=== PATIENT | female | born 1950 | race Caucasian/White ===

== ENCOUNTER → 2016-12-30 | Outpatient (CLI) | payer MEDICARE ==
[~2016-12-30] MED LIST: ALBU83IN INH; AMIT25TA PO; ASPI81TA45 PO; AUGM875T27 PO; AZIT500T2 PO; Albuterol/Ipratropium NEB; CEFD1CAP8 PO; CYMB60CA3 PO; EXCETAB81 PO; HYDR-3713 PO; IMIT50TA PO; K-TA1TAB PO; LISI10TA4 PO; METO10TA2 PO; NICO14DI20 TD; OMEP40CA2 PO; PRED10TA PO; PRED20TA PO
--- NOTE | 2016-12-30 13:45 | REP ---
RIGHT LOWER EXTREMITY DOPPLER VENOUS ULTRASOUND: 12/30/2016. Comparison: None. Clinical history: Pain and swelling in right inguinal region. Evaluate for DVT. Technique: The deep venous system of the right lower extremity is evaluated with escobar scale imaging, compression ultrasound, color imaging and duplex Doppler interrogation. Examination from the groin through the popliteal fossa into the proximal calf. Findings: There is full compressibility from the common femoral vein in the inguinal region through the popliteal vein. Color imaging confirms patency throughout the course of the deep venous system. There is respiratory variation and augmented flow at all levels. 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 Impression: 1. No Doppler venous ultrasound evidence of DVT in the right lower extremity. Signed by Tip Rocha MD 12/30/2016 01:36 P
== END ==
LOC: M RAD 13:10
PROVIDERS: ATTEND Family Medicine
DX: I80.01 Phlebitis and thrombophlebitis of superficial vessels of right lower extremity (principal)

== ENCOUNTER 2017-03-10 18:43 | Emergency (ER) | payer MEDICARE ==
[~2017-03-10] VITALS: Ht 167.6 cm; Wt 70.3 kg
[2017-03-10] MEDS ORDERED: MECL12.575 PO (19:05)
[2017-03-10] MEDS ORDERED: CYCL5TA PO (19:05)
[2017-03-10] MEDS ORDERED: PANTOPRAZOLE 40MG INJ (PROTONIX) (C9113) IV ONE (19:30)
[2017-03-10] MEDS ORDERED: NS 1,000 ML IV ONE (19:30)
[2017-03-10 20:08] LABS: BASO % 0.3 % (0.0-1.0); EOS # 0.1 K/mm3 (0.0-0.50); EOS % 2.6 % (0.0-3.0); LARGE UNSTAINED CELL # 0.1 K/mm3 (0.0-0.4); LARGE UNSTAINED CELL % 2.1 % (0.0-4.0); LYMPH % 16.5 % (24.0-44.0); MEAN CORPUSCULAR HEMOGLOBIN 32.8 pg (27.0-33.0); MEAN CORPUSCULAR HGB CONC 33.6 g/dl (32.0-36.5); MEAN CORPUSCULAR VOLUME 97.5 fl (80.0-96.0); MONO # 0.4 K/mm3 (0.0-0.8); MONO % 8.3 % (0.0-5.0); NEUTROPHILS # 3.7 K/mm3 (1.8-7.7); NEUTROPHILS % 70.2 % (36.0-66.0); PLATELET COUNT, AUTOMATED 173 k/mm3 (150-450); RED CELL DISTRIBUTION WIDTH 13.6 % (11.5-14.5); WHITE BLOOD COUNT 5.2 K/mm3 (4.0-10.0)
[2017-03-10 20:16] LABS: INR 0.9
[2017-03-10 20:27] LABS: ALBUMIN/GLOBULIN RATIO 1.18 (1.00-1.93); ALKALINE PHOSPHATASE 78 U/L (45-117); ALT/SGPT 30 U/L (12-78); ANION GAP 7 MEQ/L (8-16); AST/SGOT 11 U/L (15-37); BILIRUBIN,DIRECT < 0.1 MG/DL (0.0-0.2); BILIRUBIN,TOTAL 0.2 MG/DL (0.2-1.0); BLOOD UREA NITROGEN 19 MG/DL (7-18); CARBON DIOXIDE LEVEL 27 MEQ/L (21-32); CHLORIDE LEVEL 105 MEQ/L (98-107); CREATININE FOR GFR 0.76 MG/DL (0.55-1.02); GLOMERULAR FILTRATION RATE > 60.0 (>45); GLUCOSE, FASTING 110 MG/DL (80-110); POTASSIUM SERUM 3.7 MEQ/L (3.5-5.1); SODIUM LEVEL 139 MEQ/L (136-145); TOTAL PROTEIN 7.4 GM/DL (6.4-8.2)
[2017-03-10] MEDS ORDERED: ISOVUE-370 76% 100ML VIAL (Q9967) As Ordered ONE (21:06)
--- NOTE | 2017-03-10 21:50 | REPUSA ---
CT of the abdomen and pelvis with contrast Clinical statement: Pain. Technique: Multiple axial CT images were obtained from the base of the lungs through the floor of the pelvis utilizing 5 mm axial slices after administration of nonionic intravenous contrast. Coronal an d sagittal reconstructions were also obtained. Comparison: 11/09/2015. Findings: Chest: The visualized lung bases are clear. Abdomen: The liver, spleen, pancreas, kidneys, gallbladder, and left adrenal gland are unremarkable. There is a mixed attenuation nodule in the right adrenal gland, measuring 2.2 x 2.3 cm. The aorta de monstrates mild atherosclerotic changes, but is within normal limits. There is no evidence of abdomin al lymphadenopathy or ascites. Pelvis: The bowel is unremarkable, with no obstructive or inflammatory changes. There is minimal sigm oid diverticulosis without evidence of diverticulitis. The urinary bladder is within normal limits. T he other pelvic structures appear grossly intact. There is no evidence of pelvic lymphadenopathy or a scites. Bones: There are no suspicious osseous abnormalities seen. Impression: 1. No obstructive or inflammatory bowel changes. Mild diverticulosis. 2. Right adrenal nodule, grossly stable. 3. The hydronephrosis or nephrolithiasisseen on the prior study appears to have resolved.
[2017-03-10 22:38] VITALS: BP 178/89
--- NOTE | 2017-03-11 16:31 | ED PDOC ---
Post-Departure Follow-Up dr ball faxed formal report of ct abd/p for fu Alban Roque MD Mar 11, 2017 16:31
== END 2017-03-10 22:39 | disposition home or self-care (01) ==
LOC: M ED 19:52
DX: K92.1 Melena (principal); K92.2 Gastrointestinal hemorrhage, unspecified; I10 Essential (primary) hypertension; J44.9 Chronic obstructive pulmonary disease, unspecified; K21.9 Gastro-esophageal reflux disease without esophagitis; M54.9 Dorsalgia, unspecified; K25.9 Gastric ulcer, unspecified as acute or chronic, without hemorrhage or perforation; Z87.440 Personal history of urinary (tract) infections; Z87.442 Personal history of urinary calculi; Z79.899 Other long term (current) drug therapy; Z79.82 Long term (current) use of aspirin; Z87.891 Personal history of nicotine dependence
CPT/HCPCS: 74177; 80048; 80076; 83605; 85025; 85610; 85730; 86850; 86900; 86901; 96374; 99284; C9113; Q9967

== ENCOUNTER → 2017-03-23 | Outpatient (CLI) | payer MEDICARE ==
[~2017-03-23] MED LIST changes: +CYCL5TA PO; +MECL12.575 PO
--- NOTE | 2017-03-23 17:25 | REP ---
HISTORY: Renal calculi. COMPARISON: 11/13/2015 A few calcifications are suspected superimposed over the right nephric silhouette. Otherwise, obscured by intestinal content. Most of the right nephric silhouette is obscured by intestinal content. The organ silhouettes, insofar as delineated are otherwise unremarkable. There is no free air. Gas and stool are seen throughout the colon and within the rectosigmoid region. There is no change in the osseous structures. IMPRESSION: Possible calcification left kidney with findings and limitations as described above. Signed by Ion Baker DO 03/24/2017 10:07 A
== END ==
LOC: M SMT 11:20
PROVIDERS: ATTEND Urology
DX: N20.0 Calculus of kidney (principal)

== ENCOUNTER 2017-04-03 10:05 | Emergency (ER) | payer MEDICARE ==
[~2017-04-03] VITALS: Ht 165.1 cm; Wt 76.5 kg
[~2017-04-03 10:05] MED LIST changes: -AUGM875T27 PO; +AUGM875T28 PO; -CYCL5TA PO; +CYCL5TAB PO
--- NOTE | 2017-04-03 12:37 | REP ---
Clinical: Pain and swelling . Technique: Sanchez scale and color Doppler evaluation using linear high frequency transducer. Findings: Ultrasound examination of the right lower extremity deep venous structures from the common femoral vein to the popliteal vein demonstrates normal compressibility flow and wave patterns in response to respiration and augmentation. There is no evidence for deep venous thrombosis. 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 Impression: No evidence for deep venous thrombosis. Signed by Ranjeet Luis MD 04/03/2017 12:28 P
[2017-04-03] MEDS ORDERED: ACET30TAB PO (12:46)
[2017-04-03 13:03] VITALS: BP 162/82
[2017-05-22] MEDS ORDERED: ALBU17IN INH (09:17)
[2017-05-22] MEDS ORDERED: ASPI1TAB PO (09:17)
[2017-05-22] MEDS ORDERED: LISI10TA2 PO (09:17)
== END 2017-04-03 13:04 | disposition home or self-care (01) ==
LOC: M ED 11:11
DX: R60.9 Edema, unspecified (principal); M79.671 Pain in right foot; F41.9 Anxiety disorder, unspecified; F33.9 Major depressive disorder, recurrent, unspecified; G43.909 Migraine, unspecified, not intractable, without status migrainosus; Z79.899 Other long term (current) drug therapy; Z79.82 Long term (current) use of aspirin; Z87.891 Personal history of nicotine dependence

== ENCOUNTER → 2017-05-13 | Outpatient (CLI) | payer MEDICARE ==
[~2017-05-13] MED LIST changes: +ACET30TAB PO; +ADV100INH INH; +ALBU17IN INH; +ASPI1TAB PO; +ASPI81TAEC PO; +CYCL10TA PO; +IBUP1TAB6 PO; +IPRASOL4 INH; +LISI10TA2 PO; +MECL-68 PO; +NITR100C39 PO; +PEG1POW PO; +PHEN-500 PO; +PHEN200T22 PO; +POTA10CA PO; +PRED10TA2 PO; +SENN1TAB2 PO; +SUCR1TAB56 PO
--- NOTE | 2017-05-13 14:03 | REP ---
RIGHT FINGERS, FOUR VIEWS: HISTORY: Crush injury. A small ossified density is present ventral to the distal interphalangeal joint of the 3rd digit. This represents ligamentous or tendon calcification or possibly an avulsion fracture fragment. The joint spaces are normal in appearance. There is no dislocation. A defect is present in the overlying soft tissue. IMPRESSION: There is a small ossified density ventral to the distal interphalangeal joint of the 3rd digit. This represents ligamentous or tendon calcification or possibly an avulsion fracture fragment. Signed by Jimenez Berry MD 05/13/2017 02:09 P
== END ==
LOC: M ADAMS 10:29
PROVIDERS: ATTEND Physician Assistant
DX: S67.192A Crushing injury of right middle finger, initial encounter (principal); X58.XXXA Exposure to other specified factors, initial encounter; Y93.9 Activity, unspecified; Y92.9 Unspecified place or not applicable; Y99.8 Other external cause status

== ENCOUNTER 2017-06-04 07:05 | Outpatient (CLI) | payer MEDICARE ==
[~2017-06-04] VITALS: Ht 167.6 cm; Wt 77.1 kg
[~2017-06-04 07:05] MED LIST changes: -ADV100INH INH; -ASPI81TAEC PO; -CYCL10TA PO; -IBUP1TAB6 PO; -IPRASOL4 INH; -MECL-68 PO; -NITR100C39 PO; -PEG1POW PO; -PHEN-500 PO; -PHEN200T22 PO; -POTA10CA PO; -PRED10TA2 PO; -SENN1TAB2 PO; -SUCR1TAB56 PO
[2017-06-04] MEDS ORDERED: LR 1,000 ML IV SCH (07:15)
[2017-06-04] MEDS ORDERED: PROPOFOL 500 MG/50 ML VIAL As Ordered ONE (08:30)
[2017-06-04] MEDS ORDERED: LIDOCAINE 2% INJ 100 MG/5 ML SDV (FOR ANES.) As Ordered ONE (08:30)
[2017-06-04] MEDS ORDERED: GLYCOPYRROLATE INJ 0.2 MG/ML 2 ML VIAL As Ordered ONE (09:00)
--- NOTE | 2017-06-04 09:32 | ROOR ---
Patient Name: Ericka Kerr Procedure Date: 06/04/2017 8:24 AM Date of : 1950 Age: 66 Room: [facility] Gender: Female Note Status: Finalized Procedure: Upper GI endoscopy Indications: Hematochezia, Personal history of peptic ulcer disease Providers: Ezio Olivas MD Referring MD: Vickey Smith MD Requesting Provider: Medicines: Monitored Anesthesia Care Complications: No immediate complications. Procedure: Pre-Anesthesia Assessment: - Prior to the procedure, a History and Physical was performed, and patient medications and allergies were reviewed. The patient is competent. The risks and benefits of the procedure and the sedation options and risks were discussed with the patient. All questions were answered and informed consent was obtained. Patient identification and proposed procedure were verified by the physician, the nurse and the anesthesiologist in the procedure room. Mental Status Examination: alert and oriented. Airway Examination: normal oropharyngeal airway and neck mobility. CV Examination: regular rate and rhythm. Prophylactic Antibiotics: The patient does not require prophylactic antibiotics. Prior Anticoagulants: The patient has taken no previous anticoagulant or antiplatelet agents. ASA Grade Assessment: II - A patient with mild systemic disease. After reviewing the risks and benefits, the patient was deemed in satisfactory condition to undergo the procedure. The anesthesia plan was to use monitored anesthesia care (MAC). Immediately prior to administration of medications, the patient was re-assessed for adequacy to receive sedatives. The heart rate, respiratory rate, oxygen saturations, blood pressure, adequacy of pulmonary ventilation, and response to care were monitored throughout the procedure. The physical status of the patient was re-assessed after the procedure. The Endoscope was introduced through the mouth, and advanced to the second part of duodenum. The upper GI endoscopy was accomplished without difficulty. The patient tolerated the procedure well. Findings: The examined esophagus was normal. The Z-line was regular and was found 38 cm from the incisors. A few localized, small bleeding erosions were found on the posterior wall of the stomach. There were no stigmata of recent bleeding. A benign-appearing, intrinsic mild stenosis was found at the pylorus. This was traversed. Biopsies were taken with a cold forceps for histology. Estimated blood loss was minimal. One non-bleeding superficial gastric ulcer with adherent clot was found at the pylorus. Biopsies were taken with a cold forceps for histology. This ulcer was found in the pyloric channel. There was some adherent granular brown material which may have represented old blood or necrotic material The examined duodenum was normal. Impression: - Normal esophagus. - Z-line regular, 38 cm from the incisors. - Bleeding erosive gastropathy. - Gastric stenosis was found at the pylorus. Biopsied. - Non-bleeding gastric ulcer with adherent clot. Biopsied. - Normal examined duodenum. Recommendation: - Repeat upper endoscopy in 2 months to check healing. Ezio Olivas MD 06/04/2017 9:31:58 AM Number of Addenda: 0 Note Initiated On: 06/04/2017 8:24 AM Estimated Blood Loss: Estimated blood loss was minimal.
[2017-06-04 09:45] VITALS: BP 155/81
--- NOTE | 2017-06-04 09:58 | ROOR ---
Patient Name: Ericka Kerr Procedure Date: 06/04/2017 8:25 AM Date of : 1950 Age: 66 Room: [facility] Gender: Female Note Status: Finalized Procedure: Colonoscopy Indications: Rectal bleeding, Follow-up for history of adenomatous polyps in the colon Providers: Ezio Olivas MD Referring MD: Vickey Smith MD Requesting Provider: Medicines: Monitored Anesthesia Care Complications: No immediate complications. Procedure: Pre-Anesthesia Assessment: - Prior to the procedure, a History and Physical was performed, and patient medications and allergies were reviewed. The patient is competent. The risks and benefits of the procedure and the sedation options and risks were discussed with the patient. All questions were answered and informed consent was obtained. Patient identification and proposed procedure were verified by the physician, the nurse and the anesthesiologist in the procedure room. Mental Status Examination: alert and oriented. Airway Examination: normal oropharyngeal airway and neck mobility. CV Examination: regular rate and rhythm. Prophylactic Antibiotics: The patient does not require prophylactic antibiotics. Prior Anticoagulants: The patient has taken no previous anticoagulant or antiplatelet agents. ASA Grade Assessment: II - A patient with mild systemic disease. After reviewing the risks and benefits, the patient was deemed in satisfactory condition to undergo the procedure. The anesthesia plan was to use monitored anesthesia care (MAC). Immediately prior to administration of medications, the patient was re-assessed for adequacy to receive sedatives. The heart rate, respiratory rate, oxygen saturations, blood pressure, adequacy of pulmonary ventilation, and response to care were monitored throughout the procedure. The physical status of the patient was re-assessed after the procedure. The Colonoscope was introduced through the anus and advanced to the cecum, identified by the ileocecal valve. The colonoscopy was performed without difficulty. The patient tolerated the procedure well. The quality of the bowel preparation was good but there was some retained matter which obscured the cecum. Findings: The perianal exam findings include non-thrombosed external hemorrhoids and thrombosed external hemorrhoids. Multiple medium-mouthed diverticula were found in the sigmoid colon. Impression: - Non-thrombosed external hemorrhoids and thrombosed external hemorrhoids found on perianal exam. - Diverticulosis in the sigmoid colon. - No specimens collected. Recommendation: - Discharge patient to home. - Resume previous diet. - Continue present medications. Ezio Olivas MD 06/04/2017 9:58:37 AM Number of Addenda: 0 Note Initiated On: 06/04/2017 8:25 AM Estimated Blood Loss: Estimated blood loss: none.
== END 2017-06-04 09:55 | disposition home or self-care (01) ==
LOC: M OPP 07:05
PROVIDERS: ATTEND Surgery
DX: K62.5 Hemorrhage of anus and rectum (principal); Z86.010 Personal history of colon polyps; K64.5 Perianal venous thrombosis; K57.30 Diverticulosis of large intestine without perforation or abscess without bleeding; Z87.11 Personal history of peptic ulcer disease; K92.1 Melena; K25.4 Chronic or unspecified gastric ulcer with hemorrhage; K31.1 Adult hypertrophic pyloric stenosis; K92.2 Gastrointestinal hemorrhage, unspecified; K31.89 Other diseases of stomach and duodenum; R10.13 Epigastric pain; J44.9 Chronic obstructive pulmonary disease, unspecified; F41.9 Anxiety disorder, unspecified; F32.9 Major depressive disorder, single episode, unspecified; M54.2 Cervicalgia; G43.909 Migraine, unspecified, not intractable, without status migrainosus; Z79.82 Long term (current) use of aspirin; Z79.899 Other long term (current) drug therapy
CPT/HCPCS: 43239; 88305; G0105

== ENCOUNTER 2017-06-15 12:25 | Emergency (ER) | payer MEDICARE ==
[~2017-06-15] VITALS: Ht 165.1 cm; Wt 77.3 kg
[2017-06-15 12:25] VITALS: BP 148/84
[~2017-06-15 12:25] MED LIST changes: -ADV100INH INH; -ASPI81TAEC PO; -CYCL10TA PO; -IBUP1TAB6 PO; -IPRASOL4 INH; -MECL-68 PO; -NITR100C39 PO; -PEG1POW PO; -PHEN-500 PO; -PHEN200T22 PO; -POTA10CA PO; -PRED10TA2 PO; -SENN1TAB2 PO; -SUCR1TAB56 PO
[2017-06-15] MEDS ORDERED: SUCR1TAB56 PO (12:37)
[2017-06-16] MEDS ORDERED: IBUP1TAB6 PO (13:07)
[2017-06-16] MEDS ORDERED: PHEN200T22 PO (13:07)
[2017-06-16] MEDS ORDERED: NITR100C39 PO (13:07)
[2017-06-16] MEDS ORDERED: MECL-68 PO (20:06)
[2017-06-16] MEDS ORDERED: IPRASOL4 INH (20:06)
[2017-06-16] MEDS ORDERED: PHEN-500 PO (20:06)
[2017-06-16] MEDS ORDERED: POTA10CA PO (20:06)
[2017-06-16] MEDS ORDERED: ASPI81TAEC PO (20:06)
[2017-06-16] MEDS ORDERED: CYCL10TA PO (20:06)
== END 2017-06-15 13:13 | disposition left against medical advice (07) ==
LOC: M ED 12:25
DX: R10.9 Unspecified abdominal pain (principal); Z53.29 Procedure and treatment not carried out because of patient's decision for other reasons

== ENCOUNTER → 2017-06-15 | Outpatient (REF) | payer MEDICARE ==
[~2017-06-15] MED LIST changes: +ADV100INH INH; +ASPI81TAEC PO; +CYCL10TA PO; +IBUP1TAB6 PO; +IPRASOL4 INH; +MECL-68 PO; +NITR100C39 PO; +PEG1POW PO; +PHEN-500 PO; +PHEN200T22 PO; +POTA10CA PO; +PRED10TA2 PO; +SENN1TAB2 PO; +SUCR1TAB56 PO
== END ==
LOC: M LAB REF 20:15
PROVIDERS: ATTEND Physician Assistant
DX: N39.0 Urinary tract infection, site not specified (principal)

== ENCOUNTER 2017-06-16 12:50 | Inpatient (IN) | payer MEDICARE ==
[~2017-06-16] VITALS: Ht 165.1 cm; Wt 77.6 kg
[~2017-06-16 12:50] MED LIST changes: +SUCR1TAB56 PO
[2017-06-16] MEDS ORDERED: IBUP1TAB6 PO (13:07)
[2017-06-16] MEDS ORDERED: NITR100C39 PO (13:07)
[2017-06-16] MEDS ORDERED: PHEN200T22 PO (13:07)
[2017-06-16] MEDS ORDERED: ONDANSETRON 4MG/2ML VIAL (J2405) IV ONE (13:30)
[2017-06-16] MEDS ORDERED: MORPHINE 2 MG/ML 1ML SYRINGE IV ONE (13:30)
[2017-06-16 13:34] LABS: BASO % 0.1 % (0.0-1.0); EOS # 0.1 K/mm3 (0.0-0.50); EOS % 0.8 % (0.0-3.0); LARGE UNSTAINED CELL # 0.1 K/mm3 (0.0-0.4); LARGE UNSTAINED CELL % 1.3 % (0.0-4.0); LYMPH # 0.4 K/mm3 (1.5-4.5); LYMPH % 2.1 % (24.0-44.0); MEAN CORPUSCULAR HEMOGLOBIN 32.2 pg (27.0-33.0); MEAN CORPUSCULAR HGB CONC 32.6 g/dl (32.0-36.5); MEAN CORPUSCULAR VOLUME 98.6 fl (80.0-96.0); MONO # 0.7 K/mm3 (0.0-0.8); MONO % 6.7 % (0.0-5.0); NEUTROPHILS # 9.3 K/mm3 (1.8-7.7); NEUTROPHILS % 89.1 % (36.0-66.0); PLATELET COUNT, AUTOMATED 132 k/mm3 (150-450); RED CELL DISTRIBUTION WIDTH 13.9 % (11.5-14.5); WHITE BLOOD COUNT 10.5 K/mm3 (4.0-10.0)
[2017-06-16 13:54] LABS: ALBUMIN 3.5 GM/DL (3.2-5.2); ALBUMIN/GLOBULIN RATIO 1.06 (1.00-1.93); ALKALINE PHOSPHATASE 72 U/L (45-117); ALT/SGPT 24 U/L (12-78); ANION GAP 10 MEQ/L (8-16); AST/SGOT 14 U/L (15-37); BILIRUBIN,DIRECT 0.1 MG/DL (0.0-0.2); BLOOD UREA NITROGEN 22 MG/DL (7-18); CALCIUM LEVEL 8.7 MG/DL (8.8-10.2); CARBON DIOXIDE LEVEL 23 MEQ/L (21-32); CHLORIDE LEVEL 104 MEQ/L (98-107); CREATININE FOR GFR 0.93 MG/DL (0.55-1.02); GLOMERULAR FILTRATION RATE > 60.0 (>45); GLUCOSE, FASTING 150 MG/DL (80-110); POTASSIUM SERUM 3.5 MEQ/L (3.5-5.1); SODIUM LEVEL 137 MEQ/L (136-145); TOTAL PROTEIN 6.8 GM/DL (6.4-8.2)
[2017-06-16 14:02] LABS: BILIRUBIN,TOTAL 0.4 MG/DL (0.2-1.0)
--- NOTE | 2017-06-16 14:39 | REP ---
Clinical: Abdominal pain. Distension. Technique: Upright view of the chest with supine and upright views of the abdomen and pelvis. Findings: Upright view of the chest suggests chronic changes with basilar atelectasis. No free air below the diaphragm to suspect pneumoperitoneum. Supine and upright views of the abdomen and pelvis demonstrate nonspecific bowel gas pattern without obstruction or perforation. Hepatomegaly cannot be excluded. No abnormal calcifications. Skeletal structures are intact. Impression: Nonspecific bowel gas pattern. Possible hepatomegaly. Trace basilar atelectasis cannot be excluded. Signed by Ranjeet Luis MD 06/16/2017 02:31 P
--- NOTE | 2017-06-16 15:33 | REP ---
Clinical: Renal colic. Comparison: 03/10/2017. Findings: Evaluation of the urinary tract system demonstrates asymmetric right perinephric and periureteral stranding without hydronephrosis and without obstructing ureteral calculus. Findings may reflect pyelonephritis and should be correlated clinically. The left kidney demonstrates 2 mm nonobstructing renal calculi and renovascular calcifications without perinephric stranding or hydronephrosis. The bilateral ureters and bladder appear normal. Lung bases demonstrate chronic changes. Visualized heart and pericardium demonstrate small pericardial effusion. Liver is borderline hepatomegaly. Spleen, pancreas, gallbladder, and bilateral adrenal glands are normal. Right adrenal adenoma remains stable. The enteric system is without obstruction or acute inflammatory process although mild to moderate fecal stasis and constipation cannot be excluded. Pelvis demonstrates normal bladder and age-appropriate uterus/adnexa. No ascites. No free air. No adenopathy. Atherosclerotic changes to the vasculature noted without aneurysm. Musculoskeletal structures demonstrate age-related changes. Impression: 1. Mild asymmetric and relatively acute right-sided perinephric stranding without hydroureternephrosis or obstructing calculus. Findings may reflect pyelonephritis or recently passed stone. Left kidney with 2 mm nonobstructing calculus. 2. Mild fecal stasis and possible constipation. 3. Stable right adrenal adenoma. 4. No further acute abdominopelvic pathology appreciated. Signed by Ranjeet Luis MD 06/16/2017 03:25 P
[2017-06-16 16:29] LABS: MICROSCOPIC INDICATED? MAN YES (NO)
[2017-06-16 16:40] LABS: BACTERIA, URINE NONE SEEN; HYALINE CAST, URINE NONE SEEN /lpf (0-1); RBC, URINE 0-1 /hpf (0-3); SQUAMOUS EPITHELIAL CELL URINE SMALL AMOUNT /hpf (SMALL AMT); WBC, URINE 0-1 /hpf (0-3)
[2017-06-16 16:41] LABS: MICROSCOPIC EXAM PERFORMED
[2017-06-16] MEDS ORDERED: NORCO, ANEXSIA 5/325MG TABLET (HYDROcodone/ACETAMINOPHEN) PO ONE (16:45)
[2017-06-16] MEDS ORDERED: NS 1,000 ML IV SCH ×2 (17:29→20:45)
[2017-06-16] MEDS ORDERED: ONDANSETRON 4MG/2ML VIAL (J2405) IV PRN (17:30)
[2017-06-16] MEDS: ACETAMINOPHEN TAB 650MG DOSE (2X325MG) PO PRN (17:41)
--- NOTE | 2017-06-16 19:19 | IPN ---
DATE: 06/16/2017 CODE STATUS: Full code. CHIEF COMPLAINT: Abdominal/flank pain. HISTORY OF PRESENT ILLNESS: A 66-year-old female presented to the emergency department with abdominal discomfort with radiation to the left flank, back pain. She denies any fevers but says that she has had some chills, some nausea with no vomiting, and she has noticed some lower extremity pain for the last few days. She was started on Macrobid and Pyridium for a urinary tract infection a few days ago by her primary care provider. That has since gotten worse, and she has described having some dysuria. OTHER SIGNIFICANT HISTORY: Includes recent bone marrow biopsy at [facility] for a possible underlying malignancy. She is vague about her history regarding this but states that she was told that she may have an underlying gastric cancer. OTHER SIGNIFICANT PAST MEDICAL HISTORY: 1. Chronic obstructive pulmonary disease (COPD). 2. Migraines. 3. Gastroesophageal reflux disease (GERD). 4. Hypertension. 5. History of ovarian cyst. 6. History of nephrolithiasis. 7. Left eye blindness. 8. Right eye floaters. 9. Difficulty hearing. 10. Tobacco use. FAMILY HISTORY: Noncontributory. SOCIAL HISTORY: Tobacco use. Denies alcohol. ALLERGIES: No known drug allergies. HOME MEDICATIONS: - Shannon 5/325 one tablet every 6 hours as needed - albuterol inhaler as directed - albuterol nebulizer as directed - Elavil 12.5 mg at bedtime - aspirin 81 mg daily - Flexeril 10 mg twice a day - Cymbalta 60 mg daily - Excedrin Extra Strength two tablets every 6 hours as needed for migraines - ibuprofen 600 mg every 6 hours as needed for pain - meclizine 12.5 mg three times a day as needed - Reglan 10 mg four times a day as needed for migraines - omeprazole 40 mg twice a day - Pyridium 200 mg three times a day - potassium chloride 20 mEq daily - Carafate 1 gram four times a day - Imitrex 25 mg by mouth as needed for migraines - lisinopril/hydrochlorothiazide 10/12.5 mg daily - Macrobid 100 mg twice a day REVIEW OF SYSTEMS: CONSTITUTIONAL: Vague chills. No fevers. No rigors. Decreased appetite. HEENT: No headache, lightheadedness, dizziness, blurry vision, double vision, or tinnitus. No difficulty with speech or swallow. PULMONARY: Positive history of COPD, but she denies productive sputum, cough, wheeze. CARDIOVASCULAR: No chest pain, paroxysmal nocturnal dyspnea (PND), orthopnea; however, she has had some vague lower extremity edema and pain in the calves. GASTROINTESTINAL: No nausea, vomiting, diarrhea. Bowel movements are regular. GENITOURINARY: She has had some dysuria, left flank pain but denies any hematuria. MUSCULOSKELETAL: No bone, muscle, or joint pain, swelling, or erythema. NEUROLOGIC: No paresthesias, paralysis. She does have a history of migraines. ENDOCRINE: Negative for diabetes, negative for thyroid disorder. LYMPHATICS: No lumps, bumps, swelling in the neck, axilla, or groin. No night sweats. No weight loss. HEMATOLOGY: No bleeding or bruising disorder. No prior history of venous thromboembolism. ONCOLOGY: Questionable history of gastric cancer with recent bone marrow biopsy. We may want to get records from [facility], since she is vague about this history. A 10 point review of systems complete. Pertinent positives are listed. PHYSICAL EXAMINATION: Temperature is 99.4, repeat is 101.3, pulse 128 and regular, blood pressure (BP) 158/71, SpO2 is 90. GENERAL: The patient appears to be in no acute distress. She is alert, pleasant. HEENT: Unremarkable. LUNGS: Clear to auscultation. HEART: Regular rate, although she does appear to have tachycardia. ABDOMEN: Vague abdominal discomfort with costovertebral angle (CVA) tenderness noted on the left. EXTREMITIES: She has no edema but positive calf tenderness bilaterally. NEUROLOGIC: Cranial nerves II-XII grossly intact. LABORATORY DATA AND DIAGNOSTICS: A 12-lead EKG: Sinus tachycardia with ventricular rate of 135. White count 10.5, hemoglobin 12.3, hematocrit 37.6, platelets 132,000. Sodium 137, potassium 3.5, chloride 104, bicarbonate 23, anion gap 10, BUN is 22, creatinine 0.93, glucose 150. Lactic acid 1.2. Total bilirubin 0.4, direct bilirubin 0.1, AST 14, ALT 24, alkaline phosphatase 72. Troponin less than 0.02. Albumin 3.5. Lipase 55. Urinalysis obscured and orange, likely due to Pyridium. Urine culture pending. CT of the abdomen and pelvis: Mild asymmetry noted and relative to acute right-sided perinephric stranding without hydroureteronephrosis or obstructing calculus. Mild fecal stasis, possible constipation. Stable right adrenal adenoma. IMPRESSION: Ms. Kerr is a 66-year-old female who presents with urinary symptoms, left flank pain and what appears to be pyelonephritis. She does have signs or symptoms likely of underlying sepsis. Will need to admit her with intravenous (IV) antibiotics, fluids, supportive therapy, and watch her closely due to the pyelonephritis. 1. Acute pyelonephritis. 2. Sepsis. Based on symptomatology, elevated temperature, heart rate, and elevated white count. 3. Sinus tachycardia, likely due to febrile illness. 4. Chronic obstructive pulmonary disease (COPD). 5. Migraines. 6. Gastroesophageal reflux disease (GERD). 7. Hypertension. 8. History of nephrolithiasis. 9. Tobacco use. PLAN: The patient will be admitted to progressive care unit (PCU) on telemetry due to her sinus tachycardia and what appears to be sepsis. Will continue with IV fluids, Rocephin. She does have good renal function. Currently will give her a dose of Motrin to help out with her temperature that is 101.3. Will check blood cultures, urine culture, continue her home medications except for the lisinopril. Deep vein thrombosis (DVT) prophylaxis with Lovenox. DISPOSITION: Anticipate she will be here greater than 2 midnights.
[2017-06-16] MEDS: IBUPROFEN 600 MG TAB PO PRN (19:43)
[2017-06-16] MEDS ORDERED: IPRASOL4 INH (20:06)
[2017-06-16] MEDS ORDERED: PHEN-500 PO (20:06)
[2017-06-16] MEDS ORDERED: POTA10CA PO (20:06)
[2017-06-16] MEDS ORDERED: CYCL10TA PO (20:06)
[2017-06-16] MEDS ORDERED: MECL-68 PO (20:06)
[2017-06-16] MEDS ORDERED: ASPI81TAEC PO (20:06)
[2017-06-16] MEDS ORDERED: METOCLOPRAMIDE 10 MG TAB PO PRN (20:45)
[2017-06-16] MEDS ORDERED: CYCLOBENZAPRINE 10 MG TAB PO PRN (20:45)
--- NOTE | 2017-06-16 20:50 | REPUSA ---
Clinical history: Pain, swelling. Findings: The common femoral, superficial femoral, popliteal, and other deep venous structures compre ss normally and demonstrate normal color Doppler flow. Normal venous waveforms with augmentation are seen. Incidental note is made of the duplicated right superficial femoral vein. Impression: No evidence of deep vein thrombosis in either femoral popliteal venous system.
[2017-06-16 21:00] VITALS: BP 161/69
[2017-06-16] MEDS: MORPHINE 2 MG/ML 1ML SYRINGE IV PRN (21:00)
[2017-06-16] MEDS ORDERED: DULoxetine 30 MG CAP (CYMBALTA) PO SCH (21:00)
[2017-06-16] MEDS: cefTRIAXone SOD 1 GM in D5W MINI-BAG PLUS 50 ML IV SCH (21:18)
[2017-06-16] MEDS: DOCUSATE SODIUM 100 MG CAP PO SCH (21:29)
[2017-06-16] MEDS: ASPIRIN 81 MG ENTERIC TAB PO SCH (21:30)
[2017-06-16] MEDS: OMEPRAZOLE 20 MG CAP PO SCH (21:30)
[2017-06-17] VITALS: BP 114/56
[2017-06-17] MEDS: SUCRALFATE 1 GM TAB PO SCH ×5 (00:39→21:25)
[2017-06-17] MEDS: AMITRIPTYLINE 25 MG TAB PO SCH ×2 (00:40→21:25)
[2017-06-17] MEDS: EXCEDRIN MIGRAINE TABLET PO PRN (00:40)
[2017-06-17] MEDS: SUMAtriptan SUCCINATE 25 MG TAB PO PRN ×3 (02:06→19:34)
[2017-06-17 04:00] VITALS: BP 147/64
[2017-06-17] MEDS: PERCOCET 5MG/325MG TAB PO PRN ×4 (04:00→19:35)
[2017-06-17 07:29] LABS: EOS # 0.1 K/mm3 (0.0-0.50); EOS % 0.7 % (0.0-3.0); LARGE UNSTAINED CELL # 0.1 K/mm3 (0.0-0.4); LARGE UNSTAINED CELL % 1.5 % (0.0-4.0); LYMPH # 0.2 K/mm3 (1.5-4.5); LYMPH % 1.8 % (24.0-44.0); MEAN CORPUSCULAR HGB CONC 33.9 g/dl (32.0-36.5); MEAN CORPUSCULAR VOLUME 97.1 fl (80.0-96.0); MONO # 0.3 K/mm3 (0.0-0.8); MONO % 3.6 % (0.0-5.0); NEUTROPHILS % 92.5 % (36.0-66.0); PLATELET COUNT, AUTOMATED 110 k/mm3 (150-450); RED CELL DISTRIBUTION WIDTH 13.8 % (11.5-14.5); WHITE BLOOD COUNT 8.6 K/mm3 (4.0-10.0)
[2017-06-17] MEDS ORDERED: diphenhydrAMINE INJ 50MG/ML VIAL (J1200) IV ONE (07:30)
[2017-06-17] MEDS ORDERED: METOCLOPRAMIDE INJ 10MG/2ML VIAL (J2765) IV ONE (07:30)
[2017-06-17] MEDS ORDERED: KETOROLAC 30 MG/ML VIAL (J1885) IV ONE (07:30)
[2017-06-17 07:36] VITALS: BP 145/67
[2017-06-17] MEDS: ENOXAPARIN 30 MG/0.3 ML SYR (J1650) SC SCH (07:44)
[2017-06-17] MEDS: DOCUSATE SODIUM 100 MG CAP PO SCH ×2 (07:44→21:25)
[2017-06-17] MEDS: OMEPRAZOLE 20 MG CAP PO SCH ×2 (07:44→21:25)
[2017-06-17] MEDS: POTASSIUM CHLORIDE 10 MEQ SR TABLET PO SCH (07:44)
[2017-06-17] MEDS: ALBUTEROL SULFATE 2.5 MG/0.5 ML INH NEB SOLN NEB PRN ×2 (08:42→14:32)
--- NOTE | 2017-06-17 11:15 | REP ---
Clinical: Chest pain. Dyspnea. Technique: PA and lateral. Comparison: 06/16/2017. Findings: Acute bibasilar atelectasis and small right pleural effusion represent a change from prior examination. Mediastinum and cardiac silhouette are normal. No pneumothorax. Skeletal structures intact. Impression: Acute bibasilar atelectasis and small pleural effusion. Signed by Ranjete Luis MD 06/17/2017 11:06 A
[2017-06-17 12:23] VITALS: BP 125/62
[2017-06-17 13:58] VITALS: BP 118/57
--- NOTE | 2017-06-17 14:14 | IPNPDOC ---
Text Note Date of Service The patient was seen on 06/17/17. NOTE Subjective: Patient is a 66 year old female with a PMHx of COPD (not on O2), HTN, Hx of Nephrolithiasis, Migraine headaches, and GERD who presented to the ER with complaints of abdominal pain radidating to her left and right flanks / back. She deneis any fevers, noted some chills. She was treated for a possible UTI a few days ago with Macrobid and Pyridium by her PCP. She noted that her dysuria failed to improve. She also noted that at [facility] she had a bone marrow biopsy, but wasn 't sure why it was done. I have advised her that we can request the medical records from there. Patient was seen and examined at the bedside. She notes that her abdominal pain is beginning to improve from the point of ER arrival. She does note some shortness of breath and lower leg swelling. Objective: Vitals (See below) General: Lying in bed, no acute distress, comfortable, AAOx3 HEENT: NC, AT CVS: Tachycardic, regular rhythm, +S1S2 Lungs: Fair air entry b/l, + crackles at bilateral lung bases Abdomen: Soft, ND, NT, +Right CVA tenderness Extremities: +1 pitting edema bilaterally, - Calf tenderness Assessment and plan: Abdominal pain / Flank pain - likely 2/2 right sided acute pyelonephritis - Recent history of UTI that failed to improve - Presented with abdominal pain radiating to flank, associated with nausea and chills - Leukocytosis initially has resolved, no lactic acidosis, no renal dysfunction - UA equivocal, will repeat - CT abdomen / pelvis: right sided perinephric stranding, no hydro, no obstruction, pyelo vs. passed stone, mild fecal stasis - Blood and urine cultures remain pending - c/w Ceftriaxone Desaturation - requiring supplemental oxygen - possibly 2/2 fluid overload - CXR 06/17: acute bibasilar atelectasis and small pleural effusions - CT abdomen / pelvis: indicate small pericardial effusion - ECHO ordered - Fluids not continued; received 1 L of NS in the ER - Will start incentive spirometry Adrenal adenoma - CT abdomen / pelvis 06/16: remains stable compared to prior COPD - no evidence of exacerbation at this time - has not required oxygen as an outpatient - c/w inhaled therapy HTN - BP medications currently on hold; - will continue to hold Migraine headaches - Reported to have significant headache this morning - s/p Reglan / Toradol / Benadryl IV; provided resolution - c/w Tylenol PRN and Sumatriptan PRN Constipation - c/w Docusate Depression - c/w Duloxetine and Amitriptyline Hx of Nephrolithiasis Nicotine dependence GERD - c/w omeprazole and sucralfate DVT prophylaxis - c/w Lovenox VS,Fishbone, I+O VS, Fishbone, I+O Laboratory Tests 06/17/17 07:07 Red Blood Count 3.47 L, Mean Corpuscular Volume 97.1 H, Mean Corpuscular Hemoglobin 33.0, Mean Corpuscular Hemoglobin Concent 33.9, Red Cell Distribution Width 13.8, Neutrophils (%) (Auto) 92.5 H, Lymphocytes (%) (Auto) 1.8 L, Monocytes (%) (Auto) 3.6, Eosinophils (%) (Auto) 0.7, Basophils (%) (Auto ) 0.0, Neutrophils # (Auto) 8.0 H, Lymphocytes # (Auto) 0.2 L, Monocytes # (Auto ) 0.3, Eosinophils # (Auto) 0.1, Basophils # (Auto) 0.0 Vital Signs Date Time Temp Pulse Resp B/P (MAP) Pulse Ox O2 Delivery O2 Flow Rate FiO2 06/17/17 12:23 97.7 93 20 125/62 (83) 95 Nasal Cannula 3.0 I&O- Last 24 Hours up to 6 AM 06/17/17 06:00 Intake Total 240 ml Output Total 1500 ml Balance -1260 ml CHEO HOUSTON MD Jun 17, 2017 14:14
[2017-06-17] MEDS ORDERED: SLF 3 ML SYR IV PRN ×2 (19:45→21:15)
[2017-06-17 20:00] VITALS: BP 140/71
[2017-06-17] MEDS: cefTRIAXone SOD 1 GM in D5W MINI-BAG PLUS 50 ML IV SCH (21:25)
[2017-06-17] MEDS: ASPIRIN 81 MG ENTERIC TAB PO SCH (21:25)
[2017-06-17] MEDS: SLF 3 ML SYR IV SCH (21:26)
[2017-06-17] MEDS ORDERED: SLF 3 ML SYR IV SCH (22:00)
[2017-06-18] VITALS: BP 123/56
[2017-06-18] MEDS: SUMAtriptan SUCCINATE 25 MG TAB PO PRN (02:15)
[2017-06-18] MEDS: PERCOCET 5MG/325MG TAB PO PRN ×3 (02:16→16:23)
[2017-06-18] MEDS: ALBUTEROL SULFATE 2.5 MG/0.5 ML INH NEB SOLN NEB PRN ×3 (02:28→16:55)
[2017-06-18 04:00] VITALS: BP 139/67
[2017-06-18] MEDS: SLF 3 ML SYR IV SCH ×3 (04:15→20:25)
[2017-06-18 06:05] LABS: EOS % 0.1 % (0.0-3.0); LARGE UNSTAINED CELL # 0.2 K/mm3 (0.0-0.4); LARGE UNSTAINED CELL % 3.2 % (0.0-4.0); LYMPH # 0.2 K/mm3 (1.5-4.5); LYMPH % 3.2 % (24.0-44.0); MEAN CORPUSCULAR HEMOGLOBIN 32.7 pg (27.0-33.0); MEAN CORPUSCULAR HGB CONC 33.6 g/dl (32.0-36.5); MEAN CORPUSCULAR VOLUME 97.2 fl (80.0-96.0); MONO # 0.6 K/mm3 (0.0-0.8); MONO % 8.8 % (0.0-5.0); NEUTROPHILS # 6.1 K/mm3 (1.8-7.7); NEUTROPHILS % 84.6 % (36.0-66.0); PLATELET COUNT, AUTOMATED 123 k/mm3 (150-450); RED CELL DISTRIBUTION WIDTH 13.6 % (11.5-14.5); WHITE BLOOD COUNT 7.2 K/mm3 (4.0-10.0)
[2017-06-18] MEDS: IBUPROFEN 600 MG TAB PO PRN ×2 (06:57→18:52)
--- NOTE | 2017-06-18 07:11 | ECGEPIP ---
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
[2017-06-18] MEDS: SUCRALFATE 1 GM TAB PO SCH ×4 (07:33→20:24)
[2017-06-18] MEDS: POTASSIUM CHLORIDE 10 MEQ SR TABLET PO SCH (07:33)
[2017-06-18] MEDS: DOCUSATE SODIUM 100 MG CAP PO SCH ×2 (07:33→20:24)
[2017-06-18] MEDS: ENOXAPARIN 30 MG/0.3 ML SYR (J1650) SC SCH (07:33)
[2017-06-18] MEDS: OMEPRAZOLE 20 MG CAP PO SCH ×2 (07:34→20:24)
[2017-06-18] MEDS: DULoxetine 30 MG CAP (CYMBALTA) PO SCH (07:34)
[2017-06-18 07:56] LABS: ALBUMIN 2.7 GM/DL (3.2-5.2); ALKALINE PHOSPHATASE 66 U/L (45-117); ALT/SGPT 20 U/L (12-78); ANION GAP 8 MEQ/L (8-16); AST/SGOT 11 U/L (15-37); BILIRUBIN,TOTAL 0.2 MG/DL (0.2-1.0); BLOOD UREA NITROGEN 15 MG/DL (7-18); CALCIUM LEVEL 7.9 MG/DL (8.8-10.2); CARBON DIOXIDE LEVEL 26 MEQ/L (21-32); CHLORIDE LEVEL 103 MEQ/L (98-107); CREATININE FOR GFR 0.71 MG/DL (0.55-1.02); GLOMERULAR FILTRATION RATE > 60.0 (>45); GLUCOSE, FASTING 127 MG/DL (80-110); MAGNESIUM LEVEL 2.1 MG/DL (1.8-2.4); POTASSIUM SERUM 3.5 MEQ/L (3.5-5.1); SODIUM LEVEL 137 MEQ/L (136-145); TOTAL PROTEIN 5.7 GM/DL (6.4-8.2)
[2017-06-18 08:29] VITALS: BP 170/74
[2017-06-18] MEDS ORDERED: MIRALAX *UNIT DOSE* 17GM PACKET PO PRN (10:45)
[2017-06-18 12:02] VITALS: BP 130/70
[2017-06-18] MEDS: LISINOPRIL 10 MG TAB PO SCH (12:07)
[2017-06-18] MEDS: MECLIZINE 25 MG TABLET PO PRN ×2 (12:07→17:35)
--- NOTE | 2017-06-18 12:14 | IPNPDOC ---
Text Note Date of Service The patient was seen on 06/18/17. NOTE Subjective: Patient is a 66 year old female with a PMHx of COPD (not on O2), HTN, Hx of Nephrolithiasis, Migraine headaches, and GERD who presented to the ER with complaints of abdominal pain radidating to her left and right flanks / back. She deneis any fevers, noted some chills. She was treated for a possible UTI a few days ago with Macrobid and Pyridium by her PCP. She noted that her dysuria failed to improve. She also noted that at [facility] she had a bone marrow biopsy, but wasn 't sure why it was done. I have advised her that we can request the medical records from there. Patient was seen and examined at the bedside. She reports that her abdominal pain is doing better. Still feels constipated. She has also noted that her breathing is doing better. Objective: Vitals (See below) General: Lying in bed, no acute distress, comfortable, AAOx3 HEENT: NC, AT CVS: RRR, +S1S2 Lungs: Fair air entry b/l, + mild crackles at bases Abdomen: Soft, ND, NT, +Right CVA tenderness Extremities: - Edema bilaterally, - Calf tenderness Assessment and plan: Abdominal pain / Flank pain - likely 2/2 right sided acute pyelonephritis - Recent history of UTI that failed to improve - Presented with abdominal pain radiating to flank, associated with nausea and chills - Leukocytosis initially has resolved, no lactic acidosis, no renal dysfunction - Repeat UA without evidence of infection - Urine culture 06/16: Negative for infection - Blood culures 06/16: No growth after 24 hours - CT abdomen / pelvis: right sided perinephric stranding, no hydro, no obstruction, pyelo vs. passed stone, mild fecal stasis - c/w Ceftriaxone (Day #2) Desaturation - requiring supplemental oxygen - possibly 2/2 fluid overload, possible atelectasis - CXR 06/17: acute bibasilar atelectasis and small pleural effusions - CT abdomen / pelvis: indicate small pericardial effusion - ECHO completed; report pending - Fluids not continued; received 1 L of NS in the ER - c/w incentive spirometry Adrenal adenoma - CT abdomen / pelvis 06/16: remains stable compared to prior COPD - no evidence of exacerbation at this time - has not required oxygen as an outpatient - c/w inhaled therapy HTN - BP elevated today - BP medications currently on hold - Will restart Lisinopril today Migraine headaches - Reported to have significant headache this morning - s/p Reglan / Toradol / Benadryl IV; provided resolution - c/w Tylenol PRN and Sumatriptan PRN Constipation - c/w Docusate Depression - c/w Duloxetine and Amitriptyline Hx of Nephrolithiasis Nicotine dependence GERD - c/w omeprazole and sucralfate DVT prophylaxis - c/w Lovenox VS,Fishbone, I+O VS, Fishbone, I+O Laboratory Tests 06/18/17 05:34 Calcium Level 7.9 L, Aspartate Amino Transf (AST/SGOT) 11 L, Alanine Aminotransferase (ALT/SGPT) 20, Alkaline Phosphatase 66, Total Bilirubin 0.2, Total Protein 5.7 L, Albumin 2.7 #L 06/18/17 05:35 Red Blood Count 3.29 L, Mean Corpuscular Volume 97.2 H, Mean Corpuscular Hemoglobin 32.7, Mean Corpuscular Hemoglobin Concent 33.6, Red Cell Distribution Width 13.6, Neutrophils (%) (Auto) 84.6 H, Lymphocytes (%) (Auto) 3.2 L, Monocytes (%) (Auto) 8.8 H, Eosinophils (%) (Auto) 0.1, Basophils (%) ( Auto) 0.0, Neutrophils # (Auto) 6.1, Lymphocytes # (Auto) 0.2 L, Monocytes # ( Auto) 0.6, Eosinophils # (Auto) 0.0, Basophils # (Auto) 0.0 Vital Signs Date Time Temp Pulse Resp B/P (MAP) Pulse Ox O2 Delivery O2 Flow Rate FiO2 06/18/17 08:29 96.3 88 20 170/74 (106) 95 Nasal Cannula 3.0 I&O- Last 24 Hours up to 6 AM 06/18/17 05:59 Intake Total 840 ml Output Total 1250 ml Balance -410 ml CHEO HOUSTON MD Jun 18, 2017 12:14
[2017-06-18 19:30] VITALS: BP 133/63
[2017-06-18] MEDS: cefTRIAXone SOD 1 GM in D5W MINI-BAG PLUS 50 ML IV SCH (20:24)
[2017-06-18] MEDS: AMITRIPTYLINE 25 MG TAB PO SCH (20:25)
[2017-06-18] MEDS: ASPIRIN 81 MG ENTERIC TAB PO SCH (20:25)
[2017-06-18 22:00] VITALS: BP 137/65
[2017-06-19] MEDS: MORPHINE 2 MG/ML 1ML SYRINGE IV PRN (00:22)
[2017-06-19 00:31] VITALS: BP 136/66
[2017-06-19] MEDS ORDERED: CALCIUM CARBONATE 500 MG CHEW U/D PO PRN (01:30)
[2017-06-19] MEDS: EXCEDRIN MIGRAINE TABLET PO PRN (03:21)
[2017-06-19] MEDS: ALBUTEROL SULFATE 2.5 MG/0.5 ML INH NEB SOLN NEB PRN (03:46)
[2017-06-19] MEDS: SLF 3 ML SYR IV SCH ×3 (05:21→20:39)
[2017-06-19] MEDS: IBUPROFEN 600 MG TAB PO PRN (05:39)
[2017-06-19 06:00] VITALS: BP 139/65
[2017-06-19 06:47] LABS: BASO % 0.1 % (0.0-1.0); EOS % 0.3 % (0.0-3.0); LARGE UNSTAINED CELL # 0.3 K/mm3 (0.0-0.4); LARGE UNSTAINED CELL % 4.4 % (0.0-4.0); LYMPH # 0.3 K/mm3 (1.5-4.5); LYMPH % 5.2 % (24.0-44.0); MEAN CORPUSCULAR HEMOGLOBIN 32.7 pg (27.0-33.0); MEAN CORPUSCULAR HGB CONC 33.3 g/dl (32.0-36.5); MEAN CORPUSCULAR VOLUME 98.2 fl (80.0-96.0); MONO # 0.6 K/mm3 (0.0-0.8); MONO % 9.6 % (0.0-5.0); NEUTROPHILS # 4.8 K/mm3 (1.8-7.7); NEUTROPHILS % 80.4 % (36.0-66.0); PLATELET COUNT, AUTOMATED 132 k/mm3 (150-450); RED CELL DISTRIBUTION WIDTH 13.8 % (11.5-14.5)
[2017-06-19 07:18] LABS: ALBUMIN 2.5 GM/DL (3.2-5.2); ALBUMIN/GLOBULIN RATIO 0.66 (1.00-1.93); ALKALINE PHOSPHATASE 65 U/L (45-117); ALT/SGPT 27 U/L (12-78); ANION GAP 11 MEQ/L (8-16); AST/SGOT 13 U/L (15-37); BILIRUBIN,TOTAL 0.2 MG/DL (0.2-1.0); BLOOD UREA NITROGEN 17 MG/DL (7-18); CALCIUM LEVEL 8.5 MG/DL (8.8-10.2); CARBON DIOXIDE LEVEL 25 MEQ/L (21-32); CHLORIDE LEVEL 103 MEQ/L (98-107); CREATININE FOR GFR 0.61 MG/DL (0.55-1.02); GLOMERULAR FILTRATION RATE > 60.0 (>45); GLUCOSE, FASTING 103 MG/DL (80-110); MAGNESIUM LEVEL 2.1 MG/DL (1.8-2.4); POTASSIUM SERUM 3.6 MEQ/L (3.5-5.1); SODIUM LEVEL 139 MEQ/L (136-145); TOTAL PROTEIN 6.3 GM/DL (6.4-8.2)
[2017-06-19] MEDS: ENOXAPARIN 30 MG/0.3 ML SYR (J1650) SC SCH (08:34)
[2017-06-19] MEDS: LISINOPRIL 10 MG TAB PO SCH (08:34)
[2017-06-19] MEDS: DULoxetine 30 MG CAP (CYMBALTA) PO SCH (08:34)
[2017-06-19] MEDS: PERCOCET 5MG/325MG TAB PO PRN ×2 (08:35→13:50)
[2017-06-19] MEDS: DOCUSATE SODIUM 100 MG CAP PO SCH (08:35)
[2017-06-19] MEDS: SUCRALFATE 1 GM TAB PO SCH ×4 (08:35→20:35)
[2017-06-19] MEDS: OMEPRAZOLE 20 MG CAP PO SCH ×2 (08:35→20:35)
[2017-06-19] MEDS: POTASSIUM CHLORIDE 10 MEQ SR TABLET PO SCH (08:36)
[2017-06-19] MEDS ORDERED: FUROSEMIDE 40 MG/4 ML VIAL (J1940) IV ONE (08:45)
--- NOTE | 2017-06-19 12:24 | IPNPDOC ---
Text Note Date of Service The patient was seen on 06/19/17. NOTE Subjective: Patient is a 66 year old female with a PMHx of COPD (not on O2), HTN, Hx of Nephrolithiasis, Migraine headaches, and GERD who presented to the ER with complaints of abdominal pain radidating to her left and right flanks / back. She deneis any fevers, noted some chills. She was treated for a possible UTI a few days ago with Macrobid and Pyridium by her PCP. She noted that her dysuria failed to improve. She also noted that at [facility] she had a bone marrow biopsy, but wasn 't sure why it was done. I have advised her that we can request the medical records from there. Patient was seen and examined at the bedside. She has indicated that she gets the abdominal pain once in a while that radiates to her flank. Has had bowel movements, but nothing substantial. I have advised her that we will change her bowel regimen and give her a dose of Lasix. Objective: Vitals (See below) General: Lying in bed, no acute distress, comfortable, AAOx3 HEENT: NC, AT CVS: RRR, +S1S2 Lungs: Fair air entry b/l, + mild crackles at bases again noted Abdomen: Soft, ND, NT, +Right CVA tenderness Extremities: +1 edema bilaterally, - Calf tenderness Assessment and plan: Abdominal pain / Flank pain - possibly 2/2 right sided acute pyelonephritis, possibly passed kidney stone - Recent history of UTI that failed to improve - Presented with abdominal pain radiating to flank, associated with nausea and chills - Leukocytosis initially has resolved, no lactic acidosis, no renal dysfunction - Repeat UA without evidence of infection - Urine culture 06/16: Negative for infection - Blood cultures 06/16: No growth after 48 hours - CT abdomen / pelvis: right sided perinephric stranding, no hydro, no obstruction, pyelo vs. passed stone, mild fecal stasis - c/w Ceftriaxone (Day #3) Desaturation - requiring supplemental oxygen - possibly 2/2 fluid overload, possible atelectasis - CXR 06/17: acute bibasilar atelectasis and small pleural effusions - CT abdomen / pelvis: indicate small pericardial effusion - ECHO completed; report pending - s/p Fluids not continued; received 1 L of NS in the ER - c/w incentive spirometry - Will give single dose of Furosemide 40 IV x 1 Adrenal adenoma - CT abdomen / pelvis 06/16: remains stable compared to prior COPD - no evidence of exacerbation at this time - has not required oxygen as an outpatient - c/w inhaled therapy HTN - BP better controlled - Hold HCTZ - c/w Lisinopril today Migraine headaches - Reported to have significant headache this morning - s/p Reglan / Toradol / Benadryl IV; provided resolution - c/w Tylenol PRN and Sumatriptan PRN Constipation - c/w Docusate Depression - c/w Duloxetine and Amitriptyline Hx of Nephrolithiasis Nicotine dependence GERD - c/w omeprazole and sucralfate DVT prophylaxis - c/w Lovenox VS,Fishbone, I+O VS, Fishbone, I+O Laboratory Tests 06/19/17 05:33 Red Blood Count 3.29 L, Mean Corpuscular Volume 98.2 H, Mean Corpuscular Hemoglobin 32.7, Mean Corpuscular Hemoglobin Concent 33.3, Red Cell Distribution Width 13.8, Neutrophils (%) (Auto) 80.4 H, Lymphocytes (%) (Auto) 5.2 L, Monocytes (%) (Auto) 9.6 H, Eosinophils (%) (Auto) 0.3, Basophils (%) ( Auto) 0.1, Neutrophils # (Auto) 4.8, Lymphocytes # (Auto) 0.3 L, Monocytes # ( Auto) 0.6, Eosinophils # (Auto) 0.0, Basophils # (Auto) 0.0, Calcium Level 8.5 L , Aspartate Amino Transf (AST/SGOT) 13 L, Alanine Aminotransferase (ALT/SGPT) 27 , Total Creatine Kinase 22 L, Alkaline Phosphatase 65, Total Bilirubin 0.2, Total Protein 6.3 L, Albumin 2.5 L Vital Signs Date Time Temp Pulse Resp B/P (MAP) Pulse Ox O2 Delivery O2 Flow Rate FiO2 06/19/17 10:00 Nasal Cannula 2.0 06/19/17 09:05 18 06/19/17 08:34 139/65 06/19/17 06:00 97.8 100 90 I&O- Last 24 Hours up to 6 AM 06/19/17 06:00 Intake Total 2660 ml Output Total 1725 ml Balance 935 ml HOUSTON,VIJESH MD Jun 19, 2017 12:24
--- NOTE | 2017-06-19 12:55 | ECGEPIP ---
Stationary ECG Study [facility] Test Date: 2017-06-19 Pat Name: ISHAAN JASON Department: Room: [place] [address] Gender: F Cloth Measurer: : 1950 Requested By: ROSIO CORRALES Order Number: [id number] Reading MD: Jay Jade Measurements Intervals [place] Rate: 91 P: 48 ID: [id number] QRS: -10 QRSD: 103 T: 57 QT: 367 QTc: 452 Interpretive Statements SINUS RHYTHM Rate decreased from tracing done 06-16-17 Electronically Signed On 06-19-2017 12:54:59 EDT by Jay Jade
[2017-06-19 14:00] VITALS: BP 134/61
[2017-06-19] MEDS ORDERED: IPRATROPIUM 0.5MG/ALBUTEROL 2.5MG INH SOL UD 3ML (DUONEB)(J7620) NEB PRN (14:30)
[2017-06-19] MEDS ORDERED: methylPREDNISolone INJ 125 MG/2 ML VIAL (J2930) IV ONE (14:30)
[2017-06-19] MEDS: SUMAtriptan SUCCINATE 25 MG TAB PO PRN (15:33)
--- NOTE | 2017-06-19 18:31 | ECHO ---
DATE OF PROCEDURE: 06/19/2017 REFERRING PHYSICIAN: Pio Link MD INDICATION: Dyspnea. HEIGHT: 165 cm WEIGHT: 80 kg DIMENSIONS: IVS: 1.2 LV: 4.6 LVPW: 1.1 LA: 3.5 Aorta: 3.4 FINDINGS: The study is of rather limited technical quality. There are poor subcostal and parasternal views and acceptable apical views. Left ventricle is of normal size and hyperdynamic contractility, I estimate left ventricular ejection fraction (LVEF) around 65-70%. There appear to be septal wall motion abnormality in the apical segment, but the visualization was limited and I cannot consider that completely reliable. Right ventricle appears normal. Both atria appear at least mildly enlarged. Aortic valve is sclerotic, but has normal mobility. Mitral and tricuspid valves appear normal. Pulmonic valve was not well seen. Small noncompressive pericardial effusion is noted. Inferior vena cava is mildly dilated and has no appreciable collapse with respiration indicative of likely high central venous pressure. Aortic root is normal. Aortic arch and abdominal aorta were not seen. Doppler interrogation of aortic valve reveals no insufficiency and no stenosis. There is also no significant mitral valve disease. Tricuspid valve exhibits competent valve with insignificant tricuspid regurgitation (TR). Unfortunately, consequently it is difficult to estimate pulmonary artery pressure. Mitral inflow pattern and tissue Doppler imaging of mitral annulus reveal grade 1 diastolic dysfunction. Tissue Doppler velocities of mitral annulus are very low (E-prime septal and E-prime lateral are both 4.0 cm/s). CONCLUSIONS: 1. The study is of fair technical quality. 2. Normal left ventricle (LV) size with overall normal LV systolic function. Suspicion for apical wall motion abnormality. Grade 1 diastolic dysfunction. 3. No significant valvular disease. 4. High central venous pressure. 5. Unable to estimate pulmonary artery pressure. 6. Small non-compressive pericardial effusion. COMMENT: Subacute bacterial endocarditis (SBE) prophylaxis is not recommended. [facility]
[2017-06-19] MEDS: IPRATROPIUM 0.5MG/ALBUTEROL 2.5MG INH SOL UD 3ML (DUONEB)(J7620) NEB SCH (19:33)
[2017-06-19] MEDS: cefTRIAXone SOD 1 GM in D5W MINI-BAG PLUS 50 ML IV SCH (20:34)
[2017-06-19] MEDS: SENOKOT S TAB PO SCH (20:35)
[2017-06-19] MEDS: AMITRIPTYLINE 25 MG TAB PO SCH (20:35)
[2017-06-19] MEDS: ASPIRIN 81 MG ENTERIC TAB PO SCH (20:35)
[2017-06-19 22:00] VITALS: BP 142/71
[2017-06-19] MEDS: methylPREDNISolone INJ 125 MG/2 ML VIAL (J2930) IV SCH (22:02)
[2017-06-20] MEDS: IPRATROPIUM 0.5MG/ALBUTEROL 2.5MG INH SOL UD 3ML (DUONEB)(J7620) NEB SCH ×4 (01:14→20:00)
[2017-06-20] MEDS: PERCOCET 5MG/325MG TAB PO PRN ×3 (01:31→16:52)
[2017-06-20 06:00] VITALS: BP 167/73
[2017-06-20] MEDS: SUMAtriptan SUCCINATE 25 MG TAB PO PRN (06:11)
[2017-06-20] MEDS: SLF 3 ML SYR IV SCH ×3 (06:11→20:46)
[2017-06-20] MEDS: methylPREDNISolone INJ 125 MG/2 ML VIAL (J2930) IV SCH ×2 (06:11→18:16)
[2017-06-20 06:31] LABS: BASO % 0.1 % (0.0-1.0); EOS % 0.2 % (0.0-3.0); LARGE UNSTAINED CELL # 0.1 K/mm3 (0.0-0.4); LARGE UNSTAINED CELL % 2.4 % (0.0-4.0); LYMPH # 0.3 K/mm3 (1.5-4.5); LYMPH % 6.6 % (24.0-44.0); MEAN CORPUSCULAR HEMOGLOBIN 32.8 pg (27.0-33.0); MEAN CORPUSCULAR HGB CONC 33.4 g/dl (32.0-36.5); MEAN CORPUSCULAR VOLUME 98.3 fl (80.0-96.0); MONO # 0.2 K/mm3 (0.0-0.8); MONO % 5.3 % (0.0-5.0); NEUTROPHILS # 3.4 K/mm3 (1.8-7.7); NEUTROPHILS % 85.3 % (36.0-66.0); PLATELET COUNT, AUTOMATED 165 k/mm3 (150-450); RED CELL DISTRIBUTION WIDTH 13.7 % (11.5-14.5)
[2017-06-20] MEDS: SUCRALFATE 1 GM TAB PO SCH ×4 (06:32→20:43)
[2017-06-20 06:34] LABS: ALBUMIN 2.6 GM/DL (3.2-5.2); ALKALINE PHOSPHATASE 71 U/L (45-117); ALT/SGPT 27 U/L (12-78); ANION GAP 8 MEQ/L (8-16); AST/SGOT 11 U/L (15-37); BILIRUBIN,TOTAL 0.2 MG/DL (0.2-1.0); BLOOD UREA NITROGEN 20 MG/DL (7-18); CALCIUM LEVEL 8.5 MG/DL (8.8-10.2); CARBON DIOXIDE LEVEL 30 MEQ/L (21-32); CHLORIDE LEVEL 103 MEQ/L (98-107); GLOMERULAR FILTRATION RATE > 60.0 (>45); GLUCOSE, FASTING 148 MG/DL (80-110); MAGNESIUM LEVEL 2.3 MG/DL (1.8-2.4); POTASSIUM SERUM 3.5 MEQ/L (3.5-5.1); SODIUM LEVEL 141 MEQ/L (136-145); TOTAL PROTEIN 6.9 GM/DL (6.4-8.2)
[2017-06-20] MEDS: DULoxetine 30 MG CAP (CYMBALTA) PO SCH (07:59)
[2017-06-20] MEDS: OMEPRAZOLE 20 MG CAP PO SCH ×2 (07:59→20:43)
[2017-06-20] MEDS: ENOXAPARIN 30 MG/0.3 ML SYR (J1650) SC SCH (07:59)
[2017-06-20] MEDS: LISINOPRIL 10 MG TAB PO SCH (08:00)
[2017-06-20] MEDS: SENOKOT S TAB PO SCH ×2 (08:00→20:45)
[2017-06-20] MEDS: POTASSIUM CHLORIDE 10 MEQ SR TABLET PO SCH (08:00)
[2017-06-20] MEDS: ADVAIR HFA 230/21MCG INHALER INH SCH ×2 (11:12→20:43)
[2017-06-20] MEDS: IBUPROFEN 600 MG TAB PO PRN (11:52)
--- NOTE | 2017-06-20 12:41 | IPNPDOC ---
Text Note Date of Service The patient was seen on 06/20/17. NOTE Subjective: Patient is a 66 year old female with a PMHx of COPD (not on O2), HTN, Hx of Nephrolithiasis, Migraine headaches, and GERD who presented to the ER with complaints of abdominal pain radidating to her left and right flanks / back. She deneis any fevers, noted some chills. She was treated for a possible UTI a few days ago with Macrobid and Pyridium by her PCP. She noted that her dysuria failed to improve. She also noted that at [facility] she had a bone marrow biopsy, but wasn 't sure why it was done. I have advised her that we can request the medical records from there. Patient was seen and examined at the bedside. She has indicated that she gets the abdominal pain once in a while that radiates to her flank. Has had bowel movements, but nothing substantial. I have advised her that we will change her bowel regimen and give her a dose of Lasix. Objective: Vitals (See below) General: Lying in bed, no acute distress, comfortable, AAOx3 HEENT: NC, AT CVS: RRR, +S1S2 Lungs: Fair air entry b/l, + mild crackles at bases again noted Abdomen: Soft, ND, NT, +Right CVA tenderness Extremities: +1 edema bilaterally, - Calf tenderness Assessment and plan: s/p Abdominal pain / Flank pain - possibly 2/2 right sided acute pyelonephritis , possibly passed kidney stone - Recent history of UTI that failed to improve - Presented with abdominal pain radiating to flank, associated with nausea and chills - Leukocytosis resolved, no lactic acidosis, no renal dysfunction - Repeat UA without evidence of infection and Urine culture 06/16: Negative for infection - Blood cultures 06/16: No growth after [address] hours - [address] abdomen / pelvis: right sided perinephric stranding, no hydro, no obstruction, pyelo vs. passed stone, mild fecal stasis - c/w Ceftriaxone (Day #4) Desaturation - requiring supplemental oxygen - possibly 2/2 COPD exacerbation and atelectasis 2/2 abdominal pain - CXR 06/17: acute bibasilar atelectasis and small pleural effusions - CT abdomen / pelvis: indicate small pericardial effusion - ECHO 06/19: Normal EF; Stage 1 DD, High CVP - s/p Fluids not continued; received 1 L of NS in the ER - c/w incentive spirometry - c/w Solumedrol, Advair and Duoneb - will taper steroids today Adrenal adenoma - CT abdomen / pelvis 06/16: remains stable compared to prior COPD - has not required oxygen as an outpatient; - c/w inhaled therapy HTN - BP better controlled - c/w Lisinopril today - will restart HCTZ today Migraine headaches - Reported to have significant headache this morning - s/p Reglan / Toradol / Benadryl IV; provided resolution - c/w Tylenol PRN and Sumatriptan PRN Constipation - c/w Docusate Depression - Had episodes of uncontrollable crying this morning - Denied any depressed mood, noted that this happens when she doesn't get the medications at regular scheduled doses - c/w Duloxetine and Amitriptyline Hx of Nephrolithiasis Nicotine dependence GERD - c/w omeprazole and sucralfate DVT prophylaxis - c/w Lovenox VS,Fishbone, I+O VS, Fishbone, I+O Laboratory Tests 06/20/17 05:22 Red Blood Count 3.42 L, Mean Corpuscular Volume 98.3 H, Mean Corpuscular Hemoglobin 32.8, Mean Corpuscular Hemoglobin Concent 33.4, Red Cell Distribution Width 13.7, Neutrophils (%) (Auto) 85.3 H, Lymphocytes (%) (Auto) 6.6 L, Monocytes (%) (Auto) 5.3 H, Eosinophils (%) (Auto) 0.2, Basophils (%) ( Auto) 0.1, Neutrophils # (Auto) 3.4, Lymphocytes # (Auto) 0.3 L, Monocytes # ( Auto) 0.2, Eosinophils # (Auto) 0.0, Basophils # (Auto) 0.0, Calcium Level 8.5 L , Aspartate Amino Transf (AST/SGOT) 11 L, Alanine Aminotransferase (ALT/SGPT) 27 , Alkaline Phosphatase 71, Total Bilirubin 0.2, Total Protein 6.9, Albumin 2.6 L Vital Signs Date Time Temp Pulse Resp B/P (MAP) Pulse Ox O2 Delivery O2 Flow Rate FiO2 06/20/17 10:56 20 06/20/17 10:26 Nasal Cannula 2.0 06/20/17 08:00 167/73 06/20/17 06:00 96.9 85 98 I&O- Last 24 Hours up to 6 AM 06/20/17 06:00 Intake Total 1920 ml Output Total 2450 ml Balance -530 ml CHEO HOUSTON MD Jun 20, 2017 12:41
[2017-06-20 14:00] VITALS: BP 160/82
[2017-06-20] MEDS: hydroCHLOROthiazide 12.5 MG CAPSULE PO SCH (14:42)
[2017-06-20] MEDS: EXCEDRIN MIGRAINE TABLET PO PRN (14:42)
[2017-06-20] MEDS: cefTRIAXone SOD 1 GM in D5W MINI-BAG PLUS 50 ML IV SCH (20:42)
[2017-06-20] MEDS: ASPIRIN 81 MG ENTERIC TAB PO SCH (20:44)
[2017-06-20] MEDS: AMITRIPTYLINE 25 MG TAB PO SCH (20:44)
[2017-06-20 22:44] VITALS: BP 174/78
[2017-06-21] MEDS: EXCEDRIN MIGRAINE TABLET PO PRN (00:51)
[2017-06-21 01:01] VITALS: BP 150/64
[2017-06-21] MEDS: SUMAtriptan SUCCINATE 25 MG TAB PO PRN ×2 (01:41→14:10)
[2017-06-21] MEDS: IPRATROPIUM 0.5MG/ALBUTEROL 2.5MG INH SOL UD 3ML (DUONEB)(J7620) NEB SCH ×3 (02:27→14:00)
[2017-06-21] MEDS: SLF 3 ML SYR IV SCH ×2 (05:36→15:02)
[2017-06-21 06:00] VITALS: BP 141/68
[2017-06-21] MEDS ORDERED: DULoxetine 30 MG CAP (CYMBALTA) PO SCH (06:00)
[2017-06-21 06:24] LABS: BASO % 0.6 % (0.0-1.0); EOS % 0.1 % (0.0-3.0); LARGE UNSTAINED CELL # 0.2 K/mm3 (0.0-0.4); LARGE UNSTAINED CELL % 3.1 % (0.0-4.0); LYMPH # 0.5 K/mm3 (1.5-4.5); LYMPH % 7.1 % (24.0-44.0); MEAN CORPUSCULAR HEMOGLOBIN 32.3 pg (27.0-33.0); MEAN CORPUSCULAR HGB CONC 33.8 g/dl (32.0-36.5); MEAN CORPUSCULAR VOLUME 95.6 fl (80.0-96.0); MONO # 0.6 K/mm3 (0.0-0.8); MONO % 8.3 % (0.0-5.0); NEUTROPHILS # 6.1 K/mm3 (1.8-7.7); NEUTROPHILS % 80.9 % (36.0-66.0); PLATELET COUNT, AUTOMATED 208 k/mm3 (150-450); RED CELL DISTRIBUTION WIDTH 13.9 % (11.5-14.5); WHITE BLOOD COUNT 7.5 K/mm3 (4.0-10.0)
[2017-06-21 06:33] LABS: ALBUMIN 2.7 GM/DL (3.2-5.2); ALBUMIN/GLOBULIN RATIO 0.68 (1.00-1.93); ALKALINE PHOSPHATASE 70 U/L (45-117); ALT/SGPT 32 U/L (12-78); ANION GAP 10 MEQ/L (8-16); AST/SGOT 12 U/L (15-37); BILIRUBIN,TOTAL 0.2 MG/DL (0.2-1.0); BLOOD UREA NITROGEN 19 MG/DL (7-18); CALCIUM LEVEL 8.3 MG/DL (8.8-10.2); CARBON DIOXIDE LEVEL 30 MEQ/L (21-32); CHLORIDE LEVEL 102 MEQ/L (98-107); CREATININE FOR GFR 0.64 MG/DL (0.55-1.02); GLOMERULAR FILTRATION RATE > 60.0 (>45); GLUCOSE, FASTING 130 MG/DL (80-110); MAGNESIUM LEVEL 2.1 MG/DL (1.8-2.4); POTASSIUM SERUM 2.9 MEQ/L (3.5-5.1); SODIUM LEVEL 142 MEQ/L (136-145); TOTAL PROTEIN 6.7 GM/DL (6.4-8.2)
[2017-06-21] MEDS: SUCRALFATE 1 GM TAB PO SCH ×2 (06:53→12:11)
[2017-06-21] MEDS: methylPREDNISolone INJ 125 MG/2 ML VIAL (J2930) IV SCH (06:53)
[2017-06-21] MEDS: hydroCHLOROthiazide 12.5 MG CAPSULE PO SCH (08:18)
[2017-06-21] MEDS: SENOKOT S TAB PO SCH (08:18)
[2017-06-21] MEDS: OMEPRAZOLE 20 MG CAP PO SCH (08:19)
[2017-06-21] MEDS: ENOXAPARIN 30 MG/0.3 ML SYR (J1650) SC SCH (08:19)
[2017-06-21 08:20] VITALS: BP 141/68
[2017-06-21] MEDS: LISINOPRIL 10 MG TAB PO SCH (08:20)
[2017-06-21] MEDS ORDERED: POTASSIUM CHLORIDE 10 MEQ SR TABLET PO SCH (09:00)
[2017-06-21] MEDS: ACETAMINOPHEN TAB 650MG DOSE (2X325MG) PO PRN (09:53)
[2017-06-21] MEDS: ADVAIR HFA 230/21MCG INHALER INH SCH (12:03)
[2017-06-21] MEDS: PERCOCET 5MG/325MG TAB PO PRN (12:11)
[2017-06-21 13:39] LABS: ANION GAP 10 MEQ/L (8-16); BLOOD UREA NITROGEN 21 MG/DL (7-18); CALCIUM LEVEL 8.9 MG/DL (8.8-10.2); CARBON DIOXIDE LEVEL 30 MEQ/L (21-32); CHLORIDE LEVEL 102 MEQ/L (98-107); CREATININE FOR GFR 0.64 MG/DL (0.55-1.02); GLOMERULAR FILTRATION RATE > 60.0 (>45); GLUCOSE, FASTING 124 MG/DL (80-110); POTASSIUM SERUM 3.6 MEQ/L (3.5-5.1); SODIUM LEVEL 142 MEQ/L (136-145)
[2017-06-21] MEDS ORDERED: SENN1TAB2 PO (13:54)
[2017-06-21] MEDS ORDERED: PEG1POW PO (13:54)
[2017-06-21] MEDS ORDERED: ADV100INH INH (13:54)
[2017-06-21] MEDS ORDERED: PRED10TA2 PO (13:54)
[2017-06-21 14:00] VITALS: BP 144/70
--- NOTE | 2017-06-21 15:44 | DSES ---
DATE OF ADMISSION: 06/16/2017 DATE OF DISCHARGE: 06/21/2017 ATTENDING PHYSICIAN: Pio Link MD PRIMARY CARE PHYSICIAN: Vickey Smith MD REFERRING PHYSICIAN: None. CONSULTING PHYSICIAN: None. CONDITION ON DISCHARGE: Stable. FINAL DIAGNOSES: 1. Abdominal pain/flank pain, possibly secondary to right-sided pyelonephritis versus recently passed kidney stone. 2. Desaturation, possibly secondary to chronic obstructive pulmonary disease (COPD) exacerbation and atelectasis secondary to abdominal pain. PROCEDURES: None. HISTORY OF PRESENT ILLNESS: The patient is a 66-year-old female with a past medical history of COPD, not on oxygen, hypertension, history of nephrolithiasis, migraine headaches, and gastroesophageal reflux disease (GERD), who presented to the emergency room (ER) with complaints of abdominal pain radiating to her left and right flank/back. She denies any fevers. Noted that she had some chills at home. She was treated for a possible urinary tract infection a few days ago with Macrobid and Pyridium by her primary care provider. She noted that her dysuria failed to improve. She also noted that at [facility] she had a bone marrow biopsy, but was not quite sure why this was done. I advised her that we can request medical records from [facility]. HOSPITAL COURSE: 1. Status post abdominal pain/flank pain, possibly secondary to right-sided acute pyelonephritis, possibly secondary to passed kidney stone. Recent history of urinary tract infection that failed to improve. Presented with abdominal pain, radiating to flank associated with nausea and vomiting. Leukocytosis has resolved. No lactic acidosis was noted. No renal dysfunction. Repeat urinalysis without evidence of infection and urine cultures on 06/16/2017, were negative for infection. Blood cultures on 06/16/2017, revealed no growth. CT abdomen and pelvis revealed right-sided perinephric stranding, no hydronephrosis , no obstruction. Pyelonephritis versus passed stone was the possible differentials. There was mild fecal stasis. The patient was put on ceftriaxone throughout the hospital course and has received a 5 day course. 2. Desaturation, requiring supplemental oxygen, possibly secondary to COPD exacerbation and atelectasis secondary to abdominal pain. Chest x-ray on 06/17/2017, revealed acute bibasilar atelectasis and small pleural effusion. CT abdomen and pelvis indicated small pericardial effusion. Echo on 06/19/2017, revealed normal ejection fraction, stage I diastolic dysfunction, high central venous pressure (CVP). She is status post fluids which have not been continued. Received one liter of normal saline in the emergency room. Continued with incentive spirometry. The patient was put on Solu-Medrol in the hospital course as well as put on Advair and DuoNebs. Steroids were tapered approaching the end of her hospitalization and she was put on oral prednisone upon discharge. 3. Adrenal adenoma. CT abdomen and pelvis on 06/16/2017, remained stable compared to prior. 4. COPD. Has not required oxygen as an outpatient. Will continue with inhaled therapy. See above assessment. 5. Hypertension. Blood pressure remains well controlled. Continue with lisinopril and hydrochlorothiazide. 6. Migraine headaches. Reported to have headache that has been resolved in the emergency room with Reglan, Toradol, and Benadryl IV. The patient was continued with Tylenol as needed, sumatriptan as needed. 7. Constipation. The patient was put on docusate and Senna as well as MiraLAX, which has resulted in several bowel movements. 8. Depression. The patient has episodes of uncontrollable crying, which she notes it is usual for her. She denies any depressed mood, notes that this happens when she does not get her medication on regular scheduled doses. The patient has been continued with duloxetine and amitriptyline. 9. History of nephrolithiasis. 10. Nicotine dependence. 11. GERD. Continue with omeprazole and sucralfate. 12. Deep venous thrombosis (DVT) prophylaxis. Continue with Lovenox. DISCHARGE MEDICATIONS: The patient will be discharged home with the following medication list: - Tylenol one tablet by mouth every 4 hours as needed for pain - albuterol two puffs inhaled every 4 hours as needed for shortness of breath - albuterol/ipratropium nebulizer every 8 hours as needed shortness of breath - amitriptyline 2.5 mg by mouth nightly - aspirin 81 mg by mouth nightly - cyclobenzaprine 10 mg by mouth twice a day as needed for muscle spasm - duloxetine 60 mg by mouth daily - Excedrin two tablets by mouth every 6 hours as needed for migraines - ibuprofen 600 mg by mouth every 6 hours as needed for pain - lisinopril/hydrochlorothiazide 10/12.5 mg one tablet by mouth daily - meclizine 25 mg by mouth four times a day as needed for vertigo - metoclopramide 10 mg by mouth four times a day as needed for dizziness - omeprazole 40 mg by mouth twice a day - phenazopyridine 100 mg by mouth three times a day - potassium chloride 10 mEq by mouth daily - sucralfate 1 gram by mouth before food and nightly - sumatriptan 25 mg by mouth every 3 hours as needed for migraines New medications prescribed include: - MiraLAX by mouth daily as needed for constipation - prednisone to be taken as directed and on a tapering basis - Advair Diskus 100/50 mcg one puff inhaled twice a day - Senna Plus two tablets by mouth twice a day DISCHARGE INSTRUCTIONS: Patient has been advised to followup with her primary care provider within the next 7 days. She has been advised to remain compliant with her treatment plan and medications and to return to the emergency room if she experiences any problems. TIME SPENT ON DISCHARGE: Greater than 35 minutes. CARID
== END 2017-06-21 15:25 | disposition home or self-care (01) | DRG 872 ==
LOC: EDSEX 12:50 → M ED 12:50 → EDBD 12:50 → M ED INP 17:29 → M PCU 06-17 13:50 → M MSPAV 06-18 15:20
PROVIDERS: ADMIT Hospitalist; ATTEND Internal Medicine
DX: A41.9 Sepsis, unspecified organism (principal); J90 Pleural effusion, not elsewhere classified; J98.11 Atelectasis; N10 Acute pyelonephritis; J44.9 Chronic obstructive pulmonary disease, unspecified; I10 Essential (primary) hypertension; K21.9 Gastro-esophageal reflux disease without esophagitis; G43.909 Migraine, unspecified, not intractable, without status migrainosus; K59.00 Constipation, unspecified; F32.9 Major depressive disorder, single episode, unspecified; F17.200 Nicotine dependence, unspecified, uncomplicated; Z79.82 Long term (current) use of aspirin; Z79.899 Other long term (current) drug therapy; H54.42 Blindness, left eye, normal vision right eye

== ENCOUNTER 2017-07-05 08:42 | Emergency (ER) | payer MEDICARE ==
[~2017-07-05] VITALS: Ht 165.1 cm; Wt 77.2 kg
[~2017-07-05 08:42] MED LIST changes: +ADV100INH INH; +ASPI81TAEC PO; +CYCL10TA PO; +IBUP1TAB6 PO; +IPRASOL4 INH; +MECL-68 PO; +NITR100C39 PO; +PEG1POW PO; +PHEN-500 PO; +PHEN200T22 PO; +POTA10CA PO; +PRED10TA2 PO; +SENN1TAB2 PO
[2017-07-05] MEDS ORDERED: ONDANSETRON 4MG/2ML VIAL (J2405) IV ONE (09:00)
[2017-07-05] MEDS ORDERED: NS 1,000 ML IV SCH (09:00)
[2017-07-05] MEDS ORDERED: MORPHINE 4 MG/ML 1ML SYRINGE IV PRN (09:00)
[2017-07-05 09:21] LABS: MEAN CORPUSCULAR HEMOGLOBIN 32.9 pg (27.0-33.0); MEAN CORPUSCULAR HGB CONC 33.3 g/dl (32.0-36.5); MEAN CORPUSCULAR VOLUME 98.7 fl (80.0-96.0); PLATELET COUNT, AUTOMATED 192 10^3/uL (150-450); RED CELL DISTRIBUTION WIDTH 15.8 % (11.5-14.5); WHITE BLOOD COUNT 14.1 10^3/uL (4.0-10.0)
[2017-07-05 09:22] LABS: ADD MANUAL DIFFER YES; DIFF SLIDE NUMBER 114
[2017-07-05 09:52] LABS: ALBUMIN 2.9 GM/DL (3.2-5.2); ALBUMIN/GLOBULIN RATIO 0.97 (1.00-1.93); ALKALINE PHOSPHATASE 72 U/L (45-117); ALT/SGPT 21 U/L (12-78); AMYLASE 22 U/L (25-115); ANION GAP 9 MEQ/L (8-16); AST/SGOT 10 U/L (15-37); BILIRUBIN,DIRECT < 0.1 MG/DL (0.0-0.2); BILIRUBIN,TOTAL 0.3 MG/DL (0.2-1.0); BLOOD UREA NITROGEN 26 MG/DL (7-18); CALCIUM LEVEL 8.6 MG/DL (8.8-10.2); CARBON DIOXIDE LEVEL 25 MEQ/L (21-32); CHLORIDE LEVEL 99 MEQ/L (98-107); CREATININE FOR GFR 1.17 MG/DL (0.55-1.02); GLOMERULAR FILTRATION RATE 49.3 (>45); GLUCOSE, FASTING 165 MG/DL (80-110); SODIUM LEVEL 133 MEQ/L (136-145); TOTAL PROTEIN 5.9 GM/DL (6.4-8.2)
[2017-07-05] MEDS ORDERED: ISOVUE-370 76% 100ML VIAL (Q9967) As Ordered ONE (10:04)
[2017-07-05] MEDS ORDERED: SODIUM CHLORIDE 0.9% 1000 ML IV ONE (10:45)
--- NOTE | 2017-07-05 10:52 | REP ---
CT of the abdomen pelvis with IV contrast, without bowel contrast: Comparison is 06/16/2017. The patient is reportedly status post gastric biopsy. The visualized lower lung quigley are unremarkable. There is no hiatal hernia. There is fluid in the gastric lumen. There are occasional opacities in the gastric lumen, likely ingested material. There is no perigastric fluid collection, abscess, or mesenteric edema. There appear to be a tiny bubbles of air / gas within the gastric wall of the gastric fundus anteriorly, however, this could be artifact from air entrapped between mucosal folds. There is no pneumoperitoneum. There is no ascites. The hepatic parenchyma, gallbladder, pancreas and spleen are unremarkable. There is a right adrenal nodule measuring 72 mm in diameter, unchanged from 08/04/2011. The CT density of this nodule on a prior study without IV contrast dated 03/18/2012 is approximately 3 HU. These findings are compatible with benign adenoma. The left adrenal is unremarkable. There is a right renal 2 cm cortical mass with Hounsfield density of the 76 units compatible with a solid mass, not identified on the prior study with IV contrast dated 03/10/2017 , raising the possibility of a new right renal mass. There are two nonobstructive calcifications in the left kidney measuring approximately 3-4 mm in diameter. There is no hydronephrosis or hydroureter on the right on the left. The ureters are unremarkable. 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 This is unchanged. The abdominal aorta is unremarkable except for calcified atheroma. There is no bowel distension. Mesentery is unremarkable. Pelvis: There is wall thickening of the cecum and proximal ascending colon compatible with colitis in the appropriate clinical setting. The bowel is otherwise unremarkable. There is no ascites or adenopathy. The bladder, uterus and adnexa are unremarkable. Impression: The findings are compatible with colitis in the cecum and proximal ascending colon in the appropriate clinical setting. There is no perigastric fluid collection, edema, mass , adenopathy or ascites. There is no pneumoperitoneum. There is a stable right adrenal adenoma. There are nonobstructive calculi in the left kidney. There is a 2 cm right renal mass posteriorly, not definitely present on 03/10/2017. No bowel distension or obstruction. No adenopathy or mass otherwise. Signed by Fish Oritz MD 07/05/2017 10:44 A
[2017-07-05] MEDS ORDERED: SUCRALFATE SUSP 1GM/10ML UD PO ONE (11:15)
[2017-07-05 11:45] VITALS: BP 108/55
--- NOTE | 2017-07-05 14:02 | ED PDOC ---
Post-Departure Follow-Up radiology report faxed to Beth Navarrete MD Jul 05, 2017 14:02
--- NOTE | 2017-07-05 15:11 | ECGEPIP ---
Stationary ECG Study [facility] - ED Test Date: 2017-07-05 Pat Name: ISHAAN JASON Department: Room: - Gender: F Marketing Finance Specialist: monika : 1950 Requested By: Beth Read Order Number: [id number] Reading MD: Beth Read Measurements Intervals [place] Rate: 120 P: OK: 0 QRS: -13 QRSD: 97 T: 102 QT: 301 QTc: 427 Interpretive Statements SINUS TACHYCARDIA DELAYED R PROGRESSION NONSPECIFIC ST & T-WAVE ABNORMALITY INCREASED RATE/ST CHANGE 06/19/17 Electronically Signed On 07-05-2017 15:11:04 EDT by Beth Read
== END 2017-07-05 12:01 | disposition left against medical advice (07) ==
LOC: M ED 08:42
DX: I95.9 Hypotension, unspecified (principal); R10.11 Right upper quadrant pain; J44.9 Chronic obstructive pulmonary disease, unspecified; I10 Essential (primary) hypertension; K21.9 Gastro-esophageal reflux disease without esophagitis; G43.909 Migraine, unspecified, not intractable, without status migrainosus; Z79.899 Other long term (current) drug therapy; Z79.82 Long term (current) use of aspirin; Z87.891 Personal history of nicotine dependence
CPT/HCPCS: 36415; 74177; 80048; 80076; 82150; 83605; 83690; 85025; 86850; 86900; 86901; 93005; 93041; 96361; 96374; 99285; J2405; Q9967

== ENCOUNTER 2018-01-18 18:33 | Emergency (ER) | payer MEDICARE ==
[2018-01-18] MEDS: ACETAMINOPHEN 325 MG TAB PO (19:00)
[2018-01-18 19:41] LABS: LACTIC ACID SEPSIS PROTOCOL 0.6 MMOL/L (0.4-2.0)
[2018-01-18 19:45] LABS: ALBUMIN 3.3 GM/DL (3.2-5.2); ALBUMIN/GLOBULIN RATIO 0.97 (1.00-1.93); ALKALINE PHOSPHATASE 86 U/L (45-117); ALT/SGPT 14 U/L (12-78); ANION GAP 5 MEQ/L (8-16); AST/SGOT 14 U/L (7-37); BILIRUBIN,DIRECT < 0.1 MG/DL (0.0-0.2); BILIRUBIN,TOTAL 0.1 MG/DL (0.2-1.0); BLOOD UREA NITROGEN 14 MG/DL (7-18); CALCIUM LEVEL 7.9 MG/DL (8.8-10.2); CARBON DIOXIDE LEVEL 26 MEQ/L (21-32); CHLORIDE LEVEL 109 MEQ/L (98-107); CREATININE FOR GFR 0.71 MG/DL (0.55-1.30); GLOMERULAR FILTRATION RATE > 60.0 (>45); GLUCOSE, FASTING 99 MG/DL (70-100); POTASSIUM SERUM 3.7 MEQ/L (3.5-5.1); SODIUM LEVEL 140 MEQ/L (136-145); TOTAL PROTEIN 6.7 GM/DL (6.4-8.2)
[2018-01-18 19:47] LABS: CPK CREATINE PHOSPHOKINASE 72 U/L (26-192)
[2018-01-18 20:35] LABS: BASO % 0.2 % (0.0-1.0); EOS % 0.5 % (0.0-3.0); HEMATOCRIT 39.9 % (36.0-47.0); HEMOGLOBIN 12.9 g/dl (12.0-15.5); IMMATURE GRANULOCYTE % 0.4 % (0-3.0); LYMPH # 0.3 10^3/uL (1.5-4.5); LYMPH % 5.8 % (24.0-44.0); MEAN CORPUSCULAR HGB CONC 32.3 g/dl (32.0-36.5); MEAN CORPUSCULAR VOLUME 92.8 fl (80.0-96.0); MONO # 0.6 10^3/uL (0.0-0.8); MONO % 9.8 % (0.0-5.0); NEUTROPHILS # 4.7 10^3/uL (1.8-7.7); NEUTROPHILS % 83.3 % (36.0-66.0); PLATELET COUNT, AUTOMATED 104 10^3/uL (150-450); WHITE BLOOD COUNT 5.7 10^3/uL (4.0-10.0)
[2018-01-18] MEDS: IPRATROPIUM 0.5MG/ALBUTEROL 2.5MG INH SOL UD 3ML (DUONEB)(J7620) NEB (20:41)
[2018-01-18] MEDS: NS 500 ML IV ×2 (21:18→21:57)
[2018-01-18] MEDS: dexameTHASONE 20 MG/5 ML VIAL (J1100) IV (21:19)
[2018-01-18] MEDS ORDERED: KETOROLAC 30 MG/ML VIAL (J1885) As Ordered (21:37)
[2018-01-18] MEDS: KETOROLAC 30 MG/ML VIAL (J1885) IV (21:45)
[2018-01-18 21:58] LABS: INFLUENZA A AMPLIFICATION NEGATIVE (NEGATIVE); INFLUENZA B AMPLIFICATION POSITIVE (NEGATIVE)
[2018-01-18] MEDS: OSELTAMIVIR PHOSPHATE 75 MG CAP (TAMIFLU) PO (22:17)
[2018-01-18 22:59] LABS: APPEARANCE, URINE CLEAR (CLEAR); BACTERIA, URINE AUTO NEGATIVE (NEGATIVE); BILIRUBIN, URINE AUTO NEGATIVE (NEGATIVE); BLOOD, URINE BLOOD NEGATIVE (NEGATIVE); COLOR, URINE YELLOW (YELLOW); GLUCOSE, URINE (UA) AUTO NEGATIVE (NEGATIVE); KETONE, URINE AUTO NEGATIVE (NEGATIVE); LEUKOCYTE ESTERASE, URINE AUTO NEGATIVE (NEGATIVE); MUCUS, URINE SMALL (NEGATIVE); NITRITE, URINE AUTO NEGATIVE (NEGATIVE); PROTEIN, URINE AUTO NEGATIVE (NEGATIVE); RBC, URINE AUTO 0 /HPF (0-3); SPECIFIC GRAVITY URINE AUTO 1.024 (1.002-1.035); SQUAMOUS EPITHELIAL CELL UR AU 0 /HPF (0-6); UROBILINOGEN, URINE AUTO 0.2 mg/dL (0.0-2.0); WBC, URINE AUTO 0 /HPF (0-3)
== END 2018-01-18 23:36 | disposition home or self-care (01) ==
LOC: M ED 18:33
DX: J10.1 Influenza due to other identified influenza virus with other respiratory manifestations (principal); J40 Bronchitis, not specified as acute or chronic; R00.0 Tachycardia, unspecified; I10 Essential (primary) hypertension; J44.9 Chronic obstructive pulmonary disease, unspecified; K21.9 Gastro-esophageal reflux disease without esophagitis; G43.909 Migraine, unspecified, not intractable, without status migrainosus; F32.9 Major depressive disorder, single episode, unspecified; E27.8 Other specified disorders of adrenal gland; F17.200 Nicotine dependence, unspecified, uncomplicated; Z20.828 Contact with and (suspected) exposure to other viral communicable diseases; Z79.899 Other long term (current) drug therapy; Z79.82 Long term (current) use of aspirin
CPT/HCPCS: J1100

== ENCOUNTER 2018-04-29 23:42 | Emergency (ER) | payer MEDICARE ==
[2018-04-30] MEDS: MORPHINE 10 MG/ML 1ML VIAL (J2270) IV ×2 (00:18)
[2018-04-30] MEDS: dexameTHASONE 20 MG/5 ML VIAL (J1100) IV ×2 (00:18)
[2018-04-30] MEDS: NS 500 ML IV ×4 (00:19→03:27)
[2018-04-30 00:25] LABS: BASO % 0.3 % (0.0-1.0); EOS # 0.1 10^3/uL (0.0-0.50); EOS % 0.7 % (0.0-3.0); HEMOGLOBIN 13.5 g/dl (12.0-15.5); IMMATURE GRANULOCYTE % 1.4 % (0-3.0); LYMPH # 1.7 10^3/uL (1.5-4.5); MEAN CORPUSCULAR HEMOGLOBIN 30.1 pg (27.0-33.0); MEAN CORPUSCULAR HGB CONC 32.9 g/dl (32.0-36.5); MEAN CORPUSCULAR VOLUME 91.5 fl (80.0-96.0); MONO # 1.2 10^3/uL (0.0-0.8); MONO % 10.4 % (0.0-5.0); NEUTROPHILS # 8.4 10^3/uL (1.8-7.7); NEUTROPHILS % 72.2 % (36.0-66.0); PLATELET COUNT, AUTOMATED 273 10^3/uL (150-450); RED BLOOD COUNT 4.48 10^6/uL (4.00-5.40); RED CELL DISTRIBUTION WIDTH 14.9 % (11.5-14.5); WHITE BLOOD COUNT 11.6 10^3/uL (4.0-10.0)
[2018-04-30 00:27] LABS: ALBUMIN 3.6 GM/DL (3.2-5.2); ALKALINE PHOSPHATASE 87 U/L (45-117); ALT/SGPT 19 U/L (12-78); ANION GAP 9 MEQ/L (8-16); AST/SGOT 8 U/L (7-37); BILIRUBIN,DIRECT < 0.1 MG/DL (0.0-0.2); BILIRUBIN,TOTAL 0.2 MG/DL (0.2-1.0); BLOOD UREA NITROGEN 20 MG/DL (7-18); CALCIUM LEVEL 8.8 MG/DL (8.8-10.2); CARBON DIOXIDE LEVEL 25 MEQ/L (21-32); CHLORIDE LEVEL 106 MEQ/L (98-107); CHOLESTEROL LEVEL 248 MG/DL (<200); CHOLESTEROL RISK RATIO 4.509 (<5); CREATININE FOR GFR 0.89 MG/DL (0.55-1.30); GLOMERULAR FILTRATION RATE > 60.0 (>45); GLUCOSE, FASTING 123 MG/DL (70-100); HDL CHOLESTEROL 55 MG/DL (>40); LDL CHOLESTEROL 126.2 MG/DL (<100); LIPASE 142 U/L (73-393); NON-HDL-C 193 MG/DL; POTASSIUM SERUM 3.9 MEQ/L (3.5-5.1); SODIUM LEVEL 140 MEQ/L (136-145); TOTAL PROTEIN 6.6 GM/DL (6.4-8.2); TRIGLYCERIDES LEVEL 334 MG/DL (<150)
[2018-04-30] MEDS: ALBUTEROL SULFATE 2.5 MG/0.5 ML INH NEB SOLN NEB ×2 (00:37)
[2018-04-30 00:43] LABS: INR 0.88; PROTHROMBIN TIME 12.1 SECONDS (12.1-14.4)
[2018-04-30] MEDS ORDERED: ISOVUE-370 76% 100ML VIAL (Q9967) As Ordered ×2 (00:49)
[2018-04-30 01:01] LABS: CK-MB VALUE MASS 1.7 NG/ML (<3.6); CPK CREATINE PHOSPHOKINASE 46 U/L (26-192); MB/CK RELATIVE INDEX 3.69 (< OR =4); MYOGLOBIN 37 NG/ML (13-71); PARTIAL THROMBOPLASTIN TIME 23.6 SECONDS (25.4-37.6); TROPONIN I 0.02 NG/ML (< 0.10)
[2018-04-30] MEDS: ACETAMINOPHEN 325 MG TAB PO ×2 (03:28)
[2018-04-30] MEDS: SUCRALFATE 1 GM TAB PO ×2 (03:28)
[2018-04-30] MEDS: PANTOPRAZOLE 40MG INJ (PROTONIX) (C9113) IV ×2 (03:28)
== END 2018-04-30 05:04 | disposition home or self-care (01) ==
LOC: M ED 04-30 05:04
DX: K52.9 Noninfective gastroenteritis and colitis, unspecified (principal); J20.9 Acute bronchitis, unspecified; I31.3 Pericardial effusion (noninflammatory); R00.0 Tachycardia, unspecified; R94.31 Abnormal electrocardiogram [ECG] [EKG]; K40.90 Unilateral inguinal hernia, without obstruction or gangrene, not specified as recurrent; R91.1 Solitary pulmonary nodule; I10 Essential (primary) hypertension; K21.9 Gastro-esophageal reflux disease without esophagitis; J44.9 Chronic obstructive pulmonary disease, unspecified; Z72.0 Tobacco use; Z79.82 Long term (current) use of aspirin; Z79.899 Other long term (current) drug therapy
CPT/HCPCS: C9113

== ENCOUNTER → 2018-06-09 | Outpatient (CLI) | payer MEDICARE ==
[~2018-06-09] MED LIST changes: -ACET30TAB PO; -ADV100INH INH; -ALBU17IN INH; -ALBU83IN INH; -AMIT25TA PO; -ASPI1TAB PO; -ASPI81TA45 PO; -ASPI81TAEC PO; -AUGM875T28 PO; -AZIT500T2 PO; -Albuterol/Ipratropium NEB; -CEFD1CAP8 PO; -CYCL10TA PO; -CYCL5TAB PO; -CYMB60CA3 PO; +E-Z-GAS II EFFERVESCENT PACKET (SODIUM BICARB./CITRIC ACID/SIMETHICONE) As Ordered; +E-Z-HD 98% w/w 340GM SUSP BTL As Ordered; +E-Z-PAQUE 96% w/w SUSP 176GM BTL As Ordered; -EXCETAB81 PO; -HYDR-3713 PO; -IBUP1TAB6 PO; -IMIT50TA PO; -IPRASOL4 INH; -K-TA1TAB PO; -LISI10TA2 PO; -LISI10TA4 PO; -MECL-68 PO; -MECL12.575 PO; -METO10TA2 PO; -NICO14DI20 TD; -NITR100C39 PO; -OMEP40CA2 PO; -PEG1POW PO; -PHEN-500 PO; -PHEN200T22 PO; -POTA10CA PO; -PRED10TA PO; -PRED10TA2 PO; -PRED20TA PO; -SENN1TAB2 PO; -SUCR1TAB56 PO
== END ==
LOC: M RAD 08:51
DX: R93.5 Abnormal findings on diagnostic imaging of other abdominal regions, including retroperitoneum (principal); K25.9 Gastric ulcer, unspecified as acute or chronic, without hemorrhage or perforation
CPT/HCPCS: 74245

== ENCOUNTER 2018-06-25 07:17 | Day surgery (SDC) | payer MEDICARE ==
[2018-06-25] MEDS: NS 1,000 ML IV (06:00)
[~2018-06-25 07:17] MED LIST changes: -E-Z-GAS II EFFERVESCENT PACKET (SODIUM BICARB./CITRIC ACID/SIMETHICONE) As Ordered; -E-Z-HD 98% w/w 340GM SUSP BTL As Ordered; -E-Z-PAQUE 96% w/w SUSP 176GM BTL As Ordered; +LIDOCAINE 2% INJ 100 MG/5 ML SDV (FOR ANES.) As Ordered; +PROPOFOL 200 MG/20 ML VIAL As Ordered
[2018-06-25] MEDS ORDERED: PROPOFOL 200 MG/20 ML VIAL As Ordered (08:54)
== END 2018-06-25 09:35 | disposition home or self-care (01) ==
LOC: M OPP 07:17
DX: R93.5 Abnormal findings on diagnostic imaging of other abdominal regions, including retroperitoneum (principal); R10.13 Epigastric pain; K25.9 Gastric ulcer, unspecified as acute or chronic, without hemorrhage or perforation; K31.89 Other diseases of stomach and duodenum; K29.70 Gastritis, unspecified, without bleeding; I10 Essential (primary) hypertension; K59.00 Constipation, unspecified; K21.9 Gastro-esophageal reflux disease without esophagitis; R12 Heartburn; D64.9 Anemia, unspecified; R06.02 Shortness of breath; M19.90 Unspecified osteoarthritis, unspecified site; F41.9 Anxiety disorder, unspecified; G43.909 Migraine, unspecified, not intractable, without status migrainosus; J44.9 Chronic obstructive pulmonary disease, unspecified; R06.83 Snoring; Z87.442 Personal history of urinary calculi; F17.210 Nicotine dependence, cigarettes, uncomplicated; Z79.82 Long term (current) use of aspirin; Z79.899 Other long term (current) drug therapy; Z80.41 Family history of malignant neoplasm of ovary
CPT/HCPCS: 43245

== ENCOUNTER 2018-08-24 07:30 | Day surgery (SDC) | payer MEDICARE ==
[2018-08-24] MEDS: NS 1,000 ML IV (07:54)
[2018-08-24] MEDS ORDERED: fentaNYL 100 MCG/2 ML INJECTION (J3010) As Ordered (08:17)
[2018-08-24] MEDS ORDERED: LIDOCAINE 2% INJ 100 MG/5 ML SDV (FOR ANES.) As Ordered (08:19)
[2018-08-24] MEDS ORDERED: PROPOFOL 200 MG/20 ML VIAL As Ordered (08:19)
== END 2018-08-24 09:27 | disposition home or self-care (01) ==
LOC: M OPP 07:30
DX: K31.1 Adult hypertrophic pyloric stenosis (principal); K31.89 Other diseases of stomach and duodenum
CPT/HCPCS: 43235

== ENCOUNTER → 2018-09-07 | Outpatient (CLI) | payer MEDICARE | LOC: M CARPUL 09:49 | DX: Z01.818 Encounter for other preprocedural examination (principal); K31.1 Adult hypertrophic pyloric stenosis | CPT/HCPCS: 94060 ==

== ENCOUNTER 2018-09-16 10:09 | Inpatient (IN) | payer MEDICARE ==
[2018-09-16] MEDS ORDERED: PROPOFOL 200 MG/20 ML VIAL As Ordered (10:30)
[2018-09-16] MEDS ORDERED: fentaNYL 250 MCG/5 ML INJECTION (J3010) As Ordered (10:30)
[2018-09-16] MEDS ORDERED: ROCURONIUM BROMIDE 50 MG/5 ML VIAL As Ordered ×3 (10:30→16:01)
[2018-09-16] MEDS ORDERED: dexameTHASONE 4 MG/ML 1ML VIAL (J1100) As Ordered (10:30)
[2018-09-16] MEDS ORDERED: ONDANSETRON 4MG/2ML VIAL (J2405) As Ordered (10:30)
[2018-09-16] MEDS ORDERED: LIDOCAINE 2% INJ 100 MG/5 ML SDV (FOR ANES.) As Ordered (10:30)
[2018-09-16] MEDS ORDERED: MIDAZOLAM INJ 2 MG/2 ML VIAL (J2250) As Ordered ×2 (10:31→11:58)
[2018-09-16 10:39] LABS: HEMATOCRIT 42.4 % (36.0-47.0); HEMOGLOBIN 13.6 g/dl (12.0-15.5); MEAN CORPUSCULAR HEMOGLOBIN 28.3 pg (27.0-33.0); MEAN CORPUSCULAR HGB CONC 32.1 g/dl (32.0-36.5); MEAN CORPUSCULAR VOLUME 88.1 fl (80.0-96.0); PLATELET COUNT, AUTOMATED 186 10^3/uL (150-450); RED BLOOD COUNT 4.81 10^6/uL (4.00-5.40); RED CELL DISTRIBUTION WIDTH 16.1 % (11.5-14.5); WHITE BLOOD COUNT 5.6 10^3/uL (4.0-10.0)
[2018-09-16] MEDS: LR 1,000 ML IV ×3 (11:09→17:30)
[2018-09-16 11:31] LABS: ALBUMIN 3.7 GM/DL (3.2-5.2); ANION GAP 5 MEQ/L (8-16); BLOOD UREA NITROGEN 13 MG/DL (7-18); CALCIUM LEVEL 8.5 MG/DL (8.8-10.2); CARBON DIOXIDE LEVEL 31 MEQ/L (21-32); CHLORIDE LEVEL 104 MEQ/L (98-107); CREATININE FOR GFR 0.77 MG/DL (0.55-1.30); GLOMERULAR FILTRATION RATE > 60.0 (>45); GLUCOSE, FASTING 95 MG/DL (70-100); PHOSPHORUS LEVEL 3.4 MG/DL (2.5-4.9); POTASSIUM SERUM 3.6 MEQ/L (3.5-5.1); SODIUM LEVEL 140 MEQ/L (136-145)
[2018-09-16] MEDS ORDERED: ALBUTEROL SULFATE 2.5 MG/0.5 ML INH NEB SOLN As Ordered (11:38)
[2018-09-16] MEDS ORDERED: KETOROLAC 30 MG/ML VIAL (J1885) As Ordered (11:38)
[2018-09-16] MEDS: KETOROLAC 30 MG/ML VIAL (J1885) IV ×2 (11:45→21:29)
[2018-09-16] MEDS: ALBUTEROL SULFATE 2.5 MG/0.5 ML INH NEB SOLN INH ×2 (11:45→17:44)
[2018-09-16] MEDS ORDERED: fentaNYL 100 MCG/2 ML INJECTION (J3010) As Ordered (11:58)
[2018-09-16] MEDS: fentaNYL 100 MCG/2 ML INJECTION (J3010) IV ×2 (12:05→12:10)
[2018-09-16] MEDS: MIDAZOLAM INJ 2 MG/2 ML VIAL (J2250) IV ×3 (12:05→12:51)
[2018-09-16] MEDS ORDERED: PHENYLephrine HCL 500 MCG/5 ML (100MCG/ML) SYRINGE (J2370) As Ordered (13:40)
[2018-09-16] MEDS ORDERED: BUPIVACAINE HCL 0.25% 30 ML VIAL As Ordered (13:52)
[2018-09-16] MEDS ORDERED: METOCLOPRAMIDE INJ 10MG/2ML VIAL (J2765) IV ×2 (14:00→17:30)
[2018-09-16] MEDS ORDERED: EPIDURAL/PCA KEYS XX (14:00)
[2018-09-16] MEDS ORDERED: WALLBOXKEY XX (14:00)
[2018-09-16] MEDS ORDERED: NALOXONE INJ 0.4 MG/1 ML VIAL (J2310) IV (14:00)
[2018-09-16] MEDS ORDERED: ONDANSETRON 4MG/2ML VIAL (J2405) IV ×2 (14:00→17:30)
[2018-09-16] MEDS ORDERED: ePHEDrine SULFATE 25 MG/5 ML(5MG/ML) SYRINGE As Ordered (16:33)
[2018-09-16] MEDS ORDERED: GLYCOPYRROLATE INJ 0.2 MG/ML 2 ML VIAL As Ordered (16:35)
[2018-09-16] MEDS ORDERED: NEOSTIGMINE 10 MG/10 ML VIAL (J2710) As Ordered (16:35)
[2018-09-16] MEDS: FENTANYL/BUPIVACAINE/NACL BAG 250 ML EPIDURAL (17:14)
[2018-09-16] MEDS ORDERED: fentaNYL 100 MCG/2 ML INJECTION (J3010) IV (17:30)
[2018-09-16] MEDS: IPRATROPIUM 0.5MG/ALBUTEROL 2.5MG INH SOL UD 3ML (DUONEB)(J7620) INH (19:59)
[2018-09-16] MEDS: ADVAIR HFA 45/21MCG INHALER INH (19:59)
[2018-09-16] MEDS: ceFAZolin SOD 2 GM in D5W MINI-BAG PLUS 50 ML IV (21:28)
[2018-09-16] MEDS: ENOXAPARIN 40 MG/0.4 ML SYRINGE (J1650) SC (23:48)
[2018-09-17] MEDS: KETOROLAC 30 MG/ML VIAL (J1885) IV ×4 (04:00→23:42)
[2018-09-17 07:16] LABS: BASO % 0.1 % (0.0-1.0); HEMATOCRIT 36.3 % (36.0-47.0); IMMATURE GRANULOCYTE % 0.4 % (0-3.0); LYMPH # 0.3 10^3/uL (1.5-4.5); LYMPH % 4.2 % (24.0-44.0); MEAN CORPUSCULAR HEMOGLOBIN 28.2 pg (27.0-33.0); MEAN CORPUSCULAR VOLUME 88.1 fl (80.0-96.0); MONO # 0.8 10^3/uL (0.0-0.8); NEUTROPHILS # 6.7 10^3/uL (1.8-7.7); NEUTROPHILS % 85.3 % (36.0-66.0); PLATELET COUNT, AUTOMATED 151 10^3/uL (150-450); RED BLOOD COUNT 4.12 10^6/uL (4.00-5.40); RED CELL DISTRIBUTION WIDTH 16.4 % (11.5-14.5); WHITE BLOOD COUNT 7.8 10^3/uL (4.0-10.0)
[2018-09-17 07:25] LABS: HEMOGLOBIN 11.6 g/dl (12.0-15.5)
[2018-09-17 07:45] LABS: ANION GAP 6 MEQ/L (8-16); BLOOD UREA NITROGEN 18 MG/DL (7-18); CALCIUM LEVEL 7.9 MG/DL (8.8-10.2); CARBON DIOXIDE LEVEL 30 MEQ/L (21-32); CHLORIDE LEVEL 104 MEQ/L (98-107); CREATININE FOR GFR 0.79 MG/DL (0.55-1.30); GLOMERULAR FILTRATION RATE > 60.0 (>45); GLUCOSE, FASTING 120 MG/DL (70-100); POTASSIUM SERUM 3.8 MEQ/L (3.5-5.1); SODIUM LEVEL 140 MEQ/L (136-145)
[2018-09-17] MEDS: IPRATROPIUM 0.5MG/ALBUTEROL 2.5MG INH SOL UD 3ML (DUONEB)(J7620) INH ×3 (08:00→23:58)
[2018-09-17] MEDS: ADVAIR HFA 45/21MCG INHALER INH ×2 (08:04→18:05)
[2018-09-17] MEDS: PANTOPRAZOLE 40MG INJ (PROTONIX) (C9113) IV (08:58)
[2018-09-17] MEDS: LR 1,000 ML IV (13:00)
[2018-09-17] MEDS: FENTANYL/BUPIVACAINE/NACL BAG 250 ML EPIDURAL (17:05)
[2018-09-17] MEDS: ALBUTEROL SULFATE 2.5 MG/0.5 ML INH NEB SOLN NEB (21:18)
[2018-09-17] MEDS: ENOXAPARIN 40 MG/0.4 ML SYRINGE (J1650) SC (23:41)
[2018-09-18] MEDS: LR 1,000 ML IV ×3 (00:13→23:57)
[2018-09-18] MEDS: MORPHINE 4 MG/ML 1ML VIAL/SYRINGE (J2270) IV (02:35)
[2018-09-18 05:51] LABS: BASO % 0.2 % (0.0-1.0); HEMATOCRIT 33.5 % (36.0-47.0); HEMOGLOBIN 10.6 g/dl (12.0-15.5); IMMATURE GRANULOCYTE % 0.5 % (0-3.0); LYMPH # 0.4 10^3/uL (1.5-4.5); LYMPH % 5.9 % (24.0-44.0); MEAN CORPUSCULAR HEMOGLOBIN 27.5 pg (27.0-33.0); MEAN CORPUSCULAR HGB CONC 31.6 g/dl (32.0-36.5); MONO # 0.6 10^3/uL (0.0-0.8); MONO % 10.6 % (0.0-5.0); NEUTROPHILS # 4.9 10^3/uL (1.8-7.7); NEUTROPHILS % 82.8 % (36.0-66.0); PLATELET COUNT, AUTOMATED 106 10^3/uL (150-450); RED BLOOD COUNT 3.85 10^6/uL (4.00-5.40); RED CELL DISTRIBUTION WIDTH 16.4 % (11.5-14.5); WHITE BLOOD COUNT 5.9 10^3/uL (4.0-10.0)
[2018-09-18] MEDS: KETOROLAC 30 MG/ML VIAL (J1885) IV ×4 (06:09→23:57)
[2018-09-18 06:14] LABS: ALBUMIN 2.6 GM/DL (3.2-5.2); ALBUMIN/GLOBULIN RATIO 0.79 (1.00-1.93); ALKALINE PHOSPHATASE 65 U/L (45-117); ALT/SGPT 566 U/L (12-78); ANION GAP 6 MEQ/L (8-16); AST/SGOT 361 U/L (7-37); BILIRUBIN,TOTAL 0.3 MG/DL (0.2-1.0); BLOOD UREA NITROGEN 13 MG/DL (7-18); CALCIUM LEVEL 7.6 MG/DL (8.8-10.2); CARBON DIOXIDE LEVEL 30 MEQ/L (21-32); CHLORIDE LEVEL 106 MEQ/L (98-107); CREATININE FOR GFR 0.59 MG/DL (0.55-1.30); GLOMERULAR FILTRATION RATE > 60.0 (>45); GLUCOSE, FASTING 97 MG/DL (70-100); POTASSIUM SERUM 3.7 MEQ/L (3.5-5.1); SODIUM LEVEL 142 MEQ/L (136-145); TOTAL PROTEIN 5.9 GM/DL (6.4-8.2)
[2018-09-18] MEDS: IPRATROPIUM 0.5MG/ALBUTEROL 2.5MG INH SOL UD 3ML (DUONEB)(J7620) INH ×2 (07:34→23:37)
[2018-09-18] MEDS: ADVAIR HFA 45/21MCG INHALER INH ×2 (07:35→20:23)
[2018-09-18] MEDS: PANTOPRAZOLE 40MG INJ (PROTONIX) (C9113) IV (09:39)
[2018-09-18] MEDS: diphenhydrAMINE INJ 50MG/ML VIAL (J1200) IV (10:24)
[2018-09-18] MEDS: ALBUTEROL SULFATE 2.5 MG/0.5 ML INH NEB SOLN NEB (13:12)
[2018-09-18] MEDS: FENTANYL/BUPIVACAINE/NACL BAG 250 ML EPIDURAL (17:13)
[2018-09-18] MEDS: ENOXAPARIN 40 MG/0.4 ML SYRINGE (J1650) SC ×2 (23:00→23:57)
[2018-09-19 05:34] LABS: HEMATOCRIT 34.8 % (36.0-47.0); HEMOGLOBIN 10.8 g/dl (12.0-15.5); MEAN CORPUSCULAR HEMOGLOBIN 27.3 pg (27.0-33.0); MEAN CORPUSCULAR VOLUME 88.1 fl (80.0-96.0); PLATELET COUNT, AUTOMATED 109 10^3/uL (150-450); RED BLOOD COUNT 3.95 10^6/uL (4.00-5.40); RED CELL DISTRIBUTION WIDTH 16.1 % (11.5-14.5); WHITE BLOOD COUNT 5.7 10^3/uL (4.0-10.0)
[2018-09-19 05:49] LABS: ANION GAP 8 MEQ/L (8-16); BLOOD UREA NITROGEN 10 MG/DL (7-18); CALCIUM LEVEL 7.9 MG/DL (8.8-10.2); CARBON DIOXIDE LEVEL 28 MEQ/L (21-32); CHLORIDE LEVEL 104 MEQ/L (98-107); CREATININE FOR GFR 0.51 MG/DL (0.55-1.30); GLOMERULAR FILTRATION RATE > 60.0 (>45); GLUCOSE, FASTING 73 MG/DL (70-100); POTASSIUM SERUM 3.4 MEQ/L (3.5-5.1); SODIUM LEVEL 140 MEQ/L (136-145)
[2018-09-19] MEDS: IPRATROPIUM 0.5MG/ALBUTEROL 2.5MG INH SOL UD 3ML (DUONEB)(J7620) INH ×3 (07:43→23:57)
[2018-09-19] MEDS: ADVAIR HFA 45/21MCG INHALER INH ×2 (07:43→20:12)
[2018-09-19] MEDS: PANTOPRAZOLE 40MG INJ (PROTONIX) (C9113) IV (08:34)
[2018-09-19] MEDS: ACYCLOVIR 200 MG CAPSULE PO ×2 (10:38→20:07)
[2018-09-19] MEDS: KETOROLAC 30 MG/ML VIAL (J1885) IV ×2 (11:05→17:03)
[2018-09-19] MEDS ORDERED: PILL CRUSHER/CUTTER 1 EACH XX (11:45)
[2018-09-19] MEDS: SIMETHICONE 80 MG CHEW TAB PO ×3 (12:45→20:07)
[2018-09-19] MEDS: FENTANYL/BUPIVACAINE/NACL BAG 250 ML EPIDURAL (16:52)
[2018-09-19] MEDS: ENOXAPARIN 40 MG/0.4 ML SYRINGE (J1650) SC (22:02)
[2018-09-20] MEDS: IPRATROPIUM 0.5MG/ALBUTEROL 2.5MG INH SOL UD 3ML (DUONEB)(J7620) INH ×2 (08:00→15:59)
[2018-09-20] MEDS: ADVAIR HFA 45/21MCG INHALER INH ×2 (08:31→21:43)
[2018-09-20] MEDS: KETOROLAC 30 MG/ML VIAL (J1885) IV (09:04)
[2018-09-20] MEDS: DULoxetine 30 MG CAP (CYMBALTA) PO (09:04)
[2018-09-20] MEDS: ACYCLOVIR 200 MG CAPSULE PO ×2 (09:04→20:49)
[2018-09-20] MEDS: busPIRone 5 MG TAB PO ×3 (10:18→20:49)
[2018-09-20] MEDS: SUMAtriptan SUCCINATE 25 MG TAB PO (16:23)
[2018-09-20] MEDS: FENTANYL/BUPIVACAINE/NACL BAG 250 ML EPIDURAL (20:37)
[2018-09-20] MEDS: ASPIRIN 81 MG ENTERIC TAB PO (20:49)
[2018-09-20] MEDS: AMITRIPTYLINE 50 MG TAB PO (20:49)
[2018-09-20] MEDS: ENOXAPARIN 40 MG/0.4 ML SYRINGE (J1650) SC (23:50)
[2018-09-21] MEDS: IPRATROPIUM 0.5MG/ALBUTEROL 2.5MG INH SOL UD 3ML (DUONEB)(J7620) INH ×4 (00:40→23:06)
[2018-09-21 07:20] LABS: BASO % 0.2 % (0.0-1.0); EOS # 0.1 10^3/uL (0.0-0.50); EOS % 1.9 % (0.0-3.0); HEMATOCRIT 32.6 % (36.0-47.0); HEMOGLOBIN 10.6 g/dl (12.0-15.5); IMMATURE GRANULOCYTE % 0.6 % (0-3.0); LYMPH # 0.5 10^3/uL (1.5-4.5); LYMPH % 9.1 % (24.0-44.0); MEAN CORPUSCULAR HEMOGLOBIN 27.9 pg (27.0-33.0); MEAN CORPUSCULAR HGB CONC 32.5 g/dl (32.0-36.5); MEAN CORPUSCULAR VOLUME 85.8 fl (80.0-96.0); MONO # 0.7 10^3/uL (0.0-0.8); MONO % 13.4 % (0.0-5.0); NEUTROPHILS # 3.9 10^3/uL (1.8-7.7); NEUTROPHILS % 74.8 % (36.0-66.0); PLATELET COUNT, AUTOMATED 138 10^3/uL (150-450); RED CELL DISTRIBUTION WIDTH 15.6 % (11.5-14.5); WHITE BLOOD COUNT 5.2 10^3/uL (4.0-10.0)
[2018-09-21] MEDS: ADVAIR HFA 45/21MCG INHALER INH ×2 (07:40→21:45)
[2018-09-21 07:44] LABS: ALBUMIN 2.4 GM/DL (3.2-5.2); ALBUMIN/GLOBULIN RATIO 0.69 (1.00-1.93); ALKALINE PHOSPHATASE 60 U/L (45-117); ALT/SGPT 158 U/L (12-78); ANION GAP 7 MEQ/L (8-16); AST/SGOT 18 U/L (7-37); BILIRUBIN,TOTAL 0.2 MG/DL (0.2-1.0); BLOOD UREA NITROGEN 12 MG/DL (7-18); CALCIUM LEVEL 7.8 MG/DL (8.8-10.2); CARBON DIOXIDE LEVEL 29 MEQ/L (21-32); CHLORIDE LEVEL 105 MEQ/L (98-107); CREATININE FOR GFR 0.45 MG/DL (0.55-1.30); GLOMERULAR FILTRATION RATE > 60.0 (>45); GLUCOSE, FASTING 101 MG/DL (70-100); POTASSIUM SERUM 3.2 MEQ/L (3.5-5.1); SODIUM LEVEL 141 MEQ/L (136-145); TOTAL PROTEIN 5.9 GM/DL (6.4-8.2)
[2018-09-21] MEDS: ACYCLOVIR 200 MG CAPSULE PO ×2 (08:15→21:11)
[2018-09-21] MEDS: busPIRone 5 MG TAB PO ×3 (08:15→21:10)
[2018-09-21] MEDS: SUMAtriptan SUCCINATE 25 MG TAB PO (08:15)
[2018-09-21] MEDS: DULoxetine 30 MG CAP (CYMBALTA) PO (08:15)
[2018-09-21] MEDS: POTASSIUM CHLORIDE 10 MEQ SR TABLET PO ×3 (12:00→21:11)
[2018-09-21] MEDS: FENTANYL/BUPIVACAINE/NACL BAG 250 ML EPIDURAL (14:50)
[2018-09-21] MEDS: ASPIRIN 81 MG ENTERIC TAB PO (21:11)
[2018-09-21] MEDS: AMITRIPTYLINE 50 MG TAB PO (21:12)
[2018-09-21] MEDS: ENOXAPARIN 40 MG/0.4 ML SYRINGE (J1650) SC (22:12)
[2018-09-22] MEDS: FENTANYL/BUPIVACAINE/NACL BAG 250 ML EPIDURAL (00:29)
[2018-09-22] MEDS: SUMAtriptan SUCCINATE 25 MG TAB PO ×2 (03:10→09:24)
[2018-09-22] MEDS: IPRATROPIUM 0.5MG/ALBUTEROL 2.5MG INH SOL UD 3ML (DUONEB)(J7620) INH ×2 (08:00→15:29)
[2018-09-22] MEDS: busPIRone 5 MG TAB PO ×2 (08:09→16:21)
[2018-09-22] MEDS: ACYCLOVIR 200 MG CAPSULE PO (08:09)
[2018-09-22] MEDS: PANTOPRAZOLE 40MG TAB (PROTONIX) PO (08:09)
[2018-09-22] MEDS: DULoxetine 30 MG CAP (CYMBALTA) PO (08:10)
[2018-09-22] MEDS: ADVAIR HFA 45/21MCG INHALER INH (08:36)
[2018-09-22] MEDS ORDERED: ACETAMINOPHEN TAB 650MG DOSE (2X325MG) PO (08:45)
[2018-09-22] MEDS: NORCO, ANEXSIA 5/325MG TABLET (HYDROcodone/ACETAMINOPHEN) PO (12:21)
== END 2018-09-22 18:00 | disposition home or self-care (01) | DRG 327 ==
LOC: M OR 10:09 → M MSPAV 09-20 14:00 → M ICU 18:41
PROC: 0D160Z9 Bypass Stomach to Duodenum, Open Approach (ICD-10-PCS; principal; 2018-09-16 11:45)
PROC: 008Q0ZZ Division of Vagus Nerve, Open Approach (ICD-10-PCS; 2018-09-16 11:45)
PROC: 0DB70ZZ Excision of Stomach, Pylorus, Open Approach (ICD-10-PCS; 2018-09-16 11:45)
DX: K27.7 Chronic peptic ulcer, site unspecified, without hemorrhage or perforation (principal); K31.1 Adult hypertrophic pyloric stenosis; Z79.899 Other long term (current) drug therapy; G43.909 Migraine, unspecified, not intractable, without status migrainosus; J44.9 Chronic obstructive pulmonary disease, unspecified; I10 Essential (primary) hypertension; Z87.891 Personal history of nicotine dependence; F41.9 Anxiety disorder, unspecified; F32.9 Major depressive disorder, single episode, unspecified; M54.2 Cervicalgia

== ENCOUNTER → 2019-01-07 | Outpatient (REF) | payer MEDICARE ==
[~2019-01-07] MED LIST changes: +ACET-716 PO; +ADV100INH INH; +ALBU17IN INH; +ALBU83IN INH; +AMIT25TA PO; +ASPI81TA26 PO; +ASPI81TA45 PO; +ASPI81TAEC PO; +AUGM875T28 PO; +AZIT500T2 PO; +Albuterol/Ipratropium NEB; +BUSP15TA47 PO; +CARA1TAB6 PO; +CEFD1CAP8 PO; +CYCL10TA PO; +CYCL5TAB PO; +CYMB60CA3 PO; +EXCETAB81 PO; +HYDR-3713 PO; +IBUP1TAB6 PO; +IMIT50TA PO; +IPRA0.00 INH; +K-TA1TAB PO; +KLOR10TA76 PO; -LIDOCAINE 2% INJ 100 MG/5 ML SDV (FOR ANES.) As Ordered; +LISI10TA2 PO; +LISI10TA4 PO; +MECL-68 PO; +MECL12.575 PO; +METO10TA2 PO; +NICO14DI20 TD; +NITR100C39 PO; +OMEP40CA2 PO; +OSEL75CA PO; +PANT20TA2 PO; +PEG1POW PO; +PHEN-500 PO; +PHEN200T22 PO; +PRED-351 PO; +PRED10TA2 PO; +PRED20TA PO; -PROPOFOL 200 MG/20 ML VIAL As Ordered; +PROT1TAB2 PO; +SENN1TAB40 PO; +SUCR1TAB56 PO; +VENTAER INH; +VITATAB11 PO
== END ==
LOC: M LAB REF 10:17
PROVIDERS: ATTEND Physician Assistant Medical
DX: J02.9 Acute pharyngitis, unspecified (principal)

== ENCOUNTER → 2019-11-04 | Outpatient (CLI) | payer MEDICARE ==
[~2019-11-04] MED LIST changes: -AZIT500T2 PO; +AZIT500T5 PO; +LISI10TA15 PO; -LISI10TA2 PO; -MECL-68 PO; -MECL12.575 PO; +MECL12.589 PO; +MECL1TAB31 PO; -OMEP40CA2 PO; +OMEP40CA97 PO; +SENN-53 PO; -SENN1TAB40 PO
--- NOTE | 2019-11-04 10:38 | REPVR ---
PROCEDURE INFORMATION: Exam: CT Abdomen And Pelvis Without Contrast Exam date and time: 11/04/2019 10:05 AM Age: 68 years old Clinical indication: Abdominal pain; Additional info: Kidney pain TECHNIQUE: Imaging protocol: Computed tomography of the abdomen and pelvis without contrast. Radiation optimization: All CT scans at this facility use at least one of these dose optimization techniques: automated exposure control; mA and/or kV adjustment per patient size (includes targeted exams where dose is matched to clinical indication); or iterative reconstruction. COMPARISON: CT ABD PELVIS W/O CONTRAST 06/16/2017 2:58 PM FINDINGS: Limitations: Evaluation is somewhat limited by lack of IV contrast. Lungs: The visualized lung bases are essentially clear. Heart: A very small pericardial effusion is again present. Liver: Grossly unremarkable. Gallbladder and bile ducts: No gallstones are evident, but ultrasound would be more sensitive. No gross biliary ductal dilatation. Pancreas: Grossly unremarkable. Spleen: Grossly unremarkable. Adrenals: There is a fairly stable 2.4 cm right adrenal adenoma. Kidneys and ureters: Both kidneys contain tiny nonobstructing stones. There is no hydronephrosis or ureteral calculus on either side, and the kidneys appear otherwise grossly unremarkable. Stomach and bowel: The unopacified small bowel is not significantly distended to suggest obstruction. There is again mild sigmoid colonic diverticulosis without evidence for diverticulitis. The large bowel is otherwise grossly unremarkable in appearance. Appendix: The appendix is not identified, but there are no inflammatory changes in its expected region. Intraperitoneal space: No free air or significant free fluid. Vasculature: The abdominal aorta is nonaneurysmal. Atherosclerotic vascular calcifications are again present. Lymph nodes: No gross pathologic lymphadenopathy. Bladder: Grossly unremarkable. Reproductive: No gross adnexal abnormality is apparent, but ultrasound would be more appropriate in this regard. Bones/joints: Degenerative changes again involve the spine and hips. Soft tissues: Small fat containing bilateral inguinal hernias are again present. IMPRESSION: 1. Tiny non-obstructing bilateral nephrolithiasis without hydronephrosis or ureteral calculus. 2. Mild sigmoid colonic diverticulosis without evidence for diverticulitis. 3. Very small pericardial effusion, as on 06/16/17. 4. Fairly stable 2.4 cm right adrenal adenoma. 5. Persistent small fat containing bilateral inguinal hernias. COMMENT: Depending on suspected etiology of symptoms, consider a targeted ultrasound or contrast enhanced exam. Electronically signed by: Aleksander Marx On 11/04/2019 10:38:04 AM
== END ==
LOC: M RAD 09:59
PROVIDERS: ATTEND Nurse Practitioner Family
DX: N23 Unspecified renal colic (principal); D35.01 Benign neoplasm of right adrenal gland; N20.0 Calculus of kidney; K57.30 Diverticulosis of large intestine without perforation or abscess without bleeding; I70.0 Atherosclerosis of aorta

== ENCOUNTER → 2019-11-04 | Outpatient (REF) | payer MEDICARE | LOC: M SMT 12:21 | PROVIDERS: ATTEND Nurse Practitioner Family | DX: N23 Unspecified renal colic (principal) ==

== ENCOUNTER → 2019-12-12 | Outpatient (CLI) | payer MEDICARE ==
--- NOTE | 2019-12-12 18:51 | REP ---
PA and lateral chest: Comparisons are 01/18/2018 and 04/30/2018. There is a new 18 mm lung nodule in the right upper lobe, not present on the comparison plain film studies. On the chest CT dated 04/30/2018 there was a 5 mm lung nodule in this approximate location. Lung quigley otherwise clear but hyperinflated. Cardiac size is upper normal. The anali, mediastinum, and skeletal structures are unremarkable. Impression: There is an 18 mm lung nodule in the right upper lobe as described. Electronically Signed by Fish Ortiz MD 12/12/2019 06:43 P
== END ==
LOC: M ADAMS 17:56
PROVIDERS: ATTEND Physician Assistant
DX: J44.1 Chronic obstructive pulmonary disease with (acute) exacerbation (principal); R91.1 Solitary pulmonary nodule

== ENCOUNTER → 2019-12-19 | Outpatient (REF) | payer MEDICARE ==
[2019-12-19 13:43] LABS: BLOOD UREA NITROGEN 29 MG/DL (7-18); GLOMERULAR FILTRATION RATE > 60.0 (>45)
== END ==
LOC: M LAB REF 13:01
PROVIDERS: ATTEND Internal Medicine Pulmonary Disease
DX: R91.8 Other nonspecific abnormal finding of lung field (principal)

== ENCOUNTER → 2019-12-29 | Outpatient (CLI) | payer MEDICARE ==
--- NOTE | 2019-12-29 11:18 | REP ---
CT CHEST WITH IV CONTRAST: TECHNIQUE: Axial contrast enhanced images from the thoracic inlet to the upper abdomen using 100 mL Isovue 370 intravenous contrast material with multiplanar reformations. COMPARISON: 04/30/2018. There is a suspicious spiculated mass in the right upper lobe somewhat peripherally. This measures 1.9 cm in maximum diameter. There are diffuse linear spiculated densities surrounding the mass. There is adjacent mild pleural thickening. No other pulmonary nodule is seen bilaterally. Scattered interstitial fibrotic scarring is seen diffusely bilaterally. There is mild chronic fibroatelectasis in the right middle lobe unchanged since the prior exam. Two pathologic low density enlarged lymph nodes are seen in the precarinal region, larger of the two is toward the midline and measures 2.9 x 2.3 cm. The other is to the right of midline and measures 2.6 x 1.4 cm. No other axillary or hilar adenopathy is seen. Heart is not enlarged. There is moderate atherosclerotic calcification of the thoracic aorta without aneurysm. There is a very small amount of pericardial fluid/thickening. There is a tiny right pleural effusion inferiorly. In the visualized portions of the upper abdomen there is a right adrenal nodule measuring 2.5 cm in diameter which is unchanged dating back to a CT of the abdomen dated 08/04/2011, consistent with a benign nodule. There is chronic stable mild left adrenal gland thickening. No definite bone lesion is seen of the visualized osseous structures. IMPRESSION: Spiculated mass right upper lobe maximum diameter 1.9 cm. Margins are irregular with linear radiating spiculations surrounding the mass. There is mild adjacent pleural thickening. Suspicious mediastinal adenopathy with two enlarged low density lymph nodes in the precarinal region. Small amount of pericardial fluid/thickening. Tiny right effusion. Right adrenal nodule unchanged since 2010 most consistent with a benign adenoma. Electronically Signed by Fish Sanchez MD 12/29/2019 04:51 P
== END ==
LOC: M RAD 08:18
PROVIDERS: ATTEND Internal Medicine Pulmonary Disease
DX: R91.8 Other nonspecific abnormal finding of lung field (principal); J84.10 Pulmonary fibrosis, unspecified; I70.0 Atherosclerosis of aorta; I31.3 Pericardial effusion (noninflammatory); R59.0 Localized enlarged lymph nodes; E27.8 Other specified disorders of adrenal gland
CPT/HCPCS: 71260; Q9967

== ENCOUNTER → 2020-01-10 | Outpatient (REF) | payer MEDICARE ==
[2020-01-10 13:17] LABS: PLATELET COUNT, AUTOMATED 231 10^3/uL (150-450)
[2020-01-10 13:31] LABS: INR 0.92; PARTIAL THROMBOPLASTIN TIME 27.8 SECONDS (25.0-38.4); PROTHROMBIN TIME 12.1 SECONDS (11.8-14.0)
== END ==
LOC: M LAB REF 12:40
PROVIDERS: ATTEND Internal Medicine Pulmonary Disease
DX: R91.8 Other nonspecific abnormal finding of lung field (principal)

== ENCOUNTER → 2020-01-20 | Outpatient (CLI) | payer MEDICARE ==
[~2020-01-20] MED LIST changes: +CYCL-707 PO; -CYCL10TA PO; +EXCETAB22 PO; +GABA-1171 PO; +LIDOCAINE 1% MDV 20ML VIAL As Ordered ONE; +NYST50SS SS; +SENN1TAB41 PO; +SUMA25TA3 PO
--- NOTE | 2020-01-20 11:24 | REP ---
SINGLE VIEW CHEST: Single view of the chest is performed following CT guided biopsy of a right lung nodule. There is a tiny pneumothorax adjacent to the right upper lobe nodule. Followup chest radiograph will be performed in 2 hours. Electronically Signed by Fish Sanchez MD 01/20/2020 04:48 P
[2020-01-20 11:30] VITALS: BP 145/67
--- NOTE | 2020-01-20 14:12 | REP ---
SINGLE VIEW CHEST: Single view of the chest is performed status post right lung biopsy. There is again a very tiny pneumothorax adjacent to the right upper lobe lung nodule. This is unchanged since the earlier chest radiograph. The patient is asymptomatic. She will be discharged with instructions to return if she develops significant symptoms. Electronically Signed by Fish Sanchez MD 01/20/2020 04:51 P
--- NOTE | 2020-01-20 16:53 | REP ---
CT-GUIDED RIGHT UPPER LOBE LUNG BIOPSY The procedure was performed under the direct supervision of Dr. Sanchez. The patient has a history of a 1.9 cm spiculated mass in the right upper lobe seen on a previous CT scan dated 12/29/2019. The risks and benefits of the procedure were explained to the patient and informed consent was obtained. The right upper lobe lung mass was localized using CT guidance. The skin was prepped and draped in a sterile fashion. 1% lidocaine was used as a local anesthetic. Using CT guidance a 19/20 gauge coaxial needle biopsy system was inserted and advanced into the mass. Five core biopsy samples were obtained and sent to lab. Images obtained after the needle was removed demonstrate a very small pneumothorax on the right. The patient was placed on 2 liters of O2 via nasal cannula. The patient stated she had no pain. Her O2 sats were 96%. Chest x-ray performed immediately after the procedure demonstrates a tiny pneumothorax adjacent to the right upper lobe nodule. Chest x-ray performed 2 hours later shows no change in the size of the pneumothorax. The patient's vital signs were stable and she stated she had no pain. The patient tolerated the procedure well. After the appropriate amount of monitored convalescence the patient was discharged from the department. Electronically Signed by TABATHA Gerene 01/20/2020 03:19 P Electronically Signed by Fish Sanchez MD 01/20/2020 04:45 P
== END ==
LOC: M IRPRO 07:52
PROVIDERS: ATTEND Internal Medicine Pulmonary Disease
DX: C34.11 Malignant neoplasm of upper lobe, right bronchus or lung (principal); J95.811 Postprocedural pneumothorax

== ENCOUNTER → 2020-02-14 | Outpatient (CLI) | payer MEDICARE ==
[~2020-02-14] MED LIST changes: +DOXY100T27 PO; +HYDR-3715 PO; -LIDOCAINE 1% MDV 20ML VIAL As Ordered ONE; +RA B1TAB7 PO
--- NOTE | 2020-02-14 16:21 | REP ---
PET/CT: HISTORY: Staging right upper lobe lung carcinoma. COMPARISONS: Comparison is made with chest CT study from December 29, 2019. TECHNIQUE: 48 minutes following the intravenous injection of a 8.65 mCi dose of F-18 FDG, three-dimensional PET scintigraphy is acquired from the skull base to the proximal thighs. Triplanar noncontrast CT scanning is acquired through the same anatomic range for attenuation correction, and image registration with scan parameters optimized to minimize radiation exposure to the patient. PET scintigraphy and CT datasets were fused and displayed on a workstation with multiplanar and projection display capability. PET/CT FINDINGS: There is normal variant skeletal muscle soft tissue uptake in the head and neck soft tissues. No suspicious head and neck uptake is seen. The known malignancy in the right upper lobe is hypermetabolic, maximum standard uptake value is 10.56. The pretracheal/precarinal lymphadenopathy is hypermetabolic as well, maximum standard uptake value within this is 5.65. There is a small quantity of right pleural fluid at the right posteromedial lung base but no hypermetabolic uptake is seen here. A previously noted right adrenal adenoma is seen without hypermetabolic uptake. Maximum SUV value 1.53. No abnormal hypermetabolic uptake is seen in the abdomen or pelvis. IMPRESSION: Hypermetabolic uptake is seen in the spiculated nodule in the right upper lobe as well as in the precarinal/pretracheal lymphadenopathy. No other abnormal hypermetabolic uptake is seen. Electronically Signed by Marco Macdonald MD 02/14/2020 05:00 P
== END ==
LOC: M PLARAD 07:32
PROVIDERS: ATTEND Internal Medicine Pulmonary Disease
DX: C34.11 Malignant neoplasm of upper lobe, right bronchus or lung (principal)
CPT/HCPCS: 78815; A9552

== ENCOUNTER → 2020-02-15 | Outpatient (CLI) | payer MEDICARE ==
[~2020-02-15] MED LIST changes: +LIDOCAINE 1% MDV 20ML VIAL As Ordered ONE; +MIDAZOLAM INJ 2MG/2ML VIAL (J2250 PER 1MG) As Ordered ONE; +PERCOCET 5MG/325MG TAB As Ordered ONE; +PERCOCET 5MG/325MG TAB PO ONE; +PROMETHAZINE INJ 25 MG/ML VIAL (J2550) As Ordered ONE; +ceFAZolin 1GM VIAL (J0690 PER 500MG) As Ordered ONE; +diphenhydrAMINE 50MG/ML VIAL (J1200) As Ordered ONE; +fentaNYL 100 MCG/2 ML INJECTION (J3010) As Ordered ONE
--- NOTE | 2020-02-15 15:01 | POST-OPPD ---
Postoperative Procedure Note Date Of Procedure: February 15, 2020 Time Of Procedure: 15:01 PREOPERATIVE DIAGNOSIS: lung ca POSTOPERATIVE DIAGNOSIS: same FINDINGS: patent right IJ PROCEDURE: right sided port placed. ready to use SURGEON: mayuri ANESTHESIA: mod sed ESTIMATED BLOOD LOSS: < 5 ml COMPLICATIONS: none POSTOPERATIVE CONDITION: stable DONATO GRANT MD February 15, 2020 15:01
--- NOTE | 2020-02-15 15:01 | IRHP ---
[facility] IR Pre-Procedure H & P General Date of Service: February 15, 2020 Procedure: Same Day Surgery Interval History and Physical I have seen the patient and reviewed last H & P performed within 30 days. There is no significant interval change. History of Present Illness Chief Complaint The patient is a 69-year-old female admitted with a reason for visit of Lung Ca- Chemo. PRE-PROCEDURE DIAGNOSIS:lung ca HEART: normal rate. LUNGS: normal breathing at rest. ASA Classification ASA Classification: III-Severe systemic dis. Mallampati Score: II NPO: Yes Problems with prior sedation: No Obstructive Sleep Apnea: No Plan moderate sedation Allergies Coded Allergies: No Known Allergies (Unverified , 09/16/18) Home Medications Scheduled Amitriptyline HCl (Amitriptyline HCl), 50 MG PO QHS, (Reported) Aspirin (Aspirin EC), 81 MG PO DAILY, (Reported) Aspirin/Acetaminophen/Caffeine (Excedrin Migraine Geltab), 2 TAB PO DAILY, (Reported) Buspirone HCl (Buspirone HCl), 15 MG PO TID, (Reported) Cyclobenzaprine HCl (Cyclobenzaprine HCl), 10 MG PO BID, (Reported) Doxycycline Monohydrate (Doxycycline Monohydrate), 100 MG PO BID, (Reported) Duloxetine Hcl (Cymbalta), 60 MG PO DAILY, (Reported) Gabapentin (Gabapentin), 100 MG PO TID, (Reported) Lisinopril/Hydrochlorothiazide (Lisinopril-Hctz 10-12.5 mg Tab), 1 TAB PO DAILY, (Reported) Meclizine HCl (Meclizine HCl), 25 MG PO QID, (Reported) Metoclopramide HCl (Metoclopramide HCl), 10 MG PO DAILY, (Reported) Pantoprazole Sodium (Pantoprazole Sodium), 20 MG PO BID, (Reported) Potassium Chloride (Klor-Con M10), 10 MEQ PO DAILY, (Reported) Salmeterol/Fluticasone (Advair 100-50 Diskus), 1 PUFF INH BID, (Reported) Sennosides/Docusate Sodium (Senna-S Tablet), 2 TAB PO BID, (Reported) Sucralfate (Sucralfate), 1 GM PO QID, (Reported) Scheduled PRN Albuterol Sulfate (Ventolin Hfa), 2 PUFFS INH Q4H PRN for SOB/WHEEZING, (Reported) Ipratropium/Albuterol Sulfate (Iprat-Albut 0.5-3(2.5) mg/3 ml), 1 EZE INH Q8H PRN for SHORTNESS OF BREATH, (Reported) Nystatin (Nystatin Oral Susp), 5 ML SS BID PRN for THRUSH, (Reported) Sumatriptan Succinate (Sumatriptan Succinate), 25 MG PO PRN PRN for MIGRAINE, (Reported) Discontinued Medications Hydrocodone/Acetaminophen (Hydrocodone-Acetamin 5-325 mg), 1 TAB PO Q4H PRN for PAIN, (Reported) Discontinued Reason: PCP discontinued med Vitamin B Complex (B Complex), 1 TAB PO DAILY, (Reported) Discontinued Reason: Pt states not taking VS, I&O, 24H, Fishbone Vital Signs/I&O Vital Signs Date Time Temp Pulse Resp B/P (MAP) Pulse Ox O2 Delivery O2 Flow Rate FiO2 02/15/20 14:22 93 18 98 Nasal Cannula 2 02/15/20 13:35 97.4 DONATO GRANT MD February 15, 2020 15:00
[2020-02-15 16:25] VITALS: BP 158/74
--- NOTE | 2020-02-16 09:19 | REP ---
IR Ultrasound and fluoroscopy-guided port placement. IR Ultrasound of the neck. IR Moderate sedation. Clinical information: Lung cancer. Physician: Dr. Townsend. Procedure: The patient was advised of the benefits, risks, and alternatives of the procedure and informed consent was obtained. A time-out was performed with verification of the patient's name, MRN, site of procedure and type of procedure to be performed. The patient was positioned in the supine position on the angiographic table. The site was prepped and draped in the usual sterile fashion. Moderate sedation was performed by the physician including the presence of an independent trained observer who assisted and monitored the patient's level of consciousness and physiologic status. Following the administration of Fentanyl and Versed, the physician spent 45 minutes of continuous face to face time with the patient. Ultrasound of the neck reveals a patent and compressible right internal jugular vein. A district scout executive radiograph reveals aerated right lung. The neck and anterior chest wall were anesthetized with lidocaine. The right internal jugular vein was accessed using a microintroducer needle under ultrasound guidance, via a lateral approach. An 018 wire was advanced into the superior vena cava, the needle was removed and a microsheath was placed. An Amplatz wire was then passed into the inferior vena cava. An incision at the internal jugular vein access site and anterior chest wall were made using a scalpel. An incision was made at the anterior chest wall. A small pocket was created using a combination of blunt and sharp dissection. A tunneling device was then used to pass the catheter from the pocket to the neck puncture site. An 8-[place] smart power port was then positioned in the pocket. The catheter was then measured and cut. The introducer sheath was exchanged for a peel-away sheath. The catheter was passed through the peel-away sheath into the internal jugular vein and the peel-away sheath was removed. The port tip was positioned at the cavo atrial junction. The port was then accessed with a Diaz needle. The port flushes and aspirates well. The puncture site in the neck was closed. The chest wall incision was then closed with 2-0 Vicryl and 4-0 Monocryl. Glue and Steri-Strips were applied. A sterile dressing was then applied. The patient tolerated the procedure well and was returned to the PRU in stable condition. Estimated blood loss: <5 ml. Complications: None. Conclusion: 1. Successful placement of an 8-[place] [employer] smart power port via the right internal jugular vein. The port is ready for immediate use. 2. Patient to follow up in IR clinic in 2 weeks. Thank you for this referral. Electronically Signed by Kina Townsend MD 02/16/2020 09:18 A
== END ==
LOC: M IRPRO 12:33
PROVIDERS: ATTEND Internal Medicine Hematology
DX: C34.90 Malignant neoplasm of unspecified part of unspecified bronchus or lung (principal); Z79.82 Long term (current) use of aspirin; Z79.899 Other long term (current) drug therapy
CPT/HCPCS: 36561; 99152; 99153; C1769; C1788; C1894; J0690; J1200; J1642; J1644; J2250; J3010

== ENCOUNTER → 2020-02-16 | Outpatient (CLI) | payer MEDICARE ==
[~2020-02-16] MED LIST changes: -LIDOCAINE 1% MDV 20ML VIAL As Ordered ONE; -MIDAZOLAM INJ 2MG/2ML VIAL (J2250 PER 1MG) As Ordered ONE; -PERCOCET 5MG/325MG TAB As Ordered ONE; -PERCOCET 5MG/325MG TAB PO ONE; -PROMETHAZINE INJ 25 MG/ML VIAL (J2550) As Ordered ONE; -ceFAZolin 1GM VIAL (J0690 PER 500MG) As Ordered ONE; -diphenhydrAMINE 50MG/ML VIAL (J1200) As Ordered ONE; -fentaNYL 100 MCG/2 ML INJECTION (J3010) As Ordered ONE
--- NOTE | 2020-02-21 12:12 | RADONC ---
RADIATION ONCOLOGY TELEPHONE CONSULTATION NOTE DATE: 02/16/2020 This is a telemedicine visit. The patient was informed of the risks including security breech, technological failure, inability to perform a comprehensive physical exam which could delay or prevent an accurate diagnosis, and potential complications from treatment decisions rendered over a telemedicine platform. The patient understands and consented to the use of telehealth services phone only. 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 STAGE: III A, T1b, N2, M0, ECOG PERFORMANCE STATUS: Not evaluated. CONSULTATION NOTE: Ms. Kerr is a very pleasant 69-year-old white female with the diagnosis of what appears to be at least a stage III A, T1b, N2, M0, high-grade nonsmall cell lung carcinoma with necrosis who is being referred to us for discussion of possible external beam radiation therapy. HISTORY OF PRESENT ILLNESS: The patient was in her usual state of health with a long history of COPD and emphysema. She has borderline pulmonary issues and indeed a pulmonary function test done 09/07/2018 showed an FEV1 of 1.05 with a diffusion capacity of 50%. A spirometry was undertaken on 12/19/2019 with a FEV1 of 1.13. She is scheduled for new pulmonary function test on February 21, 2020. More recently, the patient has had increasing cough with sputum production. She was initially treated with antibiotics by her primary care physician, Dr. Vickey Smith. She was subsequently seen by her cafe manager Dr. Castellanos and a CT scan was done on 12/29/2019 which revealed a spiculated mass in the right upper lobe which measured 1.9 cm. In addition, there was suspicious mediastinal lymphadenopathy with two enlarged lymph nodes in the precarinal region, one measuring 2.9 cm x 2.3 cm and a second measuring 2.6 cm x 1.4 cm. On 01/20/2020, the patient underwent right upper lobe lung biopsy and pathology revealed a high-grade nonsmall cell lung carcinoma. The differential included, but was not limited to a large cell carcinoma and basaloid squamous cell carcinoma. A PET scan was undertaken on 02/14/2020 which showed hypermetabolic uptake with an SUV value of 10.56 in the right upper lobe lesion. There was also hypermetabolic uptake in the pretracheal and precarinal area as well with a maximum SUV value of 5.65. There was a small quantity of right pleural fluid at the right posterior medial lung base, but this was not hypermetabolic. The previously noted right adrenal adenoma was not hypermetabolic and had an SUV value of 1.53. There was no evidence of metastatic disease. The patient was seen by her medical oncologist, Dr. Deandre June, and has spoken with him about chemotherapy. She is having a MediPort placed. The patient is very much against radiation and made that clear at the initiation of the consultation. PAST MEDICAL HISTORY: Positive for emphysema, she uses home oxygen. She had some type of cervical spine injury with fractured vertebral bodies. She has a history of hypertension and kidney stones. She has bilateral hearing aids with hearing loss. She has a history of migraines as well as bronchitis and pneumonia. She reports that she had a partial gastrectomy and has had uterine surgery for endometriosis. She has had ovarian cysts removed and lithotripsy. ALLERGIES: The patient has NO KNOWN DRUG ALLERGIES. SOCIAL HISTORY: The patient smoked one pack of cigarettes per year for 40 years. She drinks alcohol socially. FAMILY HISTORY: The patient's family history is positive for a mother with some type cancer. REVIEW OF SYSTEMS: The patient's review of systems is positive for her shortness of breath. She reports she gets winded walking through a store. She has shortness of breath with any type of exertion. Review of systems is otherwise positive for occasional headaches as well as anxiety and anorexia. She has a 40-pound weight loss over the past few months. Her trouble breathing causes her physical limitations. She has hearing loss and urinary retention. She reports weakness in her arms. She denies nausea, vomiting, fevers, chills, night sweats, diplopia, visual disturbances, rectal bleeding or neurological problems. PHYSICAL EXAMINATION: Physical examination was deferred as per COVID-19 precautions. This was a telephone consultation. ASSESSMENT: I had a lengthy discussion with this patient and have personally reviewed the patient's PET scan and CT images. Unfortunately, in order to incorporate not only the lung primary, but the mediastinal lymph nodes, a significant portion of the right lung will be lost if the patient were undergo radiation. Considering her shortness of breath at this point and limitations to quality of life, I do not think she can safely tolerate this treatment. Her previous pulmonary function test done a year and a half ago already showed an FEV1 value of 1.05 with 50% diffusion capacity. Clearly, this patient cannot tolerate the loss of half of her right lung. We will for the sake of thoroughness however obtain and review the patient's pulmonary function tests from February 20 when it is undertaken. The patient reports that even if I had offered her radiation she would refuse. She is fully aware of the risks of radiation and does not wish to have any further shortness of breath. She reports that she is terrified of suffocating and has claustrophobia. I agree with this patient wholeheartedly. We are not recommending radiation in this patient at this time. She is willing to undergo systemic therapy and can be reevaluated after that. Since we will not be treating this patient, I have not set up any followup in our office at this time. She will continue her close followup and management with her medical oncologist, Dr. Slade June, as well as with her cafe manager Dr. Jay Castellanos, and her primary care physician Dr. Vickey Smith. cc: MD Jay Dyer DO, [facility] Vickey Smith MD
== END ==
LOC: M ONCR 09:10
PROVIDERS: ATTEND Radiology Radiation Oncology
DX: C34.11 Malignant neoplasm of upper lobe, right bronchus or lung (principal); J44.9 Chronic obstructive pulmonary disease, unspecified; J43.9 Emphysema, unspecified; I10 Essential (primary) hypertension; F17.210 Nicotine dependence, cigarettes, uncomplicated

== ENCOUNTER → 2020-03-06 | Outpatient (CLI) | payer MEDICARE ==
[~2020-03-06] MED LIST changes: +DEXA4TA PO; +LIDO2.5C15 TOP; +LIDOCAINE 1% MDV 20ML VIAL As Ordered ONE; +PANT-23 PO; +PROC10TA4 PO
[2020-03-06 12:44] VITALS: BP 116/56
--- NOTE | 2020-03-06 15:31 | REP ---
CHEST, SINGLE VIEW: Single expiratory view of the chest is performed status post right lung biopsy. There is no pneumothorax. Right upper lobe mass is again noted. Right central venous catheter is noted. IMPRESSION: No pneumothorax status post right lung biopsy. Electronically Signed by Fish Sanchez MD 03/07/2020 12:32 P
--- NOTE | 2020-03-06 17:15 | REP ---
CT-GUIDED RIGHT UPPER LOBE LUNG BIOPSY The procedure was performed under the direct supervision of Dr. Sanchez. The patient has a history of a spiculated nodule in the right upper lobe which is hypermetabolic on a PET scan performed on 02/14/2020. This lesion was biopsied previously on 01/20/2020. The patient is referred for rebiopsy for molecular testing. The risks and benefits of the procedure were explained to the patient and informed consent was obtained. The right upper lobe lung mass was localized using CT guidance. The skin was prepped and draped in a sterile fashion. 1% lidocaine was used as a local anesthetic. Using CT guidance a 19/20 gauge coaxial needle biopsy system was inserted and advanced into the mass. Six core biopsy samples were obtained and sent to lab. The patient tolerated the procedure well and there were no immediate complications. After the appropriate amount of monitored convalescence the patient was discharged from the department. Electronically Signed by TABATHA Greene 03/06/2020 02:02 P Electronically Signed by Fish Sanchez MD 03/06/2020 05:05 P
== END ==
LOC: M IRPRO 09:04
PROVIDERS: ATTEND Internal Medicine Hematology
DX: C34.11 Malignant neoplasm of upper lobe, right bronchus or lung (principal)
CPT/HCPCS: 32405; 77012; 88305; J1642

== ENCOUNTER → 2020-03-21 | Outpatient (CLI) | payer MEDICARE ==
[~2020-03-21] MED LIST changes: +ALDA25TA2 PO; -AMIT25TA PO; +AMIT25TA17 PO; +CARV3.12 PO; +DIALTAB2 PO; +FERR325T3 PO; +FLUC200T2 PO; +FURO40TA2 PO; +INCR1INH INH; +LASI20TA3 PO; -LIDOCAINE 1% MDV 20ML VIAL As Ordered ONE; +LISI-898 PO; +LISI10TA22 PO; -LISI10TA4 PO; -MECL12.589 PO; +MECL12.590 PO; +MUCI600T31 PO; -PANT20TA2 PO; +PANT20TA6 PO; +POTA1TAB14 PO; +POTA1TAB23 PO; +PROHANCE 279.3MG/ML 15ML VIAL As Ordered ONE; +SUPETAB56 PO
--- NOTE | 2020-03-21 11:57 | REPVR ---
PROCEDURE INFORMATION: Exam: MR Head Without and With Contrast Exam date and time: 03/21/2020 10:57 AM Age: 69 years old Clinical indication: Condition or disease; Cancer; Metastatic or secondary malignancy of brain; Primary cancer: Lung; Additional info: Lung CA ? mets TECHNIQUE: Imaging protocol: MR of the head without and with intravenous contrast. Contrast material: PROHANCE; Contrast volume: 13 ml; Contrast route: INTRAVENOUS (IV); COMPARISON: No relevant prior studies available. FINDINGS: Brain: No acute infarct identified on the diffusion-weighted imaging. No evidence of brain parenchymal edema or intracranial mass effect. The brain demonstrates mild generalized volume loss. Patchy foci of increased signal intensity in the deep and subcortical white matter most likely representing mild chronic small vessel ischemic change. No enhancing brain parenchymal lesions identified on the postcontrast imaging. There is a 6 x 4 mm focus of dural based enhancement overlying the left precentral gyrus, probably a meningioma, image 20 series 701, image 17 series 901. Ventricles: Normal. No ventriculomegaly. Bones/joints: Unremarkable. Sinuses: Normal as visualized. No acute sinusitis. Mastoid air cells: Trace, essentially focal left mastoid fluid. Orbits: Unremarkable. Soft tissues: Unremarkable. Internal carotid arteries: Unusual flow void for the left ICA, potentially related to vascular tortuosity or a congenital variant. An aneurysm is thought to be less likely. This is seen for example on axial image 9 of series 501, sagittal image 10 series 201. IMPRESSION: 1. No evidence of brain parenchymal metastatic disease. 2. Probable left frontal meningioma. To exclude the possibility of a dural metastasis, suggest a follow-up study. 3. Left ICA tortuosity versus congenital variant vasculature versus aneurysm. Suggest MRA or CTA head for further evaluation. Electronically signed by: Keisha Townsend On 03/21/2020 11:56:47 AM
== END ==
LOC: M RAD 09:29
PROVIDERS: ATTEND Internal Medicine Hematology & Oncology
DX: C34.90 Malignant neoplasm of unspecified part of unspecified bronchus or lung (principal)
CPT/HCPCS: 70553; A9576

== ENCOUNTER → 2020-05-22 | Outpatient (CLI) | payer MEDICARE ==
[~2020-05-22] MED LIST changes: +AMIT25TA PO; -AMIT25TA17 PO; +GASTROGRAFIN SOLUTION 30ML (Q9963) As Ordered ONE; +GASTROGRAFIN SOLUTION 30ML (Q9963) ONE; +ISOVUE-370 76% 100ML VIAL As Ordered ONE; +ISOVUE-370 76% 100ML VIAL ONE; +LISI-542 PO; -LISI-898 PO; -LISI10TA22 PO; +LISI10TA4 PO; +MECL12.589 PO; -MECL12.590 PO; -PROHANCE 279.3MG/ML 15ML VIAL As Ordered ONE
--- NOTE | 2020-06-28 08:35 | REP ---
CT OF THE CHEST WITH IV CONTRAST Delay in reporting results from hospital computer system malfunction from malware/ ransomware. COMPARISON: 12/29/2019. FINDINGS: Patient has a known right upper lobe spiculated lung nodule. This nodule is again identified on the study today and has decreased in size measuring 11 x 12 mm. On the comparison study, this measured 19 mm. There is a tiny air density within this nodule today. I note the patient underwent CT-guided needle biopsy of this on nodule on 01/10/2020 and on 03/06/2020. There are no other lung masses or nodules. There are no acute infiltrates. There are no pleural effusions. There are two mediastinal lymph nodes that have decreased in size. The precarinal node near the midline today measures 1.5 x 0.9 cm. This previously measured 2.9 x 2.3 cm. The precarinal nodule to the right of midline today measures 0.6 x 1.0 cm. This previously measured 2.6 x 1.4 cm. There are no new mediastinal nodes or new hilar nodes. There is no axillary lymph node enlargement. The thoracic aorta is unremarkable except for calcified atheroma. Cardiac size is normal. There are coronary artery vascular atheromatous calcifications. Cardiac size is normal. There is pericardial thickening versus pericardial effusion anteriorly measuring 7 mm in depth. This is unchanged. In the upper abdomen, there is a stable right adrenal nodule measuring 2.4 cm in diameter, unchanged from multiple prior studies dating back to 2010. This is compatible with a benign adenoma. The visualized hepatic parenchyma, gallbladder, pancreas, and spleen are unremarkable. IMPRESSION: The known right upper lobe lung nodule has decreased in size and now contains a small air density. The two enlarged mediastinal nodes have decreased in size. There are no new lung nodules. There is no mediastinal or hilar lymph node enlargement. No new axillary lymph node enlargement. There is a stable right adrenal nodule compatible with benign adenoma. [facility]
--- NOTE | 2020-06-28 08:36 | REP ---
CT ABDOMEN AND PELVIS WITH IV AND BOWEL CONTRAST Delay in reporting results from hospital computer system malfunction from malware/ ransomware. COMPARISON: 11/04/2019 without IV or bowel contrast and 04/30/2018 with IV contrast. FINDINGS: The visualized lower lung quigley are as described in the CT study of the chest this same date. The hepatic parenchyma is homogeneous. The gallbladder, pancreas, and spleen are normal in size and unremarkable. There is a 2.4 cm right adrenal nodule, unchanged from multiple prior studies dated 2010 compatible with benign adenoma. The left adrenal is unremarkable. The kidneys are unremarkable. The tiny right and left renal calculi identified on 11/04/2019 without IV contrast are obscured by the IV contrast on the current study. There is no hydronephrosis. The abdominal aorta is unremarkable except for calcified atheroma. There is no periaortic adenopathy or mass. There are circumferential surgical clips in the gastric fundus, unchanged from 11/04/2019. There is no bowel distention or obstruction. The mesentery is unremarkable. PELVIS: The uterus, adnexa, and bladder are unremarkable. There is no adenopathy or ascites. The pelvic bowel loops are unremarkable. There are no lytic, blastic, or destructive skeletal changes. IMPRESSION: There is no adenopathy, mass, or ascites. There is a stable right adrenal nodule compatible with benign adenoma. There are surgical clips in the gastric fundus. There are bilateral small fat-containing inguinal hernias, unchanged. [facility]
== END ==
LOC: M RAD 11:29
PROVIDERS: ATTEND Internal Medicine Medical Oncology
DX: C34.90 Malignant neoplasm of unspecified part of unspecified bronchus or lung (principal); E27.9 Disorder of adrenal gland, unspecified
CPT/HCPCS: 71260; 74177; Q9963; Q9967

== ENCOUNTER → 2020-06-08 | Outpatient (CLI) | payer MEDICARE ==
[~2020-06-08] MED LIST changes: -GASTROGRAFIN SOLUTION 30ML (Q9963) As Ordered ONE; -GASTROGRAFIN SOLUTION 30ML (Q9963) ONE; -ISOVUE-370 76% 100ML VIAL As Ordered ONE; -ISOVUE-370 76% 100ML VIAL ONE
== END ==
LOC: M LABSMTC 10:09
PROVIDERS: ATTEND Physician Assistant
DX: Z11.59 Encounter for screening for other viral diseases (principal)

== ENCOUNTER → 2020-07-05 | Outpatient (CLI) | payer MEDICARE ==
[~2020-07-05] MED LIST changes: -DIALTAB2 PO; -MUCI600T31 PO
== END ==
LOC: M LABSMTC 09:29
PROVIDERS: ATTEND Physician Assistant
DX: Z20.828 Contact with and (suspected) exposure to other viral communicable diseases (principal)

== ENCOUNTER 2020-07-20 03:22 | Inpatient (IN) | payer MEDICARE ==
[~2020-07-20] VITALS: Ht 165.1 cm; Wt 65.9 kg
[2020-07-20] VITALS (11 sets, daily range): BP systolic 129–136; BP diastolic 73–82; O2SAT 94–98
[~2020-07-20 03:22] MED LIST changes: -ALDA25TA2 PO; -CARV3.12 PO; -FURO40TA2 PO; -INCR1INH INH; -LASI20TA3 PO; -LISI-542 PO; -POTA1TAB23 PO; -SUPETAB56 PO
[2020-07-20 03:49] LABS: BASO # 0.1 10^3/uL (0.0-0.2); BASO % 0.4 % (0.0-1.0); EOS # 0.2 10^3/uL (0.0-0.5); EOS % 1.3 % (0.0-3.0); HEMATOCRIT 49.2 % (36.0-47.0); HEMOGLOBIN 14.9 g/dl (12.0-15.5); LYMPH # 1.8 10^3/uL (1.5-5.0); LYMPH % 11.4 % (24.0-44.0); MEAN CORPUSCULAR HEMOGLOBIN 29.3 pg (27.0-33.0); MEAN CORPUSCULAR HGB CONC 30.3 g/dl (32.0-36.5); MEAN CORPUSCULAR VOLUME 96.9 fl (80.0-96.0); MONO # 1.3 10^3/uL (0.0-0.8); MONO % 8.3 % (0.0-5.0); NEUTROPHILS # 12.4 10^3/uL (1.5-8.5); NEUTROPHILS % 78.2 % (36.0-66.0); PLATELET COUNT, AUTOMATED 211 10^3/uL (150-450); RED BLOOD COUNT 5.08 10^6/uL (4.00-5.40); WHITE BLOOD COUNT 15.9 10^3/uL (4.0-10.0)
[2020-07-20] MEDS: IPRATROPIUM 0.5MG/ALBUTEROL 2.5MG INH SOL UD 3ML (DUONEB) NEB PRN (03:58)
[2020-07-20 04:47] LABS: ALBUMIN 3.2 GM/DL (3.2-5.2); ALT/SGPT 223 U/L (12-78); BILIRUBIN,DIRECT 0.1 MG/DL (0.0-0.2); BILIRUBIN,TOTAL 0.3 MG/DL (0.2-1.0); BLOOD UREA NITROGEN 19 MG/DL (7-18); CALCIUM LEVEL 8.4 MG/DL (8.8-10.2); CARBON DIOXIDE LEVEL 26 MEQ/L (21-32); CHLORIDE LEVEL 110 MEQ/L (98-107); CK-MB VALUE MASS 2.3 NG/ML (<3.6); CPK CREATINE PHOSPHOKINASE 68 U/L (26-192); CREATININE FOR GFR 0.81 MG/DL (0.55-1.30); GLOMERULAR FILTRATION RATE > 60.0 (>45); GLUCOSE, FASTING 144 MG/DL (70-100); MB/CK RELATIVE INDEX 3.38 (< OR =4); SODIUM LEVEL 143 MEQ/L (136-145); TOTAL PROTEIN 6.5 GM/DL (6.4-8.2); TROPONIN I 0.06 NG/ML (< 0.10)
--- NOTE | 2020-07-20 05:51 | REPVR ---
PROCEDURE INFORMATION: Exam: XR Chest, 1 View Exam date and time: 07/20/2020 5:17 AM Age: 69 years old Clinical indication: Other: Dynspnea/cough; Additional info: Dyspnea/cough TECHNIQUE: Imaging protocol: XR of the chest Views: 1 view. COMPARISON: CT Chest with contrast 05/22/2020 1:20 PM FINDINGS: Lungs: Bilateral perihilar and bibasilar opacities. Emphysema. Pleural space: Small bilateral pleural effusions. Heart/Mediastinum: Unremarkable. No cardiomegaly. Bones/joints: Osteopenia. Soft tissues: Right chest MediPort. IMPRESSION: Bilateral perihilar and bibasilar opacities. Small bilateral pleural effusions. Electronically signed by: Jagdeep Liriano On 07/20/2020 05:51:32 AM
[2020-07-20] MEDS ORDERED: ISOVUE-370 76% 100ML VIAL As Ordered ONE (06:08)
[2020-07-20 06:30] LABS: NT-PRO BNP 9240 PG/ML (<125)
[2020-07-20] MEDS ORDERED: ACETAMINOPHEN TAB 650MG DOSE (2X325MG) PO ONE (06:30)
[2020-07-20] MEDS ORDERED: ACETAMINOPHEN TAB 650MG DOSE (2X325MG) As Ordered ONE (06:31)
[2020-07-20] MEDS ORDERED: FUROSEMIDE 40MG/4ML VIAL (J1940) IV ONE ×2 (06:45→12:00)
--- NOTE | 2020-07-20 06:49 | REPVR ---
PROCEDURE INFORMATION: Exam: CT Angiography Chest With Contrast Exam date and time: 07/20/2020 6:00 AM Age: 69 years old Clinical indication: Shortness of breath; Patient HX: Lung cancer; Additional info: SOB, lung CA TECHNIQUE: Imaging protocol: Computed tomographic angiography of the chest with intravenous contrast. 3D rendering (Not supervised by radiologist): MIP and/or 3D reconstructed images were created by the technologist. Radiation optimization: All CT scans at this facility use at least one of these dose optimization techniques: automated exposure control; mA and/or kV adjustment per patient size (includes targeted exams where dose is matched to clinical indication); or iterative reconstruction. Contrast material: ISO; Contrast volume: 75 ml; Contrast route: INTRAVENOUS (IV); COMPARISON: CT ANGIO CHEST 04/30/2018 12:51 AM FINDINGS: Tubes, catheters and devices: Right chest MediPort. Pulmonary arteries: Normal. No pulmonary emboli. Aorta: Atherosclerotic disease of the thoracic aorta. Other arteries: Focal ostial stenosis of the celiac trunk with poststenotic dilatation. Lungs: Spiculated 1.2 cm right upper lobe nodule with a pleural tail likely representing neoplasm. Focal subpleural opacity in the medial right upper lobe. Complete atelectasis or scarring of the right middle lobe . Mild interstitial pulmonary edema. Centrilobular and paraseptal emphysema. Pleural space: Trace bilateral pleural effusions with adjacent compressive atelectasis. Heart: Atherosclerotic of coronary arteries. Mild cardiomegaly. Lymph nodes: Unremarkable. No enlarged lymph nodes. Liver: Hepatomegaly. Adrenals: Indeterminate stable 2.2 cm left adrenal nodule. Kidneys and ureters: Mild right renal cortical atrophy with compensatory enlargement the left kidney. Stomach and bowel: Status partial gastrectomy. Bones/joints: Osteopenia. No acute fracture. Soft tissues: Along the gastrohepatic ligament. IMPRESSION: No acute pulmonary embolic disease. Spiculated 1.2 cm right upper lobe nodule with a pleural tail likely representing neoplasm. Fleischner Society follow up recommendations for incidental nodules are not indicated. Follow up per the patient's medical condition. Focal subpleural opacity in the medial right upper lobe. Complete atelectasis or scarring of the right middle lobe . Mild interstitial pulmonary edema. Electronically signed by: Jagdeep Liriano On 07/20/2020 06:49:38 AM
[2020-07-20] MEDS ORDERED: SUPETAB56 PO (07:55)
[2020-07-20] MEDS ORDERED: INCR1INH INH (07:55)
[2020-07-20] MEDS ORDERED: POTA1TAB23 PO (07:55)
[2020-07-20] MEDS ORDERED: LASI20TA3 PO (07:55)
--- NOTE | 2020-07-20 08:05 | ECGEPIP ---
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
[2020-07-20] MEDS ORDERED: ALBUTEROL 90 MCG/ACT 8GM HFA INHALER INH PRN (09:30)
[2020-07-20] MEDS ORDERED: PERCOCET 5MG/325MG TAB PO ONE (09:30)
[2020-07-20] MEDS ORDERED: PROCHLORPERAZINE 5 MG TAB (S0183) PO PRN (09:30)
[2020-07-20] MEDS ORDERED: EMLA CREAM 5GM TUBE (LIDOCAINE/PRILOCAINE) TOP SCH (09:30)
[2020-07-20] MEDS ORDERED: IPRATROPIUM 0.5MG/ALBUTEROL 2.5MG INH SOL UD 3ML (DUONEB) INH PRN (09:30)
[2020-07-20] MEDS ORDERED: METOCLOPRAMIDE 10 MG TAB PO PRN (09:30)
[2020-07-20] MEDS ORDERED: NYSTATIN 500,000 U/5 ML SUSP UDC SS PRN (09:30)
[2020-07-20] MEDS: ADVAIR HFA 45/21MCG INHALER INH SCH ×2 (11:28→19:44)
[2020-07-20] MEDS: IPRATROPIUM 0.5MG/ALBUTEROL 2.5MG INH SOL UD 3ML (DUONEB) INH SCH ×4 (11:28→23:46)
[2020-07-20] MEDS ORDERED: FUROSEMIDE 40MG/4ML VIAL (J1940) IV SCH (12:00)
[2020-07-20] MEDS: SUCRALFATE 1 GM TAB PO SCH ×3 (12:47→20:42)
[2020-07-20] MEDS: MECLIZINE 25 MG TABLET PO PRN (12:47)
[2020-07-20] MEDS: busPIRone 5 MG TAB PO SCH ×3 (12:48→20:44)
[2020-07-20] MEDS: DULoxetine 30 MG CAP (CYMBALTA) PO SCH (12:48)
[2020-07-20] MEDS: GABAPENTIN 100 MG CAP PO SCH ×3 (12:48→20:43)
[2020-07-20] MEDS: POTASSIUM CHLORIDE 10 MEQ SR TABLET PO SCH (12:48)
[2020-07-20] MEDS: CYCLOBENZAPRINE 10MG TABLET PO SCH ×3 (12:48→20:43)
[2020-07-20] MEDS: PANTOPRAZOLE 40MG TAB (PROTONIX) PO SCH ×2 (12:49→20:42)
[2020-07-20] MEDS: NORCO, ANEXSIA 5/325MG TABLET (HYDROcodone/ACETAMINOPHEN) PO PRN (12:49)
[2020-07-20] MEDS: SENOKOT S TAB PO SCH (12:50)
[2020-07-20] MEDS: ASPIRIN 81 MG ENTERIC TAB PO SCH (12:50)
--- NOTE | 2020-07-20 14:02 | HPEPDOC ---
[facility] Medical History & Physical Date of Admission Jul 20, 2020 Date of Service: Jul 20, 2020 Attending Physician: BERTRAM LINDER MD History and Physical CHIEF COMPLAINT: Worsening SOB HISTORY OF PRESENT ILLNESS: 69-year-old W recently diagnosed (04/2020) locally advanced non-small cell lung cancer currently on palliative atezolizumab and bevacizumab and follows with Dr. 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 She denies any recent fever, chills, s ick contacts, travel, hemoptysis, pleurisy, chest pain, palpitations. She has a chronic history of nausea since her cancer diagnosis and chemo/immunotherapy. She also has a chronic history of back and neck pain, as well as episodic diarrhea associated with cancer treatment, general aches and slowly progressive generalized weakness and malaise. In the ED, she was hypertensive, tachypneic, tachycardic and afebrile. Initial ABG showed a pH of 7.237 with a CO2 of 58 and she was briefly placed on BiPAP with improvement to 7.346 with CO2 of 38.1 and was placed on 5L NC thereafter. She was also given a duoneb and lasix 40 IV once with resolution of respiratory distress.On workup CXR showed bilateral perihilar and bibasilar opacities with small bilateral pleural effusions while CTA showed no evidence of PE, a 1.2cm spiculated RUL nodule and a focal subpleural opacity in the medial RUL as well a s mild interstitial edema. ProBNP was 9240, EKG non ischemic with sinus tachycardia, troponin negative, and she had a leukocytosis to 15.9, with Hgb 14.9, platelets 211, na 143, K 4, Cr 0.81, respiratory panel was negative for covid-19, and she had a newly noted transaminitis with ASt 269, ALT 223 without hyperbilirubinemia and alk phos of 215. She is now being admitted for CHF exacerbation. 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 Olivas in 09/2018 PAST SURGICAL HISTORY: Chiqui-en-Y gastrectomy FAMILY HISTORY: Noncontributory Social History: Tobacco: >45 years consumption. Active smoker Alcohol: Denies Illicit drugs: Denies ROS: 10 point ROS was completed and all pertinent findings are as mentioned in the HPI above, and all other elements were otherwise negative. Physical Examination General: Ill appearing, pale, lady who appears older than her stated age, in bed with eyes shut and lights dimmed with towel on forehead reporting ongoing migraine. Eye: PERRLA, Conjunctiva & lids normal, EOMI, anicteric ENT: Atraumatic, Nares Patent, MMM without jesus manuel thrush or evidence of mucositis Neck: supple Chest: Diminished bases, scattered rhonchi, no jesus manuel crackles at this time, normal air movement closer to the apices, no wheezing Heart: Tachycardic, Regular Rhythm, Normal S1, Normal S2, no mrg Abdomen: Normal bowel sounds, soft, NTND Extremities: WWP, no LE edema, 2+ DP pulses Skin: Pale, otherwise without rashes or lesions Neuro: Normal Speech, normal tone, 5/5 strength throughout, CN 3-12 intact Psych: AOx3 Assessment: 69-year-old W recently diagnosed (04/2020) locally advanced non-small cell lung cancer currently on palliative atezolizumab and bevacizumab and follows with Dr. Clark, COPD, chronic hypoxemic respiratory failure on home oxygen, current long standing smoker who presented from home with worsening shortness of breath and now admitted with hypercarbic hypoxemic respiratory failure that appears to have both the elements of COPD exacerbation and CHF exacerbation. HFpEF exacerbation with interstitial edema on CT, elevated proBNP and worsening [place]: -s/p lasix 40IV once in the ED -start lasix 40 IV QD, hold PO lasix 20 QD PRN -2L/24h fluid restriction -strict I/Os -daily weights -hold home ACEi to give hemodynamic room for diuresis, will restart if severely hypertensive Hypercarbic hypoxemic respiratory failure likely with contribution from COPD exacerbation -will give prednisone 40 for 5 days -continue home mdis -supplemental O2, need to establish what her home requirements are to understand endpoint in terms of inpatient efforts -incentive spirometry -goal saturation >88% -respiratory panel was negative -no jesus manuel PNA on imagine -check procalcitonin NSCLC: -to follow up outpatient with Dr. Clark -hold chemo related home meds -resume her antiemetics -continue home O2 PUD: -continue PPI and sucralfate Chronic back and neck pain: -continue her home flexeril, duloxetine, norco, amitriptyline, gabapentin Migraines: -continue excedrin migraine PRN and reglan PRN DVT ppx: TEDs and SCDs Dispo: PCU Code status: DNI/DNR, ok for trial BiPAP Vital Signs Vital Signs Date Time Temp Pulse Resp B/P (MAP) Pulse Ox O2 Delivery O2 Flow Rate FiO2 07/20/20 12:49 18 Nasal Cannula 5.0 07/20/20 11:05 96.7 96 132/82 (99) 99 07/20/20 03:59 70 Laboratory Data Labs 24H Laboratory Tests 2 07/20/20 03:40: POC Troponin I (Misc) 0.05 07/20/20 03:43: Immature Granulocyte % (Auto) 0.4, Neutrophils (%) (Auto) 78.2H, Lymphocytes (%) (Auto) 11.4L, Monocytes (%) (Auto) 8.3H, Eosinophils (%) (Auto) 1.3, Basophils (%) (Auto) 0.4, Neutrophils # (Auto) 12.4H, Lymphocytes # (Auto) 1.8, Monocytes # (Auto) 1.3H, Eosinophils # (Auto) 0.2, Basophils # (Auto) 0.1, Nucleated Red Blood Cells % (auto) 0.0, Anion Gap 7L, Glomerular Filtration Rate > 60.0, Lactic Acid Level 1.3, Calcium Level 8.4L, Total Bilirubin 0.3, Direct Bilirubin 0.1, Aspartate Amino Transf (AST/SGOT) 269H, Alanine Aminotransferase (ALT/SGPT) 223H, Alkaline Phosphatase 215H, Total Creatine Kinase 68, Creatine Kinase MB 2.3, Creatine Kinase MB Relative Index 3.38, Troponin I 0.06, DW-Hnz-D-Type Natriuretic Peptide 9240H, Total Protein 6.5, Albumin 3.2, Albumin/Globulin Ratio 1.0L 07/20/20 03:52: POC pH (Misc Panel) 7.237*L, POC Base Excess (Misc Panel) -2.0, POC Saturated Percent O2 (Misc) 95, POC pO2 (Misc Panel) 92.0, POC pCO2 (Misc Panel) 58.7H, POC HCO3 (Misc Panel) 25.0, POC Total CO2 (Misc Panel) 27.0 07/20/20 06:18: POC pH (Misc Panel) 7.346L, POC Base Excess (Misc Panel) -5.0L, POC Saturated P ercent O2 (Misc) 89L, POC pO2 (Misc Panel) 60.0L, POC pCO2 (Misc Panel) 38.1, POC HCO3 (Misc Panel) 20.9L, POC Total CO2 (Misc Panel) 22.0L CBC/BMP Laboratory Tests 07/20/20 03:43 Microbiology Microbiology 07/20/20 Respiratory Virus Panel (PCR) (MAIKEL) - Final, Complete 07/20/20 Blood Culture, Received Pending 07/20/20 Blood Culture, Received Pending Home Medications Scheduled Amitriptyline HCl (Amitriptyline HCl) 25 Mg Tab, 50 MG PO QHS Aspirin (Aspirin EC) 81 Mg Tabec, 81 MG PO DAILY Buspirone HCl (Buspirone HCl) 15 Mg Tab, 15 MG PO TID Cyclobenzaprine HCl (Cyclobenzaprine HCl) 10 Mg Tab, 10 MG PO TID Dexamethasone (Dexamethasone) 4 Mg Tablet, 4 MG PO ASDIRECTED take 2 tabs by mouth daily the day before chemo, the day of chemo, and the day after chemo Duloxetine Hcl (Cymbalta) 60 Mg Cap, 60 MG PO DAILY Fluconazole (Fluconazole) 200 Mg Tablet, 1 TAB PO DAILY for yeast infection Folic Acid/Vit B Complex and C (Super B Complex Tablet) 400 Mcg Tablet, 2 TAB PO DAILY Gabapentin (Gabapentin) 100 Mg Capsule, 100 MG PO TID Lidocaine/Prilocaine (Lidocaine-Prilocaine Cream) 2.5%/2.5% Cream..g., 1 DOSE TOP ASDIRECTED Apply dime size to port area. Do not rub in, cover with saran wrap to protect clothing. Lisinopril/Hydrochlorothiazide (Lisinopril-Hctz 10-12.5 mg Tab) 1 Tab Tab, 1 TAB PO DAILY Pantoprazole Sodium (Pantoprazole Sodium) 40 Mg Tablet.dr, 40 MG PO BID Potassium Chloride (Potassium Chloride) 10 Meq Tablet.er, 10 MEQ PO DAILY Salmeterol/Fluticasone (Advair 100-50 Diskus) 1 Each Blst.w.dev, 1 PUFF INH BID Sennosides/Docusate Sodium (Senna-S Tablet) 1 Each Tablet, 2 TAB PO DAILY Sucralfate (Sucralfate) 1 Gm Tablet, 1 GM PO ACHS Umeclidinium [place] (Incruse Ellipta) 62.5 Mcg Blst.w.dev, 62.5 MCG INH DAILY Scheduled PRN Albuterol Sulfate (Ventolin Hfa) 108 Mcg/Act Aer, 2 PUFFS INH Q4H PRN for SOB/WHEEZING Aspirin/Acetaminophen/Caffeine (Excedrin Migraine Geltab) 1 Each Tablet, 2 TAB PO BID PRN for MIGRAINE Furosemide (Lasix) 20 Mg Tablet, 20 MG PO DAILY PRN for LEG SWELLING Hydrocodone/Acetaminophen (Hydrocodone-Acetamin 5-325 mg) 1 Each Tablet, 1 TAB PO QID PRN for PAIN Ipratropium/Albuterol Sulfate (Iprat-Albut 0.5-3(2.5) mg/3 ml) 1 Eze Eze, 1 EZE INH QID PRN for SHORTNESS OF BREATH Meclizine HCl (Meclizine HCl) 25 Mg Tab, 25 MG PO QID PRN for DIZZINESS Metoclopramide HCl (Metoclopramide HCl) 10 Mg Tablet, 10 MG PO QID PRN for MIGRAINE Nystatin (Nystatin Oral Susp) 100,000 Unit/1 Ml Oral.susp, 5 ML SS QID PRN for THRUSH Prochlorperazine Maleate (Prochlorperazine Maleate) 10 Mg Tablet, 10 MG PO TIDP PRN for NAUSEA OR VOMITING Sumatriptan Succinate (Sumatriptan Succinate) 25 Mg Tablet, 25 MG PO BID PRN for MIGRAINE Allergies Coded Allergies: No Known Allergies (Unverified , 09/16/18) A-FIB/CHADSVASC A-FIB History Current/History of A-Fib/PAF?: No Current PO Anticoag Therapy: No Age/Risk Factor Scoring CHADSVASC: CHADSVASC Response (Comments) Value Age Risk Factor Age 65-74 years old 1 Gender Risk Factor Female 1 Hx of CHF Yes 1 Hx of HTN Yes 1 Hx of Stroke/TIA/or VTE No 0 Hx of Diabetes No 0 Hx of Vascular Disease No 0 Total 4 Treatment Treatment ordered: NONE Reason Anticoagulant not given: Not indicated/[id number] BERTRAM LINDER MD Jul 20, 2020 14:02
[2020-07-20] MEDS: SUMAtriptan SUCCINATE 25 MG TAB PO PRN (14:20)
[2020-07-20] MEDS: predniSONE 20 MG TAB PO SCH (14:22)
[2020-07-20] MEDS: TIOTROPIUM INHALER/CAPSULE (SPIRIVA) INH SCH (15:09)
[2020-07-20] MEDS ORDERED: AMITRIPTYLINE 25 MG TAB PO SCH (21:00)
[2020-07-20] MEDS: AMITRIPTYLINE 50 MG TAB PO SCH (21:15)
[2020-07-21] VITALS (20 sets, daily range): BP systolic 120–150; BP diastolic 58–85; O2SAT 92–97
[2020-07-21] MEDS: FUROSEMIDE 40MG/4ML VIAL (J1940) IV SCH ×2 (01:41→23:01)
[2020-07-21] MEDS: NORCO, ANEXSIA 5/325MG TABLET (HYDROcodone/ACETAMINOPHEN) PO PRN ×4 (01:50→23:01)
[2020-07-21] MEDS: IPRATROPIUM 0.5MG/ALBUTEROL 2.5MG INH SOL UD 3ML (DUONEB) INH SCH ×6 (03:01→23:35)
[2020-07-21 06:22] LABS: HEMATOCRIT 40.6 % (36.0-47.0); MEAN CORPUSCULAR HEMOGLOBIN 29.5 pg (27.0-33.0); MEAN CORPUSCULAR HGB CONC 31.3 g/dl (32.0-36.5); MEAN CORPUSCULAR VOLUME 94.2 fl (80.0-96.0); PLATELET COUNT, AUTOMATED 146 10^3/uL (150-450); RED BLOOD COUNT 4.31 10^6/uL (4.00-5.40); WHITE BLOOD COUNT 5.4 10^3/uL (4.0-10.0)
[2020-07-21 06:35] LABS: BLOOD UREA NITROGEN 17 MG/DL (7-18); CALCIUM LEVEL 8.5 MG/DL (8.8-10.2); CARBON DIOXIDE LEVEL 31 MEQ/L (21-32); CHLORIDE LEVEL 102 MEQ/L (98-107); CREATININE FOR GFR 0.69 MG/DL (0.55-1.30); GLOMERULAR FILTRATION RATE > 60.0 (>45); GLUCOSE, FASTING 91 MG/DL (70-100); POTASSIUM SERUM 3.5 MEQ/L (3.5-5.1); SODIUM LEVEL 139 MEQ/L (136-145)
[2020-07-21 06:38] LABS: HEMOGLOBIN 12.7 g/dl (12.0-15.5)
[2020-07-21] MEDS: TIOTROPIUM INHALER/CAPSULE (SPIRIVA) INH SCH (07:13)
[2020-07-21] MEDS: ADVAIR HFA 45/21MCG INHALER INH SCH ×2 (07:13→19:40)
[2020-07-21] MEDS: CYCLOBENZAPRINE 10MG TABLET PO SCH ×3 (07:48→20:21)
[2020-07-21] MEDS: PANTOPRAZOLE 40MG TAB (PROTONIX) PO SCH ×2 (07:48→20:21)
[2020-07-21] MEDS: POTASSIUM CHLORIDE 10 MEQ SR TABLET PO SCH (07:49)
[2020-07-21] MEDS: SUCRALFATE 1 GM TAB PO SCH ×4 (07:49→20:21)
[2020-07-21] MEDS: SENOKOT S TAB PO SCH (07:49)
[2020-07-21] MEDS: DULoxetine 30 MG CAP (CYMBALTA) PO SCH (07:49)
[2020-07-21] MEDS: ASPIRIN 81 MG ENTERIC TAB PO SCH (07:49)
[2020-07-21] MEDS: GABAPENTIN 100 MG CAP PO SCH ×3 (07:49→20:21)
[2020-07-21] MEDS: predniSONE 20 MG TAB PO SCH (07:50)
[2020-07-21] MEDS: busPIRone 5 MG TAB PO SCH ×3 (09:44→20:21)
[2020-07-21] MEDS ORDERED: SLF 3 ML SYR IV PRN (11:00)
[2020-07-21] MEDS: SLF 3 ML SYR IV SCH ×2 (12:16→20:22)
--- NOTE | 2020-07-21 13:06 | IPNPDOC ---
Text Note Date of Service The patient was seen on 07/21/20. NOTE Subjective: -Feels better. Now on 3L NC -Has productive cough with thick greyish sputum Physical Examination General: NAD, pale, elderly woman Eye: PERRLA, Conjunctiva & lids normal, EOMI, anicteric ENT: Atraumatic, Nares Patent, MMM Neck: supple Chest: Diminished bases, scattered rhonchi, no jesus manuel crackles Heart: Tachycardic, Regular Rhythm, Normal S1, Normal S2, no mrg Abdomen: Normal bowel sounds, soft, NTND Extremities: WWP, no LE edema, 2+ DP pulses Skin: Pale, otherwise without rashes or lesions Neuro: Normal Speech, normal tone, 5/5 strength throughout, CN 3-12 intact Psych: AOx3 Assessment: 69-year-old W recently diagnosed (04/2020) locally advanced non-small cell lung cancer currently on palliative atezolizumab and bevacizumab and follows with Dr. Clark, COPD, chronic hypoxemic respiratory failure on home oxygen, current long standing smoker who presented from home with worsening shortness of breath and now admitted with hypercarbic hypoxemic respiratory failure that appears to be 2/2 CHF exacerbation vs. possible PNA. HFpEF exacerbation with interstitial edema on CT, elevated proBNP and worsening [place]: -lasix 40 IV QD -2L/24h fluid restriction -strict I/Os -daily weights -hold home ACEi to give hemodynamic room for diuresis, will restart if severely hypertensive Hypercarbic hypoxemic respiratory failure likely i/s/o COPD and NSCLC now with noted thick meyer sputum c/f CAP -continue home mdis -supplemental O2, need to establish what her home requirements are to understand endpoint in terms of inpatient efforts -incentive spirometry -goal saturation >88% -respiratory panel was negative -f/u procalcitonin -start empiric PO levaquin 750mg QD -hold prednisone -send sputum for microbiology studies NSCLC: -to follow up outpatient with Dr. Clark -hold chemo related home meds -resume her antiemetics -continue home O2 PUD: -continue PPI and sucralfate Chronic back and neck pain: -continue her home flexeril, duloxetine, norco, amitriptyline, gabapentin Migraines: -continue excedrin migraine PRN and reglan PRN DVT ppx: TEDs and SCDs Dispo: PCU Code status: DNI/DNR, ok for trial BiPAP VS,Fishbone, I+O VS, Fishbone, I+O Laboratory Tests 07/21/20 05:28 Vital Signs Date Time Temp Pulse Resp B/P (MAP) Pulse Ox O2 Delivery O2 Flow Rate FiO2 07/21/20 04:00 97.9 94 17 120/58 (78) 96 Nasal Cannula 4.0 07/20/20 03:59 70 I&O- Last 24 Hours up to 6 AM 07/21/20 06:00 Intake Total 1420 ml Output Total 1150 ml Balance 270 ml BERTRAM LINDER MD Jul 21, 2020 07:47
[2020-07-21] MEDS: LevoFLOXacin 750 MG TABLET PO SCH (14:27)
[2020-07-21] MEDS: AMITRIPTYLINE 50 MG TAB PO SCH (20:21)
[2020-07-21] MEDS: SUMAtriptan SUCCINATE 25 MG TAB PO PRN (22:30)
[2020-07-22] VITALS (20 sets, daily range): BP systolic 117–149; BP diastolic 53–82; O2SAT 88–100
[2020-07-22] MEDS: IPRATROPIUM 0.5MG/ALBUTEROL 2.5MG INH SOL UD 3ML (DUONEB) INH SCH ×6 (03:15→23:41)
[2020-07-22] MEDS: SLF 3 ML SYR IV SCH ×3 (04:38→22:24)
[2020-07-22 05:02] LABS: HEMATOCRIT 39.6 % (36.0-47.0); HEMOGLOBIN 12.5 g/dl (12.0-15.5); MEAN CORPUSCULAR HEMOGLOBIN 30.1 pg (27.0-33.0); MEAN CORPUSCULAR HGB CONC 31.6 g/dl (32.0-36.5); MEAN CORPUSCULAR VOLUME 95.4 fl (80.0-96.0); PLATELET COUNT, AUTOMATED 117 10^3/uL (150-450); RED BLOOD COUNT 4.15 10^6/uL (4.00-5.40)
[2020-07-22 05:21] LABS: BLOOD UREA NITROGEN 21 MG/DL (7-18); CALCIUM LEVEL 8.1 MG/DL (8.8-10.2); CARBON DIOXIDE LEVEL 32 MEQ/L (21-32); CHLORIDE LEVEL 103 MEQ/L (98-107); CREATININE FOR GFR 0.78 MG/DL (0.55-1.30); GLOMERULAR FILTRATION RATE > 60.0 (>45); GLUCOSE, FASTING 82 MG/DL (70-100); POTASSIUM SERUM 3.4 MEQ/L (3.5-5.1); SODIUM LEVEL 142 MEQ/L (136-145)
[2020-07-22] MEDS: TIOTROPIUM INHALER/CAPSULE (SPIRIVA) INH SCH (07:10)
[2020-07-22] MEDS: ADVAIR HFA 45/21MCG INHALER INH SCH ×2 (07:11→19:59)
[2020-07-22] MEDS: busPIRone 5 MG TAB PO SCH ×3 (09:00→20:22)
[2020-07-22] MEDS: SENOKOT S TAB PO SCH (09:00)
[2020-07-22] MEDS: NORCO, ANEXSIA 5/325MG TABLET (HYDROcodone/ACETAMINOPHEN) PO PRN ×2 (09:01→17:56)
[2020-07-22] MEDS: CYCLOBENZAPRINE 10MG TABLET PO SCH ×3 (09:01→20:22)
[2020-07-22] MEDS: ASPIRIN 81 MG ENTERIC TAB PO SCH (09:01)
[2020-07-22] MEDS: DULoxetine 30 MG CAP (CYMBALTA) PO SCH (09:02)
[2020-07-22] MEDS: GABAPENTIN 100 MG CAP PO SCH ×3 (09:02→20:22)
[2020-07-22] MEDS: PANTOPRAZOLE 40MG TAB (PROTONIX) PO SCH ×2 (09:02→20:22)
[2020-07-22] MEDS: SUCRALFATE 1 GM TAB PO SCH ×4 (09:03→20:22)
[2020-07-22] MEDS: POTASSIUM CHLORIDE 10 MEQ SR TABLET PO SCH (09:03)
[2020-07-22] MEDS ORDERED: POTASSIUM CHLORIDE 10 MEQ SR TABLET PO ONE (10:00)
[2020-07-22] MEDS: FUROSEMIDE 40MG/4ML VIAL (J1940) IV SCH (10:22)
--- NOTE | 2020-07-22 10:37 | IPNPDOC ---
Text Note Date of Service The patient was seen on 07/22/20. NOTE Subjective: -Now on 2L NC -Has productive cough with thick greyish sputum --> sent sputum --> many WBCs and GNRs although procalcitonin was negative. So empirically placed her on PO levaquin Physical Examination General: NAD, pale, elderly woman Eye: PERRLA, Conjunctiva & lids normal, EOMI, anicteric ENT: Atraumatic, Nares Patent, MMM Neck: supple Chest: Diminished bases, scattered rhonchi, no jesus manuel crackles Heart: Tachycardic, Regular Rhythm, Normal S1, Normal S2, no mrg Abdomen: Normal bowel sounds, soft, NTND Extremities: WWP, no LE edema, 2+ DP pulses Skin: Pale, otherwise without rashes or lesions Neuro: Normal Speech, normal tone, 5/5 strength throughout, CN 3-12 intact Psych: AOx3 Labs: Reviewed WBC 5 Hgb 12.5 platelets 117 Na 142 K 3.4 (repleted) Cr 0.78 Procal 0.07 Assessment: 69-year-old W recently diagnosed (04/2020) locally advanced non-small cell lung cancer currently on palliative atezolizumab and bevacizumab and follows with Dr. Clark, COPD, chronic hypoxemic respiratory failure on home oxygen, current long standing smoker who presented from home with worsening shortness of breath and now admitted with hypercarbic hypoxemic respiratory failure that appears to be 2/2 CHF exacerbation vs. possible PNA. HFpEF exacerbation with interstitial edema on CT, elevated proBNP and worsening [place]: -lasix 40 IV QAM -2L/24h fluid restriction -strict I/Os -daily weights -continue holding home ACEi to give hemodynamic room for diuresis, will restart if severely hypertensive -TTE Hypercarbic hypoxemic respiratory failure likely i/s/o COPD and NSCLC now with noted thick meyer sputum c/f CAP -continue home mdis -supplemental O2, need to establish what her home requirements are to understand endpoint in terms of inpatient efforts -incentive spirometry -goal saturation >88% -respiratory panel was negative -negative procalcitonin -continue empiric PO levaquin 750mg QD, day 2 -No steroids at this time -sputum thus far with many WBCs and GNRs, f/u speciation and sensitivities NSCLC: -to follow up outpatient with Dr. Clark -hold chemo related home meds -resume her antiemetics -continue home O2 PUD: -continue PPI and sucralfate Chronic back and neck pain: -continue her home flexeril, duloxetine, norco, amitriptyline, gabapentin Migraines: -continue excedrin migraine PRN and reglan PRN DVT ppx: TEDs and SCDs Code status: DNI/DNR, ok for trial BiPAP Dispo: Likely home tomorrow. Now back on room air with ongoing diuresis. She is pending a TTE for the new CHF diagnosis and will need cardiology referral at discharge for such. I am treating her for a potential CAP due to thick sputum with many WBCs and GNRs despite negative procal no jesus manuel consolidation on imaging. To complete a 5d levauqin empiric course. VS,Fishbone, I+O VS, Fishbone, I+O Laboratory Tests 07/22/20 04:49 Vital Signs Date Time Temp Pulse Resp B/P (MAP) Pulse Ox O2 Delivery O2 Flow Rate FiO2 07/22/20 06:00 96 Nasal Cannula 2.0 07/22/20 04:00 98.4 83 16 123/53 (76) 07/20/20 03:59 70 I&O- Last 24 Hours up to 6 AM 07/22/20 05:59 Intake Total 438 ml Output Total 2175 ml Balance -1737 ml BERTRAM LINDER MD Jul 22, 2020 08:12
[2020-07-22] MEDS: LevoFLOXacin 750 MG TABLET PO SCH (13:07)
[2020-07-22] MEDS: SUMAtriptan SUCCINATE 25 MG TAB PO PRN (13:07)
[2020-07-22] MEDS: AMITRIPTYLINE 50 MG TAB PO SCH (20:22)
[2020-07-23] VITALS (13 sets, daily range): BP systolic 119–137; BP diastolic 59–79; O2SAT 93–100
[2020-07-23] MEDS: IPRATROPIUM 0.5MG/ALBUTEROL 2.5MG INH SOL UD 3ML (DUONEB) INH SCH ×5 (03:22→20:00)
[2020-07-23 05:16] LABS: HEMATOCRIT 43.4 % (36.0-47.0); HEMOGLOBIN 13.3 g/dl (12.0-15.5); MEAN CORPUSCULAR HEMOGLOBIN 29.7 pg (27.0-33.0); MEAN CORPUSCULAR HGB CONC 30.6 g/dl (32.0-36.5); MEAN CORPUSCULAR VOLUME 96.9 fl (80.0-96.0); PLATELET COUNT, AUTOMATED 113 10^3/uL (150-450); RED BLOOD COUNT 4.48 10^6/uL (4.00-5.40)
[2020-07-23 05:36] LABS: BLOOD UREA NITROGEN 22 MG/DL (7-18); CALCIUM LEVEL 8.2 MG/DL (8.8-10.2); CARBON DIOXIDE LEVEL 29 MEQ/L (21-32); CHLORIDE LEVEL 108 MEQ/L (98-107); CREATININE FOR GFR 0.73 MG/DL (0.55-1.30); GLOMERULAR FILTRATION RATE > 60.0 (>45); GLUCOSE, FASTING 81 MG/DL (70-100); POTASSIUM SERUM 3.7 MEQ/L (3.5-5.1); SODIUM LEVEL 145 MEQ/L (136-145)
[2020-07-23] MEDS: SLF 3 ML SYR IV SCH ×3 (06:03→22:20)
[2020-07-23] MEDS: ADVAIR HFA 45/21MCG INHALER INH SCH ×2 (07:02→20:24)
[2020-07-23] MEDS: TIOTROPIUM INHALER/CAPSULE (SPIRIVA) INH SCH (07:02)
[2020-07-23] MEDS: SENOKOT S TAB PO SCH (08:14)
[2020-07-23] MEDS: ASPIRIN 81 MG ENTERIC TAB PO SCH (08:14)
[2020-07-23] MEDS: lisinopriL 5 MG TAB PO SCH (08:15)
[2020-07-23] MEDS: busPIRone 5 MG TAB PO SCH ×3 (08:15→20:18)
[2020-07-23] MEDS: CYCLOBENZAPRINE 10MG TABLET PO SCH ×3 (08:15→20:18)
[2020-07-23] MEDS: FUROSEMIDE 40MG/4ML VIAL (J1940) IV SCH (08:15)
[2020-07-23] MEDS: GABAPENTIN 100 MG CAP PO SCH ×3 (08:16→20:18)
[2020-07-23] MEDS: POTASSIUM CHLORIDE 10 MEQ SR TABLET PO SCH (08:16)
[2020-07-23] MEDS: PANTOPRAZOLE 40MG TAB (PROTONIX) PO SCH ×2 (08:16→20:19)
[2020-07-23] MEDS: SUCRALFATE 1 GM TAB PO SCH ×4 (08:16→20:18)
[2020-07-23] MEDS: DULoxetine 30 MG CAP (CYMBALTA) PO SCH (08:16)
[2020-07-23] MEDS: NORCO, ANEXSIA 5/325MG TABLET (HYDROcodone/ACETAMINOPHEN) PO PRN (08:21)
[2020-07-23] MEDS: SPIRONOLACTONE 12.5MG PER 1/2 TABLET PO SCH (08:21)
[2020-07-23] MEDS ORDERED: FUROSEMIDE 40MG/4ML VIAL (J1940) IV SCH (09:00)
[2020-07-23 12:20] LABS: FREE T4 0.81 NG/DL (0.76-1.46)
[2020-07-23] MEDS: SUMAtriptan SUCCINATE 25 MG TAB PO PRN (12:25)
[2020-07-23] MEDS: LevoFLOXacin 750 MG TABLET PO SCH (12:33)
--- NOTE | 2020-07-23 13:18 | IPN ---
DATE: 07/23/2020 SUBJECTIVE: Ericka is seen in the progressive care unit (PCU) admitted with congestive heart failure. The case was discussed with Dr. Sandoval this morning, who indicates that her echocardiogram showed significantly depressed systolic ejection fraction of 20%. The patient was currently being treated for a congestive heart failure with a preserved ejection fraction and regimen will now be adjusted to account for the newly discovered systolic problem. Etiology of this is currently unknown. She has received chemotherapy for nonsmall cell lung cancer, for which she is followed with Dr. Hammer at [facility]. She has hypercarbic hypoxic respiratory failure from chronic obstructive pulmonary disease (COPD) and is on supplemental oxygen at this time. She does not have a history of documented coronary disease I am aware of. Overall, she feels well. She still gets dyspneic with minimal exertion in the exam room. No palpitations, chest pain, or syncope. OBJECTIVE: VITAL SIGNS: Blood pressure 133/79, afebrile. Intake and output (I and O) was negative 1200 yesterday. GENERAL APPEARANCE: Chemo-induced alopecia noted. Alert and conversant. NECK: No jugular venous distention (JVD). LUNGS: Decreased breath sounds. HEART: Regular rhythm. No murmur. ABDOMEN: Soft and nontender with no masses. EXTREMITIES: Trace peripheral edema. LABORATORY DATA: Sodium 137, potassium 3.7, BUN 22, creatinine 0.7, glucose 81. White count 4.0, hemoglobin 13.3, platelets 113,000. ASSESSMENT AND PLAN: 1. Congestive heart failure with reduced ejection fraction. Start ANTONETTE inhibitor therapy, continue diuresis, and consult cardiology. Case was discussed with Dr. Sandoval. 2. Chronic obstructive pulmonary disease (COPD). She might require supplemental oxygen on discharge. She will need an oximetry at rest and with exertion tomorrow. 3. Community-acquired pneumonia. She had a negative procalcitonin and negative respiratory panel, but she is on empiric Levaquin. Sputum is clearing up with this, so we will continue this for now. She is on day #3 of what I would suggest would be a 5-day course of treatment. 4. Nonsmall cell lung cancer. She follows with [facility] for this. DISPOSITION: Perhaps could be discharged tomorrow. We started lisinopril today and we have to see how she tolerates this, as well as any other treatment and/or workup requested by cardiology. She has not had her thyroids checked, so I put in a free T4 and TSH today. CHRISTINA
--- NOTE | 2020-07-23 14:11 | ECHO ---
DATE OF PROCEDURE: 07/22/2020 Age: 69 Gender: Female Height: 163 cm Weight: 65 kg REFERRING PHYSICIAN: Dr. Hoover INDICATION: Congestive heart failure. MEASUREMENTS: IVS 1.2 cm LV 6.3 cm LVPW 1.2 cm LA 3.5 cm Aorta 3.0 cm RV 2.8 cm IVC 1.6 cm DOPPLER MEASUREMENT Mitral E wave velocity 36 cm/s Mitral A wave velocity 97 cm/s E prime septal 8.2 cm/s E prime lateral 7.6 cm/s FINDINGS: This study was of fair technical quality with somewhat challenging visualization. The patient is in sinus rhythm with wide QRS complex. Left ventricle is mildly dilated and severely globally hypokinetic. Septum, distal anterior and distal inferior wall seem to have relatively best contractility, but remaining segments are almost akinetic. Overall estimated left ventricular ejection fraction (LVEF) approximately 20%. Right ventricle does not appear grossly dilated and is normally contractile. Both atria appear grossly normal. Aortic valve is mildly sclerotic, but the mobility of cusps is preserved. Mitral valve also exhibits degenerative abnormalities with mitral annular calcifications, but mobility of leaflets is preserved. Tricuspid valve appears normal. Pulmonic valve was not well seen. No pericardial effusion is noted. Inferior vena cava is of normal size and appropriately collapses with inspiration indicative of likely normal central venous pressure. Aortic root and abdominal aorta appear normal. Aortic arch was not visualized. Doppler interrogation reveals competent aortic valve without significant stenosis or insufficiency. There is mild mitral insufficiency. No tricuspid insufficiency was seen. Mitral inflow pattern on tissue Doppler imaging of the mitral annulus revealed grade 1 diastolic dysfunction. Calculated cardiac output was 2.8 l/minute, which is markedly reduced. CONCLUSIONS: 1. Study was of fair technical quality. Patient was in sinus rhythm with wide QRS complex. 2. Dilated left ventricle with global hypokinesis with some segmental features and overall severe left ventricular systolic dysfunction. Estimated left ventricular ejection fraction (LVEF) approximately 20%. Grade 1 diastolic dysfunction. 3. No hemodynamically significant valvular disease. 4. Likely normal central venous pressure. COMMENTS: Both ischemic and nonischemic etiology of patients cardiomyopathy should be considered in differential diagnosis. MTDD
--- NOTE | 2020-07-23 14:28 | CR ---
DATE OF CONSULTATION: 07/23/2020 REFERRING PHYSICIAN: Dr. Medina INDICATION: Congestive heart failure. HISTORY OF PRESENT ILLNESS: Mrs. Kerr is a 69-year-old female who was previously unknown to me. She presented to [facility] on July 20, 2020 with severe dyspnea and was found to be in florid congestive heart failure. She has been treated principally with diuresis with progressive improvement. Today, she tells me she is actually back to baseline. Prior to the presentation, she also was complaining about PND and minimal amount of peripheral edema. There was also a component of orthopnea. She is unfortunately having a second serious problem and that is non-small cell lung cancer. She has been receiving chemotherapy per her own report since approximately April of this year and has been receiving combination of Atezolizumab and Bevacizumab under the direction of Dr. Clark. To the best of her understanding, the therapy was successful and there has been decreasing size of her tumor. She never had any cardiac problems to the best of her understanding. She has a history of an echocardiogram from three years ago that was essentially unremarkable but has not had any echocardiogram since the onset of lung cancer diagnosis until during this hospitalization. The echocardiogram interpreted yesterday and it reveals severe left ventricular systolic dysfunction with some segmental component to otherwise global hypokinesis and overall ejection fraction in the neighborhood of 20%. PAST MEDICAL HISTORY: 1. Non-small cell lung cancer with palliative therapy. 2. COPD/emphysema. She uses occasional supplemental oxygen at home. 3. Hypertension. 4. History of migraine. 5. History of recurrent peptic ulcer disease. She underwent partial gastrectomy in 2018. 6. History of cervical spine injury. PAST SURGICAL HISTORY: 1. Gastrectomy as above. FAMILY HISTORY: She has relatively limited knowledge but she knows that her brother has coronary artery disease and received stents recently. SOCIAL HISTORY: Patient is . She lives with her who also has lung cancer and she is his principal caregiver. They are both smokers and she has been trying to quit in the last three years unsuccessfully. Denies significant alcohol use. REVIEW OF SYSTEMS: There have not been any recent fever or chills, nausea, vomiting or diarrhea. She denies any syncopal events but she does admit that for quite some time she has approximately NYHA Class III dyspnea and in the last few days prior to presentation became essentially resting dyspnea to the point where she had to call an ambulance. She also has occasional palpitations but denies a history of syncope. Denies any chest discomfort. She reports occasional very mild peripheral edema. PHYSICAL EXAMINATION: GENERAL: Mrs. Kerr is a 69-year-old female who appears older than her current age. She appears chronically but not acutely ill. VITAL SIGNS: The last vital signs: Blood pressure 137/72, heart rate today has been in the 100 to 115 range, sinus rhythm with occasional ectopy. Saturation is 93% on 2 liters of nasal cannula but when I talk to her she was without any supplemental oxygen and looked completely comfortable. HEENT: She is bald. NECK: JVP is not high. No carotid bruit. LUNGS: Reasonably clear. I do not appreciate any crackles, wheezing or rhonchi. Fair air movement. HEART: Regular tachycardia with positive gallop. I do not appreciate any distinct murmur. ABDOMEN: Slim but soft without obvious tenderness, or hepatosplenomegaly. There is no peripheral edema. Her peripheral pulses are palpable even though not of good quality. NEUROLOGIC: She is intact. LABORATORY DATA: As of this morning, basic metabolic panel is normal. Potassium was 3.7, BUN 22, creatinine 0.7, glucose 81. CBC reveals a hemoglobin of 13.3, hematocrit 43, platelet count 113,000. CURRENT MEDICATIONS: 1. Lisinopril 5 mg daily, is being started just today. 2. Furosemide 40 mg IV every 24 hours. 3. Levofloxacin 750 mg daily. 4. Sucralfate. 5. Albuterol. 6. Meclizine. 7. Reglan 10 mg as needed for migraine. 8. Compazine for nausea. 9. Aspirin 81 mg a day. 10. BuSpar 15 mg three times a day. 11. Flexeril 10 mg three times a day. 12. Cymbalta 60 mg daily. 13. Neurontin 100 mg three times a day. 14. Protonix 40 mg twice a day. 15. Potassium 10 mEq daily. 16. Advair inhaler. 17. Spiriva inhaler. IMAGING: She had CTA angiography of the chest during admission that revealed no embolic disease, there was 1.2 cm right upper nodule corresponding to known malignancy. ECG reveals nonspecific IVCD and sinus tachycardia with occasional ventricular ectopy. Echocardiogram as above reveals severe left ventricular systolic dysfunction with some segmental features. ASSESSMENT AND PLAN: Mrs. Kerr is a 69-year-old female who has known lung cancer and has been treated with combination of Avastin and Bevacizumab now presents with florid systolic congestive heart failure. She does not have any history of coronary artery disease or congestive heart failure in the past but it does not look like it was actively pursued because I believe that it was always felt that her dyspnea was related to underlying COPD but she did have an echocardiogram three years ago that revealed preserved left ventricular systolic function. I am afraid that in this setting it is likely that the LV dysfunction is related to use of chemotherapy and unfortunately that could mean that therapy will have to be put on hold. I will get in touch with Dr. Clark in this regard. As far as the management of heart failure is concerned, she seems to be volume well-compensated. Her JVP is no longer elevated and she does not have any peripheral edema. Consequently, we will focus on treatment that actually makes a prognostic difference. She was already started on Lisinopril by the attending physician and I am going to add a small dose of spironolactone and a tiny dose of Carvedilol at bedtime. I think she should be monitored in the hospital for at least one or two more days and hopefully will be able to advance the therapies further. She is still on 40 mg of IV furosemide daily but I think we will be able to switch her to oral medication likely tomorrow. She is a DNI and DNR and has active lung cancer and consequently I do not believe she is a candidate for defibrillator. MTDD
[2020-07-23] MEDS: EXCEDRIN MIGRAINE TABLET PO PRN (17:06)
[2020-07-23] MEDS: AMITRIPTYLINE 50 MG TAB PO SCH (20:18)
[2020-07-23] MEDS ORDERED: CARVedilol 3.125 MG TAB PO SCH (21:00)
[2020-07-23] MEDS: MECLIZINE 25 MG TABLET PO PRN (22:20)
[2020-07-24] VITALS: BP 118/76
[2020-07-24] MEDS: IPRATROPIUM 0.5MG/ALBUTEROL 2.5MG INH SOL UD 3ML (DUONEB) INH SCH ×5 (01:29→16:03)
[2020-07-24 04:00] VITALS: BP 131/69
[2020-07-24 05:18] LABS: HEMATOCRIT 44.7 % (36.0-47.0); HEMOGLOBIN 13.7 g/dl (12.0-15.5); MEAN CORPUSCULAR HEMOGLOBIN 29.7 pg (27.0-33.0); MEAN CORPUSCULAR HGB CONC 30.6 g/dl (32.0-36.5); MEAN CORPUSCULAR VOLUME 96.8 fl (80.0-96.0); PLATELET COUNT, AUTOMATED 121 10^3/uL (150-450); RED BLOOD COUNT 4.62 10^6/uL (4.00-5.40); WHITE BLOOD COUNT 4.5 10^3/uL (4.0-10.0)
[2020-07-24 05:31] LABS: BLOOD UREA NITROGEN 26 MG/DL (7-18); CALCIUM LEVEL 8.6 MG/DL (8.8-10.2); CARBON DIOXIDE LEVEL 29 MEQ/L (21-32); CHLORIDE LEVEL 108 MEQ/L (98-107); CREATININE FOR GFR 0.76 MG/DL (0.55-1.30); GLOMERULAR FILTRATION RATE > 60.0 (>45); GLUCOSE, FASTING 87 MG/DL (70-100); POTASSIUM SERUM 4.6 MEQ/L (3.5-5.1); SODIUM LEVEL 140 MEQ/L (136-145)
[2020-07-24] MEDS: SLF 3 ML SYR IV SCH ×2 (06:09→14:12)
[2020-07-24] MEDS: TIOTROPIUM INHALER/CAPSULE (SPIRIVA) INH SCH (07:39)
[2020-07-24] MEDS: ADVAIR HFA 45/21MCG INHALER INH SCH (07:39)
[2020-07-24 07:55] VITALS: BP 128/80
[2020-07-24] MEDS ORDERED: FUROSEMIDE 40 MG TAB PO SCH (09:00)
[2020-07-24] MEDS ORDERED: CARVedilol 3.125 MG TAB PO SCH (09:00)
[2020-07-24] MEDS: ASPIRIN 81 MG ENTERIC TAB PO SCH (09:03)
[2020-07-24] MEDS: SENOKOT S TAB PO SCH (09:03)
[2020-07-24] MEDS: SPIRONOLACTONE 12.5MG PER 1/2 TABLET PO SCH (09:03)
[2020-07-24] MEDS: DULoxetine 30 MG CAP (CYMBALTA) PO SCH (09:03)
[2020-07-24] MEDS: lisinopriL 5 MG TAB PO SCH (09:04)
[2020-07-24] MEDS: busPIRone 5 MG TAB PO SCH ×2 (09:04→16:08)
[2020-07-24] MEDS: POTASSIUM CHLORIDE 10 MEQ SR TABLET PO SCH (09:05)
[2020-07-24] MEDS: GABAPENTIN 100 MG CAP PO SCH ×2 (09:05→16:08)
[2020-07-24] MEDS: SUCRALFATE 1 GM TAB PO SCH ×2 (09:05→11:56)
[2020-07-24] MEDS: PANTOPRAZOLE 40MG TAB (PROTONIX) PO SCH (09:05)
[2020-07-24] MEDS: CYCLOBENZAPRINE 10MG TABLET PO SCH ×2 (09:05→16:12)
[2020-07-24] MEDS: EXCEDRIN MIGRAINE TABLET PO PRN (09:37)
[2020-07-24] MEDS ORDERED: CARV3.12 PO (10:51)
[2020-07-24] MEDS ORDERED: ALDA25TA2 PO (10:51)
[2020-07-24] MEDS ORDERED: FURO40TA2 PO (10:51)
[2020-07-24] MEDS ORDERED: LISI-542 PO (10:51)
--- NOTE | 2020-07-24 11:19 | IPN ---
DATE: 07/24/2020 SUBJECTIVE: Mrs. Kerr tells me that she is feeling better. She is a little less short of breath than she was yesterday. She was able to sleep without any paroxysmal nocturnal dyspnea (PND) or orthopnea. She would like to go home today. Telemetry monitoring revealed sinus rhythm. The heart rate is lower than it was yesterday, but still around 100 beats per minute. She still has ventricular ectopy in the form of brief runs of nonsustained ventricular tachycardia (VT) maximum 4 beats. OBJECTIVE: VITAL SIGNS: She is afebrile, blood pressure 128/80 and has remained in a similar range overnight. Saturation 93% on room air. Weight was recorded at 65.9 kg. Fluid balance yesterday was recorded as about 600 mL negative. GENERAL: She is alert, oriented, and appropriate. HEENT: Her jugular venous pressure (JVP) is about 5 cm above the clavicle in the sitting position. LUNGS: Reveal no wheezes or crackles. She still has somewhat diminished sounds in the right middle field, but I do not appreciate any evidence for clear cut congestion. HEART: Reveals regular tachycardia. She still has a gallop. I do not appreciate any murmur. ABDOMEN: Soft and nontender. EXTREMITIES: Free of edema. NEUROLOGIC: She is intact. LABORATORY DATA: Todays basic metabolic panel sodium 140, potassium 4.6, BUN 26, creatinine 0.8, and glucose 87. CBC with WBC count 4.5, hemoglobin 13.7, hematocrit 44, and platelet count 121,000. ASSESSMENT AND PLAN: Mrs. Kerr is a 69-year-old lady who has nonsmall cell lung cancer that is being treated with chemotherapy and now was admitted with congestive heart failure and was found to have a severe left ventricular systolic dysfunction. 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 As far as the management of heart failure is concerned, she is already euvolemic for the most part. I do believe that we can switch her to oral diuretics today. I would probably discharge her on 40 mg of furosemide daily. She was also started on low dose Spironolactone and consequently, I would discontinue potassium supplementation. I am going to advance the dose of Coreg to twice a day 3.125 mg dosing and she is on low dose ANTONETTE inhibitor. Blood pressure has been tolerating these changes fine. She wants to go home and from my perspective, I do not have any objections. She is DO NOT INTUBATE and DO NOT RESUSCITATE and probably does not have much time left unfortunately on account of both diagnosis of heart failure and lung cancer and consequently, the quality of life I think is the dominant issue here. I intend to see her in follow-up in the office next week and I will set up that appointment. CHRISTINA
[2020-07-24 11:56] VITALS: BP 106/60
[2020-07-24] MEDS: SUMAtriptan SUCCINATE 25 MG TAB PO PRN (11:56)
[2020-07-24] MEDS: LevoFLOXacin 750 MG TABLET PO SCH (11:56)
--- NOTE | 2020-07-24 17:48 | DS.PDOC ---
Discharge Summary General Date of Admission Jul 20, 2020 at 09:24 Date of Discharge 07/24/20 Attending Physician: Ana Maria Bean MD Discharge Summary HISTORY OF PRESENT ILLNESS: 69-year-old W recently diagnosed (04/2020) locally advanced non-small cell lung cancer currently on palliative atezolizumab and bevacizumab and follows with Dr. 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 She denies any recent fever, chills, sick contacts, travel, hemoptysis, pleurisy, chest pain, palpitations. She has a chronic history of nausea since her cancer diagnosis and chemo/immunotherapy. She also has a chronic history of back and neck pain, as well as episodic diarrhea associated with cancer treatment, general aches and slowly progressive generalized weakness and malaise. In the ED, she was hypertensive, tachypneic, tachycardic and afebrile. Initial ABG showed a pH of 7.237 with a CO2 of 58 and she was briefly placed on BiPAP with improvement to 7.346 with CO2 of 38.1 and was placed on 5L NC thereafter. She was also given a duoneb and lasix 40 IV once with resolution of respiratory distress.On workup CXR showed bilateral perihilar and bibasilar opacities with small bilateral pleural effusions while CTA showed no evidence of PE, a 1.2cm spiculated RUL nodule and a focal subpleural opacity in the medial RUL as well as mild interstitial edema. ProBNP was 9240, EKG non ischemic with sinus tachycardia, troponin negative, and she had a leukocytosis to 15.9, with Hgb 14.9, platelets 211, na 143, K 4, Cr 0.81, respiratory panel was negative for c ovid-19, and she had a newly noted transaminitis with ASt 269, ALT 223 without hyperbilirubinemia and alk phos of 215. She is now being admitted for CHF exacerbation. HOSPITAL COURSE: During hospitalization patient had echo, please see below. Identified systolic CHF exacerbation, cannot r/o both ischemic and nonischemic etiology of patients cardiomyopathy. She remained in a neg fluid balance with fluid restriction, multiple diuretics. Cardiology assessed, and in this setting it is likely that the LV dysfunction is related to use of chemotherapy and unfortunately that could mean that therapy will have to be put on hold. Dr. Valdez to touch base with Dr. Clark (heme/onc). She was started on low dose BB, ACEi, spironolactone and will f/u with cards at d/c. Hypercarbic hypoxemic respiratory failure likely 2/2 to COPD and NSCLC, unlikely PNA. Neissiera weaveri isolated on sputum cx. Discussed with Dr. Weber, does not require additional tx from 4 days PO abx she received here. Currently on RA at discharge and denies chest pain, n/v/d, fevers, chills, shortness of breath. 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 Olivas in 09/2018 PAST SURGICAL HISTORY: Chiqui-en-Y gastrectomy FAMILY HISTORY: Noncontributory Social History: Tobacco: >45 years consumption. Active smoker Alcohol: Denies Illicit drugs: Denies ALLERGIES: Please see below. DISCHARGE MEDICATIONS: Please see below. PHYSICAL EXAMINATION: General: NAD, pale, elderly woman Eye: PERRLA, Conjunctiva & lids normal, EOMI, anicteric ENT: Atraumatic, Nares Patent, MMM Neck: supple Chest: Diminished bases, scattered rhonchi, no jesus manuel crackles Heart: Tachycardic, Regular Rhythm, Normal S1, Normal S2, no mrg Abdomen: Normal bowel sounds, soft, NTND Extremities: WWP, no LE edema, 2+ DP pulses Skin: Pale, otherwise without rashes or lesions Neuro: Normal Speech, normal tone, 5/5 strength throughout, CN 3-12 intact Psych: AOx3 Labs: Please see below IMAGING: Echo: 1. Study was of fair technical quality. Patient was in sinus rhythm with wide QRS complex. 2. Dilated left ventricle with global hypokinesis with just some mild segmental features and overall severe left ventricular systolic dysfunction. Estimated left ventricular ejection fraction (LVEF) approximately 20%. Grade 1 diastolic dysfunction. 3. No hemodynamically significant valvular disease. 4. Likely normal central venous pressure. COMMENTS: Both ischemic and nonischemic etiology of patients cardiomyopathy should be considered in differential diagnosis. Assessment: 69-year-old W recently diagnosed (04/2020) locally advanced non-small cell lung cancer currently on palliative atezolizumab and bevacizumab and follows with Dr. Clark, COPD, chronic hypoxemic respiratory failure on home oxygen, current long standing smoker who presented from home with worsening shortness of breath and now admitted with hypercarbic hypoxemic respiratory failure that appears to be 2/2 sysotlic CHF exacerbation vs. possible PNA. Plan: Systolic CHF exacerbation, cannot r/o both ischemic and nonischemic etiology of patients cardiomyopathy. Hx of chemotherapy. -Neg fluid balance with fluid restriction, multiple diuretics. on -Echo above -Cardiology assessed, and in this setting it is likely that the LV dysfunction is related to use of chemotherapy and unfortunately that could mean that therapy will have to be put on hold. Dr. Valdez to touch base with Dr. Clark (heme/onc). -C/w low dose BB, ACEi, spironolactone. -F/u with cardiology after d/c Hypercarbic hypoxemic respiratory failure likely i/s/o COPD and NSCLC now with noted thick meyer sputum. Unlikely PNA -Neissiera weaveri isolated on sputum cx. Discussed with Dr. Weber, does not requ renea additional tx from 4 days PO abx she received here. -Currently on RA at discharge. NSCLC: -to follow up outpatient with Dr. Clark -hold chemo at this time -C/w other home meds PUD: -c/w home med Chronic back and neck pain: -c/w home med Migraines: -c/w home med Disposition: D/c home today with f/u with PCP, heme/onc and cardiology. TIME SPENT ON DISCHARGE: Greater than 30 minutes. Vital Signs/I&Os Vital Signs Date Time Temp Pulse Resp B/P (MAP) Pulse Ox O2 Delivery O2 Flow Rate FiO2 07/24/20 11:56 97.2 97 18 106/60 (75) 94 Room Air 07/23/20 08:21 2.0 07/20/20 03:59 70 I&O- Last 24 Hours up to 6 AM 07/24/20 06:00 Intake Total 1020 ml Output Total 1400 ml Balance -380 ml Laboratory Data Labs 24H Laboratory Tests 2 07/24/20 04:51: Nucleated Red Blood Cells % (auto) 0.0, Anion Gap 3L, Glomerular Filtration Rate > 60.0, Calcium Level 8.6L CBC/BMP Laboratory Tests 07/24/20 04:51 Microbiology Microbiology 07/21/20 Gram Stain - Final, Complete 07/21/20 Sputum Culture - Final, Complete Neisseria Weaveri ([facility] M-5) 07/20/20 Respiratory Virus Panel (PCR) (MAIKEL) - Final, Complete 07/20/20 Blood Culture - Preliminary, Resulted No Growth after 72 hours. All specime... 07/20/20 Blood Culture - Preliminary, Resulted No Growth after 72 hours. All specime... Discharge Medications Scheduled Amitriptyline HCl (Amitriptyline HCl) 25 Mg Tab, 50 MG PO QHS, (Reported) Aspirin (Aspirin EC) 81 Mg Tabec, 81 MG PO DAILY, (Reported) Buspirone HCl (Buspirone HCl) 15 Mg Tab, 15 MG PO TID, (Reported) Carvedilol (Carvedilol) 3.125 Mg Tablet, 3.125 MG PO BID Cyclobenzaprine HCl (Cyclobenzaprine HCl) 10 Mg Tab, 10 MG PO TID, (Reported) Dexamethasone (Dexamethasone) 4 Mg Tablet, 4 MG PO ASDIRECTED take 2 tabs by mouth daily the day before chemo, the day of chemo, and the day after chemo Duloxetine Hcl (Cymbalta) 60 Mg Cap, 60 MG PO DAILY, (Reported) Fluconazole (Fluconazole) 200 Mg Tablet, 1 TAB PO DAILY for yeast infection Folic Acid/Vit B Complex and C (Super B Complex Tablet) 400 Mcg Tablet, 2 TAB PO DAILY, (Reported) Furosemide (Furosemide) 40 Mg Tablet, 40 MG PO DAILY Gabapentin (Gabapentin) 100 Mg Capsule, 100 MG PO TID, (Reported) Lidocaine/Prilocaine (Lidocaine-Prilocaine Cream) 2.5%/2.5% Cream..g., 1 DOSE TOP ASDIRECTED Apply dime size to port area. Do not rub in, cover with saran wrap to protect clothing. Lisinopril (Lisinopril) 5 Mg Tablet, 5 MG PO DAILY Pantoprazole Sodium (Pantoprazole Sodium) 40 Mg Tablet.dr, 40 MG PO BID, (Reported) Potassium Chloride (Potassium Chloride) 10 Meq Tablet.er, 10 MEQ PO DAILY, (R eported) Salmeterol/Fluticasone (Advair 100-50 Diskus) 1 Each Blst.w.dev, 1 PUFF INH BID, (Reported) Sennosides/Docusate Sodium (Senna-S Tablet) 1 Each Tablet, 2 TAB PO DAILY, (Reported) Spironolactone (Aldactone) 25 Mg Tablet, 12.5 MG PO DAILY Sucralfate (Sucralfate) 1 Gm Tablet, 1 GM PO ACHS, (Reported) Umeclidinium [place] (Incruse Ellipta) 62.5 Mcg Blst.w.dev, 62.5 MCG INH DAILY, (Reported) Scheduled PRN Albuterol Sulfate (Ventolin Hfa) 108 Mcg/Act Aer, 2 PUFFS INH Q4H PRN for SOB/WHEEZING, (Reported) Aspirin/Acetaminophen/Caffeine (Excedrin Migraine Geltab) 1 Each Tablet, 2 TAB PO BID PRN for MIGRAINE, (Reported) Hydrocodone/Acetaminophen (Hydrocodone-Acetamin 5-325 mg) 1 Each Tablet, 1 TAB PO QID PRN for PAIN, (Reported) Ipratropium/Albuterol Sulfate (Iprat-Albut 0.5-3(2.5) mg/3 ml) 1 Eze Eze, 1 EZE INH QID PRN for SHORTNESS OF BREATH, (Reported) Meclizine HCl (Meclizine HCl) 25 Mg Tab, 25 MG PO QID PRN for DIZZINESS, (Reported) Metoclopramide HCl (Metoclopramide HCl) 10 Mg Tablet, 10 MG PO QID PRN for MIGRAINE, (Reported) Nystatin (Nystatin Oral Susp) 100,000 Unit/1 Ml Oral.susp, 5 ML SS QID PRN for THRUSH, (Reported) Prochlorperazine Maleate (Prochlorperazine Maleate) 10 Mg Tablet, 10 MG PO TIDP PRN for NAUSEA OR VOMITING Sumatriptan Succinate (Sumatriptan Succinate) 25 Mg Tablet, 25 MG PO BID PRN for MIGRAINE, (Reported) Allergies Coded Allergies: No Known Allergies (Unverified , 09/16/18) Ana Maria Bean MD Jul 24, 2020 17:48
[2020-08-03] MEDS ORDERED: FURO40TA2 PO (07:55)
[2020-08-03] MEDS ORDERED: DIALTAB2 PO (07:55)
[2020-08-03] MEDS ORDERED: MUCI600T31 PO (07:55)
[2021-07-22] MEDS ORDERED: FUROSEMIDE 40MG/4ML VIAL (J1940) IV SCH (09:00)
== END 2020-07-24 16:38 | disposition home or self-care (01) | DRG 291 ==
LOC: M ED 03:32 → M ED INP 09:24 → ENRESERV 09:47 → M PCU 11:02
PROVIDERS: ADMIT Internal Medicine; ATTEND Internal Medicine
DX: I11.0 Hypertensive heart disease with heart failure (principal); J18.9 Pneumonia, unspecified organism; I50.31 Acute diastolic (congestive) heart failure; J96.92 Respiratory failure, unspecified with hypercapnia; J96.11 Chronic respiratory failure with hypoxia; C34.90 Malignant neoplasm of unspecified part of unspecified bronchus or lung; J44.1 Chronic obstructive pulmonary disease with (acute) exacerbation; G43.909 Migraine, unspecified, not intractable, without status migrainosus; Z66 Do not resuscitate; M54.2 Cervicalgia; F17.200 Nicotine dependence, unspecified, uncomplicated; I42.7 Cardiomyopathy due to drug and external agent; D50.9 Iron deficiency anemia, unspecified; Z98.84 Bariatric surgery status; Z79.82 Long term (current) use of aspirin; Z79.899 Other long term (current) drug therapy; K27.9 Peptic ulcer, site unspecified, unspecified as acute or chronic, without hemorrhage or perforation; Z99.81 Dependence on supplemental oxygen; T45.1X5A Adverse effect of antineoplastic and immunosuppressive drugs, initial encounter

== ENCOUNTER → 2020-07-25 | Outpatient (CLI) | payer MEDICARE ==
[~2020-07-25] MED LIST changes: +ALDA25TA2 PO; +CARV3.12 PO; +DIALTAB2 PO; +E-Z-GAS II EFFERVESCENT PACKET (SODIUM BICARB./CITRIC ACID/SIMETHICONE) As Ordered ONE; +E-Z-HD 98% w/w 340GM SUSP BTL As Ordered ONE; +E-Z-PAQUE 96% w/w SUSP 176GM BTL As Ordered ONE; +FURO40TA2 PO; +INCR1INH INH; +LASI20TA3 PO; +LISI-542 PO; +MUCI600T31 PO; +POTA1TAB23 PO; +SUPETAB56 PO
--- NOTE | 2020-07-25 15:43 | REP ---
INDICATION: EPIGASTRIC PAIN COMPARISON: Upper GI dated 06/09/2018. TECHNIQUE: This procedure was performed by Steff Cowart [facility], under the direct supervision of Dr. Sanchez. Images were reviewed with Dr. Sanchez prior to dictation. Because the patient is status post gastric resection liquid barium was given in the erect position as well as in the prone oblique position in order to perform a single contrast upper GI examination. FINDINGS: The piano and organ refinisher film shows no organomegaly or pathological masses. The intestinal gas pattern is unremarkable. The oral and pharyngeal stages of deglutition were unremarkable. However cricopharyngeal hyperplasia, flash laryngeal penetration, and tertiary contractions were all visualized. Esophageal transport is prompt and efficient and there is no evidence of esophagitis, stricture, or mucosal ring. There is no evidence of a hiatal hernia. No gastroesophageal reflux was visualized during the exam.. The remaining stomach de la torre are normally outlined. There is free flow of contrast through the anastomosis into the small intestine. No stricture or ulcer is visualized. The visualized portion of the proximal small bowel appears normal in course and caliber. IMPRESSION: 1. Cricopharyngeal hyperplasia. 2. Flash laryngeal penetration. 3. Tertiary contractions were visualized during the exam. 0.3 minutes of fluoroscopy time was utilized for this procedure. Some fluoroscopic images are performed with last image hold technology. These images require no additional radiation.. <Electronically signed by Steff Cowart > 07/25/20 1526 <Electronically signed by Fish Sanchez > 07/25/20 1532
== END ==
LOC: M RAD 08:02
PROVIDERS: ATTEND Surgery
DX: J39.2 Other diseases of pharynx (principal); R10.13 Epigastric pain

== ENCOUNTER → 2020-08-02 | Outpatient (CLI) | payer MEDICARE ==
[~2020-08-02] MED LIST changes: -E-Z-GAS II EFFERVESCENT PACKET (SODIUM BICARB./CITRIC ACID/SIMETHICONE) As Ordered ONE; -E-Z-HD 98% w/w 340GM SUSP BTL As Ordered ONE; -E-Z-PAQUE 96% w/w SUSP 176GM BTL As Ordered ONE
== END ==
LOC: M LABSMTC 11:07
PROVIDERS: ATTEND Physician Assistant
DX: Z11.59 Encounter for screening for other viral diseases (principal); Z01.812 Encounter for preprocedural laboratory examination

== ENCOUNTER 2020-08-21 03:09 | Emergency (ER) | payer MEDICARE ==
[~2020-08-21] VITALS: Ht 165.1 cm; Wt 59.0 kg
[2020-08-21] MEDS ORDERED: methylPREDNISolone 125MG 2ML VIAL IV ONE (03:45)
[2020-08-21 03:52] LABS: BASO % 0.2 % (0.0-1.0); EOS # 0.2 10^3/uL (0.0-0.5); EOS % 1.8 % (0.0-3.0); HEMATOCRIT 41.1 % (36.0-47.0); HEMOGLOBIN 13.3 g/dl (12.0-15.5); LYMPH # 0.7 10^3/uL (1.5-5.0); LYMPH % 8.7 % (24.0-44.0); MEAN CORPUSCULAR HEMOGLOBIN 31.2 pg (27.0-33.0); MEAN CORPUSCULAR HGB CONC 32.4 g/dl (32.0-36.5); MEAN CORPUSCULAR VOLUME 96.5 fl (80.0-96.0); MONO # 0.8 10^3/uL (0.0-0.8); MONO % 9.3 % (0.0-5.0); NEUTROPHILS # 6.5 10^3/uL (1.5-8.5); NEUTROPHILS % 79.6 % (36.0-66.0); PLATELET COUNT, AUTOMATED 110 10^3/uL (150-450); RED BLOOD COUNT 4.26 10^6/uL (4.00-5.40); WHITE BLOOD COUNT 8.1 10^3/uL (4.0-10.0)
[2020-08-21] MEDS ORDERED: IBUPROFEN 800 MG TAB PO ONE (04:00)
--- NOTE | 2020-08-21 04:06 | REPVR ---
PROCEDURE INFORMATION: Exam: XR Chest, 1 View Exam date and time: 08/21/2020 3:42 AM Age: 69 years old Clinical indication: Chest pain; Type not specified TECHNIQUE: Imaging protocol: XR of the chest Views: 1 view. COMPARISON: 1. CR PORTABLE CHEST X-RAY 07/20/2020 4:[address] ANGIO CHEST 07/20/2020 6:18:18 AM FINDINGS: Lungs: The lungs are hyperinflated consistent with COPD. There is a subtle, small poorly defined opacity in the right upper lobe which seems to correspond with a spiculated nodule on the prior CT scan. There is mild interstitial thickening toward the lung bases, less pronounced than on the prior chest x-ray. There is improvement in bibasilar lung opacities compared to previously. Pleural space: There is blunting of the costophrenic angles bilaterally, likely due to small pleural effusions, smaller than on the prior exam. Heart/Mediastinum: The heart is enlarged, unchanged. Bones/joints: Unremarkable. Other findings: There is a right sided [id number]. IMPRESSION: 1. Improvement in bibasilar lung opacities. Mild interstitial thickening in the lung bases, less pronounced than on the prior chest x-ray. 2. Subtle right upper lobe opacity, corresponding to a nodule on the prior CT scan Electronically signed by: Regi Rendon On 08/21/2020 04:06:33 AM
[2020-08-21 04:31] LABS: BLOOD UREA NITROGEN 19 MG/DL (7-18); CARBON DIOXIDE LEVEL 25 MEQ/L (21-32); CHLORIDE LEVEL 111 MEQ/L (98-107); CK-MB VALUE MASS 2.7 NG/ML (<3.6); CPK CREATINE PHOSPHOKINASE 40 U/L (26-192); CREATININE FOR GFR 0.67 MG/DL (0.55-1.30); GLOMERULAR FILTRATION RATE > 60.0 (>45); GLUCOSE, FASTING 120 MG/DL (70-100); MB/CK RELATIVE INDEX 6.75 (< OR =4); POTASSIUM SERUM 3.4 MEQ/L (3.5-5.1); SODIUM LEVEL 144 MEQ/L (136-145); TROPONIN I 0.09 NG/ML (< 0.10)
[2020-08-21] MEDS ORDERED: METOCLOPRAMIDE INJ 10MG/2ML VIAL (J2765 PER 1) IV ONE (05:00)
[2020-08-21] MEDS ORDERED: SUMAtriptan SUCCINATE 6 MG/0.5 ML VIAL SC ONE (05:00)
[2020-08-21] MEDS ORDERED: PRED20TA PO (05:42)
[2020-08-21 05:46] VITALS: BP 149/72
--- NOTE | 2020-08-21 07:20 | ECGEPIP ---
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
--- NOTE | 2020-08-22 10:20 | ED PDOC ---
Post-Departure Follow-Up dr ball faxed formal report of cxr for fu Alban Roque MD Aug 22, 2020 10:20
[2020-08-28] MEDS ORDERED: FLUC200T2 PO (08:19)
== END 2020-08-21 06:57 | disposition home or self-care (01) ==
LOC: M ED 03:09
DX: J44.1 Chronic obstructive pulmonary disease with (acute) exacerbation (principal); G43.909 Migraine, unspecified, not intractable, without status migrainosus; F17.200 Nicotine dependence, unspecified, uncomplicated; I51.9 Heart disease, unspecified; C34.90 Malignant neoplasm of unspecified part of unspecified bronchus or lung; Z79.51 Long term (current) use of inhaled steroids; Z79.52 Long term (current) use of systemic steroids; Z79.891 Long term (current) use of opiate analgesic; Z79.899 Other long term (current) drug therapy; Z79.82 Long term (current) use of aspirin
CPT/HCPCS: 71045; 80048; 82550; 82553; 84484; 85025; 93005; 93041; 94760; 96374; 96375; 99285; J2765; J2930

== ENCOUNTER → 2020-10-15 | Outpatient (CLI) | payer MEDICARE ==
[~2020-10-15] MED LIST changes: -AMIT25TA PO; +AMIT25TA17 PO; +GASTROGRAFIN SOLUTION 30ML (Q9963) As Ordered ONE; +ISOVUE-370 76% 100ML VIAL As Ordered ONE; -MECL12.589 PO; +MECL12.590 PO
--- NOTE | 2020-10-15 14:12 | REP ---
INDICATION: LUNG CA COMPARISON: Multiple prior examinations dating through 12/09/2019 TECHNIQUE: Axial contrast enhanced images from the thoracic inlet to the upper abdomen with coronal and sagittal reformations using 75 ml Isovue 370 intravenous contrast material. This CT examination was performed using the following dose reduction techniques: Automated exposure control, adjustment of mA and/or kv according to the patient's size, and use of iterative reconstruction technique. FINDINGS: Spiculated nodule in the right upper lobe now measures 9.5 mm diameter and has decreased from roughly 20 mm on 12/29/2019 examination. Precarinal lymph nodes have also decreased in size now measuring roughly 10 mm short axis diameter. No new suspicious nodule or mass lesion appreciated. Surgical clips identified in the right paratracheal space. Underlying chronic emphysematous changes with scattered scarring and bronchiectasis again noted. No effusion. No pneumothorax. Tracheobronchial tree is patent. No acute adenopathy. Mediastinum demonstrates stable atherosclerotic changes to the thoracic aorta and coronary arteries without aortic aneurysm or dissection. A small pericardial effusion measures roughly 9.6 mm along the anterior nondependent portion of the pericardium. [id number] identified with tip in the SVC. Musculoskeletal structures without acute osseous abnormality. Limited upper abdomen includes 2.1 cm right adrenal adenoma unchanged. IMPRESSION: 1. Right upper lobe malignant lesion currently measures 9.5 mm diameter and decreased from 12/29/2019 1 measuring 20 mm. Associated adenopathy has decreased/resolved as well. No new lesions are identified. 2. Underlying chronic COPD/emphysematous changes with scattered bronchiectasis and scarring. 3. Known right adrenal adenoma. <Electronically signed by Ranjeet Luis > 10/15/20 [id number]
--- NOTE | 2020-10-15 14:21 | REP ---
INDICATION: LUNG CA. COMPARISON: 05/22/2020 TECHNIQUE: Axial contrast-enhanced images from the lung bases to the pubic symphysis using oral and 100 cc Isovue 370 intravenous contrast material. Delayed images of the abdomen along with coronal and sagittal reformations obtained. This CT examination was performed using the following dose reduction techniques: Automated exposure control, adjustment of mA and/or kv according to the patient's size, and the use of iterative reconstruction technique. FINDINGS: Liver, spleen, pancreas, gallbladder, bilateral adrenal glands and kidneys are stable/normal. 2.2 cm right adrenal adenoma again noted. Surgical clips identified in the gastrohepatic ligament of uncertain significance and without associated mass lesion or acute finding. The enteric system is without obstruction or acute inflammatory process. Mild to moderate fecal stasis suggested along with scattered sigmoid diverticula. No evidence for acute diverticulitis.. Pelvis demonstrates normal bladder and age-appropriate uterus/adnexa. Incidental small fat containing right inguinal hernia noted. No ascites. No free air. No intraperitoneal or retroperitoneal adenopathy. Atherosclerotic changes to the aorta and vasculature without aneurysm or dissection. Musculoskeletal structures are intact and without acute osseous abnormality. IMPRESSION: 1. No acute abdominopelvic pathology appreciated. 2. No evidence for metastatic disease, adenopathy, inflammatory stranding or ascites. 3. Stable benign findings including known right adrenal adenoma and scattered sigmoid diverticula without acute diverticulitis. <Electronically signed by Ranjeet Luis > 10/15/20 0949
== END ==
LOC: M RAD 11:20
PROVIDERS: ATTEND Internal Medicine Medical Oncology
DX: C34.11 Malignant neoplasm of upper lobe, right bronchus or lung (principal); J44.9 Chronic obstructive pulmonary disease, unspecified; D35.01 Benign neoplasm of right adrenal gland
CPT/HCPCS: 71260; 74177; Q9963; Q9967

== ENCOUNTER → 2020-12-04 | Outpatient (CLI) | payer MEDICARE ==
[~2020-12-04] MED LIST changes: +ASPI-569 PO; -ASPI81TAEC PO; -GASTROGRAFIN SOLUTION 30ML (Q9963) As Ordered ONE; -ISOVUE-370 76% 100ML VIAL As Ordered ONE; -LISI-542 PO; +LISI-898 PO; +LISI10TA22 PO; -LISI10TA4 PO; +MECL-136 PO; -MECL12.590 PO; +OXYC1TAB23; -PEG1POW PO; +POLY17PO18 PO; +SPIR-10 PO
--- NOTE | 2020-12-04 10:15 | RADONC ---
Radiation Oncology Hx/FUP Radiation Oncology Hx/FUP Date of Service: Dec 04, 2020 Pt Identifier Ericka Kerr is a 69 year old female seen for a followup visit today at the department of radiation oncology for a history of NSCLC RUL [id number] stage IIIA. She has severe COPD and was felt to be inappropriate for definitive chemoradiation when she was diagnosed in 2019, so she was given chemoimmunotherapy and has had a good response to treatment. She is seen today at the request of Dr. Bauer for consideration of RT, as despite her good response she is having intermittent hemoptysis. Diagnosis/Treatment History Oncologic History Per Dr. Bauer's recent note 1. Locally advanced non-small cell lung cancer. cT1N2 -Left upper lobe lung biopsy 01/20/2020 showed invasive poorly differentiated non-small cell carcinoma, poorly differentiated adenocarcinoma of lung favored (signed out by [facility]). PD L1 2030 %. BRAF negative. EGFR negative. Failure for ALK testing, RET gene, MET gene and ROS 1. -PET scan 02/14/2020 showing hypermetabolic uptake in right upper lobe spiculated nodule with precarinal/pretracheal lymphadenopathy. 2. Started palliative carboplatin/paclitaxel chemotherapy with atezolizumab and bevacizumab 03/22/2020. Completed 4 cycles 05/31/2020. Follow-up CT chest, abdomen and pelvis 05/22/2020 showed a positive response with decrease in size of right upper lobe lung lesion and mediastinal nodes. Developed CHF exacerbation 07/2020. Bevacizumab discontinued with last dose given 07/13/2020 day. Continues on atezolizumab immunotherapy. Recent data: 10/15/20 CT chest FINDINGS: Spiculated nodule in the right upper lobe now measures 9.5 mm diameter and has decreased from roughly 20 mm on 12/29/2019 examination. Precarinal lymph nodes have also decreased in size now measuring roughly 10 mm short axis diameter. No new suspicious nodule or mass lesion appreciated. Surgical clips identified in the right paratracheal space. Underlying chronic emphysematous changes with scattered scarring and bronchiectasis again noted. No effusion. No pneumothorax. Tracheobronchial tree is patent. No acute adenopathy. Mediastinum demonstrates stable atherosclerotic changes to the thoracic aorta and coronary arteries without aortic aneurysm or dissection. A small pericardial effusion measures roughly 9.6 mm along the anterior nondependent portion of the pericardium. Vazwdk-S-Hxxy identified with tip in the SVC. Musculoskeletal structures without acute osseous abnormality. Limited upper abdomen includes 2.1 cm right adrenal adenoma unchanged. IMPRESSION: 1. Right upper lobe malignant lesion currently measures 9.5 mm diameter and decreased from 12/29/2019 1 measuring 20 mm. Associated adenopathy has decreased/resolved as well. No new lesions are identified. 2. Underlying chronic COPD/emphysematous changes with scattered bronchiectasis and scarring. 3. Known right adrenal adenoma. 10/15/20 CT abdomen pelvis FINDINGS: Liver, spleen, pancreas, gallbladder, bilateral adrenal glands and kidneys are stable/normal. 2.2 cm right adrenal adenoma again noted. Surgical clips identified in the gastrohepatic ligament of uncertain significance and without associated mass lesion or acute finding. The enteric system is without obstruction or acute inflammatory process. Mild to moderate fecal stasis suggested along with scattered sigmoid diverticula. No evidence for acute diverticulitis.. Pelvis demonstrates normal bladder and age-appropriate uterus/adnexa. Incidental small fat containing right inguinal hernia noted. No ascites. No free air. No intraperitoneal or retroperitoneal adenopathy. Atherosclerotic changes to the aorta and vasculature without aneurysm or dissection. Musculoskeletal structures are intact and without acute osseous abnormality. IMPRESSION: 1. No acute abdominopelvic pathology appreciated. 2. No evidence for metastatic disease, adenopathy, inflammatory stranding or ascites. 3. Stable benign findings including known right adrenal adenoma and scattered sigmoid diverticula without acute diverticulitis. PFTs 09/07/18 FEV1 1.05L FEV 2.38L FEV1/FVC 58% predicted DLCO 50% predicted (possible underestimate on technical grounds) Interval History Ericka reports she has been having intermittent hemoptysis clots and blood streaked sputum intermittently for several months, seems most common after her chemotherapy cycles, but no firm correlation, last bout was last week. She has a baseline productive cough and wears 3L NC O2 at all times. 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 She has preserved appetite and weight, is fatigued constantly however. No CP, no fevers, chills, no lightheadedness. Current Therapy Atezolizumab maintenance q3w Stage RUL NSCLC [id number] stage IIIA Social History: Maximet 1ppd smoker >50 pack year history Drinks 1 beer 1-2 days per week Allergies / Meds Allergies: Coded Allergies: No Known Allergies (Unverified , 09/16/18) Home Meds Active Scripts Prochlorperazine Maleate (Prochlorperazine Maleate) 10 Mg Tablet, 10 MG PO TIDP PRN for NAUSEA OR VOMITING, #30 TAB 3 Refills Prov:LEANDRO BAUER MD 11/06/20 Prednisone (Prednisone) 20 Mg Tablet, 40 MG PO DAILY, #8 TAB Prov:ERYN HDEZ DO 08/21/20 Spironolactone (Aldactone) 25 Mg Tablet, 12.5 MG PO DAILY for 30 Days, #15 TAB Prov:Ana Maria Bean MD 07/24/20 Lisinopril (Lisinopril) 5 Mg Tablet, 5 MG PO DAILY for 30 Days, #30 TAB Prov:Ana Maria Bean MD 07/24/20 Furosemide (Furosemide) 40 Mg Tablet, 40 MG PO DAILY for 30 Days, #30 TAB Prov:Ana Maria Bean MD 07/24/20 Carvedilol (Carvedilol) 3.125 Mg Tablet, 3.125 MG PO BID for 30 Days, #60 TAB Prov:Ana Maria Bean MD 07/24/20 Reported Medications Oxycodone HCl/Acetaminophen (Oxycodone-Acetaminophen 5-325) 1 Each Tablet 12/04/20 Guaifenesin (Mucinex) 600 Mg Tab.er.12h, 1 TAB PO BID for cough for 10 Days, #20 TAB 08/03/20 Vit B Complx C/Folic Acid/Zinc (Dialyvite 800-Zinc 15 mg Tab) 1 Each Tablet, 1 TAB PO DAILY for 30 Days, #30 TAB 08/03/20 Umeclidinium [place] (Incruse Ellipta) 62.5 Mcg Blst.w.dev, 62.5 MCG INH DAILY 07/20/20 Potassium Chloride (Potassium Chloride) 10 Meq Tablet.er, 10 MEQ PO DAILY 07/20/20 Metoclopramide HCl (Metoclopramide HCl) 10 Mg Tablet, 10 MG PO QID PRN for MIGRAINE, TAB 03/06/20 Pantoprazole Sodium (Pantoprazole Sodium) 40 Mg Tablet.dr, 40 MG PO BID, TAB 03/06/20 Sucralfate (Sucralfate) 1 Gm Tablet, 1 GM PO ACHS 02/09/20 Gabapentin (Gabapentin) 100 Mg Capsule, 100 MG PO TID, CAP 01/20/20 Sennosides/Docusate Sodium (Senna-S Tablet) 1 Each Tablet, 2 TAB PO DAILY, TAB 01/20/20 Salmeterol/Fluticasone (Advair 100-50 Diskus) 1 Each Blst.w.dev, 1 PUFF INH BID, INHALER 01/20/20 Aspirin/Acetaminophen/Caffeine (Excedrin Migraine Geltab) 1 Each Tablet, 2 TAB PO BID PRN for MIGRAINE, TAB 01/20/20 Sumatriptan Succinate (Sumatriptan Succinate) 25 Mg Tablet, 25 MG PO BID PRN for MIGRAINE, TAB 01/20/20 Albuterol Sulfate (Ventolin Hfa) 108 Mcg/Act Aer, 2 PUFFS INH Q4H PRN for SOB/WHEEZING 06/21/18 Buspirone HCl (Buspirone HCl) 15 Mg Tab, 15 MG PO TID 06/21/18 Aspirin (Aspirin EC) 81 Mg Tabec, 81 MG PO DAILY, TAB 06/16/17 Meclizine HCl (Meclizine HCl) 25 Mg Tab, 25 MG PO QID PRN for DIZZINESS 06/16/17 Cyclobenzaprine HCl (Cyclobenzaprine HCl) 10 Mg Tab, 10 MG PO TID 06/16/17 Amitriptyline HCl (Amitriptyline HCl) 25 Mg Tab, 50 MG PO QHS, TAB 03/11/15 Discontinued Reported Medications Folic Acid/Vit B Complex and C (Super B Complex Tablet) 400 Mcg Tablet, 2 TAB PO DAILY, TAB 07/20/20 Hydrocodone/Acetaminophen (Hydrocodone-Acetamin 5-325 mg) 1 Each Tablet, 1 TAB PO QID PRN for PAIN 02/16/20 Nystatin (Nystatin Oral Susp) 100,000 Unit/1 Ml Oral.susp, 5 ML SS QID PRN for THRUSH, SUSP 01/20/20 Discontinued Scripts Fluconazole (Fluconazole) 200 Mg Tablet, 200 MG PO DAILY for yeast infection for 5 Days, #5 TAB 3 Refills Prov:LEANDRO BAUER MD 11/06/20 Review of Systems Review of Systems Constitutional: Reports: Fatigue; Denies: Chills, Fever, Weight Loss HEENT: Denies: Head Aches Skin: Denies: Rash Pulmonary: Reports: Dyspnea, Cough; Denies: Pleuritic Chest Pain Cardiovascular: Reports: Orthopnea; Denies: Chest Pain, Palpitations Gastrointestinal: Denies: Nausea, Vomiting, Abdominal Pain Genitourinary: Denies: Dysuria, Frequency Hematologic: Denies: Bruising, Bleeding Excessively Endocrine: Denies: Cold Intolerance Musculoskeletal: Denies: Neck pain, Back pain Neurological: Denies: Weakness, Numbness Psych: Reports: Mood Normal Physical Examination Vital Signs Ht 65" Wt 138 lbs BMI 23 T 98 P 76 RR 22 BP 144/76 O2 96% Pain 0 Fatigue 1 General Exam: Positive: Alert, Cooperative; Negative: No Acute Distress Eye Exam: Positive: PERRLA, EOMI ENT EXAM: Positive: Atraumatic, Mucous membr. moist/pink Neck Exam: Positive: Supple Chest Exam: Positive: Clear to auscultation, Rhonchi (Diffuse); Negative: Diminished Heart Exam: Positive: Rate Normal, Regular Rhythm Abdomen Exam: Positive: Soft; Negative: Tenderness Extremity Exam: Positive: Edema (Trace pedal edema) Skin Exam: Positive: Nl turgor and temperature Neuro Exam: Positive: Normal Gait, Normal Speech, Cranial Nerves 3-12 NL Psych Exam: Positive: Mental status NL Diagnostic and Laboratory Diagnostic Review Radiologic images, relevant labs and pathology reports were personally reviewed and discussed with Ms. Kerr. Assessment and Plan Impression Assessment Ms. Kerr is a 69 year old female with a history of history of NSCLC RUL [id number] stage IIIA. She has severe COPD and was felt to be inappropriate for definitive chemoradiation when she was diagnosed in 2019, so she was given chemoimmunotherapy and has had a good response to treatment. She is seen today at the request of Dr. Bauer for consideration of RT, as despite her good response she is having intermittent hemoptysis. On most recent imaging her RUL primary tumor has decreased to ~1cm in size and the dominant precarinal node is ~2 cm with indistinct outer contour suggesting extracapsular disease. I believe her hemoptysis may be coming from this oscar metastasis, less likely the primary as it is peripheral in the RUL. There is no right hilar mass or suggestion of endobronchial disease (nor was there when she was staged initially). I discussed that RT may ameliorate her bleeding, and have an added benefit in consolidating her good response to systemic therapy. In principal I recommended 60 Gy in 30 fractions, which is a standard definitive regimen, which I think she would tolerate well, even though she has O2 dependent COPD, as I would use VMAT to effectively spare her lung and heart dose. She however has concerns about the time and travel for so many treatments. 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 Because of these constraints I offered the alternative of hypofractionated treatment, which is effective palliation, and in some can be sufficient to exert durable local control. I would aim for 45 Gy in 15 fractions, possible more contingent upon what we are able to achieve dosimetrically. I will use VMAT again to spare her lung and heart dose considering her comorbidities. I expect she will tolerate this well. We reviewed the possible side effects of RT including fatigue, cough, esophagitis and pneumonitis. She agreed to proceed. We will simulate her with 4DCT next week. Performance Status ECOG 1 Plan Consolidative RT 45 Gy in 15 fractions with VMAT/4DCT Simulation next week Ms. Kerr was encouraged to call with questions or concerns in the interim period. Billing Statement Total time of [41] minutes was spent preparing for the visit [4], obtaining HPI [8], examining the patient [4], reviewing diagnostic tests [7], discussing management options [9], coordinating care [2], and writing this note [7]. FABI RAMIREZ MD Dec 04, 2020 10:15
== END ==
LOC: M ONCR 08:34
PROVIDERS: ATTEND General Practice
DX: C34.11 Malignant neoplasm of upper lobe, right bronchus or lung (principal)

== ENCOUNTER 2020-12-28 08:56 | Outpatient (RCR) | payer MEDICARE ==
[2020-12-31] MEDS ORDERED: PRED20TA PO (09:04)
[2020-12-31] MEDS ORDERED: AZIT-12 PO (09:05)
--- NOTE | 2020-12-31 09:06 | RADENCPD ---
Date/Time of Encounter Date of Encounter: Dec 31, 2020 Time of Encounter: 08:59 Encounter Spoke with Ericka, she is having increased SOB since Thursday. Cough is stable and productive, no bleeding. She has completed 5/15 planned treatments (15/45 Gy). She is COVID vaccinated. I explained that it is too early in her course to expect any significant pulmonary side effects. I suspect she has a COPD exacerbation versus viral illness, and so I will give her a steroid pulse and z- [id number]. I offered to assess her in the office today, but she prefers to stay home. I will call her tomorrow and see how she is responding to treatment. FABI RAMIREZ MD Dec 31, 2020 09:06
[2021-01-01] MEDS ORDERED: DEXA6TAB PO (15:03)
--- NOTE | 2021-01-01 15:05 | RADENCPD ---
Date/Time of Encounter Date of Encounter: Jan 01, 2021 Time of Encounter: 14:52 Encounter Called by REGULATOR TESTER at [facility] who report that Ericka presented today and tested positive for COVID. I spoke to her personally and told her that I recommend she present to the ED immediately given her decompensated pulmonary status. She politely refused concerned about who will care for her . I said that if she was concerned about her (who has also been exposed at this point) that they could both present to the ED here for further care. She again politely refused. She stated if her breathing worsens she will call an ambulance. I stated this is against my medical advice and that she should come in now. In effort to support her despite her insistence to not present to ED at this time I will extend her steroid prescription which is known from the RECOVERY trial to decrease mortality risk in patients who like her, are on supplemental O2 at baseline. Plan: Decadron 6 mg daily for 10 days. D/c prednisone Will call tomorrow FABI RAMIREZ MD Jan 01, 2021 15:05
--- NOTE | 2021-01-02 11:49 | RADENCPD ---
Date/Time of Encounter Date of Encounter: Jan 02, 2021 Time of Encounter: 11:45 Encounter Called Ericka to follow up on her respiratory status. She is actually feeling better today, less SOB, since starting steroids. She is on quarantine until 01/11/21. We agreed to withhold her treatment in this timeframe and resume where we left off once she is fully recovered. She has 30 Gy and 10 fractions remaining of her planned 45 Gy in 15 fraction course, which still stands to benefit her as 30 Gy in 10 fractions is an acceptable consolidation dose in lung cancer in certain circumstances. I will call her toward the end of her quarantine to further assess. She may call us anytime if her symptoms worsen. In the meantime she will continue decadron 6 mg daily for COVID. FABI RAMIREZ MD Jan 02, 2021 11:49
[2021-01-18] MEDS ORDERED: LISI10TA22 PO (09:08)
[2021-01-18] MEDS ORDERED: COVI100V IM (09:09)
[2021-01-21] MEDS ORDERED: MAGICMW SSP (09:52)
== END 2021-01-02 ==
LOC: M ONCR 08:56
PROVIDERS: ATTEND General Practice
DX: C34.11 Malignant neoplasm of upper lobe, right bronchus or lung (principal)

== ENCOUNTER 2021-01-17 19:30 | Emergency (ER) | payer MEDICARE ==
[~2021-01-17] VITALS: Ht 165.1 cm; Wt 61.8 kg
[~2021-01-17 19:30] MED LIST changes: +AZIT-12 PO; +DEXA6TAB PO
[2021-01-17] MEDS ORDERED: PANTOPRAZOLE 40MG VIAL (C9113 PER 1) IV ONE (20:00)
[2021-01-17] MEDS ORDERED: GI COCKTAIL 50ML BTL(HYOSCYAMINE/MAALOX/LIDOCAINE VISCOUS)(1:3:1) PO ONE (20:00)
--- NOTE | 2021-01-17 20:09 | REPVR ---
PROCEDURE INFORMATION: Exam: XR Chest Exam date and time: 01/17/2021 7:37 PM Age: 70 years old Clinical indication: Other: Chest pain TECHNIQUE: Imaging protocol: XR of the chest. Views: 1 view. COMPARISON: CT Chest with contrast 10/15/2020 1:10 PM FINDINGS: Lungs: No acute infiltrates. Platelike atelectasis both lung bases. Pleural spaces: Unremarkable. No pleural effusion. No pneumothorax. Heart/Mediastinum: Unremarkable. No cardiomegaly. Vasculature: MediPort catheter tip in the proximal superior vena cava just above the cavoatrial junction. Bones/joints: Unremarkable. IMPRESSION: No acute findings. Electronically signed by: Miles Davis On 01/17/2021 20:10:19 PM
[2021-01-17 20:24] LABS: BASO % 0.4 % (0.0-1.0); EOS # 0.1 10^3/uL (0.0-0.5); HEMATOCRIT 43.1 % (36.0-47.0); HEMOGLOBIN 13.9 g/dl (12.0-15.5); LYMPH # 0.9 10^3/uL (1.5-5.0); LYMPH % 11.8 % (24.0-44.0); MEAN CORPUSCULAR HGB CONC 32.3 g/dl (32.0-36.5); MEAN CORPUSCULAR VOLUME 102.4 fl (80.0-96.0); MONO # 0.8 10^3/uL (0.0-0.8); MONO % 9.9 % (2.0-8.0); NEUTROPHILS # 6.1 10^3/uL (1.5-8.5); PLATELET COUNT, AUTOMATED 134 10^3/uL (150-450); RED BLOOD COUNT 4.21 10^6/uL (4.00-5.40)
[2021-01-17 20:57] LABS: INR 0.93; PROTHROMBIN TIME 12.6 SECONDS (12.5-14.3)
[2021-01-17 20:58] LABS: PARTIAL THROMBOPLASTIN TIME 23.3 SECONDS (24.2-38.5)
[2021-01-17 21:00] LABS: D-DIMER QUANT 820.16 ng/ml (<500)
[2021-01-17 21:15] LABS: ALBUMIN 3.2 GM/DL (3.2-5.2); ALT/SGPT 28 U/L (12-78); BILIRUBIN,DIRECT < 0.1 MG/DL (0.0-0.2); BILIRUBIN,TOTAL 0.2 MG/DL (0.2-1.0); BLOOD UREA NITROGEN 29 MG/DL (7-18); CALCIUM LEVEL 8.7 MG/DL (8.8-10.2); CARBON DIOXIDE LEVEL 29 MEQ/L (21-32); CHLORIDE LEVEL 108 MEQ/L (98-107); CK-MB VALUE MASS 2.7 NG/ML (<3.6); CPK CREATINE PHOSPHOKINASE 38 U/L (26-192); CREATININE FOR GFR 0.72 MG/DL (0.55-1.30); FREE T4 0.92 NG/DL (0.76-1.46); GLOMERULAR FILTRATION RATE > 60.0 (>39); GLUCOSE, FASTING 95 MG/DL (70-100); LIPASE 43 U/L (73-393); MB/CK RELATIVE INDEX 7.11 (< OR =4); POTASSIUM SERUM 3.6 MEQ/L (3.5-5.1); SODIUM LEVEL 142 MEQ/L (136-145); TOTAL PROTEIN 6.2 GM/DL (6.4-8.2); TROPONIN I 0.02 NG/ML (< 0.10)
[2021-01-17 22:15] VITALS: BP 95/54
[2021-01-18] MEDS ORDERED: LISI10TA22 PO (09:08)
[2021-01-18] MEDS ORDERED: COVI100V IM (09:09)
--- NOTE | 2021-01-18 19:48 | ECGEPIP ---
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
[2021-01-21] MEDS ORDERED: MAGICMW SSP (09:52)
== END 2021-01-17 22:34 | disposition left against medical advice (07) ==
LOC: M ED 19:30
DX: Z53.9 Procedure and treatment not carried out, unspecified reason (principal); I25.2 Old myocardial infarction; I10 Essential (primary) hypertension; G43.909 Migraine, unspecified, not intractable, without status migrainosus; G89.29 Other chronic pain; M54.2 Cervicalgia; J44.9 Chronic obstructive pulmonary disease, unspecified; C34.90 Malignant neoplasm of unspecified part of unspecified bronchus or lung; F17.200 Nicotine dependence, unspecified, uncomplicated; Z79.82 Long term (current) use of aspirin; Z79.899 Other long term (current) drug therapy
CPT/HCPCS: 71045; 80048; 80076; 82550; 82553; 83690; 84439; 84443; 84484; 85025; 85379; 85610; 85730; 93005; 93041; 94760; 96374; 99285; C9113

== ENCOUNTER 2021-01-29 08:57 | Outpatient (RCR) | payer MEDICARE ==
[~2021-01-29 08:57] MED LIST changes: +COVI100V IM; +MAGICMW SSP
[2021-01-29] MEDS ORDERED: PRED20TA PO (09:31)
== END 2021-02-01 ==
LOC: M ONCR 08:57
PROVIDERS: ATTEND General Practice
DX: C34.11 Malignant neoplasm of upper lobe, right bronchus or lung (principal)

== ENCOUNTER → 2021-03-06 | Outpatient (CLI) | payer MEDICARE ==
[~2021-03-06] MED LIST changes: +ADV500INH INH; +E-Z-GAS II EFFERVESCENT PACKET (SODIUM BICARB./CITRIC ACID/SIMETHICONE) As Ordered ONE; +E-Z-HD 98% w/w 340GM SUSP BTL As Ordered ONE; +E-Z-PAQUE 96% w/w SUSP 176GM BTL As Ordered ONE; +LIDO1CRE42 TOP; -LIDO2.5C15 TOP
--- NOTE | 2021-03-06 15:27 | REP ---
INDICATION: DYSPHAGIA. COMPARISON: Upper GI series dated 07/25/2020 TECHNIQUE: This procedure was performed by Steff Cowart [facility], under the direct supervision of Dr. Sanchez. Images were reviewed with Dr. Sanchez prior to dictation. Liquid barium and gas producing crystals were given in the erect position, as well as liquid barium in the prone oblique position in order to perform a double contrast esophagram examination. FINDINGS: A single view PA chest x-ray is submitted as a patient day coordinator film. The superior mediastinal structures are midline. The heart size is within normal limits. The lungs are clear. The oral and pharyngeal stages of deglutition were unremarkable. Again visualized is cricopharyngeal hyperplasia, flash laryngeal penetration, and tertiary contractions throughout the exam. Esophageal transport is prompt and efficient and there is no evidence of esophagitis, stricture, or mucosal ring. There is no evidence of a hiatal hernia. There was no gastroesophageal reflux noted . IMPRESSION: 1. 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 2. Flash laryngeal penetration is again visualized. 3. Mild tertiary contractions were again visualized. 0.4 minutes of fluoroscopy time was utilized for this procedure. Some fluoroscopic images are performed with last image hold technology. These images require no additional radiation. <Electronically signed by Steff Cowart > 03/06/21 1342 <Electronically signed by Fish Sanchez > 03/06/21 1529
== END ==
LOC: M RAD 10:25
PROVIDERS: ATTEND Surgery
DX: R13.10 Dysphagia, unspecified (principal); J39.2 Other diseases of pharynx

== ENCOUNTER 2021-03-20 03:49 | Observation (INO) | payer MEDICARE ==
[~2021-03-20 03:49] MED LIST changes: -E-Z-GAS II EFFERVESCENT PACKET (SODIUM BICARB./CITRIC ACID/SIMETHICONE) As Ordered ONE; -E-Z-HD 98% w/w 340GM SUSP BTL As Ordered ONE; -E-Z-PAQUE 96% w/w SUSP 176GM BTL As Ordered ONE; +OMEP40CA4 PO; -OMEP40CA97 PO; -OXYC1TAB23; +OXYC1TAB23 PO
[2021-03-20 04:14] LABS: BASO % 0.4 % (0.0-1.0); EOS # 0.1 10^3/uL (0.0-0.5); EOS % 1.1 % (0.0-3.0); HEMATOCRIT 39.3 % (36.0-47.0); HEMOGLOBIN 12.5 g/dl (12.0-15.5); LYMPH # 0.8 10^3/uL (1.5-5.0); LYMPH % 9.4 % (24.0-44.0); MEAN CORPUSCULAR HEMOGLOBIN 33.3 pg (27.0-33.0); MEAN CORPUSCULAR HGB CONC 31.8 g/dl (32.0-36.5); MEAN CORPUSCULAR VOLUME 104.8 fl (80.0-96.0); MONO # 0.8 10^3/uL (0.0-0.8); MONO % 9.3 % (2.0-8.0); NEUTROPHILS # 6.5 10^3/uL (1.5-8.5); NEUTROPHILS % 79.1 % (36.0-66.0); PLATELET COUNT, AUTOMATED 176 10^3/uL (150-450); RED BLOOD COUNT 3.75 10^6/uL (4.00-5.40); WHITE BLOOD COUNT 8.3 10^3/uL (4.0-10.0)
[2021-03-20] MEDS ORDERED: SUMAtriptan SUCCINATE 6 MG/0.5 ML VIAL SC ONE (04:35)
[2021-03-20 04:39] LABS: ALBUMIN 3.6 GM/DL (3.2-5.2); ALT/SGPT 78 U/L (12-78); BILIRUBIN,DIRECT < 0.1 MG/DL (0.0-0.2); BILIRUBIN,TOTAL 0.2 MG/DL (0.2-1.0); BLOOD UREA NITROGEN 18 MG/DL (7-18); CALCIUM LEVEL 8.4 MG/DL (8.8-10.2); CARBON DIOXIDE LEVEL 31 MEQ/L (21-32); CHLORIDE LEVEL 109 MEQ/L (98-107); CK-MB VALUE MASS 2.1 NG/ML (<3.6); CPK CREATINE PHOSPHOKINASE 58 U/L (26-192); GLOMERULAR FILTRATION RATE > 60.0 (>39); GLUCOSE, FASTING 154 MG/DL (70-100); MB/CK RELATIVE INDEX 3.62 (< OR =4); POTASSIUM SERUM 3.9 MEQ/L (3.5-5.1); SODIUM LEVEL 144 MEQ/L (136-145); TOTAL PROTEIN 6.5 GM/DL (6.4-8.2); TROPONIN I 0.04 NG/ML (< 0.10)
[2021-03-20] MEDS: COMBIVENT RESPIMAT 100-20MCG INHALER 4GM INH SCH ×3 (05:04→05:47)
--- NOTE | 2021-03-20 06:15 | REPVR ---
PROCEDURE INFORMATION: Exam: XR Chest Exam date and time: 03/20/2021 4:35 AM Age: 70 years old Clinical indication: Cough and dyspnea; Additional info: Dyspnea/cough TECHNIQUE: Imaging protocol: XR of the chest. Views: 1 view. COMPARISON: 1. CT Chest with contrast 10/15/2020 1:10:43 PM 2. CR PORTABLE CHEST X-RAY 01/17/2021 7:42 PM FINDINGS: Limitations: The right costophrenic angle was excluded. Tubes, catheters and devices: There is a right sided esak-o-husghihj. Lungs: There is mild interstitial thickening and poorly defined opacity in the right upper lobe and right lung base, not seen previously. There is a small amount of patchy parenchymal opacity in the bilateral lung bases. There is relative lucency in the left mid and upper lung field. Pleural spaces: There is blunting of left costophrenic angle, likely due to a small left pleural effusion. Heart/Mediastinum: The heart is normal in size. Vasculature: Aortic knob calcifications are noted. Bones/joints: Unremarkable. IMPRESSION: 1. Interstitial thickening and poorly defined opacity in the right lung, not seen on the prior exam, which may represent an acute infectious/inflammatory process of the right lung but could represent asymmetric interstitial pulmonary edema superimposed on chronic lung disease. 2. Small amount of patchy parenchymal opacity in the bilateral lung bases, suggestive of atelectasis. 3. Small left pleural effusion. Electronically signed by: Regi Rendon On 03/20/2021 06:14:25 AM
[2021-03-20] MEDS ORDERED: SUCRALFATE 1 GM TAB PO SCH (07:30)
[2021-03-20 07:34] LABS: ABG BASE EXCESS 4.6 (-2.0-2.0); ABG HCO3 30.3 MEQ/L (22.0-26.0); ABG O2 SATURATION 96.8 % (95.0-99.0); ABG PARTIAL PRESSURE CO2 49.7 mmHg (35.0-45.0); ABG PARTIAL PRESSURE O2 100.9 mmHg (75.0-100.0); ABG STANDARD HCO3 28.6 MEQ/L (22.0-26.0); ABG TOTAL CO2 31.8 MEQ/L (23.0-31.0); ABG pH (ARTERIAL) 7.403 UNITS (7.350-7.450)
[2021-03-20] MEDS ORDERED: CARV25TA PO (07:58)
[2021-03-20] MEDS ORDERED: LISI10TA22 PO (07:58)
[2021-03-20] MEDS ORDERED: ALBU83IN INH (07:58)
[2021-03-20] MEDS ORDERED: SODI0.9N3 INH (07:58)
[2021-03-20] MEDS ORDERED: FURO40TA2 PO (07:58)
[2021-03-20] MEDS ORDERED: GUAI200T6 PO (07:58)
[2021-03-20] MEDS ORDERED: DULO1CAP6 PO (07:58)
--- NOTE | 2021-03-20 08:18 | ECGEPIP ---
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
[2021-03-20] MEDS ORDERED: PANTOPRAZOLE 40MG TAB (PROTONIX) PO SCH (09:00)
[2021-03-20] MEDS ORDERED: busPIRone 5 MG TAB PO SCH (09:00)
[2021-03-20] MEDS ORDERED: GABAPENTIN 100 MG CAP PO SCH (09:00)
[2021-03-20] MEDS ORDERED: ADVAIR HFA 230/21MCG INHALER INH SCH (09:00)
[2021-03-20] MEDS ORDERED: CARVedilol 12.5 MG TAB PO SCH (09:00)
[2021-03-20] MEDS ORDERED: CYCLOBENZAPRINE 10MG TABLET PO SCH (09:00)
[2021-03-20] MEDS ORDERED: SENOKOT S TAB PO SCH (09:00)
[2021-03-20] MEDS ORDERED: DULoxetine 30 MG CAP (CYMBALTA) PO SCH (09:00)
[2021-03-20] MEDS ORDERED: guaiFENesin 200 MG TAB PO SCH (09:00)
[2021-03-20] MEDS ORDERED: ASPIRIN 81MG ENTERIC TABLET PO SCH (09:00)
[2021-03-20] MEDS ORDERED: SPIRONOLACTONE 12.5MG PER 1/2 TABLET PO SCH (09:00)
[2021-03-20] MEDS ORDERED: FUROSEMIDE 40 MG TAB PO SCH (09:00)
[2021-03-20 09:30] VITALS: BP 162/73
[2021-03-20] MEDS ORDERED: NICOTINE 21MG/24HR 1 EA TRANSDERMAL TD ONE (09:30)
[2021-03-20] MEDS ORDERED: FIORICET TAB PO PRN (09:30)
[2021-03-20] MEDS ORDERED: METOCLOPRAMIDE INJ 10MG/2ML VIAL (J2765 PER 1) IV ONE (10:00)
[2021-03-20] MEDS: ALBUTEROL SULFATE 2.5 MG/0.5 ML INH NEB SOLN NEB SCH ×2 (10:37→11:03)
[2021-03-20] MEDS ORDERED: SODIUM CHLORIDE 0.9% 3ML NEB SOLUTION FOR INHALATION INH SCH (12:00)
[2021-03-20] MEDS ORDERED: AUGMENTIN 500 MG TAB PO SCH (14:00)
[2021-03-20] MEDS ORDERED: SUMAtriptan SUCCINATE 25 MG TAB PO PRN (14:25)
--- NOTE | 2021-03-20 14:44 | HPEPDOC ---
General Date of Admission 03/20/21 Date of Service: Mar 20, 2021 Chief Complaint The patient is a 70-year-old female admitted with a reason for visit of SOB. Source: Patient History of Present Illness 70 year old female smoker with PMH of stage 4 non small cell cancer of lung, COPD with chronic hypoxic respiratory failure, chronic anemia, iron deficiency after partial gastrectomy for gastric outlet obstruction, h/o systolic CHF with EF of 20% after chemotherapy, migraine presented to the ED with Increased SOB from baseline for 1 day and increased cough with phlegm production for 2 days. She used her nebs 4 times back to back without any improvement so came to the ED aftergetting 3 doses of duonebs. After coming to the ED she also developed a severe headache with lights bothering her and with nausea and was having an acute migraine attack. On my interview she said her SOB was doing better but she had a 10/10 throbbing headache all over her head with nausea and photophobia. She was admitted for COPD exacerbation with acute migraine. Home Medications Scheduled Albuterol Sulf (Albuterol Sulfate) 2.5 Mg/3 Ml Vial.neb, 3 ML INH TID, (Reported) MIX WITH SODIUM CHLORIDE Amitriptyline HCl (Amitriptyline HCl) 25 Mg Tab, 50 MG PO QHS, (Reported) Aspirin (Aspirin EC) 81 Mg Tabec, 81 MG PO DAILY, (Reported) Buspirone HCl (Buspirone HCl) 15 Mg Tab, 15 MG PO TID, (Reported) Carvedilol (Carvedilol) 25 Mg Tablet, 25 MG PO BID, (Reported) Cyclobenzaprine HCl (Cyclobenzaprine HCl) 10 Mg Tab, 10 MG PO TID, (Reported) Duloxetine Hcl (Duloxetine HCl) 60 Mg Capsule.dr, 60 MG PO DAILY, (Reported) Furosemide (Furosemide) 40 Mg Tablet, 40 MG PO DAILY, (Reported) Gabapentin (Gabapentin) 100 Mg Capsule, 100 MG PO TID, (Reported) Guaifenesin (Guaifenesin) 200 Mg Tablet, 200 MG PO QID, (Reported) Lisinopril (Lisinopril) 10 Mg Tablet, 10 MG PO DAILY, (Reported) Pantoprazole Sodium (Pantoprazole Sodium) 40 Mg Tablet.dr, 40 MG PO BID, (Reported) Salmeterol/Fluticasone (Advair 500-50 Diskus) 1 Each Blst.w.dev, 1 PUFF INH BID, (Reported) Sennosides/Docusate Sodium (Senna-S Tablet) 1 Each Tablet, 2 TAB PO DAILY, (Reported) Sodium Chloride For Inhalation (Sodium Chloride 0.9% Saline Neb) 3 Ml Vial.neb, 3 ML INH TID, (Reported) MIX WITH ALBUTEROL Spironolactone (Spironolactone) 25 Mg Tablet, 12.5 MG PO DAILY, (Reported) Sucralfate (Sucralfate) 1 Gm Tablet, 1 GM PO ACHS, (Reported) Umeclidinium [place] (Incruse Ellipta) 62.5 Mcg Blst.w.dev, 1 PUFF INH DAILY, (Reported) Vit B Complx C/Folic Acid/Zinc (Dialyvite 800-Zinc 15 mg Tab) 1 Each Tablet, 1 TAB PO DAILY, (Reported) Scheduled PRN Albuterol Sulfate (Ventolin Hfa) 108 Mcg/Act Aer, 2 PUFFS INH Q4H PRN for SOB/WHEEZING, (Reported) Aspirin/Acetaminophen/Caffeine (Excedrin Migraine Geltab) 1 Each Tablet, 2 TAB P O BID PRN for MIGRAINE, (Reported) Meclizine HCl (Meclizine HCl) 25 Mg Tab, 25 MG PO QID PRN for DIZZINESS, (Reported) Metoclopramide HCl (Metoclopramide HCl) 10 Mg Tablet, 10 MG PO QID PRN for MIGRAINE, (Reported) Oxycodone HCl/Acetaminophen (Oxycodone-Acetaminophen 5-325) 1 Each Tablet, 1-2 TAB PO Q4-6HP PRN for PAIN, (Reported) Prochlorperazine Maleate (Prochlorperazine Maleate) 10 Mg Tablet, 10 MG PO TIDP PRN for NAUSEA OR VOMITING Sumatriptan Succinate (Sumatriptan Succinate) 25 Mg Tablet, 25 MG PO BID PRN for MIGRAINE, (Reported) Allergies Coded Allergies: No Known Allergies (Unverified , 09/16/18) Past Medical History Medical History Stage 4 lung cancer non small cell, poorly differentiated adenoca favored from [facility] diagnosed in 01/2020 , involvement of RUL and mediastinal lymphnodes received 4 cycles of palliative chemo in 2019 now on Atezolizumab immunotherapy. Radiation therapy to right upper lobe and mediastinum for hemoptysis completed 01/29/2021. Dysphagia COPD with chronic resp failure Bronchiectasis. Iron deficiency anemia, likely secondary to malabsorption syndrome from previous gastric surgery. Systolic CHF after chemotherapy with EF of 20% in jul 2020. Had normal EF in 2017 Grade 1 diastolic dysfunction. Smoker Hypertension Migraine History of cervical spine injury with fracture resulting in chronic neck pain and relative neck immobility. Right adrenal adenoma History of endometriosis, and the patient is 8, para 5 and post menopausal. H/o Chronic peptic ulcer disease with antral stenosis(gastric outlet obstructio n) s/p Laparotomy with the selective vagotomy, antrectomy, and Chiqui-en-Y gastrojejunostomy 09/2018 Kidney stones and ureteral stones s/p Cystoscopy, bilateral ureteroscopy with laser lithotripsy and basket extraction of stones, bilateral JJ ureteral stent placement in 2016 Right chemo port placement Family History The patient's mother had ovarian cancer in her early 50s and she has two sisters who reportedly have Crohn disease. There is another sister who has had renal c ell carcinoma. Social History * Smoker: current smoker Alcohol: Denies Drugs: denies A-FIB/CHADSVASC A-FIB History Current/History of A-Fib/PAF?: No Review of Systems Constitutional: Reports: Weakness, Fatigue, Weight Loss; Denies: Chills, Fever, Night Sweats Eyes: Denies: Pain, Vision change ENT: Reports: Head Aches, Dysphagia Pulmonary: Reports: Dyspnea, Cough Cardiovascular: Reports: Edema, Lt Headedness Gastrointestinal: Denies: Nausea, Vomiting, Abdominal Pain, Diarrhea Genitourinary: Denies: Dysuria, Frequency, Incontinence, Retention Hematologic: Denies: Bruising, Bleeding Excessively Musculoskeletal: Reports: Neck Pain, Back Pain Physical Examination General Exam: Positive: Alert, Cooperative, Mild Distress Eye Exam: Positive: PERRLA, Conjunctiva & lids normal, EOMI; Negative: Sclera icteric Neck Exam: Positive: Supple; Negative: JVD, thyromegaly Chest Exam: Positive: Normal air movement, Diminished; Negative: Rales, Rhonchi, Wheezing Heart Exam: Positive: Tachycardic, Regular Rhythm, Normal S1, Normal S2; Negative: Murmurs, Rubs Abdomen Exam: Positive: Normal bowel sounds, Soft; Negative: Tenderness, Hepatospenomegaly Extremity Exam: Negative: Clubbing, Cyanosis, Edema Vital Signs Vital Signs Date Time Temp Pulse Resp B/P (MAP) Pulse Ox O2 Delivery O2 Flow Rate FiO2 03/20/21 05:45 149/64 (92) 03/20/21 05:34 106 36 98 Nasal Cannula 3.5 03/20/21 04:31 95 03/20/21 03:59 97.6 Laboratory Data Labs 24H Laboratory Tests 2 03/20/21 03:57: Immature Granulocyte % (Auto) 0.7, Neutrophils (%) (Auto) 79.1H, Lymphocytes (%) (Auto) 9.4L, Monocytes (%) (Auto) 9.3H, Eosinophils (%) (Auto) 1.1, Basophils (%) (Auto) 0.4, Neutrophils # (Auto) 6.5, Lymphocytes # (Auto) 0.8L, Monocytes # (Auto) 0.8, Eosinophils # (Auto) 0.1, Basophils # (Auto) 0.0, Nucleated Red Blood Cells % (auto) 0.0, Anion Gap 4L, Glomerular Filtration Rate > 60.0, Calcium Level 8.4L, Total Bilirubin 0.2, Direct Bilirubin < 0.1, Aspartate Amino Transf (AST/SGOT) 78H, Alanine Aminotransferase (ALT/SGPT) 78, Alkaline Phosphatase 73, Total Creatine Kinase 58, Creatine Kinase MB 2.1, Creatine Kinase MB Relative Index 3.62, Troponin I 0.04, Total Protein 6.5, Albumin 3.6, Albumin/Globulin Ratio 1.2 CBC/BMP Laboratory Tests 03/20/21 03:57 Microbiology Microbiology 03/20/21 Respiratory Virus Panel (PCR) (MAIKEL) - Final, Complete Assessment/Plan 70 year old female smoker with PMH of stage 4 non small cell cancer of lung, COPD with chronic hypoxic respiratory failure, chronic anemia, iron deficiency after partial gastrectomy for gastric outlet obstruction, h/o systolic CHF with EF of 20% after chemotherapy, migraine presented to the ED with Increased SOB from baseline for 1 day and increased cough with phlegm production for 2 days. She used her nebs 4 times back to back without any improvement so came to the ED aftergetting 3 doses of duonebs. After coming to the ED she also developed a s evere headache with lights bothering her and with nausea and was having an acute migraine attack. On my interview she said her SOB was doing better but she had a 10/10 throbbing headache all over her head with nausea and photophobia. She was admitted for COPD exacerbation with acute migraine. Acute SOB possible acute flare of bronchiectasis with an aspiration episode has dysphagia with flash laryngeal penetrations CXR no acute changes. will send sputum for culture and gram stain. will give augmentin End stage COPD with chronic resp failure with mild worsening of symptoms likely related to change in whether from hot to cold and rainy seems to be doing better will continue with Duonebs, advair, spiriva, guaifenesin and saline nebs i do not think she needs steroids at this time. Acute migraine will give fioricet and reglan. already received sumatriptan in ED. continue Elavil. Stage 4 lung cancer non small cell, poorly differentiated adenoca favored from [facility] diagnosed in 01/2020 involvement of RUL and mediastinal lymphnodes received 4 cycles of palliative chemo in 2019 now on Atezolizumab immunotherapy. Radiation therapy to right upper lobe and mediastinum for hemoptysis completed 01/29/2021. though still has some hemoptysis off and on. follow up Oncology Due for a bone scan this week Iron deficiency anemia, likely secondary to malabsorption syndrome from previous gastric surgery. hb stable Systolic CHF after chemotherapy with EF of 20% in jul 2020. Had normal EF in 2016/Grade 1 diastolic dysfunction. continue lasix and spironolactone will get new echo. Hypertension lisinopril and coreg History of cervical spine injury with fracture resulting in chronic neck pain and relative neck immobility. continue gabapentin, cyclobenzaprine, cymbalta Anxiety buspirone Smoker nicotine patch. 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 Flash laryngeal penetration is visualized. Mild tertiary contractions were visualized. H/o Chronic peptic ulcer disease with antral stenosis(gastric outlet obstruction) s/p Laparotomy with the selective vagotomy, antrectomy, and Chiqui-en-Y gastrojejunostomy 09/2018 ppi bid Kidney stones no issues at this time. Plan / VTE VTE Prophylaxis Ordered?: Yes Plan Disposition Left KENNETH NUGENT MD Mar 20, 2021 07:39
[2021-03-20] MEDS ORDERED: AMITRIPTYLINE 50 MG TAB PO SCH (21:00)
[2021-03-21] MEDS ORDERED: TIOTROPIUM INHALER/CAPSULE (SPIRIVA) INH SCH (08:00)
--- NOTE | 2021-03-21 08:57 | IPNPDOC ---
Text Note Date of Service The patient was seen on 03/21/21. NOTE Patient left AMA yesterday afternoon from the ED because she was tired to waiting to get a room upstairs. It was explained that she had a room it just needed to be cleaned and the nurses had to complete their reports however she refused to stay a minute longer, ripped out her IVs. She left AMA before instruction could be given. She was told that her breathing may again worsen and she may end up with cardiorespiratory arrest however she refused to stay. VS,Fishbone, I+O VS, Fishbone, I+O Vital Signs Date Time Temp Pulse Resp B/P (MAP) Pulse Ox O2 Delivery O2 Flow Rate FiO2 03/20/21 09:30 117 162/73 (102) 92 Nasal Cannula 3.5 03/20/21 08:00 24 03/20/21 04:31 95 03/20/21 03:59 97.6 KENNETH AKBAR MD Mar 21, 2021 08:56
== END 2021-03-20 15:18 | disposition left against medical advice (07) ==
LOC: M ED 03:49 → M ED INP 08:24 → ENRESERV 14:38
PROVIDERS: ADMIT Internal Medicine Nephrology; ATTEND Internal Medicine Nephrology
DX: J44.1 Chronic obstructive pulmonary disease with (acute) exacerbation (principal); Z53.29 Procedure and treatment not carried out because of patient's decision for other reasons; J96.11 Chronic respiratory failure with hypoxia; I50.40 Unspecified combined systolic (congestive) and diastolic (congestive) heart failure; G43.909 Migraine, unspecified, not intractable, without status migrainosus; I11.9 Hypertensive heart disease without heart failure; R13.10 Dysphagia, unspecified; D50.9 Iron deficiency anemia, unspecified; C34.90 Malignant neoplasm of unspecified part of unspecified bronchus or lung; C77.1 Secondary and unspecified malignant neoplasm of intrathoracic lymph nodes; Z92.21 Personal history of antineoplastic chemotherapy; Z92.3 Personal history of irradiation; Z79.82 Long term (current) use of aspirin; Z79.899 Other long term (current) drug therapy; Z79.51 Long term (current) use of inhaled steroids; F41.9 Anxiety disorder, unspecified; F17.218 Nicotine dependence, cigarettes, with other nicotine-induced disorders
CPT/HCPCS: 36600; 71045; 80048; 80076; 82550; 82553; 82803; 84484; 85025; 87798; 93005; 93041; 94640; 94760; 96372; 96374; 99285; G0378; J2765

== ENCOUNTER → 2021-04-01 | Outpatient (CLI) | payer MEDICARE ==
[~2021-04-01] MED LIST changes: +CARV25TA PO; +DULO1CAP6 PO; +GASTROGRAFIN SOLUTION 30ML (Q9963) As Ordered ONE; +GUAI200T6 PO; +ISOVUE-370 76% 100ML VIAL As Ordered ONE; +SODI0.9N3 INH
--- NOTE | 2021-04-04 07:54 | REP ---
INDICATION: LUNG CA, DYSPNEA COMPARISON: 10/15/2020 through 12/29/2019 TECHNIQUE: Axial contrast enhanced images from the thoracic inlet to the upper abdomen with coronal and sagittal reformations using 100 ml Isovue 370 intravenous contrast material. This CT examination was performed using the following dose reduction techniques: Automated exposure control, adjustment of mA and/or kv according to the patient's size, and use of iterative reconstruction technique. FINDINGS: 12 mm spiculated mass identified in the periphery of the right upper lobe unchanged from most recent prior examination and notably decreased in size when compared through 12/29/2019. No new consolidation, nodule or mass. No effusion. No pneumothorax. Tracheobronchial tree is patent. No significant increased adenopathy noted. Lung quigley demonstrate underlying chronic COPD/emphysematous changes with scattered scarring. Mediastinum demonstrates stable atherosclerotic changes to the thoracic aorta and coronary arteries without aortic aneurysm or dissection. Small pericardial effusion is unchanged. Musculoskeletal structures are intact and without acute osseous abnormality. [id number] identified with tip in the SVC. IMPRESSION: 1. Spiculated lesion in the right upper lobe decreased when compared with 12/29/2019 and relatively stable when compared with most recent prior examinations. 2. No new acute process appreciated. 3. Chronic underlying COPD/emphysematous changes and scattered scarring. <Electronically signed by Ranjeet Luis > 04/04/21 [id number]
--- NOTE | 2021-04-04 07:59 | REP ---
INDICATION: LUNG CA, DYSPNEA. COMPARISON: Multiple prior examinations dating to 08/03/2011. TECHNIQUE: Axial contrast-enhanced images from the lung bases to the pubic symphysis using oral and 100 cc Isovue 370 intravenous contrast material. Delayed images of the abdomen along with coronal and sagittal reformations obtained. This CT examination was performed using the following dose reduction techniques: Automated exposure control, adjustment of mA and/or kv according to the patient's size, and the use of iterative reconstruction technique. FINDINGS: Liver, spleen, pancreas, gallbladder, bilateral adrenal glands and kidneys are normal/stable. Complex enhancing right adrenal adenoma is unchanged when compared through 2010. The enteric system including stomach, small, and large bowel appears normal. No evidence for obstruction or acute inflammatory process. Scattered sigmoid diverticula noted without acute diverticulitis. Pelvis demonstrates normal bladder and age-appropriate uterus/adnexa. No ascites. No free air. No intraperitoneal or retroperitoneal adenopathy. Atherosclerotic changes to the aorta and vasculature without aneurysm or dissection. Musculoskeletal structures are intact and without acute osseous abnormality. IMPRESSION: 1. No acute abdominopelvic pathology appreciated. No evidence for metastatic disease. 2. Stable complex right adrenal adenoma unchanged through 2010. 3. Scattered diverticula without acute diverticulitis. <Electronically signed by Ranjeet Luis > 04/04/21 [id number]
== END ==
LOC: M RAD 16:05
PROVIDERS: ATTEND Internal Medicine Medical Oncology
DX: C34.90 Malignant neoplasm of unspecified part of unspecified bronchus or lung (principal); R06.00 Dyspnea, unspecified; D35.01 Benign neoplasm of right adrenal gland; K57.30 Diverticulosis of large intestine without perforation or abscess without bleeding
CPT/HCPCS: 71260; 74177; Q9963; Q9967

== ENCOUNTER 2021-04-04 00:02 | Inpatient (IN) | payer MEDICARE ==
[~2021-04-04] VITALS: Ht 162.6 cm; Wt 57.9 kg
[~2021-04-04 00:02] MED LIST changes: -GASTROGRAFIN SOLUTION 30ML (Q9963) As Ordered ONE; -ISOVUE-370 76% 100ML VIAL As Ordered ONE
[2021-04-04] MEDS: IPRATROPIUM 0.5MG/ALBUTEROL 2.5MG INH SOL UD 3ML (DUONEB) NEB PRN ×2 (00:20→00:31)
[2021-04-04 00:30] LABS: BASO % 0.3 % (0.0-1.0); EOS # 0.1 10^3/uL (0.0-0.5); EOS % 0.6 % (0.0-3.0); HEMATOCRIT 41.1 % (36.0-47.0); HEMOGLOBIN 12.9 g/dl (12.0-15.5); LYMPH # 0.7 10^3/uL (1.5-5.0); LYMPH % 4.8 % (24.0-44.0); MEAN CORPUSCULAR HEMOGLOBIN 33.2 pg (27.0-33.0); MEAN CORPUSCULAR HGB CONC 31.4 g/dl (32.0-36.5); MEAN CORPUSCULAR VOLUME 105.7 fl (80.0-96.0); MONO # 1.1 10^3/uL (0.0-0.8); MONO % 7.1 % (2.0-8.0); NEUTROPHILS # 12.6 10^3/uL (1.5-8.5); NEUTROPHILS % 85.5 % (36.0-66.0); PLATELET COUNT, AUTOMATED 177 10^3/uL (150-450); RED BLOOD COUNT 3.89 10^6/uL (4.00-5.40); WHITE BLOOD COUNT 14.7 10^3/uL (4.0-10.0)
[2021-04-04 01:01] LABS: ALBUMIN 3.7 GM/DL (3.2-5.2); ALT/SGPT 240 U/L (12-78); BILIRUBIN,DIRECT < 0.1 MG/DL (0.0-0.2); BILIRUBIN,TOTAL 0.2 MG/DL (0.2-1.0); BLOOD UREA NITROGEN 16 MG/DL (7-18); CARBON DIOXIDE LEVEL 33 MEQ/L (21-32); CHLORIDE LEVEL 106 MEQ/L (98-107); CK-MB VALUE MASS 3.9 NG/ML (<3.6); CPK CREATINE PHOSPHOKINASE 58 U/L (26-192); CREATININE FOR GFR 0.82 MG/DL (0.55-1.30); GLOMERULAR FILTRATION RATE > 60.0 (>39); GLUCOSE, FASTING 145 MG/DL (70-100); MB/CK RELATIVE INDEX 6.72 (< OR =4); NT-PRO BNP 2620 PG/ML (<125); POTASSIUM SERUM 4.2 MEQ/L (3.5-5.1); SODIUM LEVEL 140 MEQ/L (136-145); TOTAL PROTEIN 6.8 GM/DL (6.4-8.2); TROPONIN I 0.05 NG/ML (< 0.10)
[2021-04-04] MEDS ORDERED: cefTRIAXone SOD 2 GM in D5W MINI-BAG PLUS 50 ML IV ONE (01:10)
[2021-04-04] MEDS ORDERED: ALBUTEROL SULFATE 2.5 MG/0.5 ML INH NEB SOLN NEB PRN (01:30)
[2021-04-04] MEDS ORDERED: ACETAMINOPHEN TAB 650MG DOSE (2X325MG) PO PRN (01:30)
[2021-04-04] MEDS ORDERED: AZITHROMYCIN INJ 500 MG, VIAL MATE ADAPTER 1 EACH in NS 250 ML IV ONE (01:40)
--- NOTE | 2021-04-04 01:48 | HPEPDOC ---
General Date of Admission 04/04/21 Date of Service: Apr 04, 2021 Chief Complaint The patient is a 70-year-old female admitted with a reason for visit of Shortness Of Breath. Source: Patient Exam Limitations: Clinical conditions History of Present Illness Patient is 70 year old female smoker with PMH of stage 4 non small cell cancer of lung, COPD with chronic hypoxic respiratory failure, chronic anemia, iron deficiency after partial gastrectomy for gastric outlet obstruction, h/o systolic CHF with EF of 20% after chemotherapy, migraine presented to the ED with Increased SOB. Patient stated that her shortness of breath significantly increased from her baseline. Patient is active smoker and smokes 2 packs cigarettes in a day. She has been diagnosed with Stage 4 lung cancer non small cell, poorly differentiated adenoca favored from [facility] diagnosed in 01/2020 , involvement of RUL and mediastinal lymphnodes received 4 cycles of palliative chemo in 2019 now on Atezolizumab immunotherapy. Radiation therapy to right upper lobe and mediastinum for hemoptysis completed 01/29/2021. In ER patient was found to have tachypnea, leukocytosis of 14.7, BNP 2620, AST 297, ALT 240. ABG showed pH 7.2, CO2 74.5. Patient refused BiPAP. Home Medications Scheduled Albuterol Sulf (Albuterol Sulfate) 2.5 Mg/3 Ml Vial.neb, 3 ML INH TID, (Reported) MIX WITH SODIUM CHLORIDE Amitriptyline HCl (Amitriptyline HCl) 25 Mg Tab, 50 MG PO QHS, (Reported) Aspirin (Aspirin EC) 81 Mg Tabec, 81 MG PO DAILY, (Reported) Buspirone HCl (Buspirone HCl) 15 Mg Tab, 15 MG PO TID, (Reported) Carvedilol (Carvedilol) 25 Mg Tablet, 25 MG PO BID, (Reported) Cyclobenzaprine HCl (Cyclobenzaprine HCl) 10 Mg Tab, 10 MG PO TID, (Reported) Duloxetine Hcl (Duloxetine HCl) 60 Mg Capsule.dr, 60 MG PO DAILY, (Reported) Fluconazole (Fluconazole) 200 Mg Tablet, 200 MG PO DAILY Furosemide (Furosemide) 40 Mg Tablet, 40 MG PO DAILY, (Reported) Gabapentin (Gabapentin) 100 Mg Capsule, 100 MG PO TID, (Reported) Guaifenesin (Guaifenesin) 200 Mg Tablet, 200 MG PO QID, (Reported) Lisinopril (Lisinopril) 10 Mg Tablet, 10 MG PO DAILY, (Reported) Pantoprazole Sodium (Pantoprazole Sodium) 40 Mg Tablet.dr, 40 MG PO BID, (Reported) Salmeterol/Fluticasone (Advair 500-50 Diskus) 1 Each Blst.w.dev, 1 PUFF INH BID, (Reported) Sennosides/Docusate Sodium (Senna-S Tablet) 1 Each Tablet, 2 TAB PO DAILY, (Reported) Sodium Chloride For Inhalation (Sodium Chloride 0.9% Saline Neb) 3 Ml Vial.neb, 3 ML INH TID, (Reported) MIX WITH ALBUTEROL Spironolactone (Spironolactone) 25 Mg Tablet, 12.5 MG PO DAILY, (Reported) Sucralfate (Sucralfate) 1 Gm Tablet, 1 GM PO ACHS, (Reported) Umeclidinium [place] (Incruse Ellipta) 62.5 Mcg Blst.w.dev, 1 PUFF INH DAILY, (Reported) Vit B Complx C/Folic Acid/Zinc (Dialyvite 800-Zinc 15 mg Tab) 1 Each Tablet, 1 TAB PO DAILY, (Reported) Scheduled PRN Albuterol Sulfate (Ventolin Hfa) 108 Mcg/Act Aer, 2 PUFFS INH Q4H PRN for SOB/WHEEZING, (Reported) Aspirin/Acetaminophen/Caffeine (Excedrin Migraine Geltab) 1 Each Tablet, 2 TAB P O BID PRN for MIGRAINE, (Reported) Meclizine HCl (Meclizine HCl) 25 Mg Tab, 25 MG PO QID PRN for DIZZINESS, (Reported) Metoclopramide HCl (Metoclopramide HCl) 10 Mg Tablet, 10 MG PO QID PRN for MIGRAINE, (Reported) Oxycodone HCl/Acetaminophen (Oxycodone-Acetaminophen 5-325) 1 Each Tablet, 1-2 TAB PO Q4-6HP PRN for PAIN, (Reported) Prochlorperazine Maleate (Prochlorperazine Maleate) 10 Mg Tablet, 10 MG PO TIDP PRN for NAUSEA OR VOMITING Sumatriptan Succinate (Sumatriptan Succinate) 25 Mg Tablet, 25 MG PO BID PRN for MIGRAINE, (Reported) Allergies Coded Allergies: No Known Allergies (Unverified , 09/16/18) Past Medical History Medical History Stage 4 lung cancer non small cell, poorly differentiated adenoca favored from [facility] diagnosed in 01/2020 , involvement of RUL and mediastinal lymphnodes received 4 cycles of palliative chemo in 2019 now on Atezolizumab immunotherapy. Radiation therapy to right upper lobe and mediastinum for hemoptysis completed 01/29/2021. Dysphagia COPD with chronic resp failure Bronchiectasis. Iron deficiency anemia, likely secondary to malabsorption syndrome from previous gastric surgery. Systolic CHF after chemotherapy with EF of 20% in jul 2020. Had normal EF in 2017 Grade 1 diastolic dysfunction. Smoker Hypertension Migraine History of cervical spine injury with fracture resulting in chronic neck pain and relative neck immobility. Right adrenal adenoma History of endometriosis, and the patient is 8, para 5 and post menopausal. H/o Chronic peptic ulcer disease with antral stenosis(gastric outlet obstructio n) s/p Laparotomy with the selective vagotomy, antrectomy, and Chiqui-en-Y gastrojejunostomy 09/2018 Surgical History Kidney stones and ureteral stones s/p Cystoscopy, bilateral ureteroscopy with laser lithotripsy and basket extraction of stones, bilateral JJ ureteral stent placement in 2016 Right chemo port placement Family History The patient's mother had ovarian cancer in her early 50s and she has two sisters who reportedly have Crohn disease. There is another sister who has had renal cell carcinoma. Social History * Smoker: current smoker Alcohol: Denies Drugs: denies A-FIB/CHADSVASC A-FIB History Current/History of A-Fib/PAF?: No Current PO Anticoag Therapy: No Review of Systems Constitutional: Reports: Fatigue; Denies: Chills, Malaise Eyes: Denies: Pain ENT: Denies: Head Aches Skin: Denies: Rash, Lesions Pulmonary: Reports: Dyspnea Cardiovascular: Denies: Chest Pain, Palpitations Gastrointestinal: Denies: Nausea, Vomiting Genitourinary: Denies: Dysuria Hematologic: Denies: Bruising Endocrine: Denies: Polydipsia Musculoskeletal: Denies: Neck Pain Neurological: Denies: Weakness Psych: Reports: Mood Normal Physical Examination General Exam: Positive: Alert, Moderate Distress Eye Exam: Positive: PERRLA ENT Exam: Positive: Atraumatic Neck Exam: Positive: Supple, JVD Chest Exam: Positive: Wheezing, Diminished Heart Exam: Positive: Tachycardic Telemetry: Positive: Sinus Abdomen Exam: Positive: Normal bowel sounds Extremity Exam: Positive: Clubbing, Edema; Negative: Cyanosis Skin Exam: Negative: Breakdown Neuro Exam: Positive: Strength at 5/5 X4 ext, Cranial Nerves 3-12 NL Psych Exam: Positive: Oriented x 3 Vital Signs Vital Signs Date Time Temp Pulse Resp B/P (MAP) Pulse Ox O2 Delivery O2 Flow Rate FiO2 04/04/21 01:02 111 96 Non-Rebreather 04/04/21 01:01 119/58 (78) 04/04/21 00:11 95.6 18 04/04/21 00:02 10.0 Laboratory Data Labs 24H Laboratory Tests 2 04/04/21 00:16: Immature Granulocyte % (Auto) 1.7, Neutrophils (%) (Auto) 85.5H, Lymphocytes (%) (Auto) 4.8L, Monocytes (%) (Auto) 7.1, Eosinophils (%) (Auto) 0.6, Basophils (%) (Auto) 0.3, Neutrophils # (Auto) 12.6H, Lymphocytes # (Auto) 0.7L, Monocytes # (Auto) 1.1H, Eosinophils # (Auto) 0.1, Basophils # (Auto) 0.0, Nucleated Red Blood Cells % (auto) 0.1H, Anion Gap 1L, Glomerular Filtration Rate > 60.0, Lactic Acid Level 0.7, Calcium Level 8.0L, Total Bilirubin 0.2, Direct Bilirubin < 0.1, Aspartate Amino Transf (AST/SGOT) 297H, Alanine Aminotransferase (ALT/SGPT) 240H, Alkaline Phosphatase 100, Total Creatine Kinase 58, Creatine Kinase MB 3.9H, Creatine Kinase MB Relative Index 6.72H, Troponin I 0.05, NT- Pro-B-Type Natriuretic Peptide 2620H, Total Protein 6.8, Albumin 3.7, Albumin/Globulin Ratio 1.2 04/04/21 00:28: POC pH (Misc Panel) 7.239*L, POC Base Excess (Misc Panel) 4.0H, POC Saturated Percent O2 (Misc) 98, POC pO2 (Misc Panel) 128.0H, POC pCO2 (Misc Panel) 74.5*H, POC HCO3 (Misc Panel) 31.9H, POC Total CO2 (Misc Panel) 34.0H CBC/BMP Laboratory Tests 04/04/21 00:16 Microbiology Microbiology 04/04/21 Blood Culture, Received Pending 04/04/21 Respiratory Virus Panel (PCR) (MAIKEL) - Final, Complete 04/04/21 Blood Culture, Received Pending Assessment/Plan Patient is 70 year old female smoker with PMH of stage 4 non small cell cancer of lung, COPD with chronic hypoxic respiratory failure, chronic anemia, iron deficiency after partial gastrectomy for gastric outlet obstruction, h/o systolic CHF with EF of 20% after chemotherapy, migraine presented to the ED with Increased SOB. Patient stated that her shortness of breath significantly increased from her baseline. Patient is active smoker and smokes 2 packs cigarettes in a day. She has been diagnosed with Stage 4 lung cancer non small cell, poorly differentiated adenoca favored from R[facility] diagnosed in 01/2020 , in volvement of RUL and mediastinal lymphnodes received 4 cycles of palliative chemo in 2019 now on Atezolizumab immunotherapy. Radiation therapy to right upper lobe and mediastinum for hemoptysis completed 01/29/2021. In ER patient was found to have tachypnea, leukocytosis of 14.7, BNP 2620, AST 297, ALT 240. ABG showed pH 7.2, CO2 74.5. Patient refused BiPAP. Problems (1) Acute respiratory failure with hypoxia and hypercapnia Status: Acute Problem Text: Most likely secondary to COPD exacerbation superimposed with acute CHF Inhalers IV steroids Incentive spirometry. Due to leukocytosis and immunocompromised status I will start levofloxacin IV Patient refused BiPAP Lasix IV (2) Small cell carcinoma Status: Chronic Problem Text: Currently on immunotherapy Follow-up with oncologist in the outpatient settings (3) CHF (congestive heart failure) Status: Acute Problem Text: Patient was diagnosed with systolic CHF in 2019 after chemotherapy Lasix IV We will repeat echo I's and O's Cardiac diet (4) Abuse of smoked substance Status: Chronic Problem Text: Nicotine patch (5) Hypertension Status: Chronic Problem Text: Continue home meds Plan / VTE VTE Prophylaxis Ordered?: Yes ELIAN MURILLO DO Apr 04, 2021 01:48
--- NOTE | 2021-04-04 01:54 | REPVR ---
PROCEDURE INFORMATION: Exam: XR Chest Exam date and time: 04/04/2021 12:11 AM Age: 70 years old Clinical indication: Other: Dyspnea; Additional info: Dyspnea/cough TECHNIQUE: Imaging protocol: XR of the chest. Views: 1 view. COMPARISON: 1. CT Chest with contrast 2021-04-01 17:40 2. CR PORTABLE CHEST X-RAY 2021-03-20 04:22 3. CR PORTABLE CHEST X-RAY 2021-01-17 19:[address] Chest with contrast 2020-10-15 13:10 FINDINGS: Tubes, catheters and devices: Right chest port line tip in the low SVC. Lungs: Right lung infiltrates. Chronic right middle lobe atelectasis. Spiculated right upper lobe nodule better seen on recent CT. Pleural spaces: Unremarkable. No pleural effusion. No pneumothorax. Heart/Mediastinum: Unremarkable. No cardiomegaly. Bones/joints: Unremarkable. IMPRESSION: 1. Right lung infiltrates. 2. Chronic right middle lobe atelectasis. 3. Spiculated right upper lobe nodule better seen on recent CT. Electronically signed by: Jay Caballero On 04/04/2021 01:53:35 AM
[2021-04-04] MEDS: methylPREDNISolone 125MG 2ML VIAL IV SCH ×3 (02:39→18:14)
[2021-04-04] MEDS: IPRATROPIUM 0.5MG/ALBUTEROL 2.5MG INH SOL UD 3ML (DUONEB) NEB SCH ×4 (02:58→19:35)
[2021-04-04 04:23] VITALS: BP 138/63
[2021-04-04] MEDS ORDERED: LevoFLOXacin IV 750 MG in IV 1 EA IV SCH (06:00)
[2021-04-04] MEDS ORDERED: MECLIZINE 25 MG TABLET PO PRN (06:10)
[2021-04-04] MEDS ORDERED: PROCHLORPERAZINE 5 MG TAB (S0183) PO PRN (06:10)
[2021-04-04] MEDS: SUCRALFATE 1 GM TAB PO SCH ×4 (06:52→20:34)
[2021-04-04] MEDS: PERCOCET 5MG/325MG TAB PO PRN (06:53)
[2021-04-04] MEDS: ADVAIR HFA 230/21MCG INHALER INH SCH ×2 (07:21→19:35)
[2021-04-04 08:00] VITALS: BP 146/64
[2021-04-04] MEDS: FUROSEMIDE 40MG/4ML VIAL (J1940) IV SCH ×3 (08:23→16:49)
[2021-04-04] MEDS: HEPARIN SOD (PORCINE) 5000UNITS/ML 1ML VIAL/SYRINGE SC SCH ×2 (08:23→20:35)
[2021-04-04] MEDS: CARVedilol 12.5 MG TAB PO SCH ×2 (08:24→20:35)
[2021-04-04] MEDS: SPIRONOLACTONE 12.5MG PER 1/2 TABLET PO SCH (08:24)
[2021-04-04] MEDS: SENOKOT S TAB PO SCH (08:24)
[2021-04-04] MEDS: ASPIRIN 81MG ENTERIC TABLET PO SCH (08:24)
[2021-04-04] MEDS: busPIRone 5 MG TAB PO SCH ×3 (08:24→20:34)
[2021-04-04] MEDS: PANTOPRAZOLE 40MG TAB (PROTONIX) PO SCH ×2 (08:25→20:33)
[2021-04-04] MEDS: DULoxetine 30 MG CAP (CYMBALTA) PO SCH (08:25)
[2021-04-04] MEDS: guaiFENesin 200 MG TAB PO SCH ×4 (08:25→20:35)
[2021-04-04] MEDS: NICOTINE 21MG/24HR 1 EA TRANSDERMAL TD SCH (08:25)
[2021-04-04] MEDS: GABAPENTIN 100 MG CAP PO SCH ×3 (08:26→20:34)
[2021-04-04] MEDS: CYCLOBENZAPRINE 10MG TABLET PO SCH ×3 (08:29→20:48)
[2021-04-04] MEDS: EXCEDRIN MIGRAINE TABLET PO PRN (10:54)
[2021-04-04] MEDS: METOCLOPRAMIDE 10 MG TAB PO PRN (10:54)
[2021-04-04 12:02] VITALS: BP 120/67
[2021-04-04 15:50] VITALS: BP 121/58
--- NOTE | 2021-04-04 16:23 | IPNPDOC ---
Subjective Date Seen The patient was seen on 04/04/21. Subjective Chief Complaint/HPI Mrs. Kerr is a 70 year old female with stage 4 non small cell lung cancer, COPD, and HFrEF (20%) who is here for COPD exacerbation. She was able to be weaned down to 4L of NC this morning. Although, this afternoon, she required 5L. She still feels short of breath. Lungs sounds are diminished with wheezing. Sputum culture returned positive with both gram positive and gram negative organisms. Adjusted antibiotics to cover for MRSA. Objective Physical Examination General Exam: Positive: Alert, Cooperative Eye Exam: Negative: Sclera icteric ENT Exam: Positive: Atraumatic Neck Exam: Positive: Supple Chest Exam: Positive: Wheezing, Diminished Heart Exam: Positive: Rate Normal, Regular Rhythm Abdomen Exam: Positive: Normal bowel sounds Extremity Exam: Positive: Edema Neuro Exam: Positive: Strength at 5/5 X4 ext, Cranial Nerves 3-12 NL Psych Exam: Positive: Mental status NL, Mood NL Assessment /Plan Assessment Mrs. Kerr is a 70 year old female with stage 4 non small cell lung cancer, COPD, and HFrEF (20%) who is here for COPD exacerbation. She tells me that her last exacerbation was about half a year ago. She is still smoking. Will continue IV steroids, IV antibiotics, and inhalers. Pending clinical improvement and sputum culture results. Plan/VTE VTE Prophylaxis Ordered?: Yes Plan 1. COPD exacerbation -Continue IV steroids and inhalers -Switched from Levofloxacin to ceftriaxone and doxycycline -Pending sputum culture results 2. HFrEF -EF of 20% in Jul 2020 -Continue with Lasix and spironolactone -Continue Coreg and lisinopril 3. Hypertension -Continue spironolactone, Coreg, and lisinopril 4. Migraines -Continue PRN sumatriptan and PRN Excedrin migraine 5. DVT ppx -Heparin Disposition: Pending clinical improvement. VS, I&O, 24H, Fishbone Vital Signs/I&O Vital Signs Date Time Temp Pulse Resp B/P (MAP) Pulse Ox O2 Delivery O2 Flow Rate FiO2 04/04/21 15:50 98.4 77 18 121/58 (79) 95 Nasal Cannula 5.0 I&O- Last 24 Hours up to 6 AM 04/04/21 06:00 Intake Total 305 ml Output Total 300 ml Balance 5 ml Laboratory Data 24H LABS Laboratory Tests 2 04/04/21 00:16: Immature Granulocyte % (Auto) 1.7, Neutrophils (%) (Auto) 85.5H, Lymphocytes (%) (Auto) 4.8L, Monocytes (%) (Auto) 7.1, Eosinophils (%) (Auto) 0.6, Basophils (%) (Auto) 0.3, Neutrophils # (Auto) 12.6H, Lymphocytes # (Auto) 0.7L, Monocytes # (Auto) 1.1H, Eosinophils # (Auto) 0.1, Basophils # (Auto) 0.0, Nucleated Red Blood Cells % (auto) 0.1H, Anion Gap 1L, Glomerular Filtration Rate > 60.0, Lactic Acid Level 0.7, Calcium Level 8.0L, Total Bilirubin 0.2, Direct Bilirubin < 0.1, Aspartate Amino Transf (AST/SGOT) 297H, Alanine Aminotransferase (ALT/SGPT) 240H, Alkaline Phosphatase 100, Total Creatine Kinase 58, Creatine Kinase MB 3.9H, Creatine Kinase MB Relative Index 6.72H, Troponin I 0.05, RL-Yrk-[id number]-Type Natriuretic Peptide 2620H, Total Protein 6.8, Albumin 3.7, Albumin/Globulin Ratio 1.2 04/04/21 00:28: POC pH (Misc Panel) 7.239*L, POC Base Excess (Misc Panel) 4.0H, POC Saturated Percent O2 (Misc) 98, POC pO2 (Misc Panel) 128.0H, POC pCO2 (Misc Panel) 74.5*H, POC HCO3 (Misc Panel) 31.9H, POC Total CO2 (Misc Panel) 34.0H CBC/BMP Laboratory Tests 04/04/21 00:16 Microbiology Microbiology 04/04/21 Gram Stain - Final, Resulted 04/04/21 Sputum Culture, Resulted Pending 04/04/21 Blood Culture, Received Pending 04/04/21 Respiratory Virus Panel (PCR) (MAIKEL) - Final, Complete 04/04/21 Blood Culture - Preliminary, Resulted ARELIS KUMAR DO Apr 04, 2021 16:23
[2021-04-04] MEDS: SUMAtriptan SUCCINATE 25 MG TAB PO PRN (16:50)
--- NOTE | 2021-04-04 18:01 | ECGEPIP ---
[facility] - ED Test Date: 2021-04-04 Pat Name: ISHAAN JASON Department: Room: [place] [address] Gender: Female [place]: LYNDSAY : 1950 Requested By: ERYN Grider Order Number: [id number] Reading MD: Beth Read Measurements Intervals [place] Rate: 120 P: 45 PA: 126 QRS: -28 QRSD: 122 T: 88 QT: 344 QTc: 486 Interpretive Statements Sinus tachycardia Left ventricular hypertrophy with QRS widening and repolarization abnormality ( R in aVL , Ivan product ) delayed r progression NSTTW abnormalities similar 03/20/21 Electronically Signed on 04-04-2021 18:00:55 EDT by Beth Read
[2021-04-04] MEDS: DOXYCYCLINE HYCLATE 100 MG in D5W MINI-BAG PLUS 100 ML IV SCH (18:14)
[2021-04-04 19:20] VITALS: BP 147/65
[2021-04-04] MEDS: AMITRIPTYLINE 25MG TABLET PO SCH (20:34)
[2021-04-05] MEDS: FUROSEMIDE 40MG/4ML VIAL (J1940) IV SCH ×3 (01:18→16:50)
[2021-04-05] MEDS: methylPREDNISolone 125MG 2ML VIAL IV SCH ×3 (01:18→17:42)
[2021-04-05] MEDS: IPRATROPIUM 0.5MG/ALBUTEROL 2.5MG INH SOL UD 3ML (DUONEB) NEB SCH ×4 (02:00→19:53)
[2021-04-05 03:28] VITALS: BP 125/60
[2021-04-05] MEDS: EXCEDRIN MIGRAINE TABLET PO PRN ×2 (03:33→16:49)
[2021-04-05] MEDS: cefTRIAXone SOD 1 GM in D5W MINI-BAG PLUS 50 ML IV SCH (03:38)
[2021-04-05 05:23] LABS: HEMATOCRIT 36.2 % (36.0-47.0); HEMOGLOBIN 11.8 g/dl (12.0-15.5); MEAN CORPUSCULAR HEMOGLOBIN 33.3 pg (27.0-33.0); MEAN CORPUSCULAR HGB CONC 32.6 g/dl (32.0-36.5); MEAN CORPUSCULAR VOLUME 102.3 fl (80.0-96.0); PLATELET COUNT, AUTOMATED 139 10^3/uL (150-450); RED BLOOD COUNT 3.54 10^6/uL (4.00-5.40); WHITE BLOOD COUNT 5.5 10^3/uL (4.0-10.0)
[2021-04-05 05:43] LABS: ALBUMIN 3.5 GM/DL (3.2-5.2); ALT/SGPT 109 U/L (12-78); BILIRUBIN,TOTAL 0.1 MG/DL (0.2-1.0); BLOOD UREA NITROGEN 24 MG/DL (7-18); CALCIUM LEVEL 8.9 MG/DL (8.8-10.2); CARBON DIOXIDE LEVEL 31 MEQ/L (21-32); CHLORIDE LEVEL 102 MEQ/L (98-107); GLOMERULAR FILTRATION RATE > 60.0 (>39); GLUCOSE, FASTING 153 MG/DL (70-100); POTASSIUM SERUM 3.6 MEQ/L (3.5-5.1); SODIUM LEVEL 140 MEQ/L (136-145); TOTAL PROTEIN 6.4 GM/DL (6.4-8.2)
[2021-04-05] MEDS: DOXYCYCLINE HYCLATE 100 MG in D5W MINI-BAG PLUS 100 ML IV SCH ×2 (06:10→17:42)
[2021-04-05] MEDS: ADVAIR HFA 230/21MCG INHALER INH SCH ×2 (07:22→19:53)
[2021-04-05 08:00] VITALS: BP 134/64
[2021-04-05] MEDS: busPIRone 5 MG TAB PO SCH ×3 (08:49→21:25)
[2021-04-05] MEDS: CYCLOBENZAPRINE 10MG TABLET PO SCH ×3 (08:49→21:25)
[2021-04-05] MEDS: CARVedilol 12.5 MG TAB PO SCH ×2 (08:49→21:26)
[2021-04-05] MEDS: SPIRONOLACTONE 12.5MG PER 1/2 TABLET PO SCH (08:49)
[2021-04-05] MEDS: GABAPENTIN 100 MG CAP PO SCH ×3 (08:49→21:25)
[2021-04-05] MEDS: SENOKOT S TAB PO SCH (08:50)
[2021-04-05] MEDS: SUCRALFATE 1 GM TAB PO SCH ×4 (08:50→21:25)
[2021-04-05] MEDS: PANTOPRAZOLE 40MG TAB (PROTONIX) PO SCH ×2 (08:50→21:25)
[2021-04-05] MEDS: HEPARIN SOD (PORCINE) 5000UNITS/ML 1ML VIAL/SYRINGE SC SCH ×2 (08:50→21:00)
[2021-04-05] MEDS: ASPIRIN 81MG ENTERIC TABLET PO SCH (08:50)
[2021-04-05] MEDS: SUMAtriptan SUCCINATE 25 MG TAB PO PRN (08:50)
[2021-04-05] MEDS: guaiFENesin 200 MG TAB PO SCH ×4 (08:50→21:25)
[2021-04-05] MEDS: DULoxetine 30 MG CAP (CYMBALTA) PO SCH (08:51)
[2021-04-05] MEDS: NICOTINE 21MG/24HR 1 EA TRANSDERMAL TD SCH (08:51)
[2021-04-05] MEDS: METOCLOPRAMIDE 10 MG TAB PO PRN (08:55)
[2021-04-05 12:00] VITALS: BP 114/55
[2021-04-05] MEDS: PERCOCET 5MG/325MG TAB PO PRN (12:14)
--- NOTE | 2021-04-05 12:41 | IPNPDOC ---
Subjective Date Seen The patient was seen on 04/05/21. Subjective Chief Complaint/HPI Mrs. Kerr is a 70 year old female with stage 4 non small cell lung cancer, COPD, and HFrEF (20%) who is here for COPD exacerbation. At baseline, she is on 5L of oxygen which she is currently at. She still has mild wheezings on lungs, but otherwise breathing improved. Sputum culture positive for both gram positive and gram negative organisms. One of two blood cultures grew gram positive cocci in pairs, chains, and clusters. Pending culture results. Objective Physical Examination General Exam: Positive: Alert, Cooperative Eye Exam: Negative: Sclera icteric ENT Exam: Positive: Atraumatic Neck Exam: Positive: Supple Chest Exam: Positive: Wheezing, Diminished Heart Exam: Positive: Rate Normal, Regular Rhythm Abdomen Exam: Positive: Normal bowel sounds Extremity Exam: Positive: Edema Neuro Exam: Positive: Strength at 5/5 X4 ext, Cranial Nerves 3-12 NL Psych Exam: Positive: Mental status NL, Mood NL Assessment /Plan Assessment Mrs. Kerr is a 70 year old female with stage 4 non-small cell lung cancer, COPD, and HFrEF (20%) who is here for COPD exacerbation. She tells me that her last exacerbation was about half a year ago. She is still smoking. Will continue IV steroids, IV antibiotics, and inhalers. Otherwise, her sputum culture and one of the blood cultures returned positive, pending results. Plan/VTE VTE Prophylaxis Ordered?: Yes Plan 1. COPD exacerbation -Continue IV steroids and inhalers -Switched from Levofloxacin to ceftriaxone and doxycycline due to sputum culture results -Pending sputum culture results -Ceftriaxone and doxycycline day 1 2. HFrEF -EF of 20% in Jul 2020 -Continue with Lasix and spironolactone -Continue Coreg and lisinopril 3. Hypertension -Continue spironolactone, Coreg, and lisinopril 4. Migraines -Continue PRN sumatriptan and PRN Excedrin migraine 5. DVT ppx -Heparin Disposition: Pending blood culture result and sputum culture result VS, I&O, 24H, Fishbone Vital Signs/I&O Vital Signs Date Time Temp Pulse Resp B/P (MAP) Pulse Ox O2 Delivery O2 Flow Rate FiO2 04/05/21 12:14 20 04/05/21 12:00 97.5 74 114/55 (74) 94 Nasal Cannula 2.0 I&O- Last 24 Hours up to 6 AM 04/05/21 06:00 Intake Total 840 ml Output Total 2650 ml Balance -1810 ml Laboratory Data 24H LABS Laboratory Tests 2 04/05/21 04:53: Nucleated Red Blood Cells % (auto) 0.0, Anion Gap 7L, Glomerular Filtration Rate > 60.0, Calcium Level 8.9, Magnesium Level 2.0, Total Bilirubin 0.1L, Aspartate Amino Transf (AST/SGOT) 18, Alanine Aminotransferase (ALT/SGPT) 109H, Alkaline Phosphatase 74, Total Protein 6.4, Albumin 3.5, Albumin/Globulin Ratio 1.2 CBC/BMP Laboratory Tests 04/05/21 04:53 Microbiology Microbiology 04/04/21 Gram Stain - Final, Resulted 04/04/21 Sputum Culture, Resulted Pending 04/04/21 Blood Culture - Preliminary, Resulted No growth after 24 hours . All specim... 04/04/21 Respiratory Virus Panel (PCR) (AMIKEL) - Final, Complete 04/04/21 Blood Culture - Preliminary, Resulted ARELIS KUMAR DO Apr 05, 2021 12:41
[2021-04-05 16:00] VITALS: BP 125/58
[2021-04-05 20:00] VITALS: BP 132/61
[2021-04-05] MEDS: AMITRIPTYLINE 25MG TABLET PO SCH (21:25)
[2021-04-06] VITALS (11 sets, daily range): BP systolic 108–132; BP diastolic 53–63; O2SAT 96–98
[2021-04-06] MEDS: PERCOCET 5MG/325MG TAB PO PRN ×2 (00:25→08:53)
[2021-04-06] MEDS: FUROSEMIDE 40MG/4ML VIAL (J1940) IV SCH ×3 (00:26→16:58)
[2021-04-06] MEDS: IPRATROPIUM 0.5MG/ALBUTEROL 2.5MG INH SOL UD 3ML (DUONEB) NEB SCH ×4 (00:52→19:59)
[2021-04-06] MEDS: cefTRIAXone SOD 1 GM in D5W MINI-BAG PLUS 50 ML IV SCH (03:02)
[2021-04-06] MEDS: methylPREDNISolone 125MG 2ML VIAL IV SCH ×2 (03:02→21:39)
[2021-04-06] MEDS: DOXYCYCLINE HYCLATE 100 MG in D5W MINI-BAG PLUS 100 ML IV SCH ×2 (06:11→17:07)
[2021-04-06] MEDS: ADVAIR HFA 230/21MCG INHALER INH SCH ×2 (07:32→19:59)
[2021-04-06] MEDS: SPIRONOLACTONE 12.5MG PER 1/2 TABLET PO SCH (08:38)
[2021-04-06] MEDS: HEPARIN SOD (PORCINE) 5000UNITS/ML 1ML VIAL/SYRINGE SC SCH ×3 (08:38→21:39)
[2021-04-06] MEDS: guaiFENesin 200 MG TAB PO SCH ×4 (08:39→21:37)
[2021-04-06] MEDS: busPIRone 5 MG TAB PO SCH ×3 (08:39→21:37)
[2021-04-06] MEDS: SUCRALFATE 1 GM TAB PO SCH ×4 (08:39→21:38)
[2021-04-06] MEDS: DULoxetine 30 MG CAP (CYMBALTA) PO SCH (08:39)
[2021-04-06] MEDS: ASPIRIN 81MG ENTERIC TABLET PO SCH (08:39)
[2021-04-06] MEDS: PANTOPRAZOLE 40MG TAB (PROTONIX) PO SCH ×2 (08:39→21:36)
[2021-04-06] MEDS: GABAPENTIN 100 MG CAP PO SCH ×3 (08:40→21:38)
[2021-04-06] MEDS: CARVedilol 12.5 MG TAB PO SCH ×2 (08:40→21:38)
[2021-04-06] MEDS: SENOKOT S TAB PO SCH (08:41)
[2021-04-06] MEDS: NICOTINE 21MG/24HR 1 EA TRANSDERMAL TD SCH (08:41)
[2021-04-06] MEDS: CYCLOBENZAPRINE 10MG TABLET PO SCH ×3 (08:46→21:37)
[2021-04-06 10:17] LABS: HEMATOCRIT 38.3 % (36.0-47.0); HEMOGLOBIN 12.2 g/dl (12.0-15.5); MEAN CORPUSCULAR HEMOGLOBIN 33.2 pg (27.0-33.0); MEAN CORPUSCULAR HGB CONC 31.9 g/dl (32.0-36.5); MEAN CORPUSCULAR VOLUME 104.1 fl (80.0-96.0); PLATELET COUNT, AUTOMATED 133 10^3/uL (150-450); RED BLOOD COUNT 3.68 10^6/uL (4.00-5.40); WHITE BLOOD COUNT 7.1 10^3/uL (4.0-10.0)
[2021-04-06 10:39] LABS: CREATININE FOR GFR 1.06 MG/DL (0.55-1.30); GLOMERULAR FILTRATION RATE 54.6 (>39); POTASSIUM SERUM 3.1 MEQ/L (3.5-5.1)
[2021-04-06 10:40] LABS: CALCIUM LEVEL 8.4 MG/DL (8.8-10.2)
[2021-04-06] MEDS: LevoFLOXacin IV 750 MG in IV 1 EA IV SCH (11:19)
[2021-04-06] MEDS ORDERED: POTASSIUM CHLORIDE 10 MEQ SR TABLET PO ONE (11:30)
--- NOTE | 2021-04-06 15:44 | IPNPDOC ---
Subjective Date Seen The patient was seen on 04/06/21. Subjective Chief Complaint/HPI Mrs. Kerr is a 70 year old female with stage 4 non small cell lung cancer, COPD, and HFrEF (20%) who is here for COPD exacerbation. At baseline, she is on 5L chronically which she is currently at. She denies any chest pain or worsening dyspnea. Preliminary blood culture resulted in Strep Infantarius Coli and preliminary sputum culture grew Pseudomonas. Pending final blood culture and sputum culture. Repeated blood cultures yesterday Objective Physical Examination General Exam: Positive: Alert, Cooperative Eye Exam: Negative: Sclera icteric ENT Exam: Positive: Atraumatic Neck Exam: Positive: Supple Chest Exam: Positive: Diminished Heart Exam: Positive: Rate Normal, Regular Rhythm Abdomen Exam: Positive: Normal bowel sounds Extremity Exam: Positive: Edema Neuro Exam: Positive: Strength at 5/5 X4 ext, Cranial Nerves 3-12 NL Psych Exam: Positive: Mental status NL, Mood NL Assessment /Plan Assessment Mrs. Kerr is a 70 year old female with stage 4 non-small cell lung cancer, COPD, and HFrEF (20%) who is here for COPD exacerbation. She tells me that her last exacerbation was about half a year ago. She is still smoking. Will continue IV steroids, IV antibiotics, and inhalers. Preliminary sputum culture grew pseudomonas. Preliminary blood culture grew strep species. Pending final cultures. Repeat blood cultures ordered. Echocardiogram pending. Plan/VTE VTE Prophylaxis Ordered?: Yes Plan 1. COPD exacerbation -Continue IV steroids and inhalers -Levofloxacin for pseudomonas -Doxycycline for MRSA coverage. Pending final sputum and blood culture -Levofloxacin and doxycycline day 2 2. HFrEF -EF of 20% in Jul 2020 -Continue with Lasix and spironolactone -Continue Coreg and lisinopril 3. Hypertension -Continue spironolactone, Coreg, and lisinopril 4. Migraines -Continue PRN sumatriptan and PRN Excedrin migraine 5. Positive blood cultures -May have seeded from the lungs -Pending echocardiogram results -Repeated blood cultures 6. DVT ppx -Heparin Disposition: Pending blood culture result and sputum culture result. Also pending echocardiogram VS, I&O, 24H, Fishbone Vital Signs/I&O Vital Signs Date Time Temp Pulse Resp B/P (MAP) Pulse Ox O2 Delivery O2 Flow Rate FiO2 04/06/21 09:23 18 04/06/21 08:41 115/78 04/06/21 08:40 77 04/06/21 08:00 5.0 04/06/21 04:00 97.2 99 Nasal Cannula I&O- Last 24 Hours up to 6 AM 04/06/21 06:00 Intake Total 2120 ml Output Total 1000 ml Balance 1120 ml Laboratory Data 24H LABS Laboratory Tests 2 04/05/21 19:13: Erythrocyte Sedimentation Rate 22, C-Reactive Protein, Quantitative < 0.30, Procalcitonin <0.05 04/06/21 10:00: Nucleated Red Blood Cells % (auto) 0.0, Anion Gap 11, Glomerular Filtration Rate 54.6, Calcium Level 8.4L CBC/BMP Laboratory Tests 04/06/21 10:00 Microbiology Microbiology 04/05/21 Blood Culture, Received Pending 04/05/21 Blood Culture, Received Pending 04/04/21 Gram Stain - Final, Resulted 04/04/21 Sputum Culture - Preliminary, Resulted Pseudomonas Aeruginosa 04/04/21 Blood Culture - Preliminary, Resulted 04/04/21 Respiratory Virus Panel (PCR) (MAIKEL) - Final, Complete 04/04/21 Blood Culture - Preliminary, Resulted Strep Infantarius Coli ARELIS KUMAR DO Apr 06, 2021 15:44
[2021-04-06] MEDS: CALCIUM CARBONATE 500 MG CHEW U/D PO PRN (21:37)
[2021-04-06] MEDS: AMITRIPTYLINE 25MG TABLET PO SCH (21:38)
[2021-04-07] VITALS (9 sets, daily range): BP systolic 108–141; BP diastolic 58–64; O2SAT 94–97
[2021-04-07] MEDS: FUROSEMIDE 40MG/4ML VIAL (J1940) IV SCH ×2 (00:09→08:00)
[2021-04-07] MEDS: IPRATROPIUM 0.5MG/ALBUTEROL 2.5MG INH SOL UD 3ML (DUONEB) NEB SCH ×2 (01:32→08:00)
[2021-04-07] MEDS: CALCIUM CARBONATE 500 MG CHEW U/D PO PRN (01:45)
[2021-04-07 05:17] LABS: HEMATOCRIT 36.4 % (36.0-47.0); MEAN CORPUSCULAR HEMOGLOBIN 34.2 pg (27.0-33.0); MEAN CORPUSCULAR VOLUME 103.7 fl (80.0-96.0); PLATELET COUNT, AUTOMATED 129 10^3/uL (150-450); RED BLOOD COUNT 3.51 10^6/uL (4.00-5.40); WHITE BLOOD COUNT 7.7 10^3/uL (4.0-10.0)
[2021-04-07] MEDS: DOXYCYCLINE HYCLATE 100 MG in D5W MINI-BAG PLUS 100 ML IV SCH (05:48)
[2021-04-07 05:53] LABS: CALCIUM LEVEL 8.7 MG/DL (8.8-10.2); CREATININE FOR GFR 1.04 MG/DL (0.55-1.30); GLOMERULAR FILTRATION RATE 55.8 (>39); POTASSIUM SERUM 3.9 MEQ/L (3.5-5.1)
[2021-04-07] MEDS: SUCRALFATE 1 GM TAB PO SCH (07:30)
[2021-04-07] MEDS: ADVAIR HFA 230/21MCG INHALER INH SCH (07:59)
--- NOTE | 2021-04-07 08:17 | ECHO ---
ECHOCARDIOGRAM DATE OF PROCEDURE: 04/05/2021 Age: 70 Gender: Female Height: 163 cm Weight: 67 kg REFERRING PHYSICIAN: Pino Gresham DO. PATIENT LOCATION: Room 3218. REASON FOR STUDY: Congestive heart failure, unspecified. 2D MEASUREMENTS: IVS 1.2 cm LV 4.5 cm LVPW 1.2 cm LA 3.1 cm Aorta 3.1 cm DOPPLER MEASUREMENT Peak velocity across the aortic valve 1.4 m/s Peak velocity across the LVOT 0.69 m/s Mitral E 0.61 Mitral A 1.0 with a ratio of 0.6 2D COMMENTS: 1. Normal left ventricular size, wall thickness, and normal global left ventricular systolic function. The estimated left ventricular systolic ejection fraction is 60% to 65%. 2. Normal left atrium. Normal right atrium and right ventricle. 3. The atrial septum appeared to be normal without evidence of defect or shunt. 4. Normal aortic root. 5. A small pericardial effusion noted. No evidence of cardiac tamponade. 6. Mildly calcified aortic valve with normal leaflet excursion. Mildly calcified mitral annulus with normal anterior mitral valve leaflet motion. Normal tricuspid valve. The pulmonic valve and proximal pulmonary artery branches were not well visualized. 7. The inferior vena cava was not well visualized. DOPPLER: Abnormal relaxation pattern was noted across the mitral valve leaflets, as well as the mitral valve annulus consistent with features of grade 1 left ventricular diastolic dysfunction. IMPRESSION: 1. Normal global left ventricular systolic function. There are some features of grade 1 left ventricular diastolic dysfunction manifested by abnormal relaxation. 2. Aortic valve sclerosis without stenosis or aortic regurgitation. 3. A small pericardial effusion was noted, no evidence of cardiac tamponade.
[2021-04-07] MEDS ORDERED: DOXY-350 PO (08:29)
[2021-04-07] MEDS ORDERED: PRED10TA2 PO (08:29)
[2021-04-07] MEDS ORDERED: LEVO750T14 PO (08:29)
[2021-04-07] MEDS ORDERED: CEFD1CAP8 PO (08:33)
[2021-04-07] MEDS: SPIRONOLACTONE 12.5MG PER 1/2 TABLET PO SCH (09:00)
[2021-04-07] MEDS: PANTOPRAZOLE 40MG TAB (PROTONIX) PO SCH (09:00)
[2021-04-07] MEDS: CYCLOBENZAPRINE 10MG TABLET PO SCH (09:00)
[2021-04-07] MEDS: ASPIRIN 81MG ENTERIC TABLET PO SCH (09:00)
[2021-04-07] MEDS: SENOKOT S TAB PO SCH (09:00)
[2021-04-07] MEDS: DULoxetine 30 MG CAP (CYMBALTA) PO SCH (09:00)
[2021-04-07] MEDS: CARVedilol 12.5 MG TAB PO SCH (09:00)
[2021-04-07] MEDS: busPIRone 5 MG TAB PO SCH (09:00)
[2021-04-07] MEDS: NICOTINE 21MG/24HR 1 EA TRANSDERMAL TD SCH (09:00)
[2021-04-07] MEDS: GABAPENTIN 100 MG CAP PO SCH (09:00)
[2021-04-07] MEDS: HEPARIN SOD (PORCINE) 5000UNITS/ML 1ML VIAL/SYRINGE SC SCH (09:00)
[2021-04-07] MEDS: guaiFENesin 200 MG TAB PO SCH (09:00)
[2021-04-07] MEDS: LevoFLOXacin IV 750 MG in IV 1 EA IV SCH (09:45)
[2021-04-07] MEDS: methylPREDNISolone 125MG 2ML VIAL IV SCH (09:45)
--- NOTE | 2021-04-07 16:32 | DS.PDOC ---
Discharge Summary General Date of Admission Apr 04, 2021 at 01:35 Date of Discharge Apr 07, 2021 Discharge Summary PROCEDURES PERFORMED DURING STAY: None ADMITTING DIAGNOSES: 1. COPD exacerbation 2. Acute on chronic hypoxic respiratory failure 3. Acute hypercapnic respiratory failure 4. Right lung pneumonia 5. Stable heart failure with reduced ejection fraction 6. Hypertension 7. Migraines DISCHARGE DIAGNOSES: 1. COPD exacerbation 2. Acute on chronic hypoxic respiratory failure 3. Acute hypercapnic respiratory failure 4. Right lung pneumonia with pseudomonas and pasteurella 5. Stable heart failure with reduced ejection fraction 6. Hypertension 7. Migraines 8. Gram positive bacteremia with Strep infantarius coli COMPLICATIONS/CHIEF COMPLAINT: Acute Respiratory Failure W Hypoxia And Hypercapni. HISTORY OF PRESENT ILLNESS: Copied from admitting physician's H&P " Patient is 70 year old female smoker with PMH of stage 4 non small cell cancer of lung, COPD with chronic hypoxic respiratory failure, chronic anemia, iron deficiency after partial gastrectomy for gastric outlet obstruction, h/o s ystolic CHF with EF of 20% after chemotherapy, migraine presented to the ED with Increased SOB. Patient stated that her shortness of breath significantly increased from her baseline. Patient is active smoker and smokes 2 packs cigarettes in a day. She has been diagnosed with Stage 4 lung cancer non small cell, poorly differentiated adenoca favored from [facility] diagnosed in 01/2020 , involvement of RUL and mediastinal lymphnodes received 4 cycles of palliative chemo in 2019 now on Atezolizumab immunotherapy. Radiation therapy to right upper lobe and mediastinum for hemoptysis completed 01/29/2021. In ER patient was found to have tachypnea, leukocytosis of 14.7, BNP 2620, AST 297, ALT 240. ABG showed pH 7.2, CO2 74.5. Patient refused BiPAP. " HOSPITAL COURSE: Patient initially needed a non-rebreather. Day after admission, she recovered quickly, and returned back to her baseline fo 5L. Her sputum culture and blood cultures returned positive. Sputum culture returned positive for pseudomonas during hospitalization, and she was switched to Levofloxacin. Blood culture was positive for Strep species. Blood cultures were repeated on 04/05/21. Today, patient did not want to wait for culture finalization or results of the echocardiogram. She understood the risks of leaving AMA such as treating with the wrong antibiotics, sepsis, and missing endocarditis. She wanted to go home. She signed the paper work and left against medical advice. I advised her to follow up with PCP as soon as possible and to request finalized culture results and echocardiogram. After she had left, her sputum culture finalized to Pseudomonas and Pasteurella. Blood culture from 04/04/21 finalized to Strep infantarius coli. DISCHARGE MEDICATIONS: Please see below. ALLERGIES: Please see below. PHYSICAL EXAMINATION ON DISCHARGE: VITAL SIGNS: Please see below. GENERAL: Comfortable, in no apparent distress HEENT: Head normocephalic, atraumatic, EOMI, Sclera clear NECK: Supple CARDIOVASCULAR EXAMINATION: Regular rate and rhythm RESPIRATORY EXAMINATION: Diminished, but clear ABDOMINAL EXAMINATION: Soft, nontender, normal bowel sounds EXTREMITIES: Bilateral pitting edema PSYCHIATRIC EXAMINATION: Anxious LABORATORY DATA: Please see below. IMAGING: Radiologist interpretation CXR IMPRESSION: 1. Right lung infiltrates. 2. Chronic right middle lobe atelectasis. 3. Spiculated right upper lobe nodule better seen on recent CT. PROGNOSIS: Guarded ACTIVITY: As tolerated. DIET: As tolerated DISCHARGE PLAN: Left against medical advice DISPOSITION: 07 Against Medical Advice. DISCHARGE INSTRUCTIONS: 1. Please follow up with your PCP as soon as possible for results of culture and echocardiogram ITEMS TO FOLLOWUP ON ON OUTPATIENT: 1. Gram positive bacteremia 2. Pseudomonas pneumonia 3. Spiculated right upper lobe nodule Vital Signs/I&Os Vital Signs Date Time Temp Pulse Resp B/P (MAP) Pulse Ox O2 Delivery O2 Flow Rate FiO2 04/07/21 08:00 97.3 55 18 141/63 (89) Nasal Cannula 5.0 04/07/21 06:00 94 I&O- Last 24 Hours up to 6 AM 04/07/21 06:00 Intake Total 1000 ml Output Total 2350 ml Balance -1350 ml Laboratory Data Labs 24H Laboratory Tests 2 04/07/21 04:58: Nucleated Red Blood Cells % (auto) 0.0, Anion Gap 7L, Glomerular Filtration Rate 55.8, Calcium Level 8.7L CBC/BMP Laboratory Tests 04/07/21 04:58 Microbiology Microbiology 04/05/21 Blood Culture - Preliminary, Resulted No growth after 24 hours . All specim... 04/05/21 Blood Culture - Preliminary, Resulted No growth after 24 hours . All specim... 04/04/21 Gram Stain - Final, Complete 04/04/21 Sputum Culture - Final, Complete Pseudomonas Aeruginosa Pasteurella Multocida 04/04/21 Blood Culture - Preliminary, Resulted 04/04/21 Respiratory Virus Panel (PCR) (MAIKEL) - Final, Complete 04/04/21 Blood Culture - Final, Complete Strep Infantarius Coli Discharge Medications Scheduled Albuterol Sulf (Albuterol Sulfate) 2.5 Mg/3 Ml Vial.neb, 3 ML INH TID, (Reported) MIX WITH SODIUM CHLORIDE Amitriptyline HCl (Amitriptyline HCl) 25 Mg Tab, 50 MG PO QHS, (Reported) Aspirin (Aspirin EC) 81 Mg Tabec, 81 MG PO DAILY, (Reported) Buspirone HCl (Buspirone HCl) 15 Mg Tab, 15 MG PO TID, (Reported) Carvedilol (Carvedilol) 25 Mg Tablet, 25 MG PO BID, (Reported) Cefdinir (Cefdinir) 300 Mg Capsule, 300 MG PO BID Cyclobenzaprine HCl (Cyclobenzaprine HCl) 10 Mg Tab, 10 MG PO TID, (Reported) Duloxetine Hcl (Duloxetine HCl) 60 Mg Capsule.dr, 60 MG PO DAILY, (Reported) Furosemide (Furosemide) 40 Mg Tablet, 40 MG PO DAILY, (Reported) Gabapentin (Gabapentin) 100 Mg Capsule, 100 MG PO TID, (Reported) Guaifenesin (Guaifenesin) 200 Mg Tablet, 200 MG PO QID, (Reported) Lisinopril (Lisinopril) 10 Mg Tablet, 10 MG PO DAILY, (Reported) Pantoprazole Sodium (Pantoprazole Sodium) 40 Mg Tablet.dr, 40 MG PO BID, (Reported) Prednisone (Prednisone) 10 Mg Tablet, 10 MG PO TAPER Take 4 tabs daily x 3 days, then 3 tabs daily x 3 days, then 2 tabs daily x 3 days, then 1 tab daily x 3 days and stop Salmeterol/Fluticasone (Advair 500-50 Diskus) 1 Each Blst.w.dev, 1 PUFF INH BID, (Reported) Sennosides/Docusate Sodium (Senna-S Tablet) 1 Each Tablet, 2 TAB PO DAILY, (Reported) Sodium Chloride For Inhalation (Sodium Chloride 0.9% Saline Neb) 3 Ml Vial.neb, 3 ML INH TID, (Reported) MIX WITH ALBUTEROL Spironolactone (Spironolactone) 25 Mg Tablet, 12.5 MG PO DAILY, (Reported) Sucralfate (Sucralfate) 1 Gm Tablet, 1 GM PO ACHS, (Reported) Umeclidinium Table [place] (Incruse Ellipta) 62.5 Mcg Blst.w.dev, 1 PUFF INH DAILY, (Reported) Vit B Complx C/Folic Acid/Zinc (Dialyvite 800-Zinc 15 mg Tab) 1 Each Tablet, 1 TAB PO DAILY, (Reported) levoFLOXacin (levoFLOXacin) 750 Mg Tablet, 750 MG PO DAILY Scheduled PRN Albuterol Sulfate (Ventolin Hfa) 108 Mcg/Act Aer, 2 PUFFS INH Q4H PRN for SOB/WHEEZING, (Reported) Aspirin/Acetaminophen/Caffeine (Excedrin Migraine Geltab) 1 Each Tablet, 2 TAB PO BID PRN for MIGRAINE, (Reported) Meclizine HCl (Meclizine HCl) 25 Mg Tab, 25 MG PO QID PRN for DIZZINESS, (Reported) Metoclopramide HCl (Metoclopramide HCl) 10 Mg Tablet, 10 MG PO QID PRN for MIGRAINE, (Reported) Oxycodone HCl/Acetaminophen (Oxycodone-Acetaminophen 5-325) 1 Each Tablet, 1-2 TAB PO Q4-6HP PRN for PAIN, (Reported) Prochlorperazine Maleate (Prochlorperazine Maleate) 10 Mg Tablet, 10 MG PO TIDP PRN for NAUSEA OR VOMITING Sumatriptan Succinate (Sumatriptan Succinate) 25 Mg Tablet, 25 MG PO BID PRN for MIGRAINE, (Reported) Allergies Coded Allergies: No Known Allergies (Unverified , 09/16/18) ARELIS KUMAR DO Apr 07, 2021 11:33
== END 2021-04-07 09:46 | disposition left against medical advice (07) | DRG 177 ==
LOC: M ED 00:02 → M ED INP 00:03 → OBSVTOIN 01:35 → ENRESERV 02:45 → M PCU 04:29
PROVIDERS: ADMIT Internal Medicine; ATTEND Internal Medicine
DX: J15.1 Pneumonia due to Pseudomonas (principal); J96.21 Acute and chronic respiratory failure with hypoxia; J96.02 Acute respiratory failure with hypercapnia; J44.1 Chronic obstructive pulmonary disease with (acute) exacerbation; I50.32 Chronic diastolic (congestive) heart failure; C34.90 Malignant neoplasm of unspecified part of unspecified bronchus or lung; I11.0 Hypertensive heart disease with heart failure; G43.909 Migraine, unspecified, not intractable, without status migrainosus; F17.210 Nicotine dependence, cigarettes, uncomplicated; D50.9 Iron deficiency anemia, unspecified; Z92.3 Personal history of irradiation; Z92.21 Personal history of antineoplastic chemotherapy; Z79.899 Other long term (current) drug therapy

== ENCOUNTER → 2021-04-24 | Outpatient (CLI) | payer MEDICARE ==
[~2021-04-24] MED LIST changes: +DOXY-350 PO; +ISOVUE-370 76% 100ML VIAL As Ordered ONE; +LEVO750T14 PO
--- NOTE | 2021-04-24 11:08 | REP ---
INDICATION: LUNG CA, RADIATION RESPONSE ASSESSMNENT. COMPARISON: 04/01/2021, 10/15/2020, 07/20/2020 TECHNIQUE: Bolus of 75 mL Isovue 370 scanning through the chest with coronal and sagittal reconstructions. FINDINGS: Peripherally in the right upper lobe is a 12 mm spiculated lesion with stranding towards the hilum and the pleural surface, unchanged from last month and October. It is decreased since studies in 2019. Underlying COPD upper lobe emphysematous changes with multiple bullae as before. Chronic fibrotic change in the medial aspect of the right mid lung zone paramediastinal region. Some thickening of the major fissure on the left compared to last month's study which may be a small zone of focal atelectasis. I do not see pleural effusion or acute infiltrate. There is no pleural based mass, calcific pleural plaque, pneumothorax or pneumomediastinum. A 9 mm precarinal node and other sub cm nodes in the mediastinum are unchanged. The aorta is without aneurysm or dissection is atherosclerotic calcifications at its root, arch and descending portion. Coronary artery calcifications as well. Heart size unchanged with a small, stable pericardial effusion anteriorly. No hiatal hernia. Bone windows show the sternum, manubrium, visualized spine with posterior elements, ribs, medial clavicles, scapulae and humeral heads all intact. Portion of liver seen in the upper abdomen, unremarkable and unchanged. Spleen not enlarged without focal lesion. No ascites. Portion of gallbladder and pancreas included were unremarkable. There is a right adrenal nodule stable for a decade consistent with benign adrenal adenoma no adrenal changes and the upper poles kidneys intact IMPRESSION: 1. A 12 mm spiculated lesion peripheral right upper lobe unchanged compared to last month in October. No pathologic sized mediastinal nodes or hilar adenopathy. Some underlying COPD, bullous emphysematous changes scattered areas of fibrotic change. No effusion, pleural plaque or calcification or other acute lung finding. 2. Calcifications of the aorta and some coronary calcifications without aortic aneurysm or dissection. Central pulmonary arteries are without filling defects. 3. No destructive lesions in the spine or other bony structures of the chest. 4. Chronic, stable benign right adrenal adenoma dating back at least a decade. 5. Small anterior pericardial effusion, stable. <Electronically signed by Tip Rocha > 04/24/21 1108
== END ==
LOC: M RAD 09:55
PROVIDERS: ATTEND General Practice
DX: C34.11 Malignant neoplasm of upper lobe, right bronchus or lung (principal); J43.9 Emphysema, unspecified; I25.10 Atherosclerotic heart disease of native coronary artery without angina pectoris; I70.0 Atherosclerosis of aorta; D35.01 Benign neoplasm of right adrenal gland
CPT/HCPCS: 71260; Q9967

== ENCOUNTER → 2021-05-01 | Outpatient (CLI) | payer MEDICARE ==
[~2021-05-01] MED LIST changes: -ISOVUE-370 76% 100ML VIAL As Ordered ONE; +MORP1SOL PO
--- NOTE | 2021-05-01 11:54 | RADONC ---
Radiation Oncology Hx/FUP Radiation Oncology Hx/FUP Date of Service: May 01, 2021 Pt Identifier Ericka Kerr is a 70 year old female current smoker seen for a followup visit today at the department of radiation oncology for a history of NSCLC RUL [id number] stage IIIA. She has severe COPD and was felt to be inappropriate for definitive chemoradiation when she was diagnosed in 2019, so she was given chemoimmunotherapy and has had a good response to treatment. In early 2020 she underwent consolidative RT as despite her good response she was having intermittent hemoptysis. She received 45 Gy in 15 fractions which was punctuated by an unplanned 2 week break due to her gerson COVID-19. She was treated from 12/24/20-01/29/21. She had no side effects from treatment. Diagnosis/Treatment History Oncologic History 1. Locally advanced non-small cell lung cancer. cT1N2 -Left upper lobe lung biopsy 01/20/2020 showed invasive poorly differentiated non-small cell carcinoma, poorly differentiated adenocarcinoma of lung favored (signed out by integrated onc[facility]). PD L1 2030 %. BRAF negative. EGFR negative. Failure for ALK testing, RET gene, MET gene and ROS 1. -PET scan 02/14/2020 showing hypermetabolic uptake in right upper lobe spiculated nodule with precarinal/pretracheal lymphadenopathy. 2. Started palliative carboplatin/paclitaxel chemotherapy with atezolizumab and bevacizumab 03/22/2020. Completed 4 cycles 05/31/2020. Follow-up CT chest, abdomen and pelvis 05/22/2020 showed a positive response with decrease in size of right upper lobe lung lesion and mediastinal nodes. Developed CHF exacerbation 07/2020. Bevacizumab discontinued with last dose given 07/13/2020 day. Continues on atezolizumab immunotherapy. 3. Consolidative RT to right chest 45 Gyi n 15 fractions 12/24/20-01/29/21. Had a 2 week unplanned break due to COVID-19 infection. Recent data: 04/24/21 CT chest Stable lung findings, no new lesions Interval History Ericka is here with her daughter. She reports that she feels terrible all the time. She is progressively SOB, on 5L at home. Some nights she cannot sleep due to the need for continued nebulizer treatments to feel comfortable breathing. She has increased swelling the legs from CHF. She has decided to stop all cancer-directed treatments and is interested in hospice. Current Therapy Discontinued treatment Stage NSCLC RUL [id number] stage IIIA Social History: Current 1 ppd smoker Drinks 1-2 beers per week Allergies / Meds Allergies: Coded Allergies: No Known Allergies (Unverified , 09/16/18) Home Meds Active Scripts Morphine Sulfate (Morphine Sulfate Concentrate) 100 Mg/5 Ml Solution, 0.25 ML PO Q4H for air hunger MDD 1.5 Milliliter(s), #30 ML Prov:FABI RAMIREZ MD 05/01/21 Prednisone (Prednisone) 10 Mg Tablet, 10 MG PO TAPER, #30 TAB Take 4 tabs daily x 3 days, then 3 tabs daily x 3 days, then 2 tabs daily x 3 days, then 1 tab daily x 3 days and stop Prov:ARELIS KUMAR DO 04/07/21 Prochlorperazine Maleate (Prochlorperazine Maleate) 10 Mg Tablet, 10 MG PO TIDP PRN for NAUSEA OR VOMITING, #30 TAB 3 Refills Prov:LEANDRO BAUER MD FACP 03/28/21 Reported Medications Albuterol Sulf (Albuterol Sulfate) 2.5 Mg/3 Ml Vial.neb, 3 ML INH TID MIX WITH SODIUM CHLORIDE 03/20/21 Sodium Chloride For Inhalation (Sodium Chloride 0.9% Saline Neb) 3 Ml Vial.neb, 3 ML INH TID MIX WITH ALBUTEROL 03/20/21 Duloxetine Hcl (Duloxetine HCl) 60 Mg Capsule.dr, 60 MG PO DAILY 03/20/21 Furosemide (Furosemide) 40 Mg Tablet, 40 MG PO DAILY, TAB 03/20/21 Carvedilol (Carvedilol) 25 Mg Tablet, 25 MG PO BID, TAB 03/20/21 Lisinopril (Lisinopril) 10 Mg Tablet, 10 MG PO DAILY, TAB 03/20/21 Guaifenesin (Guaifenesin) 200 Mg Tablet, 200 MG PO QID, TAB 03/20/21 Salmeterol/Fluticasone (Advair 500-50 Diskus) 1 Each Blst.w.dev, 1 PUFF INH BID 03/01/21 Spironolactone (Spironolactone) 25 Mg Tablet, 12.5 MG PO DAILY 12/07/20 Oxycodone HCl/Acetaminophen (Oxycodone-Acetaminophen 5-325) 1 Each Tablet, 1-2 TAB PO Q4-6HP PRN for PAIN 12/04/20 Vit B Complx C/Folic Acid/Zinc (Dialyvite 800-Zinc 15 mg Tab) 1 Each Tablet, 1 TAB PO DAILY 08/03/20 Umeclidinium [place] (Incruse Ellipta) 62.5 Mcg Blst.w.dev, 1 PUFF INH DAILY 07/20/20 Metoclopramide HCl (Metoclopramide HCl) 10 Mg Tablet, 10 MG PO QID PRN for MIGRAINE, TAB 03/06/20 Pantoprazole Sodium (Pantoprazole Sodium) 40 Mg Tablet.dr, 40 MG PO BID, TAB 03/06/20 Sucralfate (Sucralfate) 1 Gm Tablet, 1 GM PO ACHS 02/09/20 Gabapentin (Gabapentin) 100 Mg Capsule, 100 MG PO TID, CAP 01/20/20 Sennosides/Docusate Sodium (Senna-S Tablet) 1 Each Tablet, 2 TAB PO DAILY, TAB 01/20/20 Aspirin/Acetaminophen/Caffeine (Excedrin Migraine Geltab) 1 Each Tablet, 2 TAB PO BID PRN for MIGRAINE, TAB 01/20/20 Sumatriptan Succinate (Sumatriptan Succinate) 25 Mg Tablet, 25 MG PO BID PRN for MIGRAINE, TAB 01/20/20 Albuterol Sulfate (Ventolin Hfa) 108 Mcg/Act Aer, 2 PUFFS INH Q4H PRN for SOB/WHEEZING 06/21/18 Buspirone HCl (Buspirone HCl) 15 Mg Tab, 15 MG PO TID 06/21/18 Aspirin (Aspirin EC) 81 Mg Tabec, 81 MG PO DAILY, TAB 06/16/17 Meclizine HCl (Meclizine HCl) 25 Mg Tab, 25 MG PO QID PRN for DIZZINESS 06/16/17 Cyclobenzaprine HCl (Cyclobenzaprine HCl) 10 Mg Tab, 10 MG PO TID 06/16/17 Amitriptyline HCl (Amitriptyline HCl) 25 Mg Tab, 50 MG PO QHS, TAB 03/11/15 Discontinued Scripts Cefdinir (Cefdinir) 300 Mg Capsule, 300 MG PO BID for 7 Days, #14 CAP Prov:ARELIS KUMAR DO 04/07/21 levoFLOXacin (levoFLOXacin) 750 Mg Tablet, 750 MG PO DAILY for 7 Days, #7 TAB Prov:ARELIS KUMAR DO 04/07/21 Review of Systems Review of Systems Constitutional: Reports: Malaise, Weakness, Fatigue Eyes: Denies: Pain HEENT: Denies: Head Aches Pulmonary: Reports: Dyspnea, Cough, Pleuritic Chest Pain Cardiovascular: Reports: Chest Pain, Orthopnea, Edema Gastrointestinal: Denies: Nausea, Vomiting Musculoskeletal: Reports: Back pain, Midthoracic pain Neurological: Denies: Weakness, Numbness Psych: Reports: Mood Normal Physical Examination Vital Signs Wt 135 lbs T 96.4 P 87 RR 20 BP 90/62 O2 96% on 5L Pain 0 Fatigue 4 General Exam: Positive: Alert, Cooperative, No Acute Distress Eye Exam: Positive: PERRLA, EOMI ENT EXAM: Positive: Atraumatic Neck Exam: Positive: Supple Chest Exam: Positive: Clear to auscultation, Wheezing (Faint wheezing), Diminished (Quiet breath sounds throughout) Heart Exam: Positive: Rate Normal, Regular Rhythm Extremity Exam: Positive: Edema (1+ at ankles) Skin Exam: Positive: Nl turgor and temperature Neuro Exam: Positive: Normal Gait, Normal Speech Psych Exam: Positive: Mental status NL Diagnostic and Laboratory Diagnostic Review Radiologic images, relevant labs and pathology reports were personally reviewed and discussed with Ms. Kerr. Assessment and Plan Impression Assessment Ms. Kerr is a 70 year old female current smoker seen for a followup visit today at the department of radiation oncology for a history of NSCLC RUL [id number] stage IIIA. She has severe COPD and was felt to be inappropriate for definitive chemoradiation when she was diagnosed in 2019, so she was given chemoimmunotherapy and has had a good response to treatment. In early 2020 she underwent consolidative RT as despite her good response she was having intermittent hemoptysis. She received 45 Gy in 15 fractions which was punctuated by an unplanned 2 week break due to her gerson COVID-19. She was treated from 12/24/20-01/29/21. She had no side effects from treatment. Her lung cancer is under control as of the most recent CT scans last week. She has decided to stop cancer-directed systemic therapy and surveillance. This is due to her decompensating COPD and mounting cor pulmonale. I support this decision. She certainly has a prognosis <6 months. I offered a referral to hospice and they agreed to see what this would entail. I provided [place] paperwork for her daughter. I explained that hospice would open up additional support services to Ericka and her family. I also discussed initiating low dose morphine PRN for air hunger, they agreed to this medication I sent Rx for a 30 ml bottle of concentrate. It can be continued by the PCP or hospice physician if deemed helpful to her. I will not schedule follow up at this time, but remain available to assist them if need be. Performance Status ECOG 3 Plan Hospice referral [facility] paperwork furnished Start morphine concentrate 0.25 ml q4h PRN for air hunger Follow up PRN Ms. Kerr was encouraged to call with questions or concerns in the interim period. Billing Statement Total time of [33] minutes was spent preparing for the visit [1], obtaining HPI [6], examining the patient [2], reviewing diagnostic tests [3], discussing management options [7], coordinating care [5], and writing this note [9]. FABI RAMIREZ MD May 01, 2021 11:54
== END ==
LOC: M ONCR 10:03
PROVIDERS: ATTEND General Practice
DX: C34.11 Malignant neoplasm of upper lobe, right bronchus or lung (principal); J44.9 Chronic obstructive pulmonary disease, unspecified; F17.210 Nicotine dependence, cigarettes, uncomplicated; R06.02 Shortness of breath; R60.0 Localized edema; Z79.899 Other long term (current) drug therapy; Z92.21 Personal history of antineoplastic chemotherapy; Z92.3 Personal history of irradiation; Z99.81 Dependence on supplemental oxygen

== ENCOUNTER 2021-05-16 00:24 | Inpatient (IN) | payer MEDICARE ==
[~2021-05-16] VITALS: Ht 162.6 cm; Wt 62.0 kg
[2021-05-16 01:02] LABS: BASO % 0.2 % (0.0-1.0); HEMATOCRIT 35.8 % (36.0-47.0); LYMPH # 0.3 10^3/uL (1.5-5.0); LYMPH % 5.3 % (24.0-44.0); MEAN CORPUSCULAR HEMOGLOBIN 32.7 pg (27.0-33.0); MEAN CORPUSCULAR HGB CONC 30.7 g/dl (32.0-36.5); MEAN CORPUSCULAR VOLUME 106.5 fl (80.0-96.0); MONO # 0.7 10^3/uL (0.0-0.8); NEUTROPHILS # 4.8 10^3/uL (1.5-8.5); PLATELET COUNT, AUTOMATED 183 10^3/uL (150-450); RED BLOOD COUNT 3.36 10^6/uL (4.00-5.40); WHITE BLOOD COUNT 5.9 10^3/uL (4.0-10.0)
--- NOTE | 2021-05-16 01:11 | REPVR ---
PROCEDURE INFORMATION: Exam: CT Head Without Contrast Exam date and time: 05/16/2021 12:32 AM Age: 70 years old Clinical indication: Altered mental status/memory loss; Confusion or disorientation TECHNIQUE: Imaging protocol: Computed tomography of the head without contrast. Radiation optimization: All CT scans at this facility use at least one of these dose optimization techniques: automated exposure control; mA and/or kV adjustment per patient size (includes targeted exams where dose is matched to clinical indication); or iterative reconstruction. COMPARISON: 1. MRI-Brain W/O FOLL BY WITH 2020-03-21 10:12 2. NM Bone Scan Whole Body 2021-03-21 11:08 FINDINGS: Brain: Normal. No hemorrhage. Unremarkable white matter. No mass effect. Cerebral ventricles: No ventriculomegaly. Paranasal sinuses: Visualized sinuses are unremarkable. No fluid levels. Mastoid air cells: Visualized mastoid air cells are well aerated. Bones/joints: Unremarkable. No acute fracture. Soft tissues: Unremarkable. IMPRESSION: No acute intracranial abnormality. Electronically signed by: Jay Caballero On 05/16/2021 01:11:18 AM
--- NOTE | 2021-05-16 01:12 | REPVR ---
PROCEDURE INFORMATION: Exam: XR Chest Exam date and time: 05/16/2021 12:32 AM Age: 70 years old Clinical indication: Other: AMS; Additional info: Altered mental status TECHNIQUE: Imaging protocol: XR of the chest. Views: 1 view. COMPARISON: 1. CT Chest with contrast 2021-04-24 10:30 2. CR PORTABLE CHEST X-RAY 2021-04-04 00:[address] Chest with contrast 2021-04-01 17:40 4. CR PORTABLE CHEST X-RAY 2021-03-20 04:22 FINDINGS: Tubes, catheters and devices: Right IJ Port-A-Cath tip in the low SVC. Port-A-Cath overlaps the known spiculated lung lesion. Lungs: Right middle and lower lobe infiltrate. Pleural spaces: Unremarkable. No pleural effusion. No pneumothorax. Heart/Mediastinum: Unremarkable. No cardiomegaly. Bones/joints: Unremarkable. IMPRESSION: Right middle and lower lobe infiltrate. Electronically signed by: Jay Caballero On 05/16/2021 01:12:36 AM
[2021-05-16 01:14] LABS: ABG BASE EXCESS 2.4 (-2.0-2.0); ABG HCO3 30.5 MEQ/L (22.0-26.0); ABG O2 SATURATION 95.3 % (95.0-99.0); ABG PARTIAL PRESSURE CO2 67.2 mmHg (35.0-45.0); ABG PARTIAL PRESSURE O2 90.5 mmHg (75.0-100.0); ABG STANDARD HCO3 26.5 MEQ/L (22.0-26.0); ABG TOTAL CO2 32.6 MEQ/L (23.0-31.0); ABG pH (ARTERIAL) 7.275 UNITS (7.350-7.450)
[2021-05-16] MEDS ORDERED: VANCOMYCIN HCL 1,000 MG, VIAL MATE ADAPTER 1 EACH in NS 250 ML IV ONE (01:25)
[2021-05-16] MEDS ORDERED: PIPERACILLIN/TAZOBACTAM SOD 4.5 GM in D5W MINI-BAG PLUS 50 ML IV ONE (01:25)
[2021-05-16 01:36] LABS: ACETAMINOPHEN LEVEL < 2.0 UG/ML (10.0-30.0); ALBUMIN 2.8 GM/DL (3.2-5.2); ALT/SGPT 48 U/L (12-78); BILIRUBIN,DIRECT < 0.1 MG/DL (0.0-0.2); BILIRUBIN,TOTAL 0.3 MG/DL (0.2-1.0); BLOOD UREA NITROGEN 46 MG/DL (7-18); CALCIUM LEVEL 9.3 MG/DL (8.8-10.2); CARBON DIOXIDE LEVEL 33 MEQ/L (21-32); CHLORIDE LEVEL 110 MEQ/L (98-107); CK-MB VALUE MASS 6.9 NG/ML (<3.6); CPK CREATINE PHOSPHOKINASE 297 U/L (26-192); CREATININE FOR GFR 0.81 MG/DL (0.55-1.30); ETHYL ALCOHOL (ETHANOL) < 0.003 % (0.000-0.010); GLOMERULAR FILTRATION RATE > 60.0 (>39); GLUCOSE, FASTING 136 MG/DL (70-100); MB/CK RELATIVE INDEX 2.32 (< OR =4); NT-PRO BNP 9521 PG/ML (<125); POTASSIUM SERUM 4.6 MEQ/L (3.5-5.1); SALICYLATE LEVEL 6.2 MG/DL (5.0-30.0); SODIUM LEVEL 147 MEQ/L (136-145); THYROID STIMULATING HORMONE 0.555 uIU/ML (0.358-3.740); TROPONIN I 0.82 NG/ML (< 0.10)
[2021-05-16] MEDS ORDERED: ONDANSETRON 4MG/2ML VIAL IV PRN (01:55)
[2021-05-16] MEDS ORDERED: FLEET ENEMA PR PRN (01:55)
[2021-05-16] MEDS ORDERED: SCOPOLAMINE 1MG TRANSDERMAL PATCH TOP PRN (01:55)
[2021-05-16] MEDS ORDERED: ACETAMINOPHEN 650 MG SUPP PR PRN (01:55)
--- NOTE | 2021-05-16 01:58 | HPEPDOC ---
[facility] Medical History & Physical Date of Admission May 16, 2021 Date of Service: May 16, 2021 Attending Physician: TOMY HAINES MD History and Physical TIME OF SERVICE: 230am CHIEF COMPLAINT: dyspnea HISTORY OF PRESENT ILLNESS: The history was obtained from the patient was obtunded. Ms. Kerr is a 70 yr old F was last admitted from April 04 to for a COPD exacerbation, with sputum cx that were positive for Pseudomonas and Pasteurella. Her blood cx were positive for Strep infantarius coli & Alloiococcus Wander. The patient refused BIPAP and left AMA prior to completing treatment. She has a hx of metastatic lung cancer and has been receiving care with hospice at home. She was more agitated and her family was unable to handle her; they called her home RN who placed a cervantes and gave her Ativan. Per the patients family requested comfort measures only. REVIEW OF SYSTEMS: unobtainable bc of encephalopathy PAST MEDICAL/ SURGICAL HISTORY: Stage 4 lung poorly differentiated adenocarcinoma of the lung (s/p 4 cycles of palliative chemo in 2019 & then Atezolizumab / s/p radiation tx) Dysphagia COPD with chronic O2 dependent resp failure / Bronchiectasis Iron deficiency anemia, likely secondary to malabsorption syndrome from previous gastric surgery. Chemotherapy induced HFrEF (20% in jul 2020. Had normal EF in 2016) / w HFpEF Essential HTN Migraine History of cervical spine injury with fracture resulting in chronic neck pain H/o Chronic peptic ulcer disease with antral stenosis (gastric outlet obstruction) s/p Laparotomy with the selective vagotomy, antrectomy, and Chiqui-en-Y gastrojejunostomy 09/2018 Kidney stones and ureteral stones s/p Cystoscopy, bilateral ureteroscopy with laser lithotripsy and basket extraction of stones, bilateral JJ ureteral stent placement in 2015 SOCIAL HISTORY: per chart review she has a hx of tobacco abuse FAMILY HISTORY: The patient's mother had ovarian cancer in her early 50s and she has two sisters who reportedly have Crohn disease. There is another sister who has had renal cell carcinoma. ALLERGIES: Please see below. HOME MEDICATIONS: Please see below. PHYSICAL EXAMINATION: Vital Signs Date Time Temp Pulse Resp B/P (MAP) Pulse Ox O2 Delivery O2 Flow Rate FiO2 05/16/21 00:31 156/69 (98) 05/16/21 00:39 113 92 05/16/21 00:45 97.3 28 Non-Rebreather 15.0 05/16/21 05:00 50 GENERAL APPEARANCE: well-nourished and developed/ obtunded HEENT: pupils pin point/ MM pink but dry CARDIOVASCULAR: tachycardic/NMRG LUNGS: not using accessory muscles INTEGUMENT: pale/ not flushed or diaphoretic NEUROLOGICAL: pupils sluggish / weak gag reflex / normal Babinski reflex at the left w no response at the right PSYCHIATRIC: RASS score -4 LABORATORY DATA: Laboratory Tests 2 05/16/21 00:48: Lactic Acid Level 0.6 05/16/21 00:49: Immature Granulocyte % (Auto) 1.5, Neutrophils (%) (Auto) 82.0H, Lymphocytes (%) (Auto) 5.3L, Monocytes (%) (Auto) 11.0H, Eosinophils (%) (Auto) 0.0, Basophils (%) (Auto) 0.2, Neutrophils # (Auto) 4.8, Lymphocytes # (Auto) 0.3L, Monocytes # (Auto) 0.7, Eosinophils # (Auto) 0.0, Basophils # (Auto) 0.0, Nucleated Red Blood Cells % (auto) 0.0, Urine Color YELLOW, Urine Appearance CLEAR, Urine pH 6.0, Urine Specific [place] 1.014, Urine Protein 1+H, Urine Glucose (UA) NEG ATIVE, Urine Ketones 1+H, Urine Blood NEGATIVE, Urine Nitrite NEGATIVE, Urine Bilirubin NEGATIVE, Urine Urobilinogen 0.2, Urine Leukocyte Esterase NEGATIVE, Urine WBC (Auto) 1, Urine RBC (Auto) 2, Urine Hyaline Casts (Auto) 0, Urine Bacteria (Auto) NEGATIVE, Urine Squamous Epithelial Cells 0, Urine Mucus (Auto) SMALL, Urine Sperm (Auto) , Blood Gas Bicarbonate Standard 26.5H, Arterial Blood pH 7.275L, Arterial Blood Partial Pressure CO2 67.2*H, Arterial Blood Partial Pressure O2 90.5, Arterial Blood Total CO2 32.6H, Arterial Blood HCO3 30.5H, Arterial Blood Base Excess 2.4H, Arterial Blood Oxygen Saturation 95.3, Anion Gap 4L, Glomerular Filtration Rate > 60.0, Calcium Level 9.3, Total Bilirubin 0.3, Direct Bilirubin < 0.1, Aspartate Amino Transf (AST/SGOT) 32, Alanine Aminotransferase (ALT/SGPT) 48, Alkaline Phosphatase 52, Total Creatine Kinase 297H, Creatine Kinase MB 6.9H, Creatine Kinase MB Relative Index 2.32, Troponin I 0.82H, CF-Fxb-S-Type Natriuretic Peptide 9521H, Total Protein 6.0L, Albumin 2.8L, Albumin/Globulin Ratio 0.9L, Thyroid Stimulating Hormone (TSH) 0.555, Salicylates Level 6.2, Acetaminophen Level < 2.0L, Ethyl Alcohol Level < 0.003 05/16/21 01:33: Bedside Glucose (Misc Panel) 143H IMAGING: Chest xray IMPRESSION: 1. Right lung infiltrates. 2. Chronic right middle lobe atelectasis. 3. Spiculated right upper lobe nodule better seen on recent CT. MICROBIOLOGY: respiratory panel is neg ASSESSMENT/PLAN: Ms. 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 1 SIRS tachycardia and tachypnea 2/2 right sided PNA (aspiration PNA?) 2 Acute Hypercapneic respiratory failure 3 Multifactorial Encephalopathy (hypercarbia +/- sedatives) 4 Hypernatremia 5 HyperCPKemia 6 Elevated Troponin 7 Stage 4 lung poorly differentiated adenocarcinoma of the lung 8 Dysphagia 9 COPD with chronic O2 dependent resp failure / Bronchiectasis 10 Iron deficiency anemia, likely secondary to malabsorption syndrome from previous gastric surgery 11 Chemotherapy induced HFrEF (20% in jul 2020. Had normal EF in 2016) / w HFpEF 12 Essential HTN 13 Migraine 14 H/o Chronic peptic ulcer disease Plan: WET AND DRY SUGAR BIN OPERATOR order set/ day time team to consult Hospice liaise w PFS for placement / will ask the day time team to contact her step daughter Luz at [phone] for updates DVT px n/a Dispo: possible placement in NH after at least 2 midnights stay Her prognosis is poor; her LACE Index Score is 15 points which indicates that she is at high risk for re-admission or within the next 30 days. Home Medications Scheduled Albuterol Sulf (Albuterol Sulfate) 2.5 Mg/3 Ml Vial.neb, 3 ML INH TID MIX WITH SODIUM CHLORIDE Amitriptyline HCl (Amitriptyline HCl) 25 Mg Tab, 50 MG PO QHS Aspirin (Aspirin EC) 81 Mg Tabec, 81 MG PO DAILY Buspirone HCl (Buspirone HCl) 15 Mg Tab, 15 MG PO BID Carvedilol (Carvedilol) 25 Mg Tablet, 25 MG PO BID Cholecalciferol (Vitamin D3) (Vitamin D3) 1,000 Unit Tablet, 1,000 UNITS PO DAILY Cyclobenzaprine HCl (Cyclobenzaprine HCl) 10 Mg Tab, 10 MG PO BID Duloxetine Hcl (Duloxetine HCl) 60 Mg Capsule.dr, 60 MG PO DAILY Furosemide (Furosemide) 40 Mg Tablet, 40 MG PO DAILY Gabapentin (Gabapentin) 100 Mg Capsule, 100 MG PO BID Guaifenesin (Guaifenesin) 200 Mg Tablet, 400 MG PO BID Lisinopril (Lisinopril) 10 Mg Tablet, 10 MG PO DAILY Meclizine HCl (Meclizine HCl) 25 Mg Tab, 25 MG PO BID Metoclopramide HCl (Metoclopramide HCl) 10 Mg Tablet, 10 MG PO BID Morphine Sulfate (Morphine Sulfate Concentrate) 100 Mg/5 Ml Solution, 0.25 ML PO Q4H for air hunger Pantoprazole Sodium (Pantoprazole Sodium) 40 Mg Tablet.dr, 40 MG PO BID Salmeterol/Fluticasone (Advair 500-50 Diskus) 1 Each Blst.w.dev, 1 PUFF INH BID Sennosides/Docusate Sodium (Senna-S Tablet) 1 Each Tablet, 1 TAB PO DAILY Sodium Chloride For Inhalation (Sodium Chloride 0.9% Saline Neb) 3 Ml Vial.neb, 3 ML INH TID MIX WITH ALBUTEROL Spironolactone (Spironolactone) 25 Mg Tablet, 12.5 MG PO DAILY Sucralfate (Sucralfate) 1 Gm Tablet, 1 GM PO BID Umeclidinium [place] (Incruse Ellipta) 62.5 Mcg Blst.w.dev, 1 PUFF INH DAILY Vitamin B Complex (Vitamin B Complex) 1 Each Tablet, 1 TAB PO DAILY Scheduled PRN Albuterol Sulfate (Ventolin Hfa) 108 Mcg/Act Aer, 2 PUFFS INH Q4H PRN for SOB/WHEEZING Aspirin/Acetaminophen/Caffeine (Excedrin Migraine Geltab) 1 Each Tablet, 2 TAB PO BID PRN for MIGRAINE Lorazepam (Ativan) 0.5 Mg Tablet, 0.5 MG PO Q4H PRN for ANXIETY/AGITATION/RESTLESSNESS Oxycodone HCl/Acetaminophen (Oxycodone-Acetaminophen 5-325) 1 Each Tablet, 1 TAB PO Q4H PRN for MODERATE PAIN (PS 5-7) Oxycodone HCl/Acetaminophen (Oxycodone-Acetaminophen 5-325) 1 Each Tablet, 2 TAB PO Q4H PRN for SEVERE PAIN (PS 8-10) Prochlorperazine Maleate (Prochlorperazine Maleate) 10 Mg Tablet, 10 MG PO BID PRN for NAUSEA OR VOMITING Allergies Coded Allergies: No Known Allergies (Unverified , 09/16/18) A-FIB/CHADSVASC A-FIB History Current/History of A-Fib/PAF?: No Current PO Anticoag Therapy: No TOMY HAINES MD May 16, 2021 01:58
[2021-05-16] MEDS ORDERED: D31000TA2 PO (02:36)
[2021-05-16] MEDS ORDERED: ATIV1TAB10 PO (02:36)
[2021-05-16] MEDS ORDERED: PROC10TA4 PO (02:36)
[2021-05-16] MEDS ORDERED: VITATAB73 PO (02:36)
[2021-05-16] MEDS ORDERED: OXYC1TAB23 PO (02:36)
[2021-05-16] MEDS ORDERED: HOME MED LIST COMPLETE! XX SCH (02:40)
[2021-05-16 03:30] VITALS: BP 141/73
[2021-05-16 05:02] VITALS: O2SAT 88
--- NOTE | 2021-05-16 06:52 | ECGEPIP ---
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
[2021-05-16] MEDS: MORPHINE 2 MG/ML 1ML VIAL (J2270) IV PRN ×4 (12:03→22:21)
[2021-05-16] MEDS: LORazepam 2 MG/ML VIAL IV PRN ×4 (12:03→20:26)
--- NOTE | 2021-05-16 17:48 | IPNPDOC ---
Subjective Date Seen The patient was seen on 05/16/21. Subjective Chief Complaint/HPI Mrs. Kerr is a 70 year old female with history of stage 4 lung poorly differentiated adenocarcinoma and chemotherapy induced HFrEF who is here for CENSUS ENUMERATOR. Patient was seen this morning. She appeared comfortable. Hospice consult was placed and PFS notified Objective Physical Examination General Exam: Positive: No Acute Distress; Negative: Alert (Patient is obtunded and CENSUS ENUMERATOR) Neuro Exam: Positive: Other (Not responsive to verbal stimuli) Psych Exam: Negative: Mental status NL, Oriented x 3 Assessment /Plan Plan/VTE VTE Prophylaxis Ordered?: No (CENSUS ENUMERATOR) VTE Exclusion Mechanical Proph: Other (CENSUS ENUMERATOR) VTE Exclusion Pharmacological: Other (CENSUS ENUMERATOR) Plan 1. Sepsis/SIRS secondary to right sided PNA 2. Acute hypercapnic hypoxic respiratory failure 3. Multifactorial encephalopathy 4. Hypernatremia 5. 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 Dysphagia 7. COPD 8. Chemotherapy induced HFrEF Patient is CENSUS ENUMERATOR only and has been made comfortable. Family cannot care for patient at home. Hospice consult placed and PFS is aware. Will make patient ALC as patient is CENSUS ENUMERATOR. VS, I&O, 24H, Fishbone Vital Signs/I&O Vital Signs Date Time Temp Pulse Resp B/P (MAP) Pulse Ox O2 Delivery O2 Flow Rate FiO2 05/16/21 05:02 88 Venturi Mask 15.0 50 05/16/21 03:30 97.2 100 14 141/73 (95) I&O- Last 24 Hours up to 6 AM 05/16/21 06:00 Intake Total 300 ml Output Total 475 ml Balance -175 ml Laboratory Data 24H LABS Laboratory Tests 2 05/16/21 00:48: Lactic Acid Level 0.6 05/16/21 00:49: Immature Granulocyte % (Auto) 1.5, Neutrophils (%) (Auto) 82.0H, Lymphocytes (%) (Auto) 5.3L, Monocytes (%) (Auto) 11.0H, Eosinophils (%) (Auto) 0.0, Basophils (%) (Auto) 0.2, Neutrophils # (Auto) 4.8, Lymphocytes # (Auto) 0.3L, Monocytes # (Auto) 0.7, Eosinophils # (Auto) 0.0, Basophils # (Auto) 0.0, Nucleated Red Blood Cells % (auto) 0.0, Urine Color YELLOW, Urine Appearance CLEAR, Urine pH 6.0, Urine Specific [place] 1.014, Urine Protein 1+H, Urine Glucose (UA) NEGATIVE, Urine Ketones 1+H, Urine Blood NEGATIVE, Urine Nitrite NEGATIVE, Urine Bilirubin NEGATIVE, Urine Urobilinogen 0.2, Urine Leukocyte Esterase NEGATIVE, Urine WBC (Auto) 1, Urine RBC (Auto) 2, Urine Hyaline Casts (Auto) 0, Urine Bacteria (Auto) NEGATIVE, Urine Squamous Epithelial Cells 0, Urine Mucus (Auto) SMALL, Urine Sperm (Auto) , Blood Gas Bicarbonate Standard 26.5H, Arterial Blood pH 7.275L, Arterial Blood Partial Pressure CO2 67.2*H, Arterial Blood Partial Pressure O2 90.5, Arterial Blood Total CO2 32.6H, Arterial Blood HCO3 30.5H, Arterial Blood Base Excess 2.4H, Arterial Blood Oxygen Saturation 95.3, Anion Gap 4L, Glomerular Filtration Rate > 60.0, Calcium Level 9.3, Total Bilirubin 0.3, Direct Bilirubin < 0.1, Aspartate Amino Transf (AST/SGOT) 32, Alanine Aminotransferase (ALT/SGPT) 48, Alkaline Phosphatase 52, Total Creatine Kinase 297H, Creatine Kinase MB 6.9H, Creatine Kinase MB Relative Index 2.32, Troponin I 0.82H, AJ-Oio-I-Type Natriuretic Peptide 9521H, Total Protein 6.0L, Albumin 2.8L, Albumin/Globulin Ratio 0.9L, Thyroid Stimulating Hormone (TSH) 0.555, Sali cylates Level 6.2, Acetaminophen Level < 2.0L, Ethyl Alcohol Level < 0.003 05/16/21 01:33: Bedside Glucose (Misc Panel) 143H CBC/BMP Laboratory Tests 05/16/21 00:49 Microbiology Microbiology 05/16/21 Respiratory Virus Panel (PCR) (MAIKEL) - Final, Complete 05/16/21 Blood Culture, Received Pending 05/16/21 Blood Culture, Received Pending ARELIS KUMAR DO May 16, 2021 15:19
[2021-05-17] MEDS: LORazepam 2 MG/ML VIAL IV PRN ×2 (01:31→08:44)
[2021-05-17] MEDS: MORPHINE 2 MG/ML 1ML VIAL (J2270) IV PRN (05:38)
--- NOTE | 2021-05-17 10:44 | DS.PDOC ---
Discharge Summary General Date of Admission May 16, 2021 at 02:12 Date of Discharge May 17, 2021 Discharge Summary PROCEDURES PERFORMED DURING STAY: None ADMITTING DIAGNOSES: 1. Sepsis/SIRS secondary to right sided PNA 2. Acute hypercapnic hypoxic respiratory failure 3. Multifactorial encephalopathy 4. Hypernatremia 5. 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 Dysphagia 7. COPD 8. Chemotherapy induced HFrEF DISCHARGE DIAGNOSES: 1. Sepsis/SIRS secondary to right sided PNA 2. Acute hypercapnic hypoxic respiratory failure 3. Multifactorial encephalopathy 4. Hypernatremia 5. 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 Dysphagia 7. COPD 8. Chemotherapy induced HFrEF COMPLICATIONS/CHIEF COMPLAINT: Sepsis,Pneumonia,Hypernatremia,Hypercarbia. HISTORY OF PRESENT ILLNESS: Copied from admitting attending's H&P " The history was obtained from the patient was obtunded. Ms. Kerr is a 70 yr old F was last admitted from April 04 to for a COPD exacerbation, with sputum cx that were positive for Pseudomonas and Pasteurella. Her blood cx were positive for Strep infantarius coli & Alloiococcus Wander. The patient refused BIPAP and left AMA prior to completing treatment. She has a hx of metastatic lung cancer and has been receiving care with hospice at home. She was more agitated and her family was unable to handle her; they called her home RN who placed a cervantes and gave her Ativan. Per the patients family requested comfort measures only. " HOSPITAL COURSE: Patient was made comfortable while here. She had a good night, and she was not in any distress. This morning, around 0850, patient was found to be no longer breathing. Patient had peacefully and quietly . Time of was called at 0858. Nurse contacted family and home was chosen. Family was given an opportunity to see the patient before being taken down to the [facility] [place]. I was notified around 0910 this morning. Vital Signs/I&Os Vital Signs Date Time Temp Pulse Resp B/P (MAP) Pulse Ox O2 Delivery O2 Flow Rate FiO2 05/17/21 05:38 20 05/16/21 21:00 15.0 50 05/16/21 05:02 88 Venturi Mask 05/16/21 03:30 97.2 100 141/73 (95) I&O- Last 24 Hours up to 6 AM 05/17/21 05:59 Intake Total 0 ml Output Total 575 ml Balance -575 ml Microbiology Microbiology 05/16/21 Respiratory Virus Panel (PCR) (MAIKEL) - Final, Complete 05/16/21 Blood Culture - Preliminary, Resulted No growth after 24 hours . All specim... 05/16/21 Blood Culture - Preliminary, Resulted No growth after 24 hours . All specim... Discharge Medications Scheduled Albuterol Sulf (Albuterol Sulfate) 2.5 Mg/3 Ml Vial.neb, 3 ML INH TID, (Reported) MIX WITH SODIUM CHLORIDE Amitriptyline HCl (Amitriptyline HCl) 25 Mg Tab, 50 MG PO QHS, (Reported) Aspirin (Aspirin EC) 81 Mg Tabec, 81 MG PO DAILY, (Reported) Buspirone HCl (Buspirone HCl) 15 Mg Tab, 15 MG PO BID, (Reported) Carvedilol (Carvedilol) 25 Mg Tablet, 25 MG PO BID, (Reported) Cholecalciferol (Vitamin D3) (Vitamin D3) 1,000 Unit Tablet, 1,000 UNITS PO DAILY, (Reported) Cyclobenzaprine HCl (Cyclobenzaprine HCl) 10 Mg Tab, 10 MG PO BID, (Reported) Duloxetine Hcl (Duloxetine HCl) 60 Mg Capsule.dr, 60 MG PO DAILY, (Reported) Furosemide (Furosemide) 40 Mg Tablet, 40 MG PO DAILY, (Reported) Gabapentin (Gabapentin) 100 Mg Capsule, 100 MG PO BID, (Reported) Guaifenesin (Guaifenesin) 200 Mg Tablet, 400 MG PO BID, (Reported) Lisinopril (Lisinopril) 10 Mg Tablet, 10 MG PO DAILY, (Reported) Meclizine HCl (Meclizine HCl) 25 Mg Tab, 25 MG PO BID, (Reported) Metoclopramide HCl (Metoclopramide HCl) 10 Mg Tablet, 10 MG PO BID, (Reported) Morphine Sulfate (Morphine Sulfate Concentrate) 100 Mg/5 Ml Solution, 0.25 ML PO Q4H for air hunger Pantoprazole Sodium (Pantoprazole Sodium) 40 Mg Tablet.dr, 40 MG PO BID, (Reported) Salmeterol/Fluticasone (Advair 500-50 Diskus) 1 Each Blst.w.dev, 1 PUFF INH BID, (Reported) Sennosides/Docusate Sodium (Senna-S Tablet) 1 Each Tablet, 1 TAB PO DAILY, (Reported) Sodium Chloride For Inhalation (Sodium Chloride 0.9% Saline Neb) 3 Ml Vial.neb, 3 ML INH TID, (Reported) MIX WITH ALBUTEROL Spironolactone (Spironolactone) 25 Mg Tablet, 12.5 MG PO DAILY, (Reported) Sucralfate (Sucralfate) 1 Gm Tablet, 1 GM PO BID, (Reported) Umeclidinium [place] (Incruse Ellipta) 62.5 Mcg Blst.w.dev, 1 PUFF INH DAILY, (Reported) Vitamin B Complex (Vitamin B Complex) 1 Each Tablet, 1 TAB PO DAILY, (Reported) Scheduled PRN Albuterol Sulfate (Ventolin Hfa) 108 Mcg/Act Aer, 2 PUFFS INH Q4H PRN for SOB/WHEEZING, (Reported) Aspirin/Acetaminophen/Caffeine (Excedrin Migraine Geltab) 1 Each Tablet, 2 TAB PO BID PRN for MIGRAINE, (Reported) Lorazepam (Ativan) 0.5 Mg Tablet, 0.5 MG PO Q4H PRN for ANXIETY/AGITATION/RESTLESSNESS, (Reported) Oxycodone HCl/Acetaminophen (Oxycodone-Acetaminophen 5-325) 1 Each Tablet, 1 TAB PO Q4H PRN for MODERATE PAIN (PS 5-7), (Reported) Oxycodone HCl/Acetaminophen (Oxycodone-Acetaminophen 5-325) 1 Each Tablet, 2 TAB PO Q4H PRN for SEVERE PAIN (PS 8-10), (Reported) Prochlorperazine Maleate (Prochlorperazine Maleate) 10 Mg Tablet, 10 MG PO BID PRN for NAUSEA OR VOMITING, (Reported) Allergies Coded Allergies: No Known Allergies (Unverified , 09/16/18) ARELIS KUMAR DO May 17, 2021 10:43
== END 2021-05-17 08:58 | disposition expired | DRG 951 ==
LOC: M ED 02:10 → M ED INP 02:12 → M MS5PR 03:33
PROVIDERS: ADMIT Internal Medicine; ATTEND Internal Medicine
DX: Z51.5 Encounter for palliative care (principal); A41.9 Sepsis, unspecified organism; J69.0 Pneumonitis due to inhalation of food and vomit; J96.21 Acute and chronic respiratory failure with hypoxia; J96.22 Acute and chronic respiratory failure with hypercapnia; E87.0 Hyperosmolality and hypernatremia; C34.90 Malignant neoplasm of unspecified part of unspecified bronchus or lung; J96.10 Chronic respiratory failure, unspecified whether with hypoxia or hypercapnia; G93.40 Encephalopathy, unspecified; I50.32 Chronic diastolic (congestive) heart failure; J44.0 Chronic obstructive pulmonary disease with (acute) lower respiratory infection; Z66 Do not resuscitate; Z92.3 Personal history of irradiation; Z92.21 Personal history of antineoplastic chemotherapy; R13.10 Dysphagia, unspecified; Z99.81 Dependence on supplemental oxygen; R77.8 Other specified abnormalities of plasma proteins; D50.9 Iron deficiency anemia, unspecified; I11.0 Hypertensive heart disease with heart failure; G43.909 Migraine, unspecified, not intractable, without status migrainosus; Z79.899 Other long term (current) drug therapy; Z20.822 Contact with and (suspected) exposure to COVID-19